=== PATIENT | female | born 1960 | race Caucasian/White ===

== ENCOUNTER 2024-09-20 17:59 | Emergency (ER) | payer OTHER, SELFPAY ==
[2024-09-20 18:46] VITALS: BP 177/93; PULSE 94; RESP 18; TEMP 36.9; O2SAT 99
[2024-09-20 18:47] VITALS: BMI 30.4
--- NOTE | 2024-09-20 19:14 | PD.EDADULT ---
ED General RME/HPI General Chief complaint: Skin/Abscess/Foreign Body Stated complaint: [place] RING STUCK BLISTERS ON FINGER Time Seen by Provider: 09/20/24 19:06 Arrival date/time: 09/20/24 17:59 RME / HPI RME / HPI narrative: This section includes all my notes and documentations, including HPI, PE, and ED course. Mal Ross MD HPI: 64-year-old female here with very tight wedding ring on her left fourth finger since yesterday. Distally, the finger is very swollen with blisters. No other complaints. ROS: Musculoskeletal: negative except as documented in HPI. Skin: negative except as documented in HPI. Neurological: negative except as documented in HPI. Physical Exam: General: Alert and oriented. No acute distress. Eyes: Conjunctivae and lids clear. Lungs: No respiratory distress. Skin: Warm and dry. Neuro: Alert and oriented X 3. Left 4th Finger: Remarkable for very tight ring with multiple blisters, varying in size and shape. Using a ring cutter, the ring was cut off successfully. Recommended supportive care. Based on my best medical judgment, made decision no further evaluation or treatment indicated at this time. Patient understands and agrees to the discharge instructions customized and printed, see below. Mal Ross MD Related Data Home Medications ?Medication ?Instructions ?Recorded ?Confirmed diazepam 10 mg tablet (Valium) 10 mg PO BID ##0 04/10/13 02/04/22 pantoprazole 40 mg tablet,delayed 40 mg PO QDAY ##0 11/21/14 02/04/22 release (Protonix) duloxetine 60 mg capsule,delayed 120 mg PO BID 08/19/18 02/04/22 release gabapentin 300 mg capsule 600 mg PO QDAY 08/19/18 02/04/22 pioglitazone 30 mg tablet 30 mg PO QDAY 08/19/18 02/04/22 pravastatin 40 mg tablet 40 mg PO QDAY 08/19/18 02/04/22 tizanidine 4 mg tablet 4 mg PO BID 08/19/18 02/04/22 insulin glargine 100 unit/mL (3 55 unit subcut QPM 09/20/21 02/04/22 mL) subcutaneous pen (Lantus Solostar U-100 Insulin) lisinopril 5 mg tablet 5 mg PO QDAY 09/20/21 02/04/22 metformin 1,000 mg tablet 1,000 mg PO BID 09/20/21 02/04/22 potassium chloride 8 mEq 8 meq PO QDAY 09/20/21 02/04/22 tablet,extended release trazodone 100 mg tablet 200 mg PO BID 09/20/21 02/04/22 zolpidem 10 mg tablet 10 mg PO QPM 09/20/21 02/04/22 dapagliflozin propanediol 5 mg 5 mg PO QAM 02/04/22 02/04/22 tablet (Farxiga) quetiapine 100 mg tablet (Seroquel) 100 mg PO QPM 02/04/22 02/04/22 Previous Rx's ?Medication ?Instructions ?Recorded tramadol 50 mg tablet 50 mg PO TID PRN pain #20 tabs 09/18/22 Allergies Allergy/AdvReac Type Severity Reaction Status Date / Time garlic Allergy Severe Difficulty Verified 09/20/24 18:04 Breathing onion Allergy Severe Difficulty Verified 09/20/24 18:04 Breathing oregano Allergy Severe Difficulty Verified 09/20/24 18:04 Breathing pepper (genus Capsicum) Allergy Severe Difficulty Verified 09/20/24 18:04 Breathing phenylephrine Allergy Severe SEVER Verified 09/20/24 18:04 ANXIETY, HALLUCINATION adhesive tape Allergy Mild Rash Verified 09/20/24 18:04 oxymetazoline Allergy Unknown Verified 09/20/24 18:04 xylometazoline Allergy Unknown Verified 09/20/24 18:04 ondansetron HCl AdvReac Mild Vomiting Verified 09/20/24 18:04 Course Quality Measures none Vital Signs Vital signs: Vital Signs Temperature 98.5 F 09/20/24 18:46 Pulse Rate 94 09/20/24 18:46 Respiratory Rate 18 09/20/24 18:46 Blood Pressure 177/93 H 09/20/24 18:46 Pulse Oximetry (%) 99 09/20/24 18:46 Oxygen Delivery Method Room Air 09/20/24 18:46 [facility] Patient data External records reviewed:: [facility] previous records Clinical information provided by:: patient and spouse Social determinants that could affect healthcare access:: none Patient has the following chronic illnesses:: See chart How is presenting disease/condition affected by chronic disease/condition?: uneffected by Evaluation data The following diagnostics were reviewed and interpreted by me:: other (specify) (None) Lab and/or radiology exams considered but not ordered:: None Interpretation Summary: Not applicable Medications Medications considered but not ordered:: None Medication administrations:: None Consultations Consultation(s) initiated? (list below): No Diagnosis Differential Diagnosis ED Complaint MDM: Tight ring Most likely diagnosis given after review of the tests above:: Not applicable Admission Indicated Admission indicated?: not indicated Explain why admission is indicated or not indicated:: No criteria for admission Admission Request Was there a request for admission?: No Disposition Plan Disposition Plan: Discharge Discharge Attestation Discharge Attestation: The patient and all family members were given an opportunity to ask questions and understood the discharge instructions. Discharge instructions specifically effects, indications for sooner follow up or return to the emergency department, and the expected course of current diagnosis. Patient condition: Stable Medical Decision Making Differential Diagnosis Differential Diagnosis: Tight ring Discharge Plan Plan Patient Disposition: HOME (Self Care) Prescriptions/Referrals Prescriptions/Med Rec: No Action diazepam [Valium] 10 MG tablet 10 mg PO BID Qty: 0 pantoprazole [Protonix] 40 MG tablet,delayed release (DR/EC) 40 mg PO QDAY Qty: 0 Patient Comments: TO SUPPRESS GASTRIC SECRETIONS pravastatin 40 mg Tablet 40 mg PO QDAY tizanidine 4 mg Tablet 4 mg PO BID gabapentin 300 mg Capsule 600 mg PO QDAY pioglitazone 30 mg Tablet 30 mg PO QDAY duloxetine 60 mg Capsule,Delayed Release(Dr/Ec) 120 mg PO BID potassium chloride 8 mEq tablet extended release 8 meq PO QDAY trazodone 100 mg Tablet 200 mg PO BID metformin 1,000 mg tablet 1,000 mg PO BID lisinopril 5 mg tablet 5 mg PO QDAY Rx Instructions: SBP>140/80 zolpidem 10 mg tablet 10 mg PO QPM Lantus Solostar U-100 Insulin 100 unit/mL (3 mL) insulin pen 55 unit SUBCUT QPM Farxiga 5 mg Tablet 5 mg PO QAM quetiapine [Seroquel] 100 mg Tablet 100 mg PO QPM tramadol 50 mg tablet 50 mg PO TID PRN (Reason: pain) Qty: 20 0RF Problem List Clinical Impression: Tight ring on finger Patient/Caregiver Discharge Instructions Discharge Activity: activity as tolerated Additional Instructions: Discharge instructions from Dr. Ross: 1. Unfortunately, we had to cut your ring off of your left 4th finger. 2. Elevate above the heart for 48 hours is much as possible. Best method is to place the hand on your head. 3. Try not to pop the blisters which can increase risk of infection. 4. See a private doctor on 09/22/2024 for recheck. Ask to help until you are completely better without any infection. 5. Seek immediate medical care with fever, spreading redness, or with any concerns. Print Language: Amharic Stand Alone Forms: Kadie Award Info., Patient Portal Info Letter
== END 2024-09-20 19:31 | disposition home or self-care (01) ==
LOC: SERX 19:19
PROVIDERS: Emergency Provider Emergency Medicine; PCP Family Medicine
DX: S60.444A External constriction of right ring finger, initial encounter (principal); W49.04XA Ring or other jewelry causing external constriction, initial encounter
CPT/HCPCS: 99281

== ENCOUNTER 2024-09-28 15:48 | Inpatient (IN) | payer OTHER, MEDICARE, SELFPAY ==
[2024-09-28] VITALS (27 sets, daily range): BP systolic 91–221; BP diastolic 57–118; PULSE 96–132; RESP 14–29; TEMP 36–36.7; O2SAT 88–100; BMI 30.4
--- NOTE | 2024-09-28 16:33 | XR_ITS ---
Examination: AP chest single view Technique: AP portable sitting chest single view Exam date and time: September 28, 2024 1648 hrs. Comparison September 20, 2021 Indications: Shortness of breath today. Findings: Soft bilateral lung opacities consistent with pneumonia Normal heart size Intact osseous structures Impression: Significant bilateral pneumonia
[2024-09-28] MEDS: SODIUM CHLORIDE RT SOL 0.9% 3 ML NEBU INH ×2 (16:40→19:14)
[2024-09-28] MEDS: ALBUTEROL RT 2.5 MG/0.5 ML NEBU 10 MG INH ×2 (16:41→19:10)
[2024-09-28 16:49] LABS: Collection Type, Urine Catheter
[2024-09-28 16:52] LABS: Basophils % (Auto) 0 % (0-2.5); Eosinophils # (Auto) 0.2 Thou/mm3 (0.0-0.5); Eosinophils % (Auto) 1 % (0-10); Hematocrit 43.8 % (36.0-46.0); Hemoglobin 14.4 g/dL (12.0-16.0); Immature Granulocytes % (Auto) 1 % (0-0); Immature Granulocytes Auto 0.16 Thou/mm3 (0.00-0.00); Lymphocytes # (Auto) 0.9 Thou/mm3 (1.0-4.8); Lymphocytes % (Auto) 5 % (10-50); Mean Corpuscular HGB Conc 32.9 g/dl (31.0-37.0); Mean Corpuscular Hemoglobin 27.7 pg (25.0-35.0); Mean Corpuscular Volume 84 fL (80-100); Monocytes # (Auto) 0.9 Thou/mm3 (0.0-0.8); Monocytes % (Auto) 6 % (0-12); Neutrophils # (Auto) 13.9 Thou/mm3 (1.8-7.7); Neutrophils % (Auto) 87 % (37-80); Nucleated Red Blood Cell % 0 /100 WBC (0); Platelet Count 293 Thou/mm3 (140-440)
[2024-09-28] MEDS: predniSONE 20 MG TABLET 60 MG PO (17:00)
[2024-09-28 17:01] LABS: Lactate (Lactic Acid) 6.8 mMol/L (0.4-2.0)
[2024-09-28] MEDS: SODIUM CHLORIDE 0.9% 1000 ML 1,000 ML 999 ML IV ×3 (17:03→18:14)
[2024-09-28] MEDS: cefTRIAXone/D5w 1gm IV premix 50 ML IV (17:04)
[2024-09-28 17:18] LABS: B-Type Natriuretic Peptide 63 pg/mL (0-100)
[2024-09-28 17:24] LABS: Amorphous Crystals,Urine Present (Absent); Bilirubin,Urine 1+ (Negative); Blood,Urine 1+ (Negative); Color,Urine Yellow (Lt Yel-Yel); Glucose, Urine 3+ (Negative); Granular Casts,Urine 1 /hpf (0-1); Ketones,Urine Trace (Negative); Leukocyte Esterase,Urine Negative (Negative); Nitrite,Urine Negative (Negative); PH,Urine 5.5 (5.0-7.0); Protein,Urine 1+ (Neg - Trace); RBC,Urine 1 /hpf (0-3); Specific Gravity,Urine 1.025 (1.001-1.035); Squamous Epithelial Cell,Urine 2 /hpf (0-5); Transitional Epi Cells,Urine < 1 /hpf (0-5); WBC,Urine 2 /hpf (0-5)
[2024-09-28 17:26] LABS: Clarity,Urine Hazy (Clear/Hazy)
[2024-09-28 17:27] LABS: Amphetamine/Methamp Scrn,U Negative (Negative); Barbiturate Screen,Urine Negative (Negative); Benzodiazepines Screen,Urine Positive (Negative); Benzoylecgonine Screen, Ur Negative (Negative); Fentanyl Screen,Urine Negative (Negative); Opiate Screen,Urine Negative (Negative); THC Screen,Urine Negative (Negative)
[2024-09-28 17:27] LABS: Alanine Aminotransferase 39 U/L (10-49); Albumin/Globulin Ratio 1.7 (1.2-2.2); Alcohol, Blood Medical < 3.0 mg/dL (0-10.0); Alkaline Phosphatase 243 U/L (46-116); Anion Gap 20 (7-16); Aspartate Amino Transferase 56 U/L (0-34); BUN/Creatinine Ratio 23 Ratio (12-20); Bilirubin,Total 2.3 mg/dL (0.3-1.2); Blood Urea Nitrogen 51 mg/dL (9-23); Calcium 7.8 mg/dL (8.3-10.6); Calcium (Corrected) 7.8 mg/dL (8.5-10.1); Carbon Dioxide 22.4 mMol/L (20.0-31.0); Chloride 91 mMol/L (98-107); Creatinine (Component) 2.2 mg/dL (0.6-1.3); Estimated Creatinine Clearance 26.2 mL/min (>60); Globulin 2.4 gm/dL (2.3-3.5); Glucose 347 mg/dL (74-106); Osmolality,Calculated 294 (275-295); Potassium 3.7 mMol/L (3.4-5.1); Procalcitonin 12.65 ng/ml (0.0-0.49); Sodium 133 mMol/L (136-145); Total Protein 6.4 gm/dL (5.7-8.2); Troponin I < 0.020 ng/mL (0.0-0.045); eGFR 25 See Note
--- NOTE | 2024-09-28 17:29 | XR_ITS ---
Examination: CT brain head without contrast. 2-D sagittal coronal reconstructions Date and time of exam:September 28, 20249 hrs. Indications: Altered mental status today Comparison: September 18, 2022 CTDI: vol (mGy):49.80 DLP: (mGycm):1033 Technique: Multiple CT axial sections of the brain have been obtained, 5 mm slice thickness. Contrast has not been administered. 2-D sagittal, coronal reconstructions have been obtained Low dose protocols were performed. One or more of the following dose reduction techniques were used; automated exposure control, adjustment of the mA and/or KV according to patient size, use of iterative reconstruction technique. Findings: No significant ventricular enlargement. Intra-axial or extra-axial hemorrhage density is not seen. No mass effect or midline shift Basal cisterns are not remarkable. Fourth ventricle is midline. Cranial vault intact. Impression: Negative for acute hemorrhage, mass effect or midline shift If symptoms persist, consider brain MRI follow-up
--- NOTE | 2024-09-28 17:30 | PD.EDADULT ---
ED General RME/HPI General Chief complaint: Flu Like Symptoms Stated complaint: COUGH X2WK, FEELS LIKE I CANT BREATHE Time Seen by Provider: 09/28/24 16:28 Arrival date/time: 09/28/24 15:48 RME / HPI RME / HPI narrative: 64-year-old female with a history of chronic pain, asthma, insulin-dependent diabetes, who presents to the emergency department with generalized fatigue, increasing shortness of breath that started off with a cough approximately 3 to 5 days ago. Patient is otherwise lethargic and cannot offer further history, history is primarily given by the . He does note sick contacts and grandchildren's during the holidays, however he feels that his symptoms started with her. She has a history of exercise-induced asthma and has a albuterol inhaler but has not administered dosages to her. She does take methadone nightly of which last night she was too tired to take . When she was last here in the emergency department for a trapped ring on her left finger she did follow-up with Dr Painter 2 days afterwards for the blisters on her finger. Her cough had started that day of which Dr Painter noted. They discussed the possibility of taking oral antibiotics, however she felt she did not need them at that time. Related Data Home Medications ?Medication ?Instructions ?Recorded ?Confirmed diazepam 10 mg tablet (Valium) 10 mg PO BID ##0 04/10/13 02/04/22 pantoprazole 40 mg tablet,delayed 40 mg PO QDAY ##0 11/21/14 02/04/22 release (Protonix) duloxetine 60 mg capsule,delayed 120 mg PO BID 08/19/18 02/04/22 release gabapentin 300 mg capsule 600 mg PO QDAY 08/19/18 02/04/22 pioglitazone 30 mg tablet 30 mg PO QDAY 08/19/18 02/04/22 pravastatin 40 mg tablet 40 mg PO QDAY 08/19/18 02/04/22 tizanidine 4 mg tablet 4 mg PO BID 08/19/18 02/04/22 insulin glargine 100 unit/mL (3 55 unit subcut QPM 09/20/21 02/04/22 mL) subcutaneous pen (Lantus Solostar U-100 Insulin) lisinopril 5 mg tablet 5 mg PO QDAY 09/20/21 02/04/22 metformin 1,000 mg tablet 1,000 mg PO BID 09/20/21 02/04/22 potassium chloride 8 mEq 8 meq PO QDAY 09/20/21 02/04/22 tablet,extended release trazodone 100 mg tablet 200 mg PO BID 09/20/21 02/04/22 zolpidem 10 mg tablet 10 mg PO QPM 09/20/21 02/04/22 dapagliflozin propanediol 5 mg 5 mg PO QAM 02/04/22 02/04/22 tablet (Farxiga) quetiapine 100 mg tablet (Seroquel) 100 mg PO QPM 02/04/22 02/04/22 Previous Rx's ?Medication ?Instructions ?Recorded tramadol 50 mg tablet 50 mg PO TID PRN pain #20 tabs 09/18/22 Allergies Allergy/AdvReac Type Severity Reaction Status Date / Time garlic Allergy Severe Difficulty Verified 09/28/24 15:51 Breathing onion Allergy Severe Difficulty Verified 09/28/24 15:51 Breathing oregano Allergy Severe Difficulty Verified 09/28/24 15:51 Breathing pepper (genus Capsicum) Allergy Severe Difficulty Verified 09/28/24 15:51 Breathing phenylephrine Allergy Severe SEVER Verified 09/28/24 15:51 ANXIETY, HALLUCINATION adhesive tape Allergy Mild Rash Verified 09/28/24 15:51 oxymetazoline Allergy Unknown Verified 09/28/24 15:51 xylometazoline Allergy Unknown Verified 09/28/24 15:51 ondansetron HCl AdvReac Mild Vomiting Verified 09/28/24 15:51 Review of Systems Review of Systems Systems Reviewed: All systems reviewed, normal except as documented ED Exam Narrative Physical exam: GENERAL APPEARANCE: Awake, oriented x 1, lethargic, slow to answer questions and fatigues with questions, mild increased work of breathing HEENT: NC, AT. MMM. EOMI, clear conjunctiva, oropharynx clear. NECK: Supple without lymphadenopathy. No stiffness or restricted ROM. HEART: Normal rate and regular rhythm, normal S1/S1, no m/r/g LUNGS: Diminished breath sounds in all lung lloyd, gill expiratory wheezes, coarse rhonchi, no crackles ABDOMEN: Soft, nontender, nondistended with good bowel sounds heard. BACK: No midline C/T/L spine pain or deformity, No CVAT, no obvious deformity. EXTREMITIES: Without cyanosis, clubbing or edema. MUSCULOSKELETAL: FROM of all major joints, no chest tenderness NEUROLOGICAL: Grossly nonfocal. Alert moving all 4 extremities. CN not formally tested but appear grossly intact. Observed to ambulate with normal gait. Skin: Warm and dry without any rash. Course Quality Measures Current suspected stage: septic shock (LA >4 and/or hypotension) Sepsis reassessment completed at (date): 09/28/24 Sepsis reassessment completed at (time): 17:20 Possible source: pulmonary Blood cultures ordered: yes Antibiotic ordered: Yes Pertinent labs: 09/28/24 16:15 Lactic Acid 6.8 H* mMol/L (0.4-2.0) Procalcitonin 12.65 H ng/ml (0.0-0.49) sepsis Orders Category Date Time Status Bedside COVID-19 Antigen Test NOW Care 09/28/24 16:18 Active Bedside Influenza A&B Antigen Test NOW Care 09/28/24 16:[address] Screening NOW Care 09/28/24 17:30 Active EKG (ED ONLY) *Do not use* NOW Care 09/28/24 16:[address] abd pel w con SEPSIS YOGESH Stat Exams 09/28/24 17:[address] chest w con SEPSIS PROTOCOL Stat Exams 09/28/24 17:[address] head/brain wo con Stat Exams 09/28/24 17:29 Ordered EKG (ED Only) Stat Exams 09/28/24 16:33 Ordered XR chest 1V Stat Exams 09/28/24 16:33 Taken Alcohol, Blood Medical Stat Lab 09/28/24 16:15 Completed BNP [B-Type Natriuretic Peptide] Stat Lab 09/28/24 16:15 Completed Blood Culture (Lab) Stat Lab 09/28/24 16:41 Received CBC Stat Lab 09/28/24 16:15 Completed CMP [Comprehensive Metabolic Panel] Stat Lab 09/28/24 16:15 Completed Drug Screen,Urine Stat Lab 09/28/24 16:39 Completed Lactate (Lactic Acid) Stat Lab 09/28/24 16:15 Results Procalcitonin Stat Lab 09/28/24 16:15 Completed Troponin I Stat Lab 09/28/24 16:15 Completed Urinalysis Stat Lab 09/28/24 16:39 Completed ALBUTEROL RT 0.5ml [Proventil Rt 0.5ml] Med 09/28/24 16:28 Discontinued 10 mg INH X1 ONE Sodium Chloride 0.9% 1000 ml [Ns] 1,000 ml Med 09/28/24 16:28 Discontinued IV 999 mls/hr Sodium Chloride 0.9% 1000 ml [Ns] 1,000 ml Med 09/28/24 17:16 Active IV 999 mls/hr Sodium Chloride Rt Kamille 0.9% [NS Rt Kamille 0.9%] Med 09/28/24 16:28 Active 3 ml INH PRN PRN cefTRIAXone/D5w 1gm IV premix [Rocephin/D5w 1gm IV Med 09/28/24 16:34 Discontinued premix] 50 ml IV X1 predniSONE Med 09/28/24 16:28 Discontinued 60 mg PO X1 ONE Vital Signs Vital signs: Vital Signs Temperature 97.7 F 09/28/24 15:59 Pulse Rate 123 H 09/28/24 15:59 Respiratory Rate 22 H 09/28/24 15:59 Blood Pressure 91/65 09/28/24 15:59 Pulse Oximetry (%) 88 L 09/28/24 15:59 Oxygen Delivery Method Room Air 09/28/24 15:59 SpO2 88% on room air, patient is hypoxic Procedures -ED EKG Interpretation #1: Date of EK09/28/24 Time of EK:21 Rate: 108 Interpretation: Interpreted by me EKG Impression: No acute ST-T changes, Sinus tachycardia, Normal intervals and Normal axis MDM Patient data External records reviewed:: [facility] previous records Clinical information provided by:: patient and spouse Social determinants that could affect healthcare access:: none Patient has the following chronic illnesses:: Chronic pain, asthma How is presenting disease/condition affected by chronic disease/condition?: exacerbated by Evaluation data The following diagnostics were reviewed and interpreted by me:: lab results, radiology exam(s) and EKG tracing(s) Lab and/or radiology exams considered but not ordered:: Workup pending Interpretation Summary: Workup pending Medications Medications considered but not ordered:: Workup pending Medication administrations:: Medication Administration History Sodium Chloride (Ns) 1,000 mls @ 999 mls/hr IV .Q1H1M ONE Stop: 09/28/24 18:16 Sodium Chloride (Sodium Chloride Rt Kamille 0.9% 3 Ml Nebu) 3 ml INH PRN PRN PRN Reason: SOLN Stop: 10/28/24 16:27 Last Admin: 09/28/24 16:40 Dose: 3 ml Documented By: MR Discontinued Medications Albuterol (Albuterol Rt 2.5 Mg/0.5 Ml Nebu) 10 mg INH X1 ONE Stop: 09/28/24 16:29 Last Admin: 09/28/24 16:41 Dose: 10 mg Documented By: Comments: talked with and she is not allergic to albuterol Sodium Chloride (Ns) 1,000 mls @ 999 mls/hr IV .Q1H1M ONE Stop: 09/28/24 17:28 Last Admin: 09/28/24 17:03 Dose: 999 mls/hr Documented By: GM Ceftriaxone Sodium/Dextrose (Rocephin/D5w 1gm Iv Premix) 50 mls @ 100 mls/hr IV X1 ONE Stop: 09/28/24 17:03 Last Admin: 09/28/24 17:04 Dose: 100 mls/hr Documented By: GM Prednisone (Prednisone 20 Mg Tablet) 60 mg PO X1 ONE Stop: 09/28/24 16:29 Last Admin: 09/28/24 17:00 Dose: 60 mg Documented By: J LUIS Above Consultations Consultation(s) initiated? (list below): No Diagnosis Differential Diagnosis ED Complaint MDM: Pneumonia, UTI, sepsis, severe sepsis Most likely diagnosis given after review of the tests above:: Workup pending Admission Indicated Admission indicated?: indicated Explain why admission is indicated or not indicated:: Workup pending Admission Request Was there a request for admission?: No Admission Attestation Admission request attestation: Workup pending Disposition Plan Disposition Plan: other (specify) (Workup pending) Medical Decision Making MDM Narrative MDM Narrative: Ms. Oviedo presents to the emergency department with cough, lethargy, altered mental status for the last week. It seems like symptoms have started off with a cough and has a chronic deterioration since. She had seen her primary care doctor at that time and through shared decision making sounds like they did not start antibiotics. Today she presents with hypotension, rectal temperature, hypoxia, and altered mental status is consistent with severe sepsis. As a result sepsis alert was initiated and aggressive treatment was started. She was aggressively treated with 2 L normal saline boluses with improvement and normalization of her blood pressure. Pulmonary exam shows gill expiratory wheezes and coarse crackles therefore she was aggressively treated with hour-long nebulized bronchodilators and oral steroids. Laboratory testing was significant for a elevated white blood cell count at 16,000, elevated lactic at 6.3, and a procalcitonin of 12. She also does exhibit acute on chronic kidney injury with a creatinine today of 2.2 up from a creatinine of 1.0 done on July 08, 2024. Chest x-ray is poor inspiratory effort, with some faint hazy interstitial markings, however there is not a definitive infiltrate. Blood cultures were sent and she was started on ceftriaxone for pneumonia coverage. Due to her lethargy and altered mental status, head CT will be required, and as a result I feel that she would benefit from CT of the chest abdomen pelvis for further confirm source of infection. Differential Diagnosis Differential Diagnosis: Pneumonia, UTI, sepsis, severe sepsis Lab Data 09/28/24 16:15 09/28/24 16:15 Labs: Lab Results 09/28/24 09/28/24 Range/Units 16:15 16:39 WBC 16.0 H (3.6-11.0) Thou/mm3 RBC 5.20 (4.00-5.20) Miln/mm3 Hgb 14.4 (12.0-16.0) g/dL Hct 43.8 (36.0-46.0) % MCV 84 (80-100) fL MCH 27.7 (25.0-35.0) pg MCHC 32.9 (31.0-37.0) g/dl RDW Std Deviation 43.0 (36.4-46.3) fL Plt Count 293 (140-440) Thou/mm3 Neut % (Auto) 87 H (37-80) % Lymph % (Auto) 5 L (10-50) % Burke % (Auto) 6 (0-12) % Eos % (Auto) 1 (0-10) % Baso % (Auto) 0 (0-2.5) % Neut # (Auto) 13.9 H (1.8-7.7) Thou/mm3 Lymph # (Auto) 0.9 L (1.0-4.8) Thou/mm3 Burke # (Auto) 0.9 H (0.0-0.8) Thou/mm3 Eos # (Auto) 0.2 (0.0-0.5) Thou/mm3 Baso # (Auto) 0.0 (0.0-0.2) Thou/mm3 Immature Gran # (Auto) 0.16 H (0.00-0.00) Thou/mm3 Absolute Nucleated RBC 0.00 (0.00-0.00) Thou/mm3 Immature Gran % 1 H (0-0) % Nucleated RBC % 0 (0) /100 WBC Sodium 133 L (136-145) mMol/L Potassium 3.7 (3.4-5.1) mMol/L Chloride 91 L (98-107) mMol/L Carbon Dioxide 22.4 (20.0-31.0) mMol/L Anion Gap 20 H (7-16) BUN 51 H (9-23) mg/dL Creatinine 2.2 H (0.6-1.3) mg/dL Estim Creat Clear Calc 26.2 L (>60) mL/min eGFR 25 L (60 - ) See Note BUN/Creatinine Ratio 23 H (12-20) Ratio Glucose 347 H (74-106) mg/dL Calculated Osmolality 294 (275-295) Lactic Acid 6.8 H* (0.4-2.0) mMol/L Calcium 7.8 L (8.3-10.6) mg/dL Corrected Calcium 7.8 L (8.5-10.1) mg/dL Total Bilirubin 2.3 H (0.3-1.2) mg/dL AST 56 H (0-34) U/L ALT 39 (10-49) U/L Alkaline Phosphatase 243 H (46-116) U/L Troponin I < 0.020 (0.0-0.045) ng/mL B-Natriuretic Peptide 63 (0-100) pg/mL Total Protein 6.4 (5.7-8.2) gm/dL Albumin 4.0 (3.4-4.8) gm/dL Globulin 2.4 (2.3-3.5) gm/dL Albumin/Globulin Ratio 1.7 (1.2-2.2) Procalcitonin 12.65 H (0.0-0.49) ng/ml Ur Collection Type Catheter Urine Color Yellow (Lt Yel-Yel) Urine Clarity Hazy (Clear/Hazy) Urine pH 5.5 (5.0-7.0) Ur Specific Preston 1.025 (1.001-1.035) Urine Protein 1+ A (Neg - Trace) Urine Glucose (UA) 3+ A (Negative) Urine Ketones Trace (Negative) Urine Blood 1+ A (Negative) Urine Nitrite Negative (Negative) Urine Bilirubin 1+ A (Negative) Urine Urobilinogen (Auto) 4.0 (0.0-1.0) mg/dL Ur Leukocyte Esterase Negative (Negative) Urine RBC 1 (0-3) /hpf Urine WBC 2 (0-5) /hpf Ur Squamous Epith Cells 2 (0-5) /hpf Ur Transition Epith Cell < 1 (0-5) /hpf Amorphous Crystals Present A (Absent) Urine Bacteria None (None) Granular Casts 1 (0-1) /hpf Urine Opiates Screen Negative (Negative) Urine Fentanyl Screen Negative (Negative) Ur Barbiturates Screen Negative (Negative) U Amphetamin/Meth Scrn Negative (Negative) U Benzodiazepines Scrn Positive A (Negative) U Cocaine Metab Screen Negative (Negative) U Marijuana (THC) Screen Negative (Negative) Ethyl Alcohol < 3.0 (0-10.0) mg/dL Critical Care Time Critical Care Time Critical Care Time: Yes Total Critical Care Time (min.): 45 Attestation: Excluding billable procedures for the rapid response, analysis, management, treatment, and documentation to vent the very possible risk of cardiovascular/pulmonary decompensation or . Discharge Plan Plan Patient Disposition: Admit Acute Care w/in Hospital Prescriptions/Referrals Prescriptions/Med Rec: No Action diazepam [Valium] 10 MG tablet 10 mg PO BID Qty: 0 pantoprazole [Protonix] 40 MG tablet,delayed release (DR/EC) 40 mg PO QDAY Qty: 0 Patient Comments: TO SUPPRESS GASTRIC SECRETIONS pravastatin 40 mg Tablet 40 mg PO QDAY tizanidine 4 mg Tablet 4 mg PO BID gabapentin 300 mg Capsule 600 mg PO QDAY pioglitazone 30 mg Tablet 30 mg PO QDAY duloxetine 60 mg Capsule,Delayed Release(Dr/Ec) 120 mg PO BID potassium chloride 8 mEq tablet extended release 8 meq PO QDAY trazodone 100 mg Tablet 200 mg PO BID metformin 1,000 mg tablet 1,000 mg PO BID lisinopril 5 mg tablet 5 mg PO QDAY Rx Instructions: SBP>140/80 zolpidem 10 mg tablet 10 mg PO QPM Lantus Solostar U-100 Insulin 100 unit/mL (3 mL) insulin pen 55 unit SUBCUT QPM Farxiga 5 mg Tablet 5 mg PO QAM quetiapine [Seroquel] 100 mg Tablet 100 mg PO QPM tramadol 50 mg tablet 50 mg PO TID PRN (Reason: pain) Qty: 20 0RF Referrals: Finn Painter MD [Primary Care Provider] - In 1 week Problem List Clinical Impression: Severe sepsis, Hypoxia, RAD (reactive airway disease) Patient/Caregiver Discharge Instructions Print Language: Mauritanian Stand Alone Forms: Kadie Award Info., Patient Portal Info Letter
--- NOTE | 2024-09-28 17:50 | XR_ITS ---
Examination: CT chest, without intravenous contrast. CT abdomen, without intravenous contrast. CT pelvis, without intravenous contrast. 2-D sagittal and coronal reconstructions. 3-D reconstructions. Date and time of exam:September 28, 2024 2049 hrs. Indications: Sepsis protocol today, fever unknown origin CTDI vol (mgy) 12.81 DLP (MGycm)943 Technique: Multiple CT images, 3.0 mm slice thickness, obtained chest, abdomen, pelvis, with the high-resolution 64 slice scanner.. Sagittal and coronal 2-D reconstructions are obtained. 3-D reconstructions Low dose protocols were performed. One or more of the following dose reduction techniques were used; automated exposure control, adjustment of the mA and/or KV according to patient size, use of iterative reconstruction technique. Findings: No thoracic aortic aneurysm dilatation Pulmonary artery segments are not enlarged Extensive soft parenchymal opacities throughout both lungs Fatty infiltration throughout the liver, no liver or splenic lesion Absent gallbladder Atrophic pancreas No renal or ureteral calculi, no hydronephrosis Aortic calcification Abundant stool throughout the colon no obstruction No pericecal inflammatory change Colonic diverticulosis, no diverticulitis Moderately fluid distended bladder Impression: Extensive bilateral pneumonia No renal or ureteral calculi, no hydronephrosis Moderate stool throughout the colon
[2024-09-28] MEDS: LORazepam 2 MG/ML VIAL IVP (18:42)
--- NOTE | 2024-09-28 18:46 | PD.EDADDENDU ---
Emergency Room Addendum <Morelia Wilkins - Last Filed: 09/28/24 22:04> Addendum Narrative: 1800: Care assumed from Dr. Hopson, the previous shift emergency physician. Past medical, surgical, social and family history reviewed. Vitals and home medications reviewed. I will assume the care of the patient at this time, pending diagnostic tests and final disposition. Please refer to the emergency department record for history and examination from initial visit.? Called to bedside patient agitated and hypoxic, hypertensive 200s/100s. Skin mottled. Breath sounds upper airway noise and coarse crackles throughout. O2 sat 80s on 5 L nasal cannula. Stat orders patient placed on nonrebreather at 15 L, Lasix 40 mg IV, Nitropaste 1 inch anterior chest, BiPAP. Patient reevaluated post interventions saturating 97% on BiPAP, skin no longer mottled, appears comfortable. Stable. CRITICAL CARE: TIME: 60 minutes. The high probability of sudden, clinically significant deterioration in the patient?s condition required the highest level of my preparedness to intervene urgently. The services I provided to this patient were to treat and/or prevent clinically significant deterioration. Services included the following: chart data review, reviewing nursing notes and/or old charts, documentation time, datapower consultant collaboration regarding findings and treatment options, medication orders and management, direct patient care, vital sign assessments and ordering, interpreting and reviewing diagnostic studies and lab tests. Aggregate critical care time includes only time during which I was engaged in work directly related to the patient?s care, as described above, whether at bedside or elsewhere in the Emergency Department. It did not include time spent performing other reported procedures or the services of residents, students, nurses or physician assistants. RADIOLOGY Procedure(s): XR chest 1V Accession Number(s): [id number] cc: Finn Painter MD; Adán Hopson MD; Choco Arteaga MD~ Examination: AP chest single view Technique: AP portable sitting chest single view Exam date and time: September 28, 2024 1648 hrs. Comparison September 20, 2021 Indications: Shortness of breath today. Findings: Soft bilateral lung opacities consistent with pneumonia Normal heart size Intact osseous structures Impression: Significant bilateral pneumonia Dictated By: Choco Arteaga MD Procedure(s): CT head/brain wo con Accession Number(s): [id number] cc: Finn Painter MD; Adán Hopson MD; Choco Arteaga MD~ Examination: CT brain head without contrast. 2-D sagittal coronal reconstructions Date and time of exam:September 28, 2024 2039 hrs. Indications: Altered mental status today Comparison: September 18, 2022 CTDI: vol (mGy):49.80 DLP: (mGycm):1033 Technique: Multiple CT axial sections of the brain have been obtained, 5 mm slice thickness. Contrast has not been administered. 2-D sagittal, coronal reconstructions have been obtained Low dose protocols were performed. One or more of the following dose reduction techniques were used; automated exposure control, adjustment of the mA and/or KV according to patient size, use of iterative reconstruction technique. Findings: No significant ventricular enlargement. Intra-axial or extra-axial hemorrhage density is not seen. No mass effect or midline shift Basal cisterns are not remarkable. Fourth ventricle is midline. Cranial vault intact. Impression: Negative for acute hemorrhage, mass effect or midline shift If symptoms persist, consider brain MRI follow-up Dictated By: Choco Arteaga MD Procedure(s): CT chest abdomen pelvis wo Accession Number(s): [id number] cc: Finn Painter MD; Adán Hopson MD; Choco Arteaga MD~ Examination: CT chest, without intravenous contrast. CT abdomen, without intravenous contrast. CT pelvis, without intravenous contrast. 2-D sagittal and coronal reconstructions. 3-D reconstructions. Date and time of exam:September 28, 2024 2049 hrs. Indications: Sepsis protocol today, fever unknown origin CTDI vol (mgy) 12.81 DLP (MGycm)943 Technique: Multiple CT images, 3.0 mm slice thickness, obtained chest, abdomen, pelvis, with the high-resolution 64 slice scanner.. Sagittal and coronal 2-D reconstructions are obtained. 3-D reconstructions Low dose protocols were performed. One or more of the following dose reduction techniques were used; automated exposure control, adjustment of the mA and/or KV according to patient size, use of iterative reconstruction technique. Findings: No thoracic aortic aneurysm dilatation Pulmonary artery segments are not enlarged Extensive soft parenchymal opacities throughout both lungs Fatty infiltration throughout the liver, no liver or splenic lesion Absent gallbladder Atrophic pancreas No renal or ureteral calculi, no hydronephrosis Aortic calcification Abundant stool throughout the colon no obstruction No pericecal inflammatory change Colonic diverticulosis, no diverticulitis Moderately fluid distended bladder Impression: Extensive bilateral pneumonia No renal or ureteral calculi, no hydronephrosis Moderate stool throughout the colon Dictated By: Choco Arteaga MD <Tessa Tejeda MD - Last Filed: 10/07/24 22:02> Addendum Narrative: 1800: Care assumed from Dr. Hopson, the previous shift emergency physician. Past medical, surgical, social and family history reviewed. Vitals and home medications reviewed. I will assume the care of the patient at this time, pending diagnostic tests and final disposition. Please refer to the emergency department record for history and examination from initial visit.? Called to bedside patient agitated and hypoxic, hypertensive 200s/100s. Skin mottled. Breath sounds upper airway noise and coarse crackles throughout. O2 sat 80s on 5 L nasal cannula. Stat orders patient placed on nonrebreather at 15 L, Lasix 40 mg IV, Nitropaste 1 inch anterior chest, BiPAP. Patient reevaluated post interventions saturating 97% on BiPAP, skin no longer mottled, appears comfortable. Stable. <Dat Márquez - Last Filed: 09/29/24 05:49> Addendum Narrative: 1800: Care assumed from Dr. Hopson, the previous shift emergency physician. Past medical, surgical, social and family history reviewed. Vitals and home medications reviewed. I will assume the care of the patient at this time, pending diagnostic tests and final disposition. Please refer to the emergency department record for history and examination from initial visit.? Called to bedside patient agitated and hypoxic, hypertensive 200s/100s. Skin mottled. Breath sounds upper airway noise and coarse crackles throughout. O2 sat 80s on 5 L nasal cannula. Stat orders patient placed on nonrebreather at 15 L, Lasix 40 mg IV, Nitropaste 1 inch anterior chest, BiPAP. Patient reevaluated post interventions saturating 97% on BiPAP, skin no longer mottled, appears comfortable. Stable. 2349 Hospitalist made aware of the patient?s HPI, PMHx, lab and/or radiology results. Treatment plan was discussed. Will admit for further evaluation and management. Accepts patient for admission. CRITICAL CARE: TIME: 60 minutes. The high probability of sudden, clinically significant deterioration in the patient?s condition required the highest level of my preparedness to intervene urgently. The services I provided to this patient were to treat and/or prevent clinically significant deterioration. Services included the following: chart data review, reviewing nursing notes and/or old charts, documentation time, datapower consultant collaboration regarding findings and treatment options, medication orders and management, direct patient care, vital sign assessments and ordering, interpreting and reviewing diagnostic studies and lab tests. Aggregate critical care time includes only time during which I was engaged in work directly related to the patient?s care, as described above, whether at bedside or elsewhere in the Emergency Department. It did not include time spent performing other reported procedures or the services of residents, students, nurses or physician assistants. RADIOLOGY Procedure(s): XR chest 1V Accession Number(s): [id number] cc: Finn Painter MD; Adán Hopson MD; Choco Arteaga MD~ Examination: AP chest single view Technique: AP portable sitting chest single view Exam date and time: September 28, 2024 1648 hrs. Comparison September 20, 2021 Indications: Shortness of breath today. Findings: Soft bilateral lung opacities consistent with pneumonia Normal heart size Intact osseous structures Impression: Significant bilateral pneumonia Dictated By: Choco Arteaga MD Procedure(s): CT head/brain wo con Accession Number(s): [id number] cc: Finn Painter MD; Adán Hopson MD; Choco Arteaga MD~ Examination: CT brain head without contrast. 2-D sagittal coronal reconstructions Date and time of exam:September 28, 2024 2039 hrs. Indications: Altered mental status today Comparison: September 18, 2022 CTDI: vol (mGy):49.80 DLP: (mGycm):1033 Technique: Multiple CT axial sections of the brain have been obtained, 5 mm slice thickness. Contrast has not been administered. 2-D sagittal, coronal reconstructions have been obtained Low dose protocols were performed. One or more of the following dose reduction techniques were used; automated exposure control, adjustment of the mA and/or KV according to patient size, use of iterative reconstruction technique. Findings: No significant ventricular enlargement. Intra-axial or extra-axial hemorrhage density is not seen. No mass effect or midline shift Basal cisterns are not remarkable. Fourth ventricle is midline. Cranial vault intact. Impression: Negative for acute hemorrhage, mass effect or midline shift If symptoms persist, consider brain MRI follow-up Dictated By: Choco Arteaga MD Procedure(s): CT chest abdomen pelvis wo Accession Number(s): [id number] cc: Finn Painter MD; Adán Hopson MD; Choco Arteaga MD~ Examination: CT chest, without intravenous contrast. CT abdomen, without intravenous contrast. CT pelvis, without intravenous contrast. 2-D sagittal and coronal reconstructions. 3-D reconstructions. Date and time of exam:September 28, 2024 2049 hrs. Indications: Sepsis protocol today, fever unknown origin CTDI vol (mgy) 12.81 DLP (MGycm)943 Technique: Multiple CT images, 3.0 mm slice thickness, obtained chest, abdomen, pelvis, with the high-resolution 64 slice scanner.. Sagittal and coronal 2-D reconstructions are obtained. 3-D reconstructions Low dose protocols were performed. One or more of the following dose reduction techniques were used; automated exposure control, adjustment of the mA and/or KV according to patient size, use of iterative reconstruction technique. Findings: No thoracic aortic aneurysm dilatation Pulmonary artery segments are not enlarged Extensive soft parenchymal opacities throughout both lungs Fatty infiltration throughout the liver, no liver or splenic lesion Absent gallbladder Atrophic pancreas No renal or ureteral calculi, no hydronephrosis Aortic calcification Abundant stool throughout the colon no obstruction No pericecal inflammatory change Colonic diverticulosis, no diverticulitis Moderately fluid distended bladder Impression: Extensive bilateral pneumonia No renal or ureteral calculi, no hydronephrosis Moderate stool throughout the colon Dictated By: Choco Arteaga MD
[2024-09-28] MEDS: FUROSEMIDE INJ 10 MG/ML 4ML VIAL 40 MG IVP (19:06)
[2024-09-28] MEDS: NITROGLYCERIN OINT 2% 1 INCH PACKET TOP (19:07)
[2024-09-28] MEDS: IPRATROPIUM RT 0.5 MG/ 2.5 ML NEBU INH (19:10)
[2024-09-28 19:47] LABS: Reflex Lactate? Y
[2024-09-28 20:16] LABS: Lactic Acid, 3 HR 8.1 mMol/L (0.4-2.0)
[2024-09-28] MEDS: AZITHROMYCIN INJ 500 MG in SODIUM CHLORIDE 0.9% 250 ML 250 ML 250 MG IV (22:52)
[2024-09-29] VITALS (55 sets, daily range): BP systolic 119–190; BP diastolic 66–137; PULSE 72–173; RESP 10–33; TEMP 36.2–37.1; O2SAT 87–100
[2024-09-29 00:09] LABS: Base Excess -7 (-3-3); HCO3 20 mEq/L (20-26); Inspired Oxygen, FIO2 70 %; O2 Saturation 92 % (91-98); PCO2 42 mmHg (32.0-48.0); PO2 72 mmHg (83-108); pH, Arterial 7.29 (7.35-7.45)
[2024-09-29 00:15] LABS: Allen Test Performed/OK; Puncture Site Left Radial
[2024-09-29 00:26] LABS: Lactate (Lactic Acid) 8.4 mMol/L (0.4-2.0)
[2024-09-29] MEDS: INSULIN HUM REGULAR 1 UNIT/0.01 ML (PER UNIT) 5 UNIT IV (00:34)
[2024-09-29] MEDS: SODIUM CHLORIDE 0.9% 1000 ML 1,000 ML 80 ML IV (00:35)
[2024-09-29] MEDS: SODIUM CHLORIDE RT 10% 15 ML NEBU 5 ML INH (00:39)
--- NOTE | 2024-09-29 00:39 | XR_ITS ---
Examination: Abdomen sonogram, Limited Date and time of exam: September 29, 2024 at 0117 hrs. Indications: Shortness of breath abdominal pain and tenderness in the right upper abdomen note is beginning one week ago Technique: Real-time brice scale transabdominal sonographic images of the upper abdomen obtained. Findings: Absent gallbladder Normal common bile duct 0.3 cm Pancreas obscured by bowel gas Liver 19.9 cm lobular contour no focal liver lesions Normal hepatopedal portal venous flow Patent IVC Impression: Absent gallbladder Normal common bile duct Hepatomegaly, primary hepatocellular disease versus cirrhosis no focal liver lesions
--- NOTE | 2024-09-29 00:42 | ESHP_ITS ---
Documentation for date of: 09/29/24 [facility] History of Present Illness History of present illness: The patient is a 65-year-old female with a past medical history of hypertension, hyperlipidemia, diabetes, chronic pain who presented to the ED for generalized weakness, cough that started about 4 days ago. Patient at time of interview is lethargic (possibly due to Ativan that was received for agitation) and is not at bedside and most of the history is gathered from chart review from the ED. Per the ED, the mentions that patient had some sick contacts during the holidays, however only she has had symptoms. There is no history of recent hospitalizations or illnesses apart from the ED visits about a week ago for tremoring to the left finger and blisters. The patient does report that her cough has been productive with whitish sputum with occasional shortness of breath but denied hemoptysis, chest pain, fevers or chills, abdominal pain, dysuria. ED course: In the ED, patient was noted to be hypoxic, saturating 88% on room air and so she was placed on BiPAP, she was also tachypneic but normotensive and afebrile. Labs showed WBC 16 Hgb 14.4 PLT 293 NA 130 3K3.7 CL 91 bicarb 22.4 anion gap 20 BUN 51 CR 2.2 glucose 347 lactic acid 6.8. Calcium 7.8 mag 1 T. bili 2.3 AST 56 ALP 243 Pro-Doyle 12.65. UA showed 1+ protein, 3+ glucose trace ketones 1+ bili, otherwise unremarkable. U tox is positive for benzos. In the ED, the patient had a COVID test done which was negative and received 2 L of NS as well as ceftriaxone and azithromycin, prednisone 60 mg and breathing treatments. Chest x-ray was done which showed significant bilateral pneumonia. The patient is being admitted for sepsis secondary to pneumonia. Review of Systems Review of Systems ROS Unobtainable: unobtainable due to medical condition Exam Vital Signs Temp Pulse Resp BP Pulse Ox O2 Del Method O2 Flow Rate 98.1 F 98 20 127/77 95 CPAP 8 09/28/24 22:49 09/28/24 22:49 09/28/24 22:49 09/28/24 22:49 09/28/24 23:53 09/28/24 22:49 09/28/24 23:53 FiO2 80 09/28/24 22:15 Narrative Exam GENERAL: AAOX3, lethargic, able to respond to questions and follow commands but slowly NEURO: RO[employer]ED [employer] grossly intact, moves extremities x4 HEENT: Dry mucosa. Eyes open, symmetrical, & clear CARDIO: No chest pain on palpation. Heart RRR, no obvious murmurs PULM: No noted coughing/dyspnea. Some diminishes lung souds in the right base, no wheezing GI: Abdomen soft, nondistended, no pain on palpation. 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 SKIN/MSK/EXT: No wounds/rashes/edema/amputations, no pain on palpation. Pedal pulses present B/L Results: Labs 09/28/24 16:15 09/28/24 16:15 Labs: Short CBC 09/28/24 Range/Units 16:15 WBC 16.0 H (3.6-11.0) Thou/mm3 Hgb 14.4 (12.0-16.0) g/dL Hct 43.8 (36.0-46.0) % Plt Count 293 (140-440) Thou/mm3 BMP 09/28/24 16:15 Sodium 133 L Potassium 3.7 Chloride 91 L Carbon Dioxide 22.4 BUN 51 H Creatinine 2.2 H Glucose 347 H Calcium 7.8 L Cardiac Enzymes 09/28/24 Range/Units 16:15 Troponin I < 0.020 (0.0-0.045) ng/mL Liver Function 09/28/24 Range/Units 16:15 Total Bilirubin 2.3 H (0.3-1.2) mg/dL AST 56 H (0-34) U/L ALT 39 (10-49) U/L Alkaline Phosphatase 243 H (46-116) U/L Albumin 4.0 (3.4-4.8) gm/dL Urine 09/28/24 Range/Units 16:39 Urine Color Yellow (Lt Yel-Yel) Urine Clarity Hazy (Clear/Hazy) Urine pH 5.5 (5.0-7.0) Ur Specific [place] 1.025 (1.001-1.035) Urine Protein 1+ A (Neg - Trace) Urine Glucose (UA) 3+ A (Negative) ABG Interpretation ABG results: 09/29/24 00:03 ABG pH 7.29 L ABG pCO2 42 ABG pO2 72 L ABG HCO3 20 ABG O2 Saturation 92 ABG Base Excess -7 L Quality Measures Quality Measures sepsis Current suspected stage: severe sepsis Possible source: pulmonary Blood cultures ordered: yes Antibiotic ordered: Yes Medications Home Medications and Allergies Home Medications ?Medication ?Instructions ?Recorded ?Confirmed ?Type diazepam 10 mg tablet (Valium) 10 mg PO BID ##0 04/10/13 09/29/24 History pantoprazole 40 mg tablet,delayed 40 mg PO QDAY ##0 11/21/14 09/29/24 History release (Protonix) duloxetine 60 mg capsule,delayed 120 mg PO BID 08/19/18 09/29/24 History release gabapentin 300 mg capsule 600 mg PO QDAY 08/19/18 09/29/24 History pioglitazone 30 mg tablet 30 mg PO QDAY 08/19/18 09/29/24 History pravastatin 40 mg tablet 40 mg PO QDAY 08/19/18 09/29/24 History tizanidine 4 mg tablet 4 mg PO BID 08/19/18 09/29/24 History insulin glargine 100 unit/mL (3 55 unit subcut QPM 09/20/21 09/29/24 History mL) subcutaneous pen (Lantus Solostar U-100 Insulin) lisinopril 5 mg tablet 5 mg PO QDAY 09/20/21 09/29/24 History metformin 1,000 mg tablet 1,000 mg PO BID 09/20/21 09/29/24 History potassium chloride 8 mEq 8 meq PO QDAY 09/20/21 09/29/24 History tablet,extended release trazodone 100 mg tablet 200 mg PO BID 09/20/21 09/29/24 History zolpidem 10 mg tablet 10 mg PO QPM 09/20/21 09/29/24 History dapagliflozin propanediol 5 mg 5 mg PO QAM 02/04/22 09/29/24 History tablet (Farxiga) quetiapine 100 mg tablet (Seroquel) 100 mg PO QPM 02/04/22 09/29/24 History donepezil 5 mg tablet mg 09/29/24 History methadone 10 mg tablet mg 09/29/24 History methadone 10 mg tablet mg 09/29/24 History rosuvastatin 5 mg tablet mg 09/29/24 History solifenacin 5 mg tablet mg PO 09/29/24 09/29/24 History Allergies Allergy/AdvReac Type Severity Reaction Status Date / Time garlic Allergy Severe Difficulty Verified 09/28/24 15:51 Breathing onion Allergy Severe Difficulty Verified 09/28/24 15:51 Breathing oregano Allergy Severe Difficulty Verified 09/28/24 15:51 Breathing pepper (genus Capsicum) Allergy Severe Difficulty Verified 09/28/24 15:51 Breathing phenylephrine Allergy Severe SEVER Verified 09/28/24 15:51 ANXIETY, HALLUCINATION adhesive tape Allergy Mild Rash Verified 09/28/24 15:51 oxymetazoline Allergy Unknown Verified 09/28/24 15:51 xylometazoline Allergy Unknown Verified 09/28/24 15:51 ondansetron HCl AdvReac Mild Vomiting Verified 09/28/24 15:51 Visit Medications Acetaminophen (Acetaminophen 325 Mg Tablet) 650 mg PO Q6H PRN PRN Reason: Pain (1-3) or Fever >100.3 Stop: 10/28/24 23:25 Azithromycin (Azithromycin 250 Mg Tablet) 250 mg PO DAILY@2100 [facility] Stop: 10/06/24 20:59 Dextrose (Dextrose 50%-Water Inj 50 Ml Syringe) 25 ml IV Q15MIN PRN PRN Reason: BG 50-70 responsive npo pt Stop: 10/28/24 23:33 Dextrose (Dextrose 50%-Water Inj 50 Ml Syringe) 50 ml IV Q15MIN PRN PRN Reason: BG <50 OR BG <70 & pt unresponsive Stop: 10/28/24 23:33 Glucagon (Glucagon Inj 1 Mg Vial) 1 mg IM Q15MIN PRN PRN Reason: BG <70, and no IV access Heparin Sodium (Porcine) (Heparin Sod Inj 5000 Unit/Ml Vial) 5,000 unit SC Q12HR [facility] Stop: 10/13/24 08:59 Ceftriaxone Sodium/Dextrose (Rocephin/D5w 1gm Iv Premix) 50 mls @ 100 mls/hr IV DAILY@2100 [facility] Stop: 10/06/24 20:59 Sodium Chloride (Ns) 1,000 mls @ 80 mls/hr IV .[id number] ONE Stop: 09/29/24 13:00 Last Admin: 09/29/24 00:35 Dose: 80 mls/hr Insulin Human Lispro (Insulin Lispro (Admelog) 1 Unit/0.01 Ml Unit) 0 unit SC [facility]; Protocol Stop: 10/29/24 07:29 Ondansetron HCl (Ondansetron Inj 2 Mg/Ml Inj 2 Ml) 4 mg IV Q6H PRN; Protocol PRN Reason: NAUSEA OR VOMITING Stop: 10/28/24 23:25 Sennosides (Senna Tablet) 1 tab PO QDAY [facility]; Protocol Stop: 10/29/24 08:59 Sodium Chloride (Sodium Chloride Rt [place] 0.9% 3 Ml Nebu) 3 ml INH PRN PRN PRN Reason: SOLN Stop: 10/28/24 16:27 Last Admin: 09/28/24 19:14 Dose: 3 ml Sodium Chloride (Sodium Chloride Rt [place] 0.9% 3 Ml Nebu) 3 ml INH PRN PRN PRN Reason: SOLN Stop: 10/28/24 18:36 Sodium Chloride (Sodium Chloride Rt [place] 0.9% 3 Ml Nebu) 3 ml INH PRN PRN PRN Reason: SOLN Stop: 10/28/24 18:36 Discontinued Medications Albuterol (Albuterol Rt 2.5 Mg/0.5 Ml Nebu) 10 mg INH X1 ONE Stop: 09/28/24 16:29 Last Admin: 09/28/24 16:41 Dose: 10 mg Albuterol (Albuterol Rt 2.5 Mg/0.5 Ml Nebu) 10 mg INH X1 ONE Stop: 09/28/24 18:38 Last Admin: 09/28/24 19:10 Dose: 10 mg Furosemide (Furosemide Inj 10 Mg/Ml 4ml Vial) 40 mg IVP X1 ONE Stop: 09/28/24 18:59 Last Admin: 09/28/24 19:06 Dose: 40 mg Sodium Chloride (Ns) 1,000 mls @ 999 mls/hr IV .Q1H1M ONE Stop: 09/28/24 17:28 Last Infusion: 09/28/24 18:05 Dose: Infused Ceftriaxone Sodium/Dextrose (Rocephin/D5w 1gm Iv Premix) 50 mls @ 100 mls/hr IV X1 ONE Stop: 09/28/24 17:03 Last Infusion: 09/28/24 17:38 Dose: Infused Sodium Chloride (Ns) 1,000 mls @ 999 mls/hr IV .Q1H1M ONE Stop: 09/28/24 18:16 Last Infusion: 09/28/24 18:40 Dose: Infused Sodium Chloride (Ns) 1,000 mls @ 999 mls/hr IV .Q1H1M ONE Stop: 09/28/24 18:51 Last Infusion: 09/28/24 19:20 Dose: Infused Azithromycin 500 mg/ Sodium (Chloride) 250 mls @ 250 mls/hr IV X1 ONE Stop: 09/28/24 23:40 Last Infusion: 09/28/24 23:54 Dose: Infused Sodium Chloride (Ns) 500 mls @ 125 mls/hr IV .Q4H [facility] Stop: 10/29/24 00:29 Insulin Human Lispro (Insulin Lispro (Admelog) 1 Unit/0.01 Ml Unit) 0 unit SC [facility]; Protocol Stop: 10/29/24 07:29 Insulin Human Regular (Insulin Hum Regular 1 Unit/0.01 Ml (Per Unit)) 5 unit IV X1 ONE Stop: 09/29/24 00:12 Last Admin: 09/29/24 00:34 Dose: 5 unit Ipratropium [place] (Ipratropium Rt 0.5 Mg/ 2.5 Ml Nebu) 0.5 mg INH X1 ONE Stop: 09/28/24 18:38 Last Admin: 09/28/24 19:10 Dose: 0.5 mg Lorazepam (Lorazepam 2 Mg/Ml Vial) 2 mg IVP X1 ONE Stop: 09/28/24 17:52 Last Admin: 09/28/24 18:42 Dose: 2 mg Nitroglycerin (Nitroglycerin Oint 2% 1 Inch Packet) 1 inch TOP X1 ONE Stop: 09/28/24 18:58 Last Admin: 09/28/24 19:07 Dose: 1 inch Prednisone (Prednisone 20 Mg Tablet) 60 mg PO X1 ONE Stop: 09/28/24 16:29 Last Admin: 09/28/24 17:00 Dose: 60 mg Sodium Chloride (Sodium Chloride Rt 10% 15 Ml Nebu) 5 ml INH X1 ONE Stop: 09/28/24 23:27 Last Admin: 09/29/24 00:39 Dose: 5 ml Assessment & Plan Plan Summary: Patient is a 65-year-old female with a past medical history of hypertension, hyperlipidemia, diabetes, chronic pain presents to the ED for generalized weakness and cough that started about 4 days ago. She has been admitted for sepsis secondary to pneumonia. #Severe sepsis, likely secondary to CAP #Community acquired pneumonia The patient presented with 4-day history of generalized weakness and cough which is described as productive with whitish sputum, no episodes of hemoptysis, occasionally associated with shortness of breath. On admission to the ED, the patient was noted to be hypoxic, saturating 80% on room air and was placed on BiPAP, she was also tachypneic but normotensive and afebrile. Labs are significant for leukocytosis of 16, bicarb of 22.4 with lactic acidosis of 6.8 initially which is up trended to 8.4 and procalcitonin of 12.65. UA was negative for UTI and chest x-ray showed significant bilateral pneumonia. COVID- 19 test was negative. Influenza A&B also negative. CMP showed an JOSY, possible endorgan damage from sepsis. The patient received 2 L of NS bolus in the ED, was started on IV ceftriaxone and azithromycin and weaned off BiPAP and placed on oxy mask. ABG was done which showed a pH of 7.29 with a pCO2 42. Plan: -Admit to med telemetry -Trend lactic acid -1 L NS bolus and then continue maintenance at 75 cc/h -IV ceftriaxone and azithromycin -Blood and sputum cultures -Monitor CBC #Anion gap metabolic acidosis #Lactic acidosis #Possible starvation ketosis Admitting labs showed bicarb of 23.4 with lactic acid of 6.8 up trended to 8.4. Glucose on admission was 347. UA showed 3+ glucose but only trace ketones. Plan: -Trend lactic acid -IV fluids -Beta hydroxybutyrate #Acute kidney injury #Mild hyponatremia #Hypomagnesemia Admitting labs showed BUN of 51 and creatinine of 2.2, baseline has been about 1.0. On examination, patient does look dehydrated. Admission sodium-133, Mag- 1.0 Plan: -Continue IV fluids -IV Mg 4gm -Avoid nephrotoxic medications -Renally dose all medications -Monitor CMP #Hyperbilirubinemia Bilirubin on admission was 2.3 with ALP of 243. CT abdomen and pelvis was done showed an absent gallbladder. Patient has abdominal pain or fever and is anicteric. Plan: -Ordered ultrasound gallbladder to rule out stone in the CBD #History of hypertension Patient at home takes lisinopril 5 mg daily. Blood pressure currently 166/80 -Will restart home meds #History of diabetes The patient takes Farxiga 5 mg, insulin Lantus 55 units, metformin 1 g. Glucose at the moment 409 A1c 10.6 Plan: -IV insulin 5 units x 1 -ISS -Blood glucose check AC -Hypoglycemia protocols in place #History of chronic pain Patient reports having a history of chronic pain and is on multiple medications: Duloxetine, gabapentin, tizanidine, tramadol, methadone She does not respon well to opioids Plan: -Restarted duloxetine and tramadol, methadone PRN -Consider restarting other medications or adjusting when patient is more awake. #History of major depressive disorder The patient is on quetiapine, trazodone. -Consider restarting home meds when more awake. Health maintenance: Dispo: Med[facility] Diet: Carb consistent low once swllow eval passed DVT: SC Heparin Med Rec: Completed PT: Not ordered Code: Full Case was discussed with attending physician, Dr Slime Fuller MD PGY-1 Attending Provider Attestation/Addendum 65-year-old female was admitted for shortness of breath tachypnea cough. Patient's chest x-ray showed bilater pneumonia. She has elevated BUN and creatinine. Her white count 16,000. She had high lactic acid. Patient will be admitted for severe sepsis secondary to bilateral community-acquired pneumonia probably bacterial. The patient was started on IV antibiotic including ceftriaxone and azithromycin. The patient is hypoxic currently requiring BiPAP. She will need close monitoring. Past medical history significant for diabetes, hypertension, hyperlipidemia and chronic pain syndrome.
[2024-09-29 00:46] LABS: Beta Hydroxybutyrate 0.2 mmol/L (<0.6)
[2024-09-29] MEDS: SODIUM CHLORIDE 0.9% 1000 ML 1,000 ML 75 ML IV (00:52)
[2024-09-29] MEDS: SODIUM CHLORIDE 0.9% 1000 ML 1,000 ML 999 ML IV (00:53)
[2024-09-29 00:54] LABS: Glucose Estimated Average 258 mg/dL (80-131); Hemoglobin A1C 10.6 % Hgb (4.8-6.0)
[2024-09-29] MEDS: traMADol HCL 50 MG TABLET PO (01:54)
--- NOTE | 2024-09-29 02:45 | PRELIM_ITS ---
Gallbladder ultrasound. September 29, 2024 at 0117 hours-Preliminary report Clinical history: Rule out stone in CBD. Shortness of breath, coughing x1 week. No prior study is available for comparison. Abhijeet hughes:The evaluation is limited due to overlying bowel gas and unable to take deep breath. The liver is enlarged, measuring 19.9 cm with lobular contour. No intrahepatic biliary ductal dilatation. The m ain portal vein is patent and demonstrates hepatopetal flow. The gallbladder is surgically absent. Th e common duct is normal in caliber at 3 mm. No free fluid is demonstrated on the submitted images. Th e pancreas is not visualized, due to obscured by bowel gas. The inferior vena cava is unremarkable to the extent visualized. Impression:Limited evaluation as described. Post cholecystectomy. No fluid co llection in the gallbladder fossa. No evidence of biliary dilatation.Hepatomegaly with lobular conto ur. Report Electronically Signed By: Lazaro Guerra 09/29/2024 2:58:43 AM [EST]
[2024-09-29] MEDS: DULoxetine HCL 30 MG CAPSULE 60 MG PO ×3 (02:53→21:15)
[2024-09-29 03:17] LABS: Reflex Lactate? Y
[2024-09-29 03:41] LABS: Lactic Acid, 3 HR 5.4 mMol/L (0.4-2.0)
[2024-09-29 04:39] LABS: Basophils % (Auto) 0 % (0-2.5); Eosinophils # (Auto) 0.1 Thou/mm3 (0.0-0.5); Eosinophils % (Auto) 1 % (0-10); Hematocrit 39.5 % (36.0-46.0); Hemoglobin 12.7 g/dL (12.0-16.0); Immature Granulocytes % (Auto) 3 % (0-0); Immature Granulocytes Auto 0.27 Thou/mm3 (0.00-0.00); Lymphocytes # (Auto) 0.6 Thou/mm3 (1.0-4.8); Lymphocytes % (Auto) 6 % (10-50); Mean Corpuscular HGB Conc 32.2 g/dl (31.0-37.0); Mean Corpuscular Hemoglobin 27.8 pg (25.0-35.0); Mean Corpuscular Volume 86 fL (80-100); Monocytes # (Auto) 0.5 Thou/mm3 (0.0-0.8); Monocytes % (Auto) 5 % (0-12); Neutrophils % (Auto) 86 % (37-80); Nucleated Red Blood Cell % 0 /100 WBC (0); Platelet Count 231 Thou/mm3 (140-440); RDW Standard Deviation 45.2 fL (36.4-46.3); Red Blood Count 4.57 Miln/mm3 (4.00-5.20); White Blood Count 10.4 Thou/mm3 (3.6-11.0)
[2024-09-29 05:09] LABS: Alanine Aminotransferase 31 U/L (10-49); Albumin, Serum 3.7 gm/dL (3.4-4.8); Albumin/Globulin Ratio 1.5 (1.2-2.2); Alkaline Phosphatase 176 U/L (46-116); Anion Gap 14 (7-16); Aspartate Amino Transferase 43 U/L (0-34); BUN/Creatinine Ratio 24 Ratio (12-20); Bilirubin,Total 1.2 mg/dL (0.3-1.2); Blood Urea Nitrogen 40 mg/dL (9-23); Calcium 7.1 mg/dL (8.3-10.6); Calcium (Corrected) 7.3 mg/dL (8.5-10.1); Carbon Dioxide 23.1 mMol/L (20.0-31.0); Chloride 99 mMol/L (98-107); Cholesterol < 50 mg/dL (132-200); Creatinine (Component) 1.7 mg/dL (0.6-1.3); Estimated Creatinine Clearance 33.9 mL/min (>60); Globulin 2.4 gm/dL (2.3-3.5); Glucose 360 mg/dL (74-106); HDL Cholesterol < 10 mg/dL (40-60); LDL Cholesterol,Calculated 13 mg/dL (0-130); Osmolality,Calculated 296 (275-295); Phosphorous 4.1 mg/dL (2.4-5.1); Potassium 3.1 mMol/L (3.4-5.1); Sodium 136 mMol/L (136-145); Thyroid Stimulating Hormone 0.42 uIU/mL (0.55-4.78); Total Protein 6.1 gm/dL (5.7-8.2); Triglycerides 134 mg/dL (30-150); eGFR 34 See Note
[2024-09-29] MEDS: Magnesium Sulfate 4 GM Ivpb 4 GM/50 ML BAG IV ×2 (06:05→11:57)
[2024-09-29] MEDS: POTASSIUM CHL 10 mEq IVPB 10 MEQ/100 ML BAG 100 MEQ IV (06:27)
[2024-09-29 06:41] LABS: Free T4 (Free Thyroxine) 1.05 ng/dL (0.89-1.76)
--- NOTE | 2024-09-29 07:32 | XR_ITS ---
Examination: Duplex scan of the upper extremity, unilateral left complete Date and time of exam: September 29, 2024 0801 hours INDICATIONS: Left arm swelling and pain today Technique: Duplex scan of the extremity veins using B-mode/grayscale imaging and Doppler spectral analysis and color flow Attention is directed to internal echogenicity, compression and augmentation involving these veins, color flow assessment, spectral analysis Findings: Major deep venous structures in the extremity demonstrate normal course and caliber. There is no evidence of deep vein thrombosis. Normal color flow and spectral analysis Impression: Negative for DVT..
--- NOTE | 2024-09-29 07:42 | EKG_ITS ---
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
[2024-09-29] MEDS: INSULIN LISPRO (AdmeLOG) 1 UNIT/0.01 ML UNIT SC ×2 (07:53→12:47)
--- NOTE | 2024-09-29 08:01 | PC.NURSE ---
Unable to start IV Potassium do to no IV pumps in the ER
[2024-09-29] MEDS: LEVALBUTEROL RT 0.63 MG/3 ML NEBU INH ×5 (08:03→22:45)
[2024-09-29] MEDS: IPRATROPIUM RT 0.5 MG/ 2.5 ML NEBU INH ×5 (08:03→22:45)
[2024-09-29 08:34] LABS: Lactate (Lactic Acid) 3.1 mMol/L (0.4-2.0)
[2024-09-29] MEDS: HEPARIN SOD INJ 5000 UNIT/ML VIAL SC (08:37)
[2024-09-29] MEDS: POTASSIUM CHLORIDE 10% 20 MEQ/15 ML UDC 40 MEQ PO ×2 (08:55→12:53)
[2024-09-29] MEDS: SENNA TABLET 1 TAB PO (08:57)
[2024-09-29 08:58] LABS: Vancomycin,Trough < 3.0 mcg/mL (5.0-10.0)
[2024-09-29] MEDS: FUROSEMIDE INJ 10 MG/ML 4ML VIAL 40 MG IVP (09:06)
[2024-09-29] MEDS: PIPER/TAZO INJ 3.375 GM in SODIUM CHLORIDE 0.9% (P) 100 ML IV ×2 (09:12→17:05)
[2024-09-29] MEDS: INSULIN GLARGINE (Lantus) 5 UNIT/0.05 ML (PER 5 UNITS) 15 UNIT SC (09:14)
[2024-09-29] MEDS: CALCIUM GLUCONATE 10% INJ 1 GM/10 ML VIAL IV (10:17)
[2024-09-29] MEDS: Vancomycin Inj 2,000 MG in SODIUM CHLORIDE 0.9% 500 ML 500 ML 200 MG IV (10:19)
[2024-09-29 11:29] LABS: Alanine Aminotransferase 32 U/L (10-49); Albumin, Serum 3.7 gm/dL (3.4-4.8); Albumin/Globulin Ratio 1.3 (1.2-2.2); Alkaline Phosphatase 181 U/L (46-116); Anion Gap 14 (7-16); Aspartate Amino Transferase 62 U/L (0-34); BUN/Creatinine Ratio 24 Ratio (12-20); Bilirubin,Total 1.1 mg/dL (0.3-1.2); Blood Urea Nitrogen 34 mg/dL (9-23); Calcium 8.3 mg/dL (8.3-10.6); Calcium (Corrected) 8.5 mg/dL (8.5-10.1); Chloride 102 mMol/L (98-107); Creatinine (Component) 1.4 mg/dL (0.6-1.3); Estimated Creatinine Clearance 41.2 mL/min (>60); Globulin 2.9 gm/dL (2.3-3.5); Glucose 250 mg/dL (74-106); Magnesium 1.9 mg/dL (1.6-2.6); Osmolality,Calculated 289 (275-295); Potassium 3.5 mMol/L (3.4-5.1); Sodium 137 mMol/L (136-145); Total Protein 6.6 gm/dL (5.7-8.2); eGFR 43 See Note
[2024-09-29 11:33] LABS: Reflex Lactate? Y
--- NOTE | 2024-09-29 11:37 | PC.CC ---
Pt Martine Oviedo, is a 64 yr old female, admitted to hospitalist services for Sepsis. TANIA CC met with pt and Jaya Oviedo [phone], at bedside to complete initial assessment. At time of encounter pt is on Bi-PAP. Pt is noted to be alert and oriented but is unable to provide hx. Pt agreed for Mr. Oviedo to provide hx. Mr. Oviedo able to confirm all of pts information and demographics. Mr. Oviedo expressed understanding admission orders and is in agreement with treatment plan. Pt is from home, [address] [place] [address]. Pt lives with her spouse. Pt identified Mr. Oviedo as her surrogate DM. Per Mr. Oviedo pt is independent with ambulation and with ADLs. Per Mr. Oviedo pt does a 4-wheel rollator, wheelchair and cane, and uses DEM as needed. While in ED pt is on Bi-PAP. Per Mr. Oviedo pt does not require supplemental O2 at home. Pt is diabetic and is on pill and insulin for management. Pt is followed by Dr. Painter for primary care. Pt has access to running water and all working utilities. Pt has access to food items in her home. At time of D/c pt will return home, with providing transport. Pt provided with copy of Advance Directive per Mr. Oviedo's request. DIRECTOR SEMICONDUCTOR CC provided education on how and who can sing Advance Directive.
[2024-09-29 11:57] LABS: Lactic Acid, 3 HR 3.2 mMol/L (0.4-2.0)
[2024-09-29] MEDS: DILTIAZEM INJ 5 MG/ML VIAL 5 ML 10 MG IV (12:00)
[2024-09-29] MEDS: DILTIAZEM INJ 125 MG in DEXTROSE 5%-WATER 100 ML IV (14:28)
[2024-09-29 14:52] LABS: Cocci Serology, IgM Negative (Negative)
[2024-09-29 15:19] LABS: Allen Test Performed/OK; Base Excess -3 (-3-3); HCO3 23 mEq/L (20-26); Inspired Oxygen, FIO2 70 %; O2 Saturation 100 % (91-98); PCO2 45 mmHg (32.0-48.0); PO2 216 mmHg (83-108); Puncture Site Right Radial; pH, Arterial 7.33 (7.35-7.45)
--- NOTE | 2024-09-29 15:20 | PD.IMCONS ---
HPI Data of Consult Requesting Physician: Keanu Palencia MD Primary Care Provider: Finn Painter MD Consult Narrative History of present illness: This is a 65-year-old female with a past medical history of hypertension, hyperlipidemia, diabetes, chronic pain pt seen in the ER with weakness and cough pt found to be in rapid afib cardiology consulted pt was started on diltiazem drip- HR improved to 110 troponin negative cc:: cc: Keanu Palencia MD Meds Home Medications and Allergies Home Medications ?Medication ?Instructions ?Recorded ?Confirmed ?Type diazepam 10 mg tablet (Valium) 10 mg PO BID ##0 04/10/13 09/29/24 History pantoprazole 40 mg tablet,delayed 40 mg PO QDAY ##0 11/21/14 09/29/24 History release (Protonix) duloxetine 60 mg capsule,delayed 120 mg PO BID 08/19/18 09/29/24 History release gabapentin 300 mg capsule 600 mg PO QDAY 08/19/18 09/29/24 History pioglitazone 30 mg tablet 30 mg PO QDAY 08/19/18 09/29/24 History pravastatin 40 mg tablet 40 mg PO QDAY 08/19/18 09/29/24 History tizanidine 4 mg tablet 4 mg PO BID 08/19/18 09/29/24 History insulin glargine 100 unit/mL (3 55 unit subcut QPM 09/20/21 09/29/24 History mL) subcutaneous pen (Lantus Solostar U-100 Insulin) lisinopril 5 mg tablet 5 mg PO QDAY 09/20/21 09/29/24 History metformin 1,000 mg tablet 1,000 mg PO BID 09/20/21 09/29/24 History potassium chloride 8 mEq 8 meq PO QDAY 09/20/21 09/29/24 History tablet,extended release trazodone 100 mg tablet 200 mg PO BID 09/20/21 09/29/24 History zolpidem 10 mg tablet 10 mg PO QPM 09/20/21 09/29/24 History dapagliflozin propanediol 5 mg 5 mg PO QAM 02/04/22 09/29/24 History tablet (Farxiga) quetiapine 100 mg tablet (Seroquel) 100 mg PO QPM 02/04/22 09/29/24 History donepezil 5 mg tablet mg 09/29/24 History methadone 10 mg tablet mg 09/29/24 History methadone 10 mg tablet mg 09/29/24 History rosuvastatin 5 mg tablet mg 09/29/24 History solifenacin 5 mg tablet mg PO 09/29/24 09/29/24 History Allergies Allergy/AdvReac Type Severity Reaction Status Date / Time garlic Allergy Severe Difficulty Verified 09/28/24 15:51 Breathing onion Allergy Severe Difficulty Verified 09/28/24 15:51 Breathing oregano Allergy Severe Difficulty Verified 09/28/24 15:51 Breathing pepper (genus Capsicum) Allergy Severe Difficulty Verified 09/28/24 15:51 Breathing phenylephrine Allergy Severe SEVER Verified 09/28/24 15:51 ANXIETY, HALLUCINATION adhesive tape Allergy Mild Rash Verified 09/28/24 15:51 oxymetazoline Allergy Unknown Verified 09/28/24 15:51 xylometazoline Allergy Unknown Verified 09/28/24 15:51 ondansetron HCl AdvReac Mild Vomiting Verified 09/28/24 15:51 Exam Vital Signs Temp Pulse Resp BP Pulse Ox O2 Del Method O2 Flow Rate 97.5 F 112 H 26 H 130/88 H 96 BiPAP 15 09/29/24 14:11 09/29/24 15:03 09/29/24 15:03 09/29/24 14:28 09/29/24 15:03 09/29/24 14:11 09/29/24 13:17 FiO2 70 09/29/24 15:03 Routine HEENT Exam Head: Present normocephalic and atraumatic Eye: Present EOMI and PERRL ENT: Present mucous membranes moist Routine Neck Exam Neck: Present supple and trachea midline Routine Respiratory Exam Respiratory: Present chest non-tender, lungs clear, normal breath sounds and no resp distress Routine Cardiovascular Exam Cardiovascular: Present RRR Routine Abdominal Exam Abdominal: Present soft and normoactive bowel sounds Routine Extremities Exam Extremities: Present full ROM Routine Skin Exam Skin: Present intact, dry and warm Routine Neurological Exam Neurological: Present alert, oriented X3 and CN II-XII intact Routine Psychiatric Exam Psychiatric: Present normal affect and normal thought process Results Labs 09/29/24 04:22 09/29/24 10:55 Labs: Short CBC 09/28/24 09/29/24 Range/Units 16:15 04:22 WBC 16.0 H 10.4 D (3.6-11.0) Thou/mm3 Hgb 14.4 12.7 (12.0-16.0) g/dL Hct 43.8 39.5 (36.0-46.0) % Plt Count 293 231 D (140-440) Thou/mm3 BMP 09/28/24 09/29/24 09/29/24 16:15 04:22 10:55 Sodium 133 L 136 137 Potassium 3.7 3.1 L D 3.5 Chloride 91 L 99 102 Carbon Dioxide 22.4 23.1 21.0 BUN 51 H 40 H 34 H Creatinine 2.2 H 1.7 H D 1.4 H Glucose 347 H 360 H 250 H D Calcium 7.8 L 7.1 L 8.3 Cardiac Enzymes 09/28/24 Range/Units 16:15 Troponin I < 0.020 (0.0-0.045) ng/mL Liver Function 09/28/24 09/29/24 09/29/24 Range/Units 16:15 04:22 10:55 Total Bilirubin 2.3 H 1.2 D 1.1 (0.3-1.2) mg/dL AST 56 H 43 H 62 H (0-34) U/L ALT 39 31 32 (10-49) U/L Alkaline Phosphatase 243 H 176 H D 181 H (46-116) U/L Albumin 4.0 3.7 3.7 (3.4-4.8) gm/dL Urine 09/28/24 Range/Units 16:39 Urine Color Yellow (Lt Yel-Yel) Urine Clarity Hazy (Clear/Hazy) Urine pH 5.5 (5.0-7.0) Ur Specific [place] 1.025 (1.001-1.035) Urine Protein 1+ A (Neg - Trace) Urine Glucose (UA) 3+ A (Negative) ABG Interpretation ABG results: 09/29/24 09/29/24 00:03 15:16 ABG pH 7.29 L 7.33 L ABG pCO2 42 45 ABG pO2 72 L 216 H D ABG HCO3 20 23 ABG O2 Saturation 92 100 H ABG Base Excess -7 L -3 Assessment and Plan Assessment and plan (1) Altered mental status: Status: Acute (2) Atrial fibrillation: Status: Acute Additional Assessment & Plan Additional Plan: contiue diltiazem echo to be obtained troponin negative consider anticoagulation
--- NOTE | 2024-09-29 15:35 | ESPR_ITS ---
<Statement entered by Chaparro Velez MD - 09/29/24 18:02> Patient was seen and examined at the bedside in the ED. Patient was short of breath and was present at bedside. He reported that patient has been feeling short of breath and few days back she had a blister formation on her left hand ring finger and some blisters were also seen on the forearm. Blister is in healing phase now. This patient is admitted for sepsis and acute hypoxic respiratory failure due to community-acquired pneumonia. Patient also developed atrial flutter with RVR during hospital course. She is requiring BiPAP due to hypoxia and RT has been following the case. We escalated antibiotics based on blood cultures preliminary growing GPC to vancomycin and Zosyn. Electrolytes 80 mEq potassium and 8 g magnesium and calcium gluconate was given. Patient received Lasix 40 mg IV x 1 in the ED and additional 40 mg Lasix was given. Patient's A1c 10.6. Due to elevated blood sugars we started Lantus 15 units for now. For atrial flutter, patient was given Cardizem 10 mg IV push x 1 and was started on Cardizem drip 5 mg/h and cardiology was consulted. Given [id number]- VASc score of 3 we started heparin drip for now. Cardiology, Dr. Romo agreeable to the plan. Will likely follow-up on patient's labs closely and keep monitoring vitals. Likely follow-up on cocci results. Renally dosing medications given JOSY. Patient's home medication only methadone and diazepam was resumed due to agitation. Additional 40 mEq KCl given x 1 later in the evening. All labs and orders were reviewed. I saw and examined the patient, and I agree with current management stated by Dr Jamee MD,PGY1. Plan of care was discussed with the attending physician and resident physician. Disclaimer: Despite multiple revisions, due to the dictation software being used, the document bellow may not be free of grammatical errors including phonetic/typographic errors. However, this does not deter from our commitment to providing health care in the patient's best interest in mind. Dr. Ivory MD, PGY 2 Documentation for date of: 09/29/24 Subjective Subjective Interval history: Patient is a 67-year-old female with a past medical history of diabetes mellitus type 2 insulin-dependent nonadherent, hyperlipidemia, and hypertension. Patient was admitted overnight for sepsis secondary to pneumonia complicated by metabolic acidosis anion gap and JOSY. Patient examined at bedside. Increased work of breathing and wheezing appreciated. Patient stated she has had a dry cough for the past 4 days. Stated grandson recently had a cold. Denied any chills or pyrexia at home. Denied any past medical history of pulmonary disease. Exam Vital Signs Temp Pulse Resp BP Pulse Ox O2 Del Method O2 Flow Rate 97.5 F 112 H 26 H 130/88 H 96 BiPAP 15 09/29/24 14:11 09/29/24 15:03 09/29/24 15:03 09/29/24 14:28 09/29/24 15:03 09/29/24 14:11 09/29/24 13:17 FiO2 70 09/29/24 15:03 Narrative Exam General Appearance: Alert & Oriented X3, well-nourished female who is lying in bed in mild distress secondary to work of breathing. Skin, lesions noted on 3rd and 4th digit secondary, erythematous-no discharge. HEENT: Skull symmetrical and atraumatic. Conjunctivae pin and moist. Pupils equal, round, reactive to light and accommodation (PERRL). External ear without lesion or discharge. Straight, nares patient, mucosa pink, no discharge. No thyroid nodule appreciated. No cervical lymphadenopathy. Cardio: Normal Rate and Rhythm with S1 and S2 heart sounds. No murmurs or extra heart sounds auscultated. No bruits on carotid auscultation. No peripheral edema or cyanosis. Lungs: Symmetric with poor expansion. Chest and back non-tender. Breath sounds vesicular with wheezing noted and rhonchi. Abdomen: Non-tender, Non-distended, Normal Reactive Bowel Sounds Neuro: Alert, cooperative, oriented to person, place, and time. Speech clear. CN grossly intact. Upper motor strength 5/5 and Lower motor strength 5/5. Sensation intact. Objective Labs 09/29/24 16:16 09/29/24 16:16 Labs: Laboratory Results - last 24 hr 09/28/24 09/28/24 09/28/24 16:15 16:39 19:57 WBC 16.0 H RBC 5.20 Hgb 14.4 Hct 43.8 MCV 84 MCH 27.7 MCHC 32.9 RDW Std Deviation 43.0 Plt Count 293 Neut % (Auto) 87 H Lymph % (Auto) 5 L Elliott % (Auto) 6 Eos % (Auto) 1 Baso % (Auto) 0 Neut # (Auto) 13.9 H Lymph # (Auto) 0.9 L Elliott # (Auto) 0.9 H Eos # (Auto) 0.2 Baso # (Auto) 0.0 Immature Gran # (Auto) 0.16 H Absolute Nucleated RBC 0.00 Immature Gran % 1 H Nucleated RBC % 0 Puncture Site ABG pH ABG pCO2 ABG pO2 ABG HCO3 ABG O2 Saturation ABG Base Excess FiO2 Sodium 133 L Potassium 3.7 Chloride 91 L Carbon Dioxide 22.4 Anion Gap 20 H BUN 51 H Creatinine 2.2 H Estim Creat Clear Calc 26.2 L eGFR 25 L BUN/Creatinine Ratio 23 H Glucose [address] Glu mg/dL Hemoglobin A1c Calculated Osmolality 294 Lactic Acid 6.8 H* 8.1 H* Calcium 7.8 L Corrected Calcium 7.8 L Phosphorus Magnesium Total Bilirubin 2.3 H AST 56 H ALT 39 Alkaline Phosphatase 243 H Troponin I < 0.020 B-Natriuretic Peptide 63 Total Protein 6.4 Albumin 4.0 Globulin 2.4 Albumin/Globulin Ratio 1.7 Triglycerides Cholesterol LDL Cholesterol, Calc HDL Cholesterol Cholesterol/HDL Ratio Beta-Hydroxybutyrate/Acetoacetate Procalcitonin 12.65 H TSH Free T4 Ur Collection Type Catheter Urine Color Yellow Urine Clarity Hazy Urine pH 5.5 Ur Specific [place] 1.025 Urine Protein 1+ A Urine Glucose (UA) 3+ A Urine Ketones Trace Urine Blood 1+ A Urine Nitrite Negative Urine Bilirubin 1+ A Urine Urobilinogen (Auto) 4.0 Ur Leukocyte Esterase Negative Urine RBC 1 Urine WBC 2 Ur Squamous Epith Cells 2 Ur Transition Epith Cell < 1 Amorphous Crystals Present A Urine Bacteria None Granular Casts 1 Vancomycin Trough Urine Opiates Screen Negative Urine Fentanyl Screen Negative Ur Barbiturates Screen Negative U Amphetamin/Meth Scrn Negative U Benzodiazepines Scrn Positive A U Cocaine Metab Screen Negative U Marijuana (THC) Screen Negative Ethyl Alcohol < 3.0 Coccidioides IgM Ab 09/28/24 09/29/24 09/29/24 22:51 00:03 00:14 WBC RBC Hgb Hct MCV MCH MCHC RDW Std Deviation Plt Count Neut % (Auto) Lymph % (Auto) Elliott % (Auto) Eos % (Auto) Baso % (Auto) Neut # (Auto) Lymph # (Auto) Elliott # (Auto) Eos # (Auto) Baso # (Auto) Immature Gran # (Auto) Absolute Nucleated RBC Immature Gran % Nucleated RBC % Puncture Site Left Radial ABG pH 7.29 L ABG pCO2 42 ABG pO2 72 L ABG HCO3 20 ABG O2 Saturation 92 ABG Base Excess -7 L FiO2 70 Sodium Potassium Chloride Carbon Dioxide Anion Gap BUN Creatinine Estim Creat Clear Calc eGFR BUN/Creatinine Ratio Glucose Estimated Ave Glu mg/dL 258 H Hemoglobin A1c 10.6 H Calculated Osmolality Lactic Acid 8.4 H* Calcium Corrected Calcium Phosphorus Magnesium 1.0 L 1.0 L Total Bilirubin AST ALT Alkaline Phosphatase Troponin I B-Natriuretic Peptide Total Protein Albumin Globulin Albumin/Globulin Ratio Triglycerides Cholesterol LDL Cholesterol, Calc HDL Cholesterol Cholesterol/HDL Ratio Beta-Hydroxybutyrate/Acetoacetate 0.2 Procalcitonin TSH Free T4 Ur Collection Type Urine Color Urine Clarity Urine pH Ur Specific [place] Urine Protein Urine Glucose (UA) Urine Ketones Urine Blood Urine Nitrite Urine Bilirubin Urine Urobilinogen (Auto) Ur Leukocyte Esterase Urine RBC Urine WBC Ur Squamous Epith Cells Ur Transition Epith Cell Amorphous Crystals Urine Bacteria Granular Casts Vancomycin Trough Urine Opiates Screen Urine Fentanyl Screen Ur Barbiturates Screen U Amphetamin/Meth Scrn U Benzodiazepines Scrn U Cocaine Metab Screen U Marijuana (THC) Screen Ethyl Alcohol Coccidioides IgM Ab 09/29/24 09/29/24 09/29/24 03:34 04:22 04:22 WBC 10.4 D RBC 4.57 Hgb 12.7 Hct 39.5 MCV 86 MCH 27.8 MCHC 32.2 RDW Std Deviation 45.2 Plt Count 231 D Neut % (Auto) 86 H Lymph % (Auto) 6 L Elliott % (Auto) 5 Eos % (Auto) 1 Baso % (Auto) 0 Neut # (Auto) 9.0 H Lymph # (Auto) 0.6 L Elliott # (Auto) 0.5 Eos # (Auto) 0.1 Baso # (Auto) 0.0 Immature Gran # (Auto) 0.27 H Absolute Nucleated RBC 0.00 Immature Gran % 3 H Nucleated RBC % 0 Puncture Site ABG pH ABG pCO2 ABG pO2 ABG HCO3 ABG O2 Saturation ABG Base Excess FiO2 Sodium 136 Potassium 3.1 L D Chloride 99 Carbon Dioxide 23.1 Anion Gap 14 BUN 40 H Creatinine 1.7 H D Estim Creat Clear Calc 33.9 L eGFR 34 L BUN/Creatinine Ratio 24 H Glucose [address] Glu mg/dL Hemoglobin A1c Calculated Osmolality 296 H Lactic Acid 5.4 H* Calcium 7.1 L Corrected Calcium 7.3 L Phosphorus 4.1 Magnesium 1.0 L 1.0 L Total Bilirubin 1.2 D AST 43 H ALT 31 Alkaline Phosphatase 176 H D Troponin I B-Natriuretic Peptide Total Protein 6.1 Albumin 3.7 Globulin 2.4 Albumin/Globulin Ratio 1.5 Triglycerides 134 Cholesterol < 50 L LDL Cholesterol, Calc 13 HDL Cholesterol < 10 L Cholesterol/HDL Ratio 5.0 Beta-Hydroxybutyrate/Acetoacetate Procalcitonin TSH 0.42 L Free T4 1.05 Ur Collection Type Urine Color Urine Clarity Urine pH Ur Specific [place] Urine Protein Urine Glucose (UA) Urine Ketones Urine Blood Urine Nitrite Urine Bilirubin Urine Urobilinogen (Auto) Ur Leukocyte Esterase Urine RBC Urine WBC Ur Squamous Epith Cells Ur Transition Epith Cell Amorphous Crystals Urine Bacteria Granular Casts Vancomycin Trough Urine Opiates Screen Urine Fentanyl Screen Ur Barbiturates Screen U Amphetamin/Meth Scrn U Benzodiazepines Scrn U Cocaine Metab Screen U Marijuana (THC) Screen Ethyl Alcohol Coccidioides IgM Ab 09/29/24 09/29/24 09/29/24 08:31 10:55 11:51 WBC RBC Hgb Hct MCV MCH MCHC RDW Std Deviation Plt Count Neut % (Auto) Lymph % (Auto) Elliott % (Auto) Eos % (Auto) Baso % (Auto) Neut # (Auto) Lymph # (Auto) Elliott # (Auto) Eos # (Auto) Baso # (Auto) Immature Gran # (Auto) Absolute Nucleated RBC Immature Gran % Nucleated RBC % Puncture Site ABG pH ABG pCO2 ABG pO2 ABG HCO3 ABG O2 Saturation ABG Base Excess FiO2 Sodium 137 Potassium 3.5 Chloride 102 Carbon Dioxide 21.0 Anion Gap 14 BUN 34 H Creatinine 1.4 H Estim Creat Clear Calc 41.2 L eGFR 43 L BUN/Creatinine Ratio 24 H Glucose [address] Glu mg/dL Hemoglobin A1c Calculated Osmolality 289 Lactic Acid 3.1 H 3.2 H Calcium 8.3 Corrected Calcium 8.5 Phosphorus Magnesium 1.9 Total Bilirubin 1.1 AST 62 H ALT 32 Alkaline Phosphatase 181 H Troponin I B-Natriuretic Peptide Total Protein 6.6 Albumin 3.7 Globulin 2.9 Albumin/Globulin Ratio 1.3 Triglycerides Cholesterol LDL Cholesterol, Calc HDL Cholesterol Cholesterol/HDL Ratio Beta-Hydroxybutyrate/Acetoacetate Procalcitonin TSH Free T4 Ur Collection Type Urine Color Urine Clarity Urine pH Ur Specific [place] Urine Protein Urine Glucose (UA) Urine Ketones Urine Blood Urine Nitrite Urine Bilirubin Urine Urobilinogen (Auto) Ur Leukocyte Esterase Urine RBC Urine WBC Ur Squamous Epith Cells Ur Transition Epith Cell Amorphous Crystals Urine Bacteria Granular Casts Vancomycin Trough < 3.0 L Urine Opiates Screen Urine Fentanyl Screen Ur Barbiturates Screen U Amphetamin/Meth Scrn U Benzodiazepines Scrn U Cocaine Metab Screen U Marijuana (THC) Screen Ethyl Alcohol Coccidioides IgM Ab Negative 09/29/24 15:16 WBC RBC Hgb Hct MCV MCH MCHC RDW Std Deviation Plt Count Neut % (Auto) Lymph % (Auto) Elliott % (Auto) Eos % (Auto) Baso % (Auto) Neut # (Auto) Lymph # (Auto) Elliott # (Auto) Eos # (Auto) Baso # (Auto) Immature Gran # (Auto) Absolute Nucleated RBC Immature Gran % Nucleated RBC % Puncture Site Right Radial ABG pH 7.33 L ABG pCO2 45 ABG pO2 216 H D ABG HCO3 23 ABG O2 Saturation 100 H ABG Base Excess -3 FiO2 70 Sodium Potassium Chloride Carbon Dioxide Anion Gap BUN Creatinine Estim Creat Clear Calc eGFR BUN/Creatinine Ratio Glucose Estimated Ave Glu mg/dL Hemoglobin A1c Calculated Osmolality Lactic Acid Calcium Corrected Calcium Phosphorus Magnesium Total Bilirubin AST ALT Alkaline Phosphatase Troponin I B-Natriuretic Peptide Total Protein Albumin Globulin Albumin/Globulin Ratio Triglycerides Cholesterol LDL Cholesterol, Calc HDL Cholesterol Cholesterol/HDL Ratio Beta-Hydroxybutyrate/Acetoacetate Procalcitonin TSH Free T4 Ur Collection Type Urine Color Urine Clarity Urine pH Ur Specific [place] Urine Protein Urine Glucose (UA) Urine Ketones Urine Blood Urine Nitrite Urine Bilirubin Urine Urobilinogen (Auto) Ur Leukocyte Esterase Urine RBC Urine WBC Ur Squamous Epith Cells Ur Transition Epith Cell Amorphous Crystals Urine Bacteria Granular Casts Vancomycin Trough Urine Opiates Screen Urine Fentanyl Screen Ur Barbiturates Screen U Amphetamin/Meth Scrn U Benzodiazepines Scrn U Cocaine Metab Screen U Marijuana (THC) Screen Ethyl Alcohol Coccidioides IgM Ab ABG Interpretation ABG results: 09/29/24 09/29/24 00:03 15:16 ABG pH 7.29 L 7.33 L ABG pCO2 42 45 ABG pO2 72 L 216 H D ABG HCO3 20 23 ABG O2 Saturation 92 100 H ABG Base Excess -7 L -3 Quality Measures Quality Measures sepsis Current suspected stage: sepsis Possible source: pulmonary Blood cultures ordered: yes Antibiotic ordered: Yes Assessment & Plan Assessment Current Active Medications: Generic Name Dose Route Start Last Admin Trade Name Freq PRN Reason Stop Dose Admin Acetaminophen 650 mg 09/28/24 23:26 Acetaminophen 325 Mg Tablet PO 10/28/24 23:25 Q6H PRN Pain (1-3) or Fever >100.3 Dextrose 25 ml 09/28/24 23:34 Dextrose 50%-Water Inj 50 Ml Syringe IV 10/28/24 23:33 Q15MIN PRN BG 50-70 responsive npo pt Dextrose 50 ml 09/28/24 23:34 Dextrose 50%-Water Inj 50 Ml Syringe IV 10/28/24 23:33 Q15MIN PRN BG <50 OR BG <70 & pt unresponsive Duloxetine HCl 60 mg 09/29/24 01:45 09/29/24 11:38 Duloxetine Hcl 30 Mg Capsule PO 10/29/24 01:44 60 mg BID LUKE Administration Glucagon 1 mg 09/28/24 23:34 Glucagon Inj 1 Mg Vial IM Q15MIN PRN BG <70, and no IV access Vancomycin HCl 750 mg/ Sodium 250 mls @ 250 mls/hr 09/30/24 09:00 Chloride IV 10/07/24 08:59 DAILY [facility] Piperacillin Sod/Tazobactam 100 mls @ 25 mls/hr 09/29/24 14:00 Sod 3.375 gm/ Sodium Chloride IV 10/06/24 13:59 Q8HR [facility] Protocol Diltiazem HCl 125 mg/ Dextrose 125 mls @ 5 mls/hr 09/29/24 14:15 09/29/24 14:28 IV 10/29/24 14:14 5 mg/hr .Q24H LUKE 5 mls/hr Administration 5 MG/HR Heparin Sodium/Dextrose 25,000 unit in 250 mls @ 9.362 mls/hr 09/29/24 15:00 Heparin In D5w Ivpb IV 10/13/24 14:59 .Q24H [facility] Protocol 12 UNITS/KG/HR Insulin Glargine 15 unit 09/29/24 21:00 Insulin Glargine (Lantus) 5 Unit/0.05 Ml (Per 5 Units) SC 10/29/24 20:59 HS LUKE Insulin Human Lispro 0 unit 09/29/24 07:30 09/29/24 12:47 Insulin Lispro (Admelog) 1 Unit/0.01 Ml Unit SC 10/29/24 07:29 4 unit AC LUKE Administration Protocol Ipratropium Pepin 0.5 mg 09/29/24 07:35 09/29/24 15:03 Ipratropium Rt 0.5 Mg/ 2.5 Ml Nebu INH 10/29/24 07:34 0.5 mg Q4HRRT LUKE Administration Levalbuterol HCl 0.63 mg 09/29/24 07:30 09/29/24 15:03 Levalbuterol Rt 0.63 Mg/3 Ml Nebu INH 10/29/24 07:29 0.63 mg Q4HR LUKE Administration Methadone HCl 10 mg 09/29/24 01:31 Methadone Hcl 10 Mg Tablet PO 10/04/24 01:44 TID PRN Moderate-Severe Ondansetron HCl 4 mg 09/28/24 23:26 Ondansetron Inj 2 Mg/Ml Inj 2 Ml IV 10/28/24 23:25 Q6H PRN NAUSEA OR VOMITING Protocol Pharmacy Consult 1 each 09/29/24 09:00 Vancomycin Pharmacy To Dose 1 Each Each IV 10/29/24 08:59 QDAY [facility] Sennosides 1 tab 09/29/24 09:00 09/29/24 08:57 Senna Tablet PO 10/29/24 08:59 1 tab QDAY [facility] Administration Protocol Sodium Chloride 3 ml 09/28/24 18:37 Sodium Chloride Rt Kamille 0.9% 3 Ml Nebu INH 10/28/24 18:36 PRN PRN SOLN Tramadol HCl 50 mg 09/29/24 01:05 09/29/24 01:54 Tramadol Hcl 50 Mg Tablet PO 10/04/24 01:04 50 mg TID PRN Administration pain Plan Patient is a 67-year-old female with a past medical history of diabetes mellitus type 2 insulin-dependent nonadherent, hyperlipidemia, and hypertension who was admitted on 09/29/2024 for Sepsis secondary to CAP, complicated by JOSY and Lactic Acidosis. #Severe sepsis, likely secondary to CAP #CAP #Community acquired pneumonia Etiolgoy: Bacterial community-acquired pneumonia cannot be ruled out given past medical history of comorbidities and age, likely Streptococcus pneumoniae vs staph aures. Patient currently on bipap given increased work of breathing and agitation. DDx: Viral infection less likely as patient tested negative for Influenza and COVID vs Cocci Diagnostic Test: -Blood Culture (09/28/2024)X2: Gram Positive Cocci -Sputum Culture (09/28/2024) Pending -Cxr (09/28/2024): Significant bilateral pneumonia -Head CT (09/28/2024): Negative for acute hemorrhage, mass effect or midline shift. If symptoms persist, consider brain MRI follow-up -CT Abdomen/Pelvis (09/28/2024): Extensive bilateral pneumonia. No renal or ureteral calculi, no hydronephrosis. Moderate stool throughout the colon -ABG was done which showed a pH of 7.29 with a pCO2 42. -Second ABG: pH 7.33, pCO2 45, pO2 216 -WBC 16-->(09/29/2024) 10.4 -Procalcitonin 12.65 -Lactic Acid 6.8, 8.8, 8.4, 5.4, 3.1 Plan: -tele admit -1 L NS bolus and then continue maintenance at 75 cc/h dc given increased work of breathing an net positive volume status. -on Bipap, trying to wean off Bipap -IV ceftriaxone and azithromycin (09/28/2024-09/29/2024) DC -Vancomycin & Zosyn (09/29/2024--) -Blood Culture Pending #Acute Atrial Flutter w/ RVR Etiology: Acute atrial flutter likely secondary to sepsis. DDx: Electrolyte imbalance versus cardiac etiology such as ectopic foci. Diagnostic: EKG:Atrial Flutter Cxr (09/29/2024): Significant bilateral pneumonia Plan: -Echo -Heparin Drip -PT and PTT -Diltiazem 125 mg IV 5 mg/hr -Cardio consult, Dr. Romo, appreciate recommendation #Acute kidney injury #Mild hyponatremia #Hypomagnesemia #Hypokalemia Admitting labs showed BUN of 51 and creatinine of 2.2, baseline has been about 1.0. On examination, patient does look dehydrated. Admission sodium-133, Mag- 1.0 Plan: -Continue IV fluids, DC given patient fluid status -IV Mg 4gm -40 meq of K X2 -Avoid nephrotoxic medications -Renally dose all medications -Monitor CMP #Metabolic Acidosis, Anion Gap #Lactic acidosis Metabolic acidosis likely secondary to lactic acid in the setting of sepsis. Treat underlying cause. DDx: Less likely DKA given negative beta hydroxy versus uremia given JOSY but less likely. CMP (09/28/2024): 23.4 with lactic acid of 6.8 up trended to 8.4. Glucose on admission was 347. UA showed 3+ glucose but only trace ketones. CMP (09/29/2024): Na 136, K 3.1, Bicarb 23, BUN 40, Cr 1.7 Lactic Acid: 6.8, 8.8, 8.4, 5.4, 3.1 Plan: -No acute intervention treat underlying cause, sepsis. #History of hypertension Patient at home takes lisinopril 5 mg daily. Blood pressure currently 166/80 Plan -Given JOSY hold home medication lisinopril -consider starting Amlodipine #History of diabetes The patient takes Farxiga 5 mg, insulin Lantus 55 units, metformin 1 g. Diagnostics: Glucose (09/28/2024) 409--->09/29/2024 115 A1c 10.6 Plan: -IV insulin 5 units x 1 -Lantus 15 HS -ISS -Blood glucose check AC -Hypoglycemia protocols in place #History of chronic pain Patient reports having a history of chronic pain and is on multiple medications: Duloxetine, gabapentin, tizanidine, tramadol, methadone She does not respon well to opioids Plan: -Restarted duloxetine and tramadol, methadone 10 mg TID -Consider restarting other medications or adjusting when patient is more awake. #History of major depressive disorder History of mental health disorders. Plan -Quetiapine Fumarate 100 mg PO HS -Diazepam 10 mg PO BID -Duloxetine 60 mg PO BID #Hyperbilirubinemia Bilirubin on admission was 2.3 with ALP of 243. CT abdomen and pelvis was done showed an absent gallbladder. Patient has abdominal pain or fever and is anicteric. Diagnostics: US Gallbladder (09/29/2024): Absent gallbladder. Normal common bile duct. Hepatomegaly, primary hepatocellular disease versus cirrhosis no focal liver lesions Plan: -No acute intervention Health Maintenance: Disp: Pt is currently admitted to floors for further management of Sepsis, awaiting blood culture. FEN: Carbohydrate Consistent Low DVT: Heparin Drip Code: Full Code - The patient's plan was discussed with attending Dr. March and senior residents Ivory Mancuso MD PGY1 Internal Medicine Attending Provider Attestation/Addendum I have examined the patient, reviewed labs and imaging findings, discussed the case with the resident(s), and reviewed entered orders. I agree with the plan of care as outlined in this note, with these additional summaries/recommendations: Patient seen at bedside. Acute hypoxic respiratory failure, severe sepsis secondary to significant bilateral pneumonia. Patient received fluid resuscitation in the ED. Started on IV Rocephin and azithromycin. Blood cultures preliminarily showing GPC's in both bottles. Sputum Gram stain shows rare WBCs and 1+ GPC. Continue BiPAP as needed and wean to OxyMask/nasal cannula. Xopenex and ipratropium for bilateral wheezing. Patient developed new onset atrial fibrillation with rapid ventricular response in the ED. Given IV diltiazem 10 mg x 1 and started on diltiazem gtt. Started on heparin gtt. Target APTT of 60 to 80 seconds (pharmacy to follow-up). Cardiology consulted, recommendations appreciated. Echocardiogram ordered. Mild lactic acidosis present at 3.0 currently and likely type A from severe sepsis. Severe electrolyte abnormalities present and replacement given. Follow-up repeat labs. Kidney injury most likely secondary to prerenal azotemia in the setting of severe sepsis although urinary output currently minimal and postrenal cause cannot be excluded at this time. Order Miller catheter and monitor urinary output closely. Renally dose medications and avoid nephrotoxic agents. Start basal and bolus insulin for uncontrolled diabetes mellitus type 2. Most recent A1c 10.6%. Diabetic education once more improved. Patient takes impressive home regimen of duloxetine, gabapentin, tenacity in, tramadol, methadone, Seroquel, and Valium and we are very concerned about patient's medication cocktail that she is currently on. Patient will need close outpatient follow-up and tapering of some of these medications as likely contributing to alterations in mentation at times. Repeat hematology and chemistry panel in AM. Patient and updated at bedside and in agreement. Dr. March
--- NOTE | 2024-09-29 16:12 | ECHO_ITS ---
Transthoracic Echo Report Ht (in): 63 Wt (lb): 172 Exam Location: Portable Status: Inpatient Crop Nutrition Scientist: Zenaida Flowers Indications: Procedure Performed: BP: 158 / 98 HR: 75 Rhythm: Sinus Technical Quality: Technically difficult study MEASUREMENTS (Male / Female) Normal Values 2D ECHO LV Diastolic Diameter PLAX 4.2 cm 4.2 - 5.9 / 3.9 - 5.3 cm LV Systolic Diameter PLAX 2.6 cm IVS Diastolic Thickness 0.9 cm 0.6 - 1.0 / 0.6 - 0.9 cm LVPW Diastolic Thickness 0.8 cm 0.6 - 1.0 / 0.6 - 0.9 cm LV Relative Wall Thickness 0.4 LVOT Diameter 1.8 cm LA Volume Index 27.7 cm?/m? 16 - 28 cm?/m? Ascending Aorta Diameter 2.7 cm M-MODE Aortic Root Diameter MM 2.2 cm LA Systolic Diameter MM 4.2 cm LA Ao Ratio MM 1.9 AV Cusp Separation MM 1.9 cm DOPPLER AV Peak Velocity 155.0 cm/s AV Peak Gradient 9.6 mmHg AV Mean Gradient 5.0 mmHg AV Velocity Time Integral 30.0 cm LVOT Peak Velocity 150.0 cm/s LVOT Peak Gradient 9.0 mmHg LVOT Velocity Time Integral 28.7 cm LVOT Cardiac Index 2740.2 cm?/min?m? AV Area Cont Eq vti 2.3 cm? AV Area Cont Eq pk 2.3 cm? MV Peak Velocity 138.0 cm/s MV Peak Gradient 7.6 mmHg MV Mean Velocity 79.4 cm/s MV Mean Gradient 3.0 mmHg MV Area PHT 3.8 cm? MR Peak Velocity 469.0 cm/s MR Peak Gradient 88.0 mmHg Mitral E Point Velocity 129.0 cm/s Mitral A Point Velocity 102.0 cm/s Mitral E to A Ratio 1.3 LV E' Lateral Velocity 10.6 cm/s Mitral E to LV E' Lateral Ratio 12.2 LV E' Septal Velocity 8.1 cm/s Mitral E to LV E' Septal Ratio 16.0 TR Peak Velocity 285.0 cm/s TR Peak Gradient 32.5 mmHg FINDINGS Left Ventricle Normal left ventricular size, wall thickness, systolic function with no obvious regional wall motion abnormalities. The ejection fraction is visually estimated at 65-70%. Right Ventricle The right ventricle is normal in size and systolic function. The estimated right ventricular systoli c pressure, 37mmHg. RAP 5. Left Atrium The left atrium is normal by two-dimensional, color flow and Doppler imaging with no structural abnormalities, no thrombus formation present. Right Atrium The right atrium is normal by two-dimensional imaging, color flow and Doppler imaging with no struct ural abnormalities, no thrombus formation present. Atrial Septum The interatrial septum appears normal with no evidence of a shunt. Aorta The aorta is normal by two-dimensional, color flow and Doppler interrogation. Mitral Valve The anterior mitral valve leaflet is mildly calcified. There is mild mitral valve regurgitation. Aortic Valve The aortic valve is trileaflet and normal by two-dimensional, color flow and Doppler interrogation. There is no significant aortic valve regurgitation. Tricuspid Valve The tricuspid valve is normal by two-dimensional, color flow and Doppler interrogation. There is mil d tricuspid valve regurgitation. Pulmonic Valve The pulmonic valve is not well visualized. There is no significant pulmonic valve regurgitation. Vessels The pulmonary artery appears normal. The inferior vena cava pulmonary and hepatic veins appear criss l. Pericardium The pericardium is normal by two-dimensional imaging. There is no significant pericardial effusion. CONCLUSIONS Normal LV size and function. Sigmoid septum. Estimated EF 65-70% Normal RV size and function. Estimated RVSP 37mmHg The anterior mitral valve leaflet is mildly calcified. Mild MR, TR. Sendy Romo (Electronically Signed) Final Date: 30 September 2024 14:09
[2024-09-29 16:30] LABS: Basophils % (Auto) 0 % (0-2.5); Eosinophils # (Auto) 0.1 Thou/mm3 (0.0-0.5); Eosinophils % (Auto) 1 % (0-10); Hematocrit 40.9 % (36.0-46.0); Hemoglobin 13.6 g/dL (12.0-16.0); Immature Granulocytes % (Auto) 5 % (0-0); Immature Granulocytes Auto 0.52 Thou/mm3 (0.00-0.00); Lymphocytes # (Auto) 0.6 Thou/mm3 (1.0-4.8); Lymphocytes % (Auto) 6 % (10-50); Mean Corpuscular HGB Conc 33.3 g/dl (31.0-37.0); Mean Corpuscular Hemoglobin 28.1 pg (25.0-35.0); Mean Corpuscular Volume 85 fL (80-100); Monocytes # (Auto) 0.4 Thou/mm3 (0.0-0.8); Monocytes % (Auto) 3 % (0-12); Neutrophils # (Auto) 8.9 Thou/mm3 (1.8-7.7); Neutrophils % (Auto) 85 % (37-80); Nucleated Red Blood Cell % 0 /100 WBC (0); Platelet Count 268 Thou/mm3 (140-440); RDW Standard Deviation 43.8 fL (36.4-46.3); Red Blood Count 4.84 Miln/mm3 (4.00-5.20); White Blood Count 10.4 Thou/mm3 (3.6-11.0)
[2024-09-29 16:46] LABS: INR 1.2 (0.9-1.3); Partial Thromboplastin Time 35.9 Seconds (22.0-36.0)
[2024-09-29 16:49] LABS: Anion Gap 15 (7-16); BUN/Creatinine Ratio 27 Ratio (12-20); Blood Urea Nitrogen 35 mg/dL (9-23); Carbon Dioxide 21.9 mMol/L (20.0-31.0); Chloride 101 mMol/L (98-107); Creatinine (Component) 1.3 mg/dL (0.6-1.3); Estimated Creatinine Clearance 44.4 mL/min (>60); Glucose 115 mg/dL (74-106); Magnesium 2.8 mg/dL (1.6-2.6); Osmolality,Calculated 284 (275-295); Phosphorous 3.8 mg/dL (2.4-5.1); Potassium 3.4 mMol/L (3.4-5.1); Sodium 138 mMol/L (136-145); eGFR 46 See Note
[2024-09-29] MEDS: METHADONE HCL 10 MG TABLET PO (17:51)
[2024-09-29] MEDS: HEPARIN SOD INJ 5000 UNIT/ML VIAL 4700 UNIT IV (18:38)
[2024-09-29] MEDS: Heparin/D5w 25K 250 ML Ivpb 25,000 UNIT/250 ML BAG 9.362 UNIT IV (18:41)
[2024-09-29 19:20] LABS: Reflex Lactate? Y
--- NOTE | 2024-09-29 19:27 | PC.NURSE ---
Assumed care of pt. Pt on bipap and is currently tolerating well. Pt has sanderson in place and is on children's librarian. Pt displays no signs of distress at this time. Bed locked in lowest position, call light within reach.
[2024-09-29] MEDS: QUEtiapine FUMARATE 100 MG TABLET PO (20:54)
[2024-09-29] MEDS: DIAZEPAM 5 MG TABLET 10 MG PO (20:54)
[2024-09-29 21:29] LABS: Lactic Acid, 3 HR 2.5 mMol/L (0.4-2.0)
--- NOTE | 2024-09-29 23:59 | PC.NURSE ---
ELECTRIC METER REPAIRER APPRENTICE called to pt's room. BP 190/105, 190/142, HR 95, O2 98%. New orders for pt, see MAR.
[2024-09-30] VITALS (44 sets, daily range): BP systolic 99–186; BP diastolic 66–112; PULSE 54–186; RESP 0–37; TEMP 35.9–36.6; O2SAT 93–100; BMI 30.4
--- NOTE | 2024-09-30 00:02 | XR_ITS ---
Examination: AP chest single view Technique one AP portable upright chest single view Exam date and time: September 30, 2024 0012 hrs. Comparison September 28, 2024 1648 hrs. Indications: Shortness of breath today. Findings: Worsening significant bilateral lung opacity consistent with pneumonia Normal heart size Moderate osteopenia Impression: Worsening severe bilateral pneumonia
[2024-09-30] MEDS: KETOROLAC INJ 30 MG/ML VIAL IVP (00:21)
[2024-09-30] MEDS: DILTIAZEM INJ 5 MG/ML VIAL 5 ML 20 MG IV ×2 (00:50→03:08)
[2024-09-30 01:03] LABS: Anion Gap 15 (7-16); BUN/Creatinine Ratio 27 Ratio (12-20); Blood Urea Nitrogen 32 mg/dL (9-23); Calcium 7.7 mg/dL (8.3-10.6); Carbon Dioxide 20.9 mMol/L (20.0-31.0); Chloride 103 mMol/L (98-107); Creatinine (Component) 1.2 mg/dL (0.6-1.3); Estimated Creatinine Clearance 48.1 mL/min (>60); Glucose 129 mg/dL (74-106); Osmolality,Calculated 286 (275-295); Phosphorous 3.8 mg/dL (2.4-5.1); Potassium 3.4 mMol/L (3.4-5.1); Sodium 139 mMol/L (136-145); Troponin I 0.023 ng/mL (0.0-0.045); eGFR 51 See Note
--- NOTE | 2024-09-30 01:08 | EVENTNT_ITS ---
Documentation for date of: 09/30/24 Event Note Event Note: 09/30/2024: Rapid response called around 11:30 PM on 09/29 for patient with heart rate fluctuating between 160-180s. On initial assessment, the patient was on oxy mask 7 L satting 94%; however, HR was elevated at around 170. Patient was sitting up but muttering words, but denied having any acute chest pain - noted to have back pain (between shoulders). Blood pressure was checked on both arms and fluctuated. Left arm was intially MAP of 128 and Right arm was initally MAP of 150; both were rechecked throughout the RR and BP eventually stabilized to MAP of 90s on both arms. Elevated blood pressure was believed to be secondary to pain, as such 30mg IV Toradol was given. When patient's blood pressure and HR did not improve; patient was given a push of diltiazem 20mg IV while being on diltiazem gtt which dropped HR to around 100 and NSR. 09/30/2024: Second rapid response called around 3:00 AM on 09/30 for the patient having increased work of breathing, red rash eruptions on face, arms and chest along with persistently elevated heart rate (up to 190s). Patient airway, breathing and circulation were assessed - patient's BP with MAP of 90s, HR 160- 190s, afebrile, satting 94 on 7-8L of Oxymask. Patient was noted to have agonal breathing at this time but was responsive by opening eyes and muttering answers upon strenal rub and redirection. Patient was also diaphoretic and lower extremities were cool to palpation. There was a suspicion of acute allergic reaction secondary to the Toradol that the patient was given, potassium infusion vs. Zosyn earlier on 09/29. Patient was given x1 IV famotidine 40, 125 methylpredinsolone and 50 of benadryl. Patient was also given an additional 20mg of IV diltiazem and switched over from diltiazem gtt to amiodarone gtt for persistant afib with RVR. ED physician, Dr. Tejeda, was contacted for possible need for intubation; however, upon reassessment and ABG (which was unremarkable) decision was to observe the patient. Chad Cotter, PGY-1 Attending physician note: Recommended ABG, patient was given Benadryl probably inducing tachycardia r/o SVT. Cannot give adenosine due to sob/bronchospastic disease, DC Benadryl.
[2024-09-30] MEDS: POTASSIUM CHL 10 mEq IVPB 10 MEQ/100 ML BAG 100 MEQ IV ×4 (02:28→10:40)
[2024-09-30 02:31] LABS: Partial Thromboplastin Time 91.7 Seconds (22.0-36.0)
[2024-09-30] MEDS: FAMOTIDINE INJ 10 MG/ML VIAL 2 ML 40 MG IVP (03:01)
[2024-09-30] MEDS: DiphenhydrAMINE INJ 50 MG/ML VIAL IVP (03:03)
[2024-09-30] MEDS: AMIODARONE 150 MG IVPB 150 MG/100 ML BAG 600 MG IV (03:15)
[2024-09-30] MEDS: AMIODARONE 360 MG IVPB 360 MG/200 ML BAG 33.333 MG IV (03:36)
[2024-09-30 03:42] LABS: Base Excess 0 (-3-3); HCO3 25 mEq/L (20-26); Inspired Oxygen, FIO2 21 %; O2 Saturation 97 % (91-98); PCO2 41 mmHg (32.0-48.0); PO2 91 mmHg (83-108); pH, Arterial 7.39 (7.35-7.45)
[2024-09-30 03:43] LABS: Allen Test Performed/OK; Puncture Site Right Radial
[2024-09-30] MEDS: PIPER/TAZO INJ 3.375 GM in SODIUM CHLORIDE 0.9% (P) 100 ML IV ×3 (05:47→22:19)
[2024-09-30 05:54] LABS: Lactate (Lactic Acid) 1.8 mMol/L (0.4-2.0)
[2024-09-30 06:06] LABS: Basophils % (Auto) 0 % (0-2.5); Eosinophils % (Auto) 0 % (0-10); Hematocrit 39.8 % (36.0-46.0); Hemoglobin 13.2 g/dL (12.0-16.0); Immature Granulocytes % (Auto) 7 % (0-0); Immature Granulocytes Auto 0.64 Thou/mm3 (0.00-0.00); Lymphocytes # (Auto) 0.7 Thou/mm3 (1.0-4.8); Lymphocytes % (Auto) 8 % (10-50); Mean Corpuscular HGB Conc 33.2 g/dl (31.0-37.0); Mean Corpuscular Volume 85 fL (80-100); Monocytes # (Auto) 0.3 Thou/mm3 (0.0-0.8); Monocytes % (Auto) 4 % (0-12); Neutrophils % (Auto) 81 % (37-80); Nucleated Red Blood Cell % 0 /100 WBC (0); Platelet Count 235 Thou/mm3 (140-440); RDW Standard Deviation 43.7 fL (36.4-46.3); Red Blood Count 4.71 Miln/mm3 (4.00-5.20); White Blood Count 8.6 Thou/mm3 (3.6-11.0)
--- NOTE | 2024-09-30 06:11 | PC.NURSE ---
SPOKE WITH DR. MCKEON REGARDING K CHLORIDE INFUSIONS BEING PAUSED FOR POSSIBLE ALLERGIC REACTION. PER MD, CAN CONTINUE K CHLORIDE INFUSIONS
[2024-09-30] MEDS: LEVALBUTEROL RT 0.63 MG/3 ML NEBU INH ×5 (06:44→22:27)
[2024-09-30] MEDS: IPRATROPIUM RT 0.5 MG/ 2.5 ML NEBU INH ×5 (06:44→22:27)
[2024-09-30 06:51] LABS: Alanine Aminotransferase 34 U/L (10-49); Albumin, Serum 3.8 gm/dL (3.4-4.8); Albumin/Globulin Ratio 1.5 (1.2-2.2); Alkaline Phosphatase 201 U/L (46-116); Anion Gap 14 (7-16); Aspartate Amino Transferase 92 U/L (0-34); BUN/Creatinine Ratio 28 Ratio (12-20); Bilirubin,Total 1.8 mg/dL (0.3-1.2); Blood Urea Nitrogen 31 mg/dL (9-23); Calcium 7.9 mg/dL (8.3-10.6); Calcium (Corrected) 8.1 mg/dL (8.5-10.1); Chloride 100 mMol/L (98-107); Creatinine (Component) 1.1 mg/dL (0.6-1.3); Estimated Creatinine Clearance 52.4 mL/min (>60); Globulin 2.5 gm/dL (2.3-3.5); Glucose 167 mg/dL (74-106); Magnesium 1.9 mg/dL (1.6-2.6); Osmolality,Calculated 284 (275-295); Phosphorous 4.2 mg/dL (2.4-5.1); Potassium 3.3 mMol/L (3.4-5.1); Sodium 137 mMol/L (136-145); Total Protein 6.3 gm/dL (5.7-8.2); eGFR 57 See Note
[2024-09-30] MEDS: SENNA TABLET 1 TAB PO (09:14)
[2024-09-30] MEDS: DIAZEPAM 5 MG TABLET 10 MG PO (09:14)
[2024-09-30] MEDS: DULoxetine HCL 30 MG CAPSULE 60 MG PO ×2 (09:14→21:57)
[2024-09-30] MEDS: Magnesium Sulfate 4 GM Ivpb 4 GM/50 ML BAG IV (09:15)
[2024-09-30] MEDS: POTASSIUM CHLORIDE 20 mEq TABCR 40 MEQ PO (09:16)
[2024-09-30] MEDS: CALCIUM CARBONATE 600 MG TABLET PO (09:16)
[2024-09-30] MEDS: AMIODARONE 360 MG IVPB 360 MG/200 ML BAG 16.667 MG IV (09:37)
[2024-09-30 10:40] LABS: Partial Thromboplastin Time 71.7 Seconds (22.0-36.0)
[2024-09-30] MEDS: VANCOMYCIN/NS 1 GM IVPB 200 ML IV (11:21)
--- NOTE | 2024-09-30 11:35 | PC.NURSE ---
made aware of b/p 186/112
[2024-09-30] MEDS: LABETALOL INJ 5 MG/ML VIAL 20 ML IVP (12:08)
--- NOTE | 2024-09-30 13:13 | PCS.ST ---
Swallow Evaluation completed. No dysphagia. Aspiration risk d/t O2 needs. Continue current diet.
--- NOTE | 2024-09-30 13:35 | PD.RESEVENT ---
Documentation for date of: 09/30/24 Event Note Event Note: Rapid response event note Rapid response called at approximately 1335 for episode of bradycardia (HR 30). Patient appeared increased altered mental status. Increased work of breathing. Pedal pulses decreased 1+. Vitals during rapid: T 95.2, BP 123/67, P 66, and RR 34, spO2 80% on oxymask. MAP 86. Intervention: Amio drip d/c, ABG, EKG, and Chest X-ray, CMP, CBC, and Lactic acidosis. Bipap added. - The patient's plan was discussed with attending Dr. March and senior residents Agustin Mancuso MD PGY1 Internal Medicine
--- NOTE | 2024-09-30 13:37 | EKG_ITS ---
[facility] Test Date: 2024-09-30 Pat Name: SD ARAIZA [facility] Gender: Female Grill Cook: PAVEL : 1960 Requested By: Maynor June Order Number: [id number] Reading MD: Maynor June Measurements Intervals Spicer Rate: 84 P: 46 HI: 140 QRS: 21 QRSD: 87 T: 45 QT: 416 QTc: 493 Interpretive Statements SINUS RHYTHM LOW QRS VOLTAGE IN PRECORDIAL LEADS Compared to ECG 09/29/2024 23:52:05 Atrial fibrillation no longer present T-wave abnormality no longer present /store/S0/[id number].pdf
--- NOTE | 2024-09-30 13:38 | XR_ITS ---
Examination: AP chest single view TECHNIQUE: AP portable sitting chest single view Exam date and time: September 30, 2024 1346 hours INDICATIONS: Hypoxia today COMPARISON: September 30, 2024 1212 hours FINDINGS: Severe bilateral pneumonia again noted Normal heart size No pneumothorax IMPRESSION: Severe bilateral pneumonia
--- NOTE | 2024-09-30 13:50 | PC.SS ---
Rapid response initiated on behalf of the patient due to bradycardia. Patient's family present at bedside.
[2024-09-30 13:59] LABS: Base Excess -5 (-3-3); HCO3 23 mEq/L (20-26); Inspired Oxygen, FIO2 65 %; O2 Saturation 99 % (91-98); PCO2 53 mmHg (32.0-48.0); PO2 161 mmHg (83-108); pH, Arterial 7.25 (7.35-7.45)
[2024-09-30 14:03] LABS: Puncture Site Right Radial
[2024-09-30 14:04] LABS: Allen Test Not Performed
[2024-09-30] MEDS: MethylPREDNISolone SOD SUCC 62.5 MG/ML 2ML VIAL 125 MG IVP (14:11)
[2024-09-30 14:20] LABS: Basophils % (Auto) 0 % (0-2.5); Eosinophils # (Auto) 0.1 Thou/mm3 (0.0-0.5); Eosinophils % (Auto) 1 % (0-10); Hematocrit 39.2 % (36.0-46.0); Immature Granulocytes % (Auto) 3 % (0-0); Immature Granulocytes Auto 0.35 Thou/mm3 (0.00-0.00); Lymphocytes # (Auto) 0.6 Thou/mm3 (1.0-4.8); Lymphocytes % (Auto) 5 % (10-50); Mean Corpuscular HGB Conc 33.2 g/dl (31.0-37.0); Mean Corpuscular Hemoglobin 27.8 pg (25.0-35.0); Mean Corpuscular Volume 84 fL (80-100); Monocytes # (Auto) 0.3 Thou/mm3 (0.0-0.8); Monocytes % (Auto) 3 % (0-12); Neutrophils # (Auto) 10.9 Thou/mm3 (1.8-7.7); Neutrophils % (Auto) 89 % (37-80); Nucleated Red Blood Cell # 0.02 Thou/mm3 (0.00-0.00); Nucleated Red Blood Cell % 0 /100 WBC (0); Platelet Count 299 Thou/mm3 (140-440); RDW Standard Deviation 44.6 fL (36.4-46.3); Red Blood Count 4.67 Miln/mm3 (4.00-5.20); White Blood Count 12.2 Thou/mm3 (3.6-11.0)
[2024-09-30 14:29] LABS: Cocci Serology, IgG Negative (Negative)
--- NOTE | 2024-09-30 14:54 | PC.SS ---
Rounding note; Rapid called, Blood cultures pending, patient is on a drip.
[2024-09-30 14:59] LABS: Band Neutrophils (Manual) 3 % (0-6); Eosinophils (Manual) 1 % (0-4); Lymphocytes (Manual) 10 % (20-44); Monocytes (Manual) 6 % (2-9); Neutrophils (Manual) 80 % (50-70)
[2024-09-30 15:10] LABS: Alanine Aminotransferase 36 U/L (10-49); Albumin, Serum 3.9 gm/dL (3.4-4.8); Albumin/Globulin Ratio 1.4 (1.2-2.2); Alkaline Phosphatase 222 U/L (46-116); Anion Gap 16 (7-16); Aspartate Amino Transferase 123 U/L (0-34); BUN/Creatinine Ratio 29 Ratio (12-20); Bilirubin,Total 1.9 mg/dL (0.3-1.2); Blood Urea Nitrogen 32 mg/dL (9-23); Calcium 7.9 mg/dL (8.3-10.6); Carbon Dioxide 21.2 mMol/L (20.0-31.0); Chloride 99 mMol/L (98-107); Creatinine (Component) 1.1 mg/dL (0.6-1.3); Estimated Creatinine Clearance 52.4 mL/min (>60); Globulin 2.7 gm/dL (2.3-3.5); Glucose 251 mg/dL (74-106); Osmolality,Calculated 286 (275-295); Potassium 3.4 mMol/L (3.4-5.1); Sodium 136 mMol/L (136-145); Total Protein 6.6 gm/dL (5.7-8.2); Troponin I 0.026 ng/mL (0.0-0.045); eGFR 57 See Note
--- NOTE | 2024-09-30 15:45 | PC.RT ---
[employer] system was buffering would not let me open pt chart at the time RN sterling was in the room and RT Helga.
--- NOTE | 2024-09-30 15:49 | ESPR_ITS ---
<Statement entered by Chaparro Velez MD - 09/30/24 17:20> Overnight, patient had 2 rapid responses due to A-fib with RVR and shortness of breath. Patient was started on amiodarone drip however 2 boluses of diltiazem was given. Patient was also given Toradol however due to suspected hypersensitivity reaction she was managed with antihistamines, steroids and PPI. Today in the morning patient was feeling short of breath and fatigued. She was off BiPAP and was seen on oxy mask. Will continue with amiodarone drip and heparin drip. Lantus was adjusted to 21 units. Repeating the blood cultures as blood cultures are growing GPC. Mucinex DM was added for cough. Cocci IgM came negative. Will likely continue with current antibiotic therapy and follow-up on new blood cultures. Bowel regime was given due to constipation. Patient had another rapid response today later in the afternoon for bradycardia and altered mental status. Patient had a sinus pause momentarily. Repeat labs, EKG, ABGs were ordered. Patient was placed on BiPAP again. Amiodarone was discontinued. ICU team is aware about the patient. All labs and orders were reviewed. I saw and examined the patient, and I agree with current management stated by Dr Jamee MD,PGY1. Plan of care was discussed with the attending physician and resident physician. Disclaimer: Despite multiple revisions, due to the dictation software being used, the document bellow may not be free of grammatical errors including phonetic/typographic errors. However, this does not deter from our commitment to providing health care in the patient's best interest in mind. Dr. Ivory MD, PGY 2 Documentation for date of: 09/30/24 Subjective Subjective Interval history: Patient is a 67-year-old female with a past medical history of diabetes mellitus type 2 insulin-dependent nonadherent, hyperlipidemia, and hypertension. Patient experienced terrible overnight rapid events. Patient had increased work of breathing and tachypneic with a heart rate of 1 60-1 90. Saturating on the OxyMask at 94% on 7 to 8 L of oxygen. Patient was put back on the BiPAP. Second rapid response called for atrial fibrillation and patient was switched from diltiazem to amiodarone. Patient examined at bedside with patient's at bedside. Patient continues to have altered mentation but denied chest pain. Exam Vital Signs Temp Pulse Resp BP Pulse Ox O2 Del Method O2 Flow Rate 96.6 F L 54 L 18 182/112 H 100 BiPAP 4 09/30/24 12:00 09/30/24 14:16 09/30/24 14:16 09/30/24 12:08 09/30/24 14:16 09/30/24 12:00 09/30/24 12:00 FiO2 60 09/30/24 14:16 Narrative Exam General Appearance: Alert & Oriented X1, well-nourished female who is lying in bed in mild discomfort with increased work of breathing. HEENT: Skull symmetrical and atraumatic. Conjunctivae pin and moist. Pupils equal, round, reactive to light and accommodation (PERRL). External ear without lesion or discharge. Straight, nares patient, mucosa appears dry, no discharge. Cardio: Normal Rate and Rhythm with S1 and S2 heart sounds. No murmurs or extra heart sounds auscultated. No bruits on carotid auscultation. No peripheral edema or cyanosis. Lungs: Symmetric expansion. Chest and back non-tender. Breath sounds vesicular with crackles. Abdomen: Non-tender, Non-distended, Normal Reactive Bowel Sounds Neuro: Yes Alert, Yes cooperative, Yes oriented to person, NO place, and NO time. Speech clear. CN grossly intact. Upper motor strength 5/5 and Lower motor strength 5/5. Sensation intact. Objective Labs 09/30/24 14:01 09/30/24 14:01 Labs: Laboratory Results - last 24 hr 09/29/24 09/29/24 09/29/24 08:31 16:16 21:08 WBC 10.4 RBC 4.84 Hgb 13.6 Hct 40.9 MCV 85 MCH 28.1 MCHC 33.3 RDW Std Deviation 43.8 Plt Count 268 D Neut % (Auto) 85 H Lymph % (Auto) 6 L [place] % (Auto) 3 Eos % (Auto) 1 Baso % (Auto) 0 Neut # (Auto) 8.9 H Lymph # (Auto) 0.6 L [place] # (Auto) 0.4 Eos # (Auto) 0.1 Baso # (Auto) 0.0 Immature Gran # (Auto) 0.52 H Absolute Nucleated RBC 0.00 Immature Gran % 5 H Neutrophils % (Manual) Monocytes % (Manual) Eosinophils % (Manual) Nucleated RBC % 0 Band Neutrophils Lymphocytes (Manual) PT 13.0 H INR 1.2 APTT 35.9 Puncture Site ABG pH ABG pCO2 ABG pO2 ABG HCO3 ABG O2 Saturation ABG Base Excess FiO2 Sodium 138 Potassium 3.4 Chloride 101 Carbon Dioxide 21.9 Anion Gap 15 BUN 35 H Creatinine 1.3 Estim Creat Clear Calc 44.4 L eGFR 46 L BUN/Creatinine Ratio 27 H Glucose 115 H D Calculated Osmolality 284 Lactic Acid 3.0 H 2.5 H Calcium 8.0 L Corrected Calcium Phosphorus 3.8 Magnesium 2.8 H Total Bilirubin AST ALT Alkaline Phosphatase Troponin I Total Protein Albumin Globulin Albumin/Globulin Ratio Coccidioides IgG Ab Negative 09/30/24 09/30/24 09/30/24 00:20 03:36 05:46 WBC 8.6 RBC 4.71 Hgb 13.2 Hct 39.8 MCV 85 MCH 28.0 MCHC 33.2 RDW Std Deviation 43.7 Plt Count 235 D Neut % (Auto) 81 H Lymph % (Auto) 8 L [place] % (Auto) 4 Eos % (Auto) 0 Baso % (Auto) 0 Neut # (Auto) 7.0 Lymph # (Auto) 0.7 L [place] # (Auto) 0.3 Eos # (Auto) 0.0 Baso # (Auto) 0.0 Immature Gran # (Auto) 0.64 H Absolute Nucleated RBC 0.00 Immature Gran % 7 H Neutrophils % (Manual) Monocytes % (Manual) Eosinophils % (Manual) Nucleated RBC % 0 Band Neutrophils Lymphocytes (Manual) PT INR APTT 91.7 H D Puncture Site Right Radial ABG pH 7.39 ABG pCO2 41 ABG pO2 91 D ABG HCO3 25 ABG O2 Saturation 97 ABG Base Excess 0 FiO2 21 Sodium 139 137 Potassium 3.4 3.3 L Chloride 103 100 Carbon Dioxide 20.9 23.0 Anion Gap 15 14 BUN 32 H 31 H Creatinine 1.2 1.1 Estim Creat Clear Calc 48.1 L 52.4 L eGFR 51 L 57 L BUN/Creatinine Ratio 27 H 28 H Glucose 129 H 167 H Calculated Osmolality 286 284 Lactic Acid 2.0 1.8 Calcium 7.7 L 7.9 L Corrected Calcium 8.1 L Phosphorus 3.8 4.2 Magnesium 2.0 1.9 Total Bilirubin 1.8 H D AST 92 H ALT 34 Alkaline Phosphatase 201 H D Troponin I 0.023 Total Protein 6.3 Albumin 3.8 Globulin 2.5 Albumin/Globulin Ratio 1.5 Coccidioides IgG Ab 09/30/24 09/30/24 09/30/24 09:22 13:49 14:01 WBC 12.2 H D RBC 4.67 Hgb 13.0 Hct 39.2 MCV 84 MCH 27.8 MCHC 33.2 RDW Std Deviation 44.6 Plt Count 299 D Neut % (Auto) 89 H Lymph % (Auto) 5 L [place] % (Auto) 3 Eos % (Auto) 1 Baso % (Auto) 0 Neut # (Auto) 10.9 H Lymph # (Auto) 0.6 L [place] # (Auto) 0.3 Eos # (Auto) 0.1 Baso # (Auto) 0.0 Immature Gran # (Auto) 0.35 H Absolute Nucleated RBC 0.02 H Immature Gran % 3 H Neutrophils % (Manual) 80 H Monocytes % (Manual) 6 Eosinophils % (Manual) 1 Nucleated RBC % 0 Band Neutrophils 3 Lymphocytes (Manual) 10 L PT INR APTT 71.7 H D Puncture Site Right Radial ABG pH 7.25 L D ABG pCO2 53 H D ABG pO2 161 H D ABG HCO3 23 ABG O2 Saturation 99 H ABG Base Excess -5 L FiO2 65 Sodium 136 Potassium 3.4 Chloride 99 Carbon Dioxide 21.2 Anion Gap 16 BUN 32 H Creatinine 1.1 Estim Creat Clear Calc 52.4 L eGFR 57 L BUN/Creatinine Ratio 29 H Glucose 251 H D Calculated Osmolality 286 Lactic Acid 2.0 Calcium 7.9 L Corrected Calcium 8.0 L Phosphorus Magnesium Total Bilirubin 1.9 H AST 123 H ALT 36 Alkaline Phosphatase 222 H D Troponin I 0.026 Total Protein 6.6 Albumin 3.9 Globulin 2.7 Albumin/Globulin Ratio 1.4 Coccidioides IgG Ab ABG Interpretation ABG results: 09/29/24 09/29/24 09/30/24 00:03 15:16 03:36 ABG pH 7.29 L 7.33 L 7.39 ABG pCO2 42 45 41 ABG pO2 72 L 216 H D 91 D ABG HCO3 20 23 25 ABG O2 Saturation 92 100 H 97 ABG Base Excess -7 L -3 0 09/30/24 13:49 ABG pH 7.25 L D ABG pCO2 53 H D ABG pO2 161 H D ABG HCO3 23 ABG O2 Saturation 99 H ABG Base Excess -5 L Quality Measures Quality Measures sepsis Current suspected stage: sepsis Possible source: pulmonary Blood cultures ordered: yes Antibiotic ordered: Yes Assessment & Plan Assessment Current Active Medications: Generic Name Dose Route Start Last Admin Trade Name Freq PRN Reason Stop Dose Admin Acetaminophen 650 mg 09/28/24 23:26 Acetaminophen 325 Mg Tablet PO 10/28/24 23:25 Q6H PRN Pain (1-3) or Fever >100.3 Dextrose 25 ml 09/28/24 23:34 Dextrose 50%-Water Inj 50 Ml Syringe IV 10/28/24 23:33 Q15MIN PRN BG 50-70 responsive npo pt Dextrose 50 ml 09/28/24 23:34 Dextrose 50%-Water Inj 50 Ml Syringe IV 10/28/24 23:33 Q15MIN PRN BG <50 OR BG <70 & pt unresponsive Diazepam 10 mg 09/29/24 15:55 09/30/24 09:14 Diazepam 5 Mg Tablet PO 10/04/24 15:54 10 mg BID LUKE Administration Duloxetine HCl 60 mg 09/29/24 01:45 09/30/24 09:14 Duloxetine Hcl 30 Mg Capsule PO 10/29/24 01:44 60 mg BID LUKE Administration Glucagon 1 mg 09/28/24 23:34 Glucagon Inj 1 Mg Vial IM Q15MIN PRN BG <70, and no IV access Guaifenesin/Dextromethorphan 2 each 09/30/24 10:00 09/30/24 10:42 Guaifenesin/Dm Tablet PO 10/30/24 09:59 Not Given BID LUKE Piperacillin Sod/Tazobactam 100 mls @ 25 mls/hr 09/29/24 14:00 09/30/24 14:11 Sod 3.375 gm/ Sodium Chloride IV 10/06/24 13:59 25 mls/hr Q8HR LUKE Administration Protocol Heparin Sodium/Dextrose 25,000 unit in 250 mls @ 9.362 mls/hr 09/29/24 15:00 09/30/24 11:29 Heparin In D5w Ivpb IV 10/13/24 14:59 10 units/kg/hr .Q24H LUKE 7.802 mls/hr Titration Protocol 12 UNITS/KG/HR Vancomycin/Sodium Chloride 200 mls @ 120 mls/hr 09/30/24 10:00 09/30/24 14:24 Vancomycin/Ns 1 Gm Ivpb IV 10/07/24 09:59 Infused QDAY@1000 LUKE Infusion Protocol Insulin Glargine 21 unit 09/30/24 21:00 Insulin Glargine (Lantus) 5 Unit/0.05 Ml (Per 5 Units) SC 10/30/24 20:59 HS LUKE Insulin Human Lispro 0 unit 09/29/24 07:30 09/30/24 12:06 Insulin Lispro (Admelog) 1 Unit/0.01 Ml Unit SC 10/29/24 07:29 Not Given [facility] Protocol Ipratropium [place] 0.5 mg 09/29/24 07:35 09/30/24 14:16 Ipratropium Rt 0.5 Mg/ 2.5 Ml Nebu INH 10/29/24 07:34 0.5 mg Q4HRRT LUKE Administration Levalbuterol HCl 0.63 mg 09/29/24 07:30 09/30/24 14:16 Levalbuterol Rt 0.63 Mg/3 Ml Nebu INH 10/29/24 07:29 0.63 mg Q4HR LUKE Administration Methadone HCl 10 mg 09/30/24 14:00 09/30/24 14:25 Methadone Hcl 10 Mg Tablet PO 10/05/24 13:59 Not Given TID LUKE Ondansetron HCl 4 mg 09/28/24 23:26 Ondansetron Inj 2 Mg/Ml Inj 2 Ml IV 10/28/24 23:25 Q6H PRN NAUSEA OR VOMITING Protocol Pharmacy Consult 1 each 09/30/24 06:36 Vancomycin Pharmacy To Dose 1 Each Each IV 10/29/24 08:59 QDAY PRN PROTOCOL Polyethylene Glycol 17 gm 09/30/24 10:00 09/30/24 10:42 Polyethylene Glycol 17 Gm Packet PO 10/30/24 09:59 Not Given QDAY LUKE Quetiapine Fumarate 100 mg 09/29/24 21:00 09/29/24 20:54 Quetiapine Fumarate 100 Mg Tablet PO 10/29/24 20:59 100 mg HS LUKE Administration Sennosides 1 tab 09/29/24 09:00 09/30/24 09:14 Senna Tablet PO 10/29/24 08:59 1 tab QDAY LUKE Administration Protocol Sodium Chloride 3 ml 09/28/24 18:37 Sodium Chloride Rt [place] 0.9% 3 Ml Nebu INH 10/28/24 18:36 PRN PRN SOLN Tramadol HCl 50 mg 09/29/24 01:05 09/29/24 01:54 Tramadol Hcl 50 Mg Tablet PO 10/04/24 01:04 50 mg TID PRN Administration pain Protocol Plan Patient is a 67-year-old female with a past medical history of diabetes mellitus type 2 insulin-dependent nonadherent, hyperlipidemia, and hypertension who was admitted on 09/29/2024 for Sepsis secondary to CAP, complicated by JOSY and Lactic Acidosis. #Bacteremia #Severe sepsis, likely secondary to CAP #Community acquired pneumonia Etiolgoy: Bacterial community-acquired pneumonia cannot be ruled out given past medical history of comorbidities and age, likely Streptococcus pneumoniae vs staph aures. Patient overnight experienced to rapid for increased work of breathing and had a temp he was started on the BiPAP after being on the OxiMax and development of atrial fibrillation change from diltiazem drip to amiodarone drip. Positive preliminary blood culture, positive for GPC. DDx: Viral infection less likely as patient tested negative for Influenza and COVID vs less likely cocci as results were negative for serology. Diagnostic Test: -Blood Culture (09/28/2024)X2: Gram Positive Cocci -Blood Cultures-second set ordered (09/30/2024) -Sputum Culture (09/28/2024) Pending final report -Cxr (09/28/2024): Significant bilateral pneumonia -Head CT (09/28/2024): Negative for acute hemorrhage, mass effect or midline shift. If symptoms persist, consider brain MRI follow-up -CT Abdomen/Pelvis (09/28/2024): Extensive bilateral pneumonia. No renal or ureteral calculi, no hydronephrosis. Moderate stool throughout the colon -ABG was done which showed a pH of 7.29 with a pCO2 42. -ABG (09/29/2024): pH 7.33, pCO2 45, pO2 216 -ABG (09/30/2024): pH 7.25, pCO2 53, pO2 161 -Respiratory Acidosis -WBC 16-->(09/30/2024) 8.6, second WBC 12.2 -Procalcitonin 12.65 -Lactic Acid (09/29/2024) 6.8, 8.8, 8.4, 5.4, 3.1-->09/30/2024 2.0 (during rapid) Plan: -tele admit -1 L NS bolus and then continue maintenance at 75 cc/h dc given increased work of breathing an net positive volume status. -on Bipap, trying to wean off Bipap -IV ceftriaxone and azithromycin (09/28/2024-09/29/2024) DC -Vancomycin & Zosyn (09/29/2024--) -Blood Culture (09/28/2024) Pending, Blood Cultures (09/30/2024) second set #Bradycardia #Acute Atrial Fibrilation w/ RVR #Acute Atrial Flutter w/ RVR, Resolved. Etiology: Acute atrial flutter likely secondary to sepsis.Overnight patient converted from atrial flutter to A-fib and diltiazem was switched to amnio. Rapid reports during day team at approximately 1335 for episode of bradycardia lasting about 1 second with possible AV block. Amio DC'd. If patient develops atrial flutter or atrial fibrillation may restart diltiazem at a slower rate. DDx: Electrolyte imbalance versus cardiac etiology such as ectopic foci. Diagnostic: CHADVASC 3 EKG:Atrial Flutter EKG (09/30/2024) Atrial Fibrillation Cxr (09/29/2024): Significant bilateral pneumonia Plan: -Echo -Heparin Drip -PT and PTT -Diltiazem 125 mg IV 5 mg/hr-D/c & D/C Amio drip -If patient requires diltiazem, please start drip rate at a lower rate. -Cardio consult, Dr. Romo, appreciate recommendation #Acute kidney injury #Mild hyponatremia #Hypomagnesemia #Hypokalemia Etiology: Admitting labs showed BUN of 51 and creatinine of 2.2, baseline has been about 1.0. Patient continues to appear dehydrated and oral intake in encouraged. Likely secondary to pre-renal in the setting of sepsis as BUN/Cr level is 27. DDx: Pre-renal cardio-renal can not be rule out vs intrinsic JOSY but less likely as BUN/Cr is greater than 20. Diagnostic: (09/28/2024) sodium-133, Mag- 1.0-->(09/30/2024) Na 137, K 3.3, BUN 31, Cr 1.1, GFR 57, Glucose 167, Mg 1.9 Plan: -Continue IV fluids, DC given patient fluid status -(09/29/2024) IV Mg 4gm -(09/29/2024) 40 meq of K X2 -(09/30/2024) 40 meq of K -Avoid nephrotoxic medications -Renally dose all medications -Monitor CMP #Metabolic Acidosis, Anion Gap, improving #Lactic acidosis, improving Metabolic acidosis likely secondary to lactic acid in the setting of sepsis. Treat underlying cause. DDx: Less likely DKA given negative beta hydroxy versus uremia given JOSY but less likely. CMP (09/28/2024): 23.4 with lactic acid of 6.8 up trended to 8.4. Glucose on admission was 347. UA showed 3+ glucose but only trace ketones. CMP (09/29/2024): Na 136, K 3.1, Bicarb 23, BUN 40, Cr 1.7 Lactic Acid: 6.8, 8.8, 8.4, 5.4, 3.1 Plan: -No acute intervention treat underlying cause, sepsis. #History of hypertension Patient at home takes lisinopril 5 mg daily. Blood pressure currently 166/80 Plan -Given JOSY hold home medication lisinopril -consider starting Amlodipine #History of diabetes The patient takes Farxiga 5 mg, insulin Lantus 55 units, metformin 1 g. Today, patient's glucose 167 (H) and a total of 12 units of lispro given thus Lantus increased to 21. Diagnostics: Glucose (09/28/2024) 409--->09/29/2024 115 A1c 10.6 Plan: -IV insulin 5 units x 1 -Lantus 15 HS-->21 units. -ISS -Blood glucose check AC -Hypoglycemia protocols in place #History of chronic pain Patient reports having a history of chronic pain and is on multiple medications: Duloxetine, gabapentin, tizanidine, tramadol, methadone She does not respon well to opioids Plan: -Restarted duloxetine and tramadol, methadone 10 mg TID -Consider restarting other medications or adjusting when patient is more awake. #History of major depressive disorder History of mental health disorders. HOld Diazepam and methadone in the setting of multiple rapid response and bradycardia with possible av block of about 1 second. Plan -Quetiapine Fumarate 100 mg PO HS -Diazepam 10 mg PO BID -HOLD -Duloxetine 60 mg PO BID #Hyperbilirubinemia #Hyperalkaline phosphatase Bilirubin on admission was 2.3 with ALP of 243. CT abdomen and pelvis was done showed an absent gallbladder. Hyperbilirubinemia and elevated alkaline phosphatase in the setting of dehydration and poor oral intake. Patient has abdominal pain or fever and is anicteric. Diagnostics: US Gallbladder (09/29/2024): Absent gallbladder. Normal common bile duct. Hepatomegaly, primary hepatocellular disease versus cirrhosis no focal liver lesions 10/01/2024: Total Bili 1.8 Alkaline Phosphatase 201 AST 92 ALT 34 Plan: -No acute intervention Health Maintenance: Disp: Pt is currently admitted to floors for further management of Sepsis, awaiting blood culture-second set. FEN: Carbohydrate Consistent Low DVT: Heparin Drip Code: Full Code - The patient's plan was discussed with attending Dr. March and senior residents Ivory Mancuso MD PGY1 Internal Medicine Attending Provider Attestation/Addendum I have examined the patient, reviewed labs and imaging findings, discussed the case with the resident(s), and reviewed entered orders. I agree with the plan of care as outlined in this note, with these additional summaries/recommendations: Patient seen at bedside. Patient had 2 rapid responses overnight for atrial fibrillation with rapid ventricular response with heart rate into the 190s. Patient received additional push of IV diltiazem and was continued on diltiazem gtt. Heart rate did not improve and diltiazem was discontinued and started on amiodarone drip. Patient had rapid response again today for sinus pause with 2- 1 AV block. Amiodarone discontinued for now. Will continue heparin gtt. for elevated [id number] score. Patient was also found to have sepsis on admission with endorgan damage of acute kidney injury and AMS. Bilateral pneumonia on chest x-ray likely secondary to gram-negative rods versus MRSA pneumonia. Sputum culture preliminarily showing gram-positive cocci as well as both blood cultures. We will continue IV Zosyn and IV vancomycin. Follow-up cultures when available. Patient also has acute hypoxic respiratory failure secondary to bilateral pneumonia. ABG today shows pH 7.25 and pCO2 of 53. We will continue BiPAP for now and repeat ABG this afternoon. Can wean back to nasal cannula ABG improved. Patient continues to be encephalopathic with waxing and waning mentation which is more chronic in nature given patient's impressive home medication list. We will place home narcotics and benzodiazepines on hold given change in mental status during rapid response today. If necessary we will slowly reinstitute these medications at low-dose. Patient's updated at bedside. All questions answered to satisfaction. Dr. March
[2024-09-30 19:03] LABS: Allen Test Performed/OK; Base Excess -2 (-3-3); HCO3 24 mEq/L (20-26); Inspired Oxygen, FIO2 65 %; O2 Saturation 100 % (91-98); PCO2 43 mmHg (32.0-48.0); PO2 213 mmHg (83-108); Puncture Site Left Radial; pH, Arterial 7.35 (7.35-7.45)
[2024-09-30 19:31] LABS: Partial Thromboplastin Time > 139.0 Seconds (22.0-36.0)
[2024-09-30] MEDS: INSULIN GLARGINE (Lantus) 5 UNIT/0.05 ML (PER 5 UNITS) 21 UNIT SC (20:57)
[2024-09-30] MEDS: QUEtiapine FUMARATE 100 MG TABLET PO (21:57)
[2024-10-01] VITALS (37 sets, daily range): BP systolic 143–192; BP diastolic 85–126; PULSE 58–154; RESP 0–95; TEMP 36.1–36.8; O2SAT 93–100; BMI 30.4
--- NOTE | 2024-10-01 00:12 | PC.NURSE ---
PT CALM, SLEEPING. NO ACUTE DISTRESS. ON BIPAP, SATS 98%, RR 17, HR 70, BP 145/67. 1:1 SITTER AT BEDSIDE.
[2024-10-01] MEDS: Heparin/D5w 25K 250 ML Ivpb 25,000 UNIT/250 ML BAG 5.461 UNIT IV (00:21)
[2024-10-01] MEDS: LEVALBUTEROL RT 0.63 MG/3 ML NEBU INH ×6 (02:27→22:35)
[2024-10-01] MEDS: IPRATROPIUM RT 0.5 MG/ 2.5 ML NEBU INH ×6 (02:28→22:35)
[2024-10-01 03:07] LABS: Basophils % (Auto) 0 % (0-2.5); Eosinophils % (Auto) 0 % (0-10); Hematocrit 35.8 % (36.0-46.0); Immature Granulocytes % (Auto) 1 % (0-0); Immature Granulocytes Auto 0.11 Thou/mm3 (0.00-0.00); Lymphocytes # (Auto) 0.8 Thou/mm3 (1.0-4.8); Lymphocytes % (Auto) 9 % (10-50); Mean Corpuscular HGB Conc 33.5 g/dl (31.0-37.0); Mean Corpuscular Volume 83 fL (80-100); Monocytes # (Auto) 0.3 Thou/mm3 (0.0-0.8); Monocytes % (Auto) 4 % (0-12); Neutrophils # (Auto) 7.6 Thou/mm3 (1.8-7.7); Neutrophils % (Auto) 87 % (37-80); Nucleated Red Blood Cell % 0 /100 WBC (0); Platelet Count 255 Thou/mm3 (140-440); RDW Standard Deviation 44.2 fL (36.4-46.3); Red Blood Count 4.29 Miln/mm3 (4.00-5.20); White Blood Count 8.8 Thou/mm3 (3.6-11.0)
[2024-10-01 03:27] LABS: Alanine Aminotransferase 40 U/L (10-49); Albumin, Serum 3.5 gm/dL (3.4-4.8); Albumin/Globulin Ratio 1.4 (1.2-2.2); Anion Gap 13 (7-16); Aspartate Amino Transferase 84 U/L (0-34); BUN/Creatinine Ratio 27 Ratio (12-20); Bilirubin,Total 1.5 mg/dL (0.3-1.2); Blood Urea Nitrogen 32 mg/dL (9-23); Calcium 7.6 mg/dL (8.3-10.6); Carbon Dioxide 25.5 mMol/L (20.0-31.0); Chloride 102 mMol/L (98-107); Creatinine (Component) 1.2 mg/dL (0.6-1.3); Estimated Creatinine Clearance 48.1 mL/min (>60); Globulin 2.5 gm/dL (2.3-3.5); Glucose 264 mg/dL (74-106); Magnesium 2.5 mg/dL (1.6-2.6); Osmolality,Calculated 295 (275-295); Phosphorous 3.6 mg/dL (2.4-5.1); Potassium 3.4 mMol/L (3.4-5.1); Sodium 140 mMol/L (136-145); eGFR 51 See Note
[2024-10-01 03:29] LABS: Alkaline Phosphatase 197 U/L (46-116)
[2024-10-01 03:32] LABS: INR 1.1 (0.9-1.3)
[2024-10-01] MEDS: HEPARIN SOD INJ 5000 UNIT/ML VIAL 4000 UNIT IV (03:47)
[2024-10-01] MEDS: PIPER/TAZO INJ 3.375 GM in SODIUM CHLORIDE 0.9% (P) 100 ML IV (05:26)
[2024-10-01] MEDS: INSULIN LISPRO (AdmeLOG) 1 UNIT/0.01 ML UNIT SC ×2 (07:50→16:59)
[2024-10-01] MEDS: hydrALAZINE INJ 20 MG/ML VIAL 10 MG IV (07:52)
[2024-10-01] MEDS: CALCIUM CARBONATE 600 MG TABLET PO (08:59)
[2024-10-01 09:26] LABS: Lactate (Lactic Acid) 2.5 mMol/L (0.4-2.0)
[2024-10-01] MEDS: CALCIUM GLUCONATE 10% INJ 1 GM/10 ML VIAL IV (09:52)
[2024-10-01] MEDS: KETOROLAC INJ 30 MG/ML VIAL 15 MG IVP (10:15)
[2024-10-01] MEDS: VANCOMYCIN/NS 1 GM IVPB 200 ML IV (10:16)
[2024-10-01 10:21] LABS: Partial Thromboplastin Time 71.3 Seconds (22.0-36.0)
--- NOTE | 2024-10-01 10:42 | PC.SS ---
Rounding: Repeat blood cultures, on IV Vanco
[2024-10-01 11:44] LABS: Basophils % (Auto) 0 % (0-2.5); Eosinophils % (Auto) 0 % (0-10); Hematocrit 36.4 % (36.0-46.0); Hemoglobin 12.3 g/dL (12.0-16.0); Immature Granulocytes % (Auto) 2 % (0-0); Immature Granulocytes Auto 0.21 Thou/mm3 (0.00-0.00); Lymphocytes # (Auto) 0.6 Thou/mm3 (1.0-4.8); Lymphocytes % (Auto) 4 % (10-50); Mean Corpuscular HGB Conc 33.8 g/dl (31.0-37.0); Mean Corpuscular Hemoglobin 28.1 pg (25.0-35.0); Mean Corpuscular Volume 83 fL (80-100); Monocytes # (Auto) 0.4 Thou/mm3 (0.0-0.8); Monocytes % (Auto) 3 % (0-12); Neutrophils # (Auto) 12.4 Thou/mm3 (1.8-7.7); Neutrophils % (Auto) 91 % (37-80); Nucleated Red Blood Cell % 0 /100 WBC (0); Platelet Count 304 Thou/mm3 (140-440); RDW Standard Deviation 43.5 fL (36.4-46.3); Red Blood Count 4.38 Miln/mm3 (4.00-5.20); White Blood Count 13.6 Thou/mm3 (3.6-11.0)
[2024-10-01] MEDS: RINGERS LACTATED 500 ML 250 ML 999 ML IV (11:55)
[2024-10-01 11:58] LABS: Base Excess 3 (-3-3); HCO3 26 mEq/L (20-26); Inspired Oxygen, FIO2 30 %; O2 Saturation 99 % (91-98); PCO2 35 mmHg (32.0-48.0); PO2 114 mmHg (83-108); pH, Arterial 7.49 (7.35-7.45)
[2024-10-01 12:01] LABS: Ammonia 22 uMol/L (11-32)
[2024-10-01 12:08] LABS: Allen Test Performed/OK; Puncture Site Left Radial
[2024-10-01 12:24] LABS: Reflex Lactate? Y
[2024-10-01] MEDS: MORPHINE SULF INJ 10 MG/ML VIAL IVP ×3 (12:27→23:27)
[2024-10-01 12:59] LABS: Alanine Aminotransferase 45 U/L (10-49); Albumin, Serum 3.2 gm/dL (3.4-4.8); Albumin/Globulin Ratio 1.4 (1.2-2.2); Alkaline Phosphatase 243 U/L (46-116); Anion Gap 13 (7-16); Aspartate Amino Transferase 124 U/L (0-34); BUN/Creatinine Ratio 31 Ratio (12-20); Bilirubin,Total 1.5 mg/dL (0.3-1.2); Blood Urea Nitrogen 34 mg/dL (9-23); Calcium 8.3 mg/dL (8.3-10.6); Calcium (Corrected) 8.9 mg/dL (8.5-10.1); Carbon Dioxide 24.7 mMol/L (20.0-31.0); Chloride 108 mMol/L (98-107); Creatinine (Component) 1.1 mg/dL (0.6-1.3); Estimated Creatinine Clearance 52.4 mL/min (>60); Free T4 (Free Thyroxine) 0.72 ng/dL (0.89-1.76); Globulin 2.3 gm/dL (2.3-3.5); Glucose 157 mg/dL (74-106); Magnesium 2.2 mg/dL (1.6-2.6); Osmolality,Calculated 301 (275-295); Potassium 3.2 mMol/L (3.4-5.1); Sodium 146 mMol/L (136-145); Thyroid Stimulating Hormone 0.31 uIU/mL (0.55-4.78); Total Protein 5.5 gm/dL (5.7-8.2); eGFR 57 See Note
[2024-10-01 14:17] LABS: Lactate (Lactic Acid) 4.3 mMol/L (0.4-2.0)
[2024-10-01 14:23] LABS: Amphetamine/Methamp Scrn,U Negative (Negative); Barbiturate Screen,Urine Negative (Negative); Benzodiazepines Screen,Urine Positive (Negative); Benzoylecgonine Screen, Ur Negative (Negative); Fentanyl Screen,Urine Negative (Negative); Opiate Screen,Urine Negative (Negative); THC Screen,Urine Negative (Negative)
[2024-10-01] MEDS: POTASSIUM CHL 10 mEq IVPB 10 MEQ/100 ML BAG 60 MEQ IV ×3 (14:36→18:03)
[2024-10-01] MEDS: SODIUM CHLORIDE 0.9% 1000 ML 1,000 ML 70 ML IV (14:39)
--- NOTE | 2024-10-01 15:23 | ESPR_ITS ---
<Statement entered by Chaparro Velez MD - 10/01/24 17:22> Patient was seen and examined at the bedside. Patient was agitated in the morning and afternoon therefore she was given morphine 0.5 mg and 1 mg x 1 respectively. Patient's was present at bedside and was explained the patient tachypnea may cause her to have respiratory fatigue and could have a possibility to be upgraded to ICU for intubation if she remains like that on BiPAP. However, RT took her off today later in the evening and she has been saturating well. ABGs revealed normal pO2 slightly alkalotic on pH, pCO2 normal. Will likely keep her on morphine 1 mg Q4 hourly as needed for agitation. New blood cultures are negative for first 24 hours. We are still covering for MRSA bacteremia with vancomycin. Continuing heparin drip for now. Harmonic Analyst was updated regarding patient's current condition and he was agreeable to continue for VALERIE on Sunday morning. Will wait on final blood culture results. Lactic acidosis, lactic acid up trended therefore 250 cc bolus of LR was given and started on NS 75 cc/h for now as patient is not eating or drinking. Will continue with current management and keep BiPAP as needed. Hydralazine was given 10 mg x 1 for elevated blood pressure. Patient is off amiodarone drip. All labs and orders were reviewed. I saw and examined the patient, and I agree with current management stated by Dr Jamee MD,PGY1. Plan of care was discussed with the attending physician and resident physician. Disclaimer: Despite multiple revisions, due to the dictation software being used, the document bellow may not be free of grammatical errors including phonetic/typographic errors. However, this does not deter from our commitment to providing health care in the patient's best interest in mind. Dr. Ivory MD, PGY 2 Documentation for date of: 10/01/24 Subjective Subjective Interval history: Patient is a 67-year-old female with a past medical history of diabetes mellitus type 2 insulin-dependent nonadherent, hyperlipidemia, and hypertension. No overnight events reported. Patient examined at bedside. Patient has been having increased work of breathing and currently on the BiPAP. Patient appeared altered at bedside and has been agitated. Morphine 0.5 IV X1 and Morphine 1 gm X1 given on 10/01/2024. Exam Vital Signs Temp Pulse Resp BP Pulse Ox O2 Del Method O2 Flow Rate 98.3 F 130 H 30 H 174/105 H 100 BiPAP 4 10/01/24 12:00 10/01/24 14:52 10/01/24 14:52 10/01/24 12:00 10/01/24 14:52 10/01/24 12:00 10/01/24 12:00 FiO2 30 10/01/24 14:52 Narrative Exam General Appearance: Alert & Oriented X1, well-nourished female who is lying in bed in mild distress with increased work of breading. HEENT: Skull symmetrical and atraumatic. Conjunctivae pin and moist. Pupils equal, round, reactive to light and accommodation (PERRL). External ear without lesion or discharge. Straight, nares patient, dry mucosa, no discharge. No thyroid nodule appreciated. Cardio: Normal Rate and Rhythm with S1 and S2 heart sounds. No murmurs or extra heart sounds auscultated. No bruits on carotid auscultation. No peripheral edema or cyanosis. Lungs: Symmetric with good expansion. Chest and back non-tender. Breath sounds vesicular without crackles, wheezing or rhonchi Abdomen: Non-tender, Non-distended, Normal Reactive Bowel Sounds Neuro: YES Alert, No cooperative, No oriented to person, No place, and No time. CN grossly intact. Upper motor strength 5/5 and Lower motor strength 5/5. Sensation intact. Objective Labs 10/01/24 11:33 10/01/24 11:33 Labs: Laboratory Results - last 24 hr 09/30/24 09/30/24 10/01/24 18:30 18:56 02:45 WBC 8.8 RBC 4.29 Hgb 12.0 Hct 35.8 L MCV 83 MCH 28.0 MCHC 33.5 RDW Std Deviation 44.2 Plt Count 255 D Neut % (Auto) 87 H Lymph % (Auto) 9 L [place] % (Auto) 4 Eos % (Auto) 0 Baso % (Auto) 0 Neut # (Auto) 7.6 Lymph # (Auto) 0.8 L [place] # (Auto) 0.3 Eos # (Auto) 0.0 Baso # (Auto) 0.0 Immature Gran # (Auto) 0.11 H Absolute Nucleated RBC 0.00 Immature Gran % 1 H Nucleated RBC % 0 PT 12.0 INR 1.1 APTT > 139.0 H* D 31.0 D Puncture Site Left Radial ABG pH 7.35 D ABG pCO2 43 D ABG pO2 213 H D ABG HCO3 24 ABG O2 Saturation 100 H ABG Base Excess -2 FiO2 65 Sodium 140 Potassium 3.4 Chloride 102 Carbon Dioxide 25.5 Anion Gap 13 BUN 32 H Creatinine 1.2 Estim Creat Clear Calc 48.1 L eGFR 51 L BUN/Creatinine Ratio 27 H Glucose 264 H Calculated Osmolality 295 Lactic Acid Calcium 7.6 L Corrected Calcium 8.0 L Phosphorus 3.6 Magnesium 2.5 Total Bilirubin 1.5 H AST 84 H ALT 40 Alkaline Phosphatase 197 H D Ammonia Total Protein 6.0 Albumin 3.5 Globulin 2.5 Albumin/Globulin Ratio 1.4 TSH Free T4 Urine Opiates Screen Urine Fentanyl Screen Ur Barbiturates Screen U Amphetamin/Meth Scrn U Benzodiazepines Scrn U Cocaine Metab Screen U Marijuana (THC) Screen 10/01/24 10/01/24 10/01/24 08:55 11:33 11:49 WBC 13.6 H D RBC 4.38 Hgb 12.3 Hct 36.4 MCV 83 MCH 28.1 MCHC 33.8 RDW Std Deviation 43.5 Plt Count 304 D Neut % (Auto) 91 H Lymph % (Auto) 4 L [place] % (Auto) 3 Eos % (Auto) 0 Baso % (Auto) 0 Neut # (Auto) 12.4 H Lymph # (Auto) 0.6 L [place] # (Auto) 0.4 Eos # (Auto) 0.0 Baso # (Auto) 0.0 Immature Gran # (Auto) 0.21 H Absolute Nucleated RBC 0.00 Immature Gran % 2 H Nucleated RBC % 0 PT INR APTT 71.3 H D Puncture Site Left Radial ABG pH 7.49 H D ABG pCO2 35 ABG pO2 114 H D ABG HCO3 26 ABG O2 Saturation 99 H ABG Base Excess 3 FiO2 30 Sodium 146 H Potassium 3.2 L Chloride 108 H Carbon Dioxide 24.7 Anion Gap 13 BUN 34 H Creatinine 1.1 Estim Creat Clear Calc 52.4 L eGFR 57 L BUN/Creatinine Ratio 31 H Glucose 157 H D Calculated Osmolality 301 H Lactic Acid 2.5 H Calcium 8.3 Corrected Calcium 8.9 Phosphorus 3.0 Magnesium 2.2 Total Bilirubin 1.5 H AST 124 H ALT 45 Alkaline Phosphatase 243 H D Ammonia 22 Total Protein 5.5 L Albumin 3.2 L Globulin 2.3 Albumin/Globulin Ratio 1.4 TSH 0.31 L Free T4 0.72 L Urine Opiates Screen Urine Fentanyl Screen Ur Barbiturates Screen U Amphetamin/Meth Scrn U Benzodiazepines Scrn U Cocaine Metab Screen U Marijuana (THC) Screen 10/01/24 10/01/24 11:50 13:49 WBC RBC Hgb Hct MCV MCH MCHC RDW Std Deviation Plt Count Neut % (Auto) Lymph % (Auto) [place] % (Auto) Eos % (Auto) Baso % (Auto) Neut # (Auto) Lymph # (Auto) [place] # (Auto) Eos # (Auto) Baso # (Auto) Immature Gran # (Auto) Absolute Nucleated RBC Immature Gran % Nucleated RBC % PT INR APTT Puncture Site ABG pH ABG pCO2 ABG pO2 ABG HCO3 ABG O2 Saturation ABG Base Excess FiO2 Sodium Potassium Chloride Carbon Dioxide Anion Gap BUN Creatinine Estim Creat Clear Calc eGFR BUN/Creatinine Ratio Glucose Calculated Osmolality Lactic Acid 4.3 H* Calcium Corrected Calcium Phosphorus Magnesium Total Bilirubin AST ALT Alkaline Phosphatase Ammonia Total Protein Albumin Globulin Albumin/Globulin Ratio TSH Free T4 Urine Opiates Screen Negative Urine Fentanyl Screen Negative Ur Barbiturates Screen Negative U Amphetamin/Meth Scrn Negative U Benzodiazepines Scrn Positive A U Cocaine Metab Screen Negative U Marijuana (THC) Screen Negative ABG Interpretation ABG results: 09/29/24 09/29/24 09/30/24 00:03 15:16 03:36 ABG pH 7.29 L 7.33 L 7.39 ABG pCO2 42 45 41 ABG pO2 72 L 216 H D 91 D ABG HCO3 20 23 25 ABG O2 Saturation 92 100 H 97 ABG Base Excess -7 L -3 0 09/30/24 09/30/24 10/01/24 13:49 18:56 11:49 ABG pH 7.25 L D 7.35 D 7.49 H D ABG pCO2 53 H D 43 D 35 ABG pO2 161 H D 213 H D 114 H D ABG HCO3 23 24 26 ABG O2 Saturation 99 H 100 H 99 H ABG Base Excess -5 L -2 3 Quality Measures Quality Measures sepsis Current suspected stage: sepsis Possible source: pulmonary Blood cultures ordered: yes Antibiotic ordered: Yes Assessment & Plan Assessment Current Active Medications: Generic Name Dose Route Start Last Admin Trade Name Freq PRN Reason Stop Dose Admin Acetaminophen 650 mg 09/28/24 23:26 Acetaminophen 325 Mg Tablet PO 10/28/24 23:25 Q6H PRN Pain (1-3) or Fever >100.3 Dextrose 25 ml 09/28/24 23:34 Dextrose 50%-Water Inj 50 Ml Syringe IV 10/28/24 23:33 Q15MIN PRN BG 50-70 responsive npo pt Dextrose 50 ml 09/28/24 23:34 Dextrose 50%-Water Inj 50 Ml Syringe IV 10/28/24 23:33 Q15MIN PRN BG <50 OR BG <70 & pt unresponsive Diazepam 10 mg 09/29/24 15:55 09/30/24 09:14 Diazepam 5 Mg Tablet PO 10/04/24 15:54 10 mg BID LUKE Administration Duloxetine HCl 60 mg 09/29/24 01:45 10/01/24 09:00 Duloxetine Hcl 30 Mg Capsule PO 10/29/24 01:44 Not Given BID LUKE Glucagon 1 mg 09/28/24 23:34 Glucagon Inj 1 Mg Vial IM Q15MIN PRN BG <70, and no IV access Guaifenesin/Dextromethorphan 2 each 09/30/24 10:00 10/01/24 09:48 Guaifenesin/Dm Tablet PO 10/30/24 09:59 Not Given BID LUKE Heparin Sodium/Dextrose 25,000 unit in 250 mls @ 9.362 mls/hr 09/29/24 15:00 10/01/24 10:52 Heparin In D5w Ivpb IV 10/13/24 14:59 11 units/kg/hr .Q24H LUKE 8.582 mls/hr Titration Protocol 12 UNITS/KG/HR Vancomycin/Sodium Chloride 200 mls @ 120 mls/hr 09/30/24 10:00 10/01/24 10:16 Vancomycin/Ns 1 Gm Ivpb IV 10/07/24 09:59 120 mls/hr QDAY@1000 LUKE Administration Protocol Potassium Chloride 10 meq in 100 mls @ 100 mls/hr 10/01/24 13:49 10/01/24 14:36 Kcl Ivpb IV 10/01/24 16:48 60 mls/hr Q1H LUKE Administration Sodium Chloride 1,000 mls @ 70 mls/hr 10/01/24 14:26 10/01/24 14:39 Ns IV 10/02/24 04:33 70 mls/hr .[id number] ONE Administration Insulin Glargine 25 unit 10/01/24 21:00 Insulin Glargine (Lantus) 5 Unit/0.05 Ml (Per 5 Units) SC 10/31/24 20:59 HS LUKE Insulin Human Lispro 0 unit 09/29/24 07:30 10/01/24 12:02 Insulin Lispro (Admelog) 1 Unit/0.01 Ml Unit SC 10/29/24 07:29 Not Given AC LUKE Protocol Ipratropium [place] 0.5 mg 09/29/24 07:35 10/01/24 14:52 Ipratropium Rt 0.5 Mg/ 2.5 Ml Nebu INH 10/29/24 07:34 0.5 mg Q4HRRT LUKE Administration Levalbuterol HCl 0.63 mg 09/29/24 07:30 10/01/24 14:52 Levalbuterol Rt 0.63 Mg/3 Ml Nebu INH 10/29/24 07:29 0.63 mg Q4HR LUKE Administration Methadone HCl 10 mg 10/01/24 09:00 10/01/24 09:00 Methadone Hcl 10 Mg Tablet PO 10/06/24 08:59 Not Given TID LUKE Ondansetron HCl 4 mg 09/28/24 23:26 Ondansetron Inj 2 Mg/Ml Inj 2 Ml IV 10/28/24 23:25 Q6H PRN NAUSEA OR VOMITING Protocol Pharmacy Consult 1 each 09/30/24 06:36 Vancomycin Pharmacy To Dose 1 Each Each IV 10/29/24 08:59 QDAY PRN PROTOCOL Polyethylene Glycol 17 gm 09/30/24 10:00 10/01/24 09:00 Polyethylene Glycol 17 Gm Packet PO 10/30/24 09:59 Not Given QDAY LUKE Quetiapine Fumarate 100 mg 09/29/24 21:00 09/30/24 21:57 Quetiapine Fumarate 100 Mg Tablet PO 10/29/24 20:59 100 mg HS LUKE Administration Sennosides 1 tab 09/29/24 09:00 10/01/24 09:00 Senna Tablet PO 10/29/24 08:59 Not Given QDAY LUKE Protocol Sodium Chloride 3 ml 09/28/24 18:37 Sodium Chloride Rt [place] 0.9% 3 Ml Nebu INH 10/28/24 18:36 PRN PRN SOLN Tramadol HCl 50 mg 09/29/24 01:05 09/29/24 01:54 Tramadol Hcl 50 Mg Tablet PO 10/04/24 01:04 50 mg TID PRN Administration pain Protocol Plan Patient is a 67-year-old female with a past medical history of diabetes mellitus type 2 insulin-dependent nonadherent, hyperlipidemia, and hypertension who was admitted on 09/29/2024 for Sepsis secondary to CAP, complicated by JOSY and Lactic Acidosis. #Bacteremia #Severe sepsis, likely secondary to CAP #Community acquired pneumonia #Acute Hypoxic Respiratory Failure Etiolgoy: Bacterial community-acquired pneumonia cannot be ruled out given past medical history of comorbidities and age, likely Streptococcus pneumoniae vs staph aures. Patient overnight experienced to rapid for increased work of breathing and had a temp he was started on the BiPAP after being on the OxiMax and development of atrial fibrillation change from diltiazem drip to amiodarone drip. Positive preliminary blood culture, positive for GPC. DDx: Viral infection less likely as patient tested negative for Influenza and COVID vs less likely cocci as results were negative for serology. Diagnostic Test: -Blood Culture (09/28/2024)X2: MRSA, sensitive to vancoymcin -Blood Cultures (09/30/2024): No Growth after 24 hours -Sputum Culture (09/28/2024) MRSA -Cxr (09/28/2024): Significant bilateral pneumonia -Cxr (09/30/2024): Severe bilateral pneumonia -Head CT (09/28/2024): Negative for acute hemorrhage, mass effect or midline shift. If symptoms persist, consider brain MRI follow-up -CT Abdomen/Pelvis (09/28/2024): Extensive bilateral pneumonia. No renal or ureteral calculi, no hydronephrosis. Moderate stool throughout the colon -ABG was done which showed a pH of 7.29 with a pCO2 42. -ABG (09/29/2024): pH 7.33, pCO2 45, pO2 216 -ABG (09/30/2024): pH 7.25, pCO2 53, pO2 161 -Respiratory Acidosis -WBC 16-->(09/30/2024) 8.6, second WBC 12.2 -Procalcitonin 12.65 -Lactic Acid (09/29/2024) 6.8, 8.8, 8.4, 5.4, 3.1-->09/30/2024 2.0 (during rapid) Plan: -tele admit -(10/01/2024) NS 1 L @ 70 cc X1 -on Bipap, trying to wean off Bipap -IV ceftriaxone and azithromycin (09/28/2024-09/29/2024) DC - Zosyn (09/29/2024-10/01/2024) D/C -Vancomycin (09/29/2024--) Continue given positive MRSA -Blood Culture (09/28/2024) Pending, Blood Cultures (09/30/2024) second set #Acute Atrial Fibrilation #Acute Atrial Flutter w/ RVR, Resolved. #Bradycardia, Resolved Etiology: Acute atrial flutter likely secondary to sepsis.Overnight patient converted from atrial flutter to A-fib and diltiazem was switched to amnio. Rapid reports during day team at approximately 1335 for episode of bradycardia lasting about 1 second with possible AV block. Amio DC'd. If patient develops atrial flutter or atrial fibrillation may restart diltiazem at a slower rate. (10/01/2024) Patient experience episode of atrial fibrillation for 1 second. Given Positive MRSA blood culture, tentative VALERIE planned for Sunday-Dr. Romo DDx: Electrolyte imbalance versus cardiac etiology such as ectopic foci. Diagnostic: CHADVASC 3 EKG:Atrial Flutter EKG (09/30/2024) Atrial Fibrillation Cxr (09/29/2024): Significant bilateral pneumonia Plan: -Echo -Heparin Drip -PT and PTT -Diltiazem 125 mg IV 5 mg/hr-D/c & D/C Amio drip -If patient goes into A fib or A flutter Diltiazem push -If A fib or A flutter is sustained may start Diltiazem drip with a MAP >65 or Amio if MAP is below -Cardio consult, Dr. Romo, appreciate recommendation #Metabolic Acidosis, Anion Gap, improving #Lactic acidosis, increased Metabolic acidosis likely secondary to lactic acid in the setting of sepsis. (10/01/2024): 10/01/2024 patient's lactic acid ptosis increased to 4.3 likely type a lactic acidosis in the setting of hypoperfusion likely from sepsis and given patient's cool and clammy extremities may be worsening. Patient is still producing urine no reduction in blood pressure. Hypovolemia likely in the setting of poor oral intake and increased BUN. DDx: Less likely DKA given negative beta hydroxy versus uremia given JOSY but less likely. CMP (09/28/2024): 23.4 with lactic acid of 6.8 up trended to 8.4. Glucose on admission was 347. UA showed 3+ glucose but only trace ketones. CMP (09/29/2024): Na 136, K 3.1, Bicarb 23, BUN 40, Cr 1.7--->(10/01/2024): NA 140, potassium 3.4, BUN 32, CR 1.2, GFR 51, corrected calcium 8 (10/01/2024): Repeat CMP (10/01/2024): Sodium 146, K3.2 BUN 34, creatinine 1.1 Lactic Acid: 6.8, 8.8, 8.4, 5.4, 3.1 10/01/2024-lactic acid increased 4.3, 2.6 Plan: -NS 1000 @ 70 cc X 1 (10/01/2024) -No acute intervention treat underlying cause, sepsis. #Hypokalemia #Hypocalcemia #Acute kidney injury, Improved #Mild hyponatremia, Resolved #Hypomagnesemia, Resolved Etiology: Admitting labs showed BUN of 51 and creatinine of 2.2, baseline has been about 1.0. Patient continues to appear dehydrated and oral intake in encouraged. Likely secondary to pre-renal in the setting of sepsis as BUN/Cr level is 27. DDx: Pre-renal cardio-renal can not be rule out vs intrinsic JOSY but less likely as BUN/Cr is greater than 20. Diagnostic: (09/28/2024) sodium-133, Mag- 1.0-->(09/30/2024) Na 137, K 3.3, BUN 31, Cr 1.1, GFR 57, Glucose 167, Mg 1.9 Plan: -(09/29/2024) IV Mg 4gm -(09/29/2024) 40 meq of K X2 -(09/30/2024) 40 meq of K -(10/01/2024) 40 meq of K and Calcium Carbonate 600 mg X 1 -Avoid nephrotoxic medications -Renally dose all medications -Monitor CMP #History of Hypertension Patient at home takes lisinopril 5 mg daily. (10/01/2024): Patient's blood pressure has fluctuated during hospital stay likely secondary to agitation. Plan -Given JOSY hold home medication lisinopril -consider starting Amlodipine #History of diabetes mellitus type 2 insulin dependent The patient takes Farxiga 5 mg, insulin Lantus 55 units, metformin 1 g. Today, patient's glucose 167 (H) and a total of 12 units of lispro given thus Lantus increased to 21. (10/01/2024): Sliding scale has not been given, will not make adjustments to Lantus. Diagnostics: Glucose (09/28/2024) 409--->09/30/2024 264 A1c 10.6 Plan: -IV insulin 5 units x 1 -Lantus 15 HS-->21 units (10/01/2024) -ISS -Blood glucose check AC -Hypoglycemia protocols in place #History of chronic pain Patient reports having a history of chronic pain and is on multiple medications: Duloxetine, gabapentin, tizanidine, tramadol, methadone She does not respon well to opioids Plan: -Restarted duloxetine and tramadol -Holding Methadone 10 mg TID -Morphine 1 mg IVP Q4HR for pain and agitation Euthyroid Sick Syndrome In the setting of bacteremia and increasing inflammatory response, reduction in TSH and coversion of T4 and T3. Unlikely this is a lab error as T4/T3 are both low and TSH levels are Diagnostic: -(10/01/2024): TSH 0.31, Free T4 0.72, Free T3 1.1 Plan -No intervention for euthyroid sick syndrome #History of major depressive disorder History of mental health disorders. HOld Diazepam and methadone in the setting of multiple rapid response and bradycardia with possible av block of about 1 second. Plan -Quetiapine Fumarate 100 mg PO HS -Diazepam 10 mg PO BID -HOLD -Duloxetine 60 mg PO BID #Hyperbilirubinemia #Hyperalkaline phosphatase Bilirubin on admission was 2.3 with ALP of 243. CT abdomen and pelvis was done showed an absent gallbladder. Hyperbilirubinemia and elevated alkaline phosphatase in the setting of dehydration and poor oral intake. Patient has abdominal pain or fever and is anicteric. Diagnostics: US Gallbladder (09/29/2024): Absent gallbladder. Normal common bile duct. Hepatomegaly, primary hepatocellular disease versus cirrhosis no focal liver lesions 10/01/2024: Total Bili 1.8 Alkaline Phosphatase 201 AST 92 ALT 34 Plan: -No acute intervention Health Maintenance: Disp: Pt is currently admitted to floors for further management of Sepsis, awaiting confirmed second set of confirmed blood cultures. FEN: Carbohydrate Consistent Low DVT: Heparin Drip Code: Full Code Attending Provider Attestation/Addendum I have examined the patient, reviewed labs and imaging findings, discussed the case with the resident(s), and reviewed entered orders. I agree with the plan of care as outlined in this note, with these additional summaries/recommendations: Patient seen at bedside. Patient remained stable on BiPAP overnight. Patient continues to be encephalopathic at bedside although much improved compared to yesterday. Encephalopathy likely secondary to polypharmacy given patient's extensive home medication list including Valium 10 mg twice daily, duloxetine 120 mg p.o. twice daily, gabapentin 600 mg p.o. daily, methadone 10 mg p.o. 3 times daily, Seroquel 100mg at bedtime, tizanidine 4 mg p.o. twice daily, tramadol 50 mg p.o. 3 times daily, trazodone 200 mg p.o. twice daily and Ambien 10 mg p.o. at bedtime. Also likely infectious component secondary to severe sepsis. Patient does not follow outpatient psychiatrist or pain specialist. We will continue to hold these medications for now given patient's altered mental status. Discussed with at bedside that patient is at risk of seizures while holding benzodiazepines although we feel the benefits outweigh the risk in the setting of severe encephalopathy. Discussed with that we will give as needed morphine as patient appears in pain at times and moving around in bed. Patient also continues to require minimal BiPAP and develops severe dyspnea when taken off. ABG relatively within normal limits. We will continue to try to wean BiPAP as tolerated. Hospital course was complicated by atrial fibrillation with rapid ventricular response that did not respond to diltiazem drip. Patient was transitioned to amiodarone drip although developed episode of bradycardia and amiodarone was discontinued. We will continue heparin gtt. for elevated [id number] score and transition to oral anticoagulation when appropriate. Cardiology following. Echocardiogram showed EF 65-70%. Patient diagnosed with sepsis on admission with endorgan damage of acute kidney injury and AMS. Bilateral pneumonia on chest x-ray likely secondary to gram-negative rods versus MRSA pneumonia. Sputum culture preliminarily showing gram-positive cocci as well as both blood cultures. We will continue IV Zosyn and IV vancomycin for now. Follow-up cultures when available. If necessary we will slowly reinstitute home medications at low-dose. Ultimately patient should be slowly weaned from these medicines with outpatient PCP secondary to polypharmacy. Continue basal and bolus insulin for uncontrolled diabetes mellitus type 2. A1c 10.5%. Repeat hematology and chemistry panel in AM. Dr. March
--- NOTE | 2024-10-01 16:00 | ESPR_ITS ---
Subjective Subjective Interval history: mrsa bacteremia. other problems. full code. but some limitations noted in discussion with spouse. Exam Vital Signs Temp Pulse Resp BP Pulse Ox O2 Del Method O2 Flow Rate 98.3 F 130 H 30 H 174/105 H 100 BiPAP 4 10/01/24 12:00 10/01/24 14:52 10/01/24 14:52 10/01/24 12:00 10/01/24 14:52 10/01/24 12:00 10/01/24 12:00 FiO2 30 10/01/24 14:52 Narrative Exam distressed but only on 30% on bipap. did poorly on nc apparently, but hope to go back to that soon. 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 Objective - Internal Medicine Labs 10/01/24 11:33 10/01/24 11:33 Labs: Laboratory Results - last 24 hr 09/30/24 09/30/24 10/01/24 18:30 18:56 02:45 WBC 8.8 RBC 4.29 Hgb 12.0 Hct 35.8 L MCV 83 MCH 28.0 MCHC 33.5 RDW Std Deviation 44.2 Plt Count 255 D Neut % (Auto) 87 H Lymph % (Auto) 9 L [place] % (Auto) 4 Eos % (Auto) 0 Baso % (Auto) 0 Neut # (Auto) 7.6 Lymph # (Auto) 0.8 L [place] # (Auto) 0.3 Eos # (Auto) 0.0 Baso # (Auto) 0.0 Immature Gran # (Auto) 0.11 H Absolute Nucleated RBC 0.00 Immature Gran % 1 H Nucleated RBC % 0 PT 12.0 INR 1.1 APTT > 139.0 H* D 31.0 D Puncture Site Left Radial ABG pH 7.35 D ABG pCO2 43 D ABG pO2 213 H D ABG HCO3 24 ABG O2 Saturation 100 H ABG Base Excess -2 FiO2 65 Sodium 140 Potassium 3.4 Chloride 102 Carbon Dioxide 25.5 Anion Gap 13 BUN 32 H Creatinine 1.2 Estim Creat Clear Calc 48.1 L eGFR 51 L BUN/Creatinine Ratio 27 H Glucose 264 H Calculated Osmolality 295 Lactic Acid Calcium 7.6 L Corrected Calcium 8.0 L Phosphorus 3.6 Magnesium 2.5 Total Bilirubin 1.5 H AST 84 H ALT 40 Alkaline Phosphatase 197 H D Ammonia Total Protein 6.0 Albumin 3.5 Globulin 2.5 Albumin/Globulin Ratio 1.4 TSH Free T4 Urine Opiates Screen Urine Fentanyl Screen Ur Barbiturates Screen U Amphetamin/Meth Scrn U Benzodiazepines Scrn U Cocaine Metab Screen U Marijuana (THC) Screen 10/01/24 10/01/24 10/01/24 08:55 11:33 11:49 WBC 13.6 H D RBC 4.38 Hgb 12.3 Hct 36.4 MCV 83 MCH 28.1 MCHC 33.8 RDW Std Deviation 43.5 Plt Count 304 D Neut % (Auto) 91 H Lymph % (Auto) 4 L [place] % (Auto) 3 Eos % (Auto) 0 Baso % (Auto) 0 Neut # (Auto) 12.4 H Lymph # (Auto) 0.6 L [place] # (Auto) 0.4 Eos # (Auto) 0.0 Baso # (Auto) 0.0 Immature Gran # (Auto) 0.21 H Absolute Nucleated RBC 0.00 Immature Gran % 2 H Nucleated RBC % 0 PT INR APTT 71.3 H D Puncture Site Left Radial ABG pH 7.49 H D ABG pCO2 35 ABG pO2 114 H D ABG HCO3 26 ABG O2 Saturation 99 H ABG Base Excess 3 FiO2 30 Sodium 146 H Potassium 3.2 L Chloride 108 H Carbon Dioxide 24.7 Anion Gap 13 BUN 34 H Creatinine 1.1 Estim Creat Clear Calc 52.4 L eGFR 57 L BUN/Creatinine Ratio 31 H Glucose 157 H D Calculated Osmolality 301 H Lactic Acid 2.5 H Calcium 8.3 Corrected Calcium 8.9 Phosphorus 3.0 Magnesium 2.2 Total Bilirubin 1.5 H AST 124 H ALT 45 Alkaline Phosphatase 243 H D Ammonia 22 Total Protein 5.5 L Albumin 3.2 L Globulin 2.3 Albumin/Globulin Ratio 1.4 TSH 0.31 L Free T4 0.72 L Urine Opiates Screen Urine Fentanyl Screen Ur Barbiturates Screen U Amphetamin/Meth Scrn U Benzodiazepines Scrn U Cocaine Metab Screen U Marijuana (THC) Screen 10/01/24 10/01/24 11:50 13:49 WBC RBC Hgb Hct MCV MCH MCHC RDW Std Deviation Plt Count Neut % (Auto) Lymph % (Auto) [place] % (Auto) Eos % (Auto) Baso % (Auto) Neut # (Auto) Lymph # (Auto) [place] # (Auto) Eos # (Auto) Baso # (Auto) Immature Gran # (Auto) Absolute Nucleated RBC Immature Gran % Nucleated RBC % PT INR APTT Puncture Site ABG pH ABG pCO2 ABG pO2 ABG HCO3 ABG O2 Saturation ABG Base Excess FiO2 Sodium Potassium Chloride Carbon Dioxide Anion Gap BUN Creatinine Estim Creat Clear Calc eGFR BUN/Creatinine Ratio Glucose Calculated Osmolality Lactic Acid 4.3 H* Calcium Corrected Calcium Phosphorus Magnesium Total Bilirubin AST ALT Alkaline Phosphatase Ammonia Total Protein Albumin Globulin Albumin/Globulin Ratio TSH Free T4 Urine Opiates Screen Negative Urine Fentanyl Screen Negative Ur Barbiturates Screen Negative U Amphetamin/Meth Scrn Negative U Benzodiazepines Scrn Positive A U Cocaine Metab Screen Negative U Marijuana (THC) Screen Negative ABG Interpretation ABG results: 09/29/24 09/29/24 09/30/24 00:03 15:16 03:36 ABG pH 7.29 L 7.33 L 7.39 ABG pCO2 42 45 41 ABG pO2 72 L 216 H D 91 D ABG HCO3 20 23 25 ABG O2 Saturation 92 100 H 97 ABG Base Excess -7 L -3 0 09/30/24 09/30/24 10/01/24 13:49 18:56 11:49 ABG pH 7.25 L D 7.35 D 7.49 H D ABG pCO2 53 H D 43 D 35 ABG pO2 161 H D 213 H D 114 H D ABG HCO3 23 24 26 ABG O2 Saturation 99 H 100 H 99 H ABG Base Excess -5 L -2 3 Assessment & Plan A&P Narrative mrsa bacteremia, likely from lungs. neg tte noted. if more bc neg, no overt need for namoy. if more bc pos, then proceed with naomy other problems as noted. repeat bc neg at 24h tte neg. wean vent as able. vanco alone ok. will see again next time I am here but I will not be here sunday and only possibly on sunday. text if problems. if bc neg from09/30 by tomorrow, then plan on rx thru 10/23 with vanco iv and weekly cbc, renal panel, esr and line removal at end. I can not see in clinic. wait times too long. ok to make plans if bc neg by tomorrow. wean vent as tolerated. Time Spent With Patient Time: Total time spent is greater than 50% in coordination of care (as documented) at patient's floor/unit and/or counseling patient:
--- NOTE | 2024-10-01 16:13 | PD.IMPROG ---
Documentation for date of: 10/01/24 Subjective Subjective Interval history: Blood cultures positive will plan for VALERIE Exam Vital Signs Temp Pulse Resp BP Pulse Ox O2 Del Method O2 Flow Rate 98.3 F 130 H 30 H 174/105 H 100 BiPAP 4 10/01/24 12:00 10/01/24 14:52 10/01/24 14:52 10/01/24 12:00 10/01/24 14:52 10/01/24 12:00 10/01/24 12:00 FiO2 30 10/01/24 14:52 Objective Labs 10/01/24 11:33 10/01/24 11:33 Labs: Laboratory Results - last 24 hr 09/30/24 09/30/24 10/01/24 18:30 18:56 02:45 WBC 8.8 RBC 4.29 Hgb 12.0 Hct 35.8 L MCV 83 MCH 28.0 MCHC 33.5 RDW Std Deviation 44.2 Plt Count 255 D Neut % (Auto) 87 H Lymph % (Auto) 9 L [place] % (Auto) 4 Eos % (Auto) 0 Baso % (Auto) 0 Neut # (Auto) 7.6 Lymph # (Auto) 0.8 L [place] # (Auto) 0.3 Eos # (Auto) 0.0 Baso # (Auto) 0.0 Immature Gran # (Auto) 0.11 H Absolute Nucleated RBC 0.00 Immature Gran % 1 H Nucleated RBC % 0 PT 12.0 INR 1.1 APTT > 139.0 H* D 31.0 D Puncture Site Left Radial ABG pH 7.35 D ABG pCO2 43 D ABG pO2 213 H D ABG HCO3 24 ABG O2 Saturation 100 H ABG Base Excess -2 FiO2 65 Sodium 140 Potassium 3.4 Chloride 102 Carbon Dioxide 25.5 Anion Gap 13 BUN 32 H Creatinine 1.2 Estim Creat Clear Calc 48.1 L eGFR 51 L BUN/Creatinine Ratio 27 H Glucose 264 H Calculated Osmolality 295 Lactic Acid Calcium 7.6 L Corrected Calcium 8.0 L Phosphorus 3.6 Magnesium 2.5 Total Bilirubin 1.5 H AST 84 H ALT 40 Alkaline Phosphatase 197 H D Ammonia Total Protein 6.0 Albumin 3.5 Globulin 2.5 Albumin/Globulin Ratio 1.4 TSH Free T4 Urine Opiates Screen Urine Fentanyl Screen Ur Barbiturates Screen U Amphetamin/Meth Scrn U Benzodiazepines Scrn U Cocaine Metab Screen U Marijuana (THC) Screen 10/01/24 10/01/24 10/01/24 08:55 11:33 11:49 WBC 13.6 H D RBC 4.38 Hgb 12.3 Hct 36.4 MCV 83 MCH 28.1 MCHC 33.8 RDW Std Deviation 43.5 Plt Count 304 D Neut % (Auto) 91 H Lymph % (Auto) 4 L [place] % (Auto) 3 Eos % (Auto) 0 Baso % (Auto) 0 Neut # (Auto) 12.4 H Lymph # (Auto) 0.6 L [place] # (Auto) 0.4 Eos # (Auto) 0.0 Baso # (Auto) 0.0 Immature Gran # (Auto) 0.21 H Absolute Nucleated RBC 0.00 Immature Gran % 2 H Nucleated RBC % 0 PT INR APTT 71.3 H D Puncture Site Left Radial ABG pH 7.49 H D ABG pCO2 35 ABG pO2 114 H D ABG HCO3 26 ABG O2 Saturation 99 H ABG Base Excess 3 FiO2 30 Sodium 146 H Potassium 3.2 L Chloride 108 H Carbon Dioxide 24.7 Anion Gap 13 BUN 34 H Creatinine 1.1 Estim Creat Clear Calc 52.4 L eGFR 57 L BUN/Creatinine Ratio 31 H Glucose 157 H D Calculated Osmolality 301 H Lactic Acid 2.5 H Calcium 8.3 Corrected Calcium 8.9 Phosphorus 3.0 Magnesium 2.2 Total Bilirubin 1.5 H AST 124 H ALT 45 Alkaline Phosphatase 243 H D Ammonia 22 Total Protein 5.5 L Albumin 3.2 L Globulin 2.3 Albumin/Globulin Ratio 1.4 TSH 0.31 L Free T4 0.72 L Urine Opiates Screen Urine Fentanyl Screen Ur Barbiturates Screen U Amphetamin/Meth Scrn U Benzodiazepines Scrn U Cocaine Metab Screen U Marijuana (THC) Screen 10/01/24 10/01/24 11:50 13:49 WBC RBC Hgb Hct MCV MCH MCHC RDW Std Deviation Plt Count Neut % (Auto) Lymph % (Auto) [place] % (Auto) Eos % (Auto) Baso % (Auto) Neut # (Auto) Lymph # (Auto) [place] # (Auto) Eos # (Auto) Baso # (Auto) Immature Gran # (Auto) Absolute Nucleated RBC Immature Gran % Nucleated RBC % PT INR APTT Puncture Site ABG pH ABG pCO2 ABG pO2 ABG HCO3 ABG O2 Saturation ABG Base Excess FiO2 Sodium Potassium Chloride Carbon Dioxide Anion Gap BUN Creatinine Estim Creat Clear Calc eGFR BUN/Creatinine Ratio Glucose Calculated Osmolality Lactic Acid 4.3 H* Calcium Corrected Calcium Phosphorus Magnesium Total Bilirubin AST ALT Alkaline Phosphatase Ammonia Total Protein Albumin Globulin Albumin/Globulin Ratio TSH Free T4 Urine Opiates Screen Negative Urine Fentanyl Screen Negative Ur Barbiturates Screen Negative U Amphetamin/Meth Scrn Negative U Benzodiazepines Scrn Positive A U Cocaine Metab Screen Negative U Marijuana (THC) Screen Negative ABG Interpretation ABG results: 09/29/24 09/29/24 09/30/24 00:03 15:16 03:36 ABG pH 7.29 L 7.33 L 7.39 ABG pCO2 42 45 41 ABG pO2 72 L 216 H D 91 D ABG HCO3 20 23 25 ABG O2 Saturation 92 100 H 97 ABG Base Excess -7 L -3 0 09/30/24 09/30/24 10/01/24 13:49 18:56 11:49 ABG pH 7.25 L D 7.35 D 7.49 H D ABG pCO2 53 H D 43 D 35 ABG pO2 161 H D 213 H D 114 H D ABG HCO3 23 24 26 ABG O2 Saturation 99 H 100 H 99 H ABG Base Excess -5 L -2 3 Assessment & Plan A&P Narrative VALERIE tomorrow Time Spent With Patient Time: Total time spent is greater than 50% in coordination of care (as documented) at patient's floor/unit and/or counseling patient:
[2024-10-01 16:58] LABS: Reflex Lactate? Y
[2024-10-01 17:04] LABS: Lactic Acid, 3 HR 2.6 mMol/L (0.4-2.0)
--- NOTE | 2024-10-01 17:37 | PD.RESCONSUL ---
HPI Data of Consult Requesting Physician: Db March MD Admitting Provider: Keanu Palencia MD Attending Provider: Db March MD Primary Care Provider: Finn Painter MD Consult Narrative Reason for consult: GPC MRSA Bacteremia History of present illness: Patient is a 64 year old female with history hypertension, hyperlipidemia, Type 2 diabetes, and chronic pain who presented to the ED with concerns of generalized weakness and cough, was admitted for sepsis secondary to community-acquired pneumonia. While undergoing medical treatment, blood cultures from 09/28 revealed GPC bacteremia on two sets, MRSA on one set, cultures from 09/30 pending. Infectious disease was consulted given MRSA bacteremia results, patient on IV zosyn and vancomycin at time of examination. At bedside, patient is noted to be on BiPAP and not answering questions, history obtained by sitting bedside. Shares that patient has a history of methadone use and is currently not able to have her PO meds. Vaccination history: COVID vaccine x2, last tetanus unclear, no pneumococcal vaccine, no recent flu vaccine. cc:: cc: Db March MD Exam Vital Signs Temp Pulse Resp BP Pulse Ox O2 Del Method O2 Flow Rate 97.3 F 97 22 H 186/113 H 98 BiPAP 4 10/01/24 16:00 10/01/24 16:00 10/01/24 16:00 10/01/24 16:00 10/01/24 16:00 10/01/24 16:00 10/01/24 16:00 FiO2 30 10/01/24 16:00 Narrative Exam General: Not answering AO questions, on BiPAP, opening eyes spontaneously and moving extremities HEENT: Atraumatic/normocephalic, DIANELYS Heart: RRR, S1 and S2 without clicks or murmurs Lungs: On BiPAP, no wheezes or crackles bilaterally Abdomen: Soft, nontender. Bowel sounds present on all quadrants Skin: Intact, no cyanosis or edema noted Neuro: No focal neurological deficits noted on appearance however cranial nerves not individually tested Results Labs 10/04/24 05:18 10/04/24 05:18 Labs: Short CBC 10/01/24 10/01/24 Range/Units 02:45 11:33 WBC 8.8 13.6 H D (3.6-11.0) Thou/mm3 Hgb 12.0 12.3 (12.0-16.0) g/dL Hct 35.8 L 36.4 (36.0-46.0) % Plt Count 255 D 304 D (140-440) Thou/mm3 BMP 10/01/24 10/01/24 02:45 11:33 Sodium 140 146 H Potassium 3.4 3.2 L Chloride 102 108 H Carbon Dioxide 25.5 24.7 BUN 32 H 34 H Creatinine 1.2 1.1 Glucose 264 H 157 H D Calcium 7.6 L 8.3 Liver Function 10/01/24 10/01/24 Range/Units 02:45 11:33 Total Bilirubin 1.5 H 1.5 H (0.3-1.2) mg/dL AST 84 H 124 H (0-34) U/L ALT 40 45 (10-49) U/L Alkaline Phosphatase 197 H D 243 H D (46-116) U/L Albumin 3.5 3.2 L (3.4-4.8) gm/dL ABG Interpretation ABG results: 09/29/24 09/29/24 09/30/24 00:03 15:16 03:36 ABG pH 7.29 L 7.33 L 7.39 ABG pCO2 42 45 41 ABG pO2 72 L 216 H D 91 D ABG HCO3 20 23 25 ABG O2 Saturation 92 100 H 97 ABG Base Excess -7 L -3 0 09/30/24 09/30/24 10/01/24 13:49 18:56 11:49 ABG pH 7.25 L D 7.35 D 7.49 H D ABG pCO2 53 H D 43 D 35 ABG pO2 161 H D 213 H D 114 H D ABG HCO3 23 24 26 ABG O2 Saturation 99 H 100 H 99 H ABG Base Excess -5 L -2 3 Quality Measures Quality Measures VTE prophylaxis (Heparin) Medications Home Medications and Allergies Home Medications ?Medication ?Instructions ?Recorded ?Confirmed ?Type diazepam 10 mg tablet (Valium) 10 mg PO BID ##0 04/10/13 09/29/24 History pantoprazole 40 mg tablet,delayed 40 mg PO QDAY ##0 11/21/14 09/29/24 History release (Protonix) duloxetine 60 mg capsule,delayed 120 mg PO BID 08/19/18 09/29/24 History release gabapentin 300 mg capsule 600 mg PO QDAY 08/19/18 09/29/24 History pioglitazone 30 mg tablet 30 mg PO QDAY 08/19/18 09/29/24 History pravastatin 40 mg tablet 40 mg PO QDAY 08/19/18 09/29/24 History tizanidine 4 mg tablet 4 mg PO BID 08/19/18 09/29/24 History insulin glargine 100 unit/mL (3 55 unit subcut QPM 09/20/21 09/29/24 History mL) subcutaneous pen (Lantus Solostar U-100 Insulin) lisinopril 5 mg tablet 5 mg PO QDAY 09/20/21 09/29/24 History metformin 1,000 mg tablet 1,000 mg PO BID 09/20/21 09/29/24 History potassium chloride 8 mEq 8 meq PO QDAY 09/20/21 09/29/24 History tablet,extended release trazodone 100 mg tablet 200 mg PO BID 09/20/21 09/29/24 History zolpidem 10 mg tablet 10 mg PO QPM 09/20/21 09/29/24 History dapagliflozin propanediol 5 mg 5 mg PO QAM 02/04/22 09/29/24 History tablet (Farxiga) quetiapine 100 mg tablet (Seroquel) 100 mg PO QPM 02/04/22 09/29/24 History donepezil 5 mg tablet 5 mg PO DAILY 09/29/24 10/01/24 History methadone 10 mg tablet 10 mg PO TID 09/29/24 10/01/24 History rosuvastatin 5 mg tablet 5 mg PO HS 09/29/24 10/01/24 History solifenacin 5 mg tablet 5 mg PO DAILY 09/29/24 10/01/24 History Allergies Allergy/AdvReac Type Severity Reaction Status Date / Time garlic Allergy Severe Difficulty Verified 09/28/24 15:51 Breathing onion Allergy Severe Difficulty Verified 09/28/24 15:51 Breathing oregano Allergy Severe Difficulty Verified 09/28/24 15:51 Breathing pepper (genus Capsicum) Allergy Severe Difficulty Verified 09/28/24 15:51 Breathing phenylephrine Allergy Severe SEVER Verified 09/28/24 15:51 ANXIETY, HALLUCINATION adhesive tape Allergy Mild Rash Verified 09/28/24 15:51 oxymetazoline Allergy Unknown Verified 09/28/24 15:51 xylometazoline Allergy Unknown Verified 09/28/24 15:51 ondansetron HCl AdvReac Mild Vomiting Verified 09/28/24 15:51 Visit Medications Acetaminophen (Acetaminophen 325 Mg Tablet) 650 mg PO Q6H PRN PRN Reason: Pain (1-3) or Fever >100.3 Stop: 10/28/24 23:25 Dextrose (Dextrose 50%-Water Inj 50 Ml Syringe) 25 ml IV Q15MIN PRN PRN Reason: BG 50-70 responsive npo pt Stop: 10/28/24 23:33 Dextrose (Dextrose 50%-Water Inj 50 Ml Syringe) 50 ml IV Q15MIN PRN PRN Reason: BG <50 OR BG <70 & pt unresponsive Stop: 10/28/24 23:33 Diazepam (Diazepam 5 Mg Tablet) 10 mg PO BID [facility] Stop: 10/04/24 15:54 Last Admin: 09/30/24 09:14 Dose: 10 mg Duloxetine HCl (Duloxetine Hcl 30 Mg Capsule) 60 mg PO BID [facility] Stop: 10/29/24 01:44 Last Admin: 10/01/24 09:00 Dose: Not Given Glucagon (Glucagon Inj 1 Mg Vial) 1 mg IM Q15MIN PRN PRN Reason: BG <70, and no IV access Guaifenesin/Dextromethorphan (Guaifenesin/Dm Tablet) 2 each PO BID [facility] Stop: 10/30/24 09:59 Last Admin: 10/01/24 09:48 Dose: Not Given Heparin Sodium/Dextrose (Heparin In D5w Ivpb) 25,000 unit in 250 mls @ 9.362 mls/hr IV .Q24H [facility]; Protocol Stop: 10/13/24 14:59 Last Titration: 10/01/24 10:52 Dose: 11 units/kg/hr, 8.582 mls/hr Vancomycin/Sodium Chloride (Vancomycin/Ns 1 Gm Ivpb) 200 mls @ 120 mls/hr IV QDAY@1000 [facility]; Protocol Stop: 10/07/24 09:59 Last Admin: 10/01/24 10:16 Dose: 120 mls/hr Sodium Chloride (Ns) 1,000 mls @ 70 mls/hr IV .[id number] ONE Stop: 10/02/24 04:33 Last Infusion: 10/01/24 15:31 Dose: 70 mls/hr Insulin Glargine (Insulin Glargine (Lantus) 5 Unit/0.05 Ml (Per 5 Units)) 25 unit SC [facility] Stop: 10/31/24 20:59 Insulin Human Lispro (Insulin Lispro (Admelog) 1 Unit/0.01 Ml Unit) 0 unit SC AC [facility]; Protocol Stop: 10/29/24 07:29 Last Admin: 10/01/24 16:59 Dose: 4 unit Ipratropium [place] (Ipratropium Rt 0.5 Mg/ 2.5 Ml Nebu) 0.5 mg INH Q4HRRT [facility] Stop: 10/29/24 07:34 Last Admin: 10/01/24 14:52 Dose: 0.5 mg Levalbuterol HCl (Levalbuterol Rt 0.63 Mg/3 Ml Nebu) 0.63 mg INH Q4HR [facility] Stop: 10/29/24 07:29 Last Admin: 10/01/24 14:52 Dose: 0.63 mg Methadone HCl (Methadone Hcl 10 Mg Tablet) 10 mg PO TID [facility] Stop: 10/06/24 08:59 Last Admin: 10/01/24 14:00 Dose: Not Given Morphine Sulfate (Morphine Sulf Inj 10 Mg/Ml Vial) 1 mg IVP Q4HR PRN PRN Reason: AGITATION Stop: 10/06/24 16:16 Ondansetron HCl (Ondansetron Inj 2 Mg/Ml Inj 2 Ml) 4 mg IV Q6H PRN; Protocol PRN Reason: NAUSEA OR VOMITING Stop: 10/28/24 23:25 Pharmacy Consult (Vancomycin Pharmacy To Dose 1 Each Each) 1 each IV QDAY PRN PRN Reason: PROTOCOL Stop: 10/29/24 08:59 Polyethylene Glycol (Polyethylene Glycol 17 Gm Packet) 17 gm PO QDAY [facility] Stop: 10/30/24 09:59 Last Admin: 10/01/24 09:00 Dose: Not Given Quetiapine Fumarate (Quetiapine Fumarate 100 Mg Tablet) 100 mg PO [facility] Stop: 10/29/24 20:59 Last Admin: 09/30/24 21:57 Dose: 100 mg Sennosides (Senna Tablet) 1 tab PO QDAY [facility]; Protocol Stop: 10/29/24 08:59 Last Admin: 10/01/24 09:00 Dose: Not Given Sodium Chloride (Sodium Chloride Rt Kamille 0.9% 3 Ml Nebu) 3 ml INH PRN PRN PRN Reason: SOLN Stop: 10/28/24 18:36 Tramadol HCl (Tramadol Hcl 50 Mg Tablet) 50 mg PO TID PRN; Protocol PRN Reason: pain Stop: 10/04/24 01:04 Last Admin: 09/29/24 01:54 Dose: 50 mg Discontinued Medications Albuterol (Albuterol Rt 2.5 Mg/0.5 Ml Nebu) 10 mg INH X1 ONE Stop: 09/28/24 16:29 Last Admin: 09/28/24 16:41 Dose: 10 mg Albuterol (Albuterol Rt 2.5 Mg/0.5 Ml Nebu) 10 mg INH X1 ONE Stop: 09/28/24 18:38 Last Admin: 09/28/24 19:10 Dose: 10 mg Azithromycin (Azithromycin 250 Mg Tablet) 250 mg PO DAILY@2100 [facility] Stop: 10/06/24 20:59 Calcium Carbonate (Calcium Carbonate 600 Mg Tablet) 600 mg PO X1 ONE Stop: 09/30/24 07:46 Last Admin: 09/30/24 09:16 Dose: 600 mg Calcium Carbonate (Calcium Carbonate 600 Mg Tablet) 600 mg PO X1 ONE Stop: 10/01/24 06:30 Last Admin: 10/01/24 08:59 Dose: 600 mg Calcium Gluconate (Calcium Gluconate 10% Inj 1 Gm/10 Ml Vial) 1 gm IV X1 ONE Stop: 09/29/24 07:41 Last Admin: 09/29/24 10:17 Dose: 1 gm Calcium Gluconate (Calcium Gluconate 10% Inj 1 Gm/10 Ml Vial) 1 gm IV X1 ONE Stop: 10/01/24 09:46 Last Admin: 10/01/24 09:52 Dose: 1 gm Diltiazem HCl (Diltiazem Inj 5 Mg/Ml Vial 5 Ml) 10 mg IV X1 ONE Stop: 09/29/24 11:55 Last Admin: 09/29/24 12:00 Dose: 10 mg Diltiazem HCl (Diltiazem Inj 5 Mg/Ml Vial 5 Ml) 15 mg IV X1 ONE Stop: 09/30/24 00:29 Diltiazem HCl (Diltiazem Inj 5 Mg/Ml Vial 5 Ml) 20 mg IV X1 ONE Stop: 09/30/24 00:45 Last Admin: 09/30/24 00:50 Dose: 20 mg Diltiazem HCl (Diltiazem Inj 5 Mg/Ml Vial 5 Ml) 20 mg IV X1 ONE Stop: 09/30/24 02:51 Last Admin: 09/30/24 03:08 Dose: 20 mg Diphenhydramine HCl (Diphenhydramine Inj 50 Mg/Ml Vial) 25 mg IVP X1 ONE Stop: 09/30/24 02:44 Diphenhydramine HCl (Diphenhydramine Inj 50 Mg/Ml Vial) 50 mg IVP X1 ONE Stop: 09/30/24 02:46 Last Admin: 09/30/24 03:03 Dose: 50 mg Duloxetine HCl (Duloxetine Hcl 30 Mg Capsule) 120 mg PO BID [facility] Stop: 10/29/24 01:14 Last Admin: 09/29/24 02:45 Dose: Not Given Famotidine (Famotidine Inj 10 Mg/Ml Vial 2 Ml) 40 mg IVP X1 ONE Stop: 09/30/24 02:49 Last Admin: 09/30/24 03:01 Dose: 40 mg Furosemide (Furosemide Inj 10 Mg/Ml 4ml Vial) 40 mg IVP X1 ONE Stop: 09/28/24 18:59 Last Admin: 09/28/24 19:06 Dose: 40 mg Furosemide (Furosemide Inj 10 Mg/Ml 4ml Vial) 40 mg IVP X1 ONE Stop: 09/29/24 07:39 Last Admin: 09/29/24 09:06 Dose: 40 mg Guaifenesin (Guaifenesin Syrup 200 Mg/10 Ml Udc) 100 mg PO X1 ONE; Protocol Stop: 09/29/24 14:05 Last Admin: 09/29/24 16:18 Dose: Not Given Heparin Sodium (Porcine) (Heparin Sod Inj 5000 Unit/Ml Vial) 5,000 unit SC Q12HR [facility] Stop: 10/13/24 08:59 Last Admin: 09/29/24 08:37 Dose: 5,000 unit Heparin Sodium (Porcine) (Heparin Sod Inj 5000 Unit/Ml Vial) 4,700 unit 60 unit/kg (4700 unit) IV X1 ONE; Protocol Stop: 09/29/24 15:00 Last Admin: 09/29/24 18:38 Dose: 4,700 unit Heparin Sodium (Porcine) (Heparin Sod Inj 5000 Unit/Ml Vial) 4,000 unit IV X1 ONE Stop: 10/01/24 03:37 Last Admin: 10/01/24 03:47 Dose: 4,000 unit Hydralazine HCl (Hydralazine Inj 20 Mg/Ml Vial) 10 mg IV X1 ONE Stop: 10/01/24 07:30 Last Admin: 10/01/24 07:52 Dose: 10 mg Sodium Chloride (Ns) 1,000 mls @ 999 mls/hr IV .Q1H1M ONE Stop: 09/28/24 17:28 Last Infusion: 09/28/24 18:05 Dose: Infused Ceftriaxone Sodium/Dextrose (Rocephin/D5w 1gm Iv Premix) 50 mls @ 100 mls/hr IV X1 ONE Stop: 09/28/24 17:03 Last Infusion: 09/28/24 17:38 Dose: Infused Sodium Chloride (Ns) 1,000 mls @ 999 mls/hr IV .Q1H1M ONE Stop: 09/28/24 18:16 Last Infusion: 09/28/24 18:40 Dose: Infused Sodium Chloride (Ns) 1,000 mls @ 999 mls/hr IV .Q1H1M ONE Stop: 09/28/24 18:51 Last Infusion: 09/28/24 19:20 Dose: Infused Azithromycin 500 mg/ Sodium (Chloride) 250 mls @ 250 mls/hr IV X1 ONE Stop: 09/28/24 23:40 Last Infusion: 09/28/24 23:54 Dose: Infused Ceftriaxone Sodium/Dextrose (Rocephin/D5w 1gm Iv Premix) 50 mls @ 100 mls/hr IV DAILY@2100 [facility] Stop: 10/06/24 20:59 Sodium Chloride (Ns) 500 mls @ 125 mls/hr IV .Q4H [facility] Stop: 10/29/24 00:29 Sodium Chloride (Ns) 1,000 mls @ 80 mls/hr IV .[id number] ONE Stop: 09/29/24 13:00 Last Infusion: 09/29/24 00:45 Dose: Infused Sodium Chloride (Ns) 1,000 mls @ 75 mls/hr IV .[id number] ONE Stop: 09/29/24 14:04 Last Infusion: 09/29/24 22:52 Dose: Infused Sodium Chloride (Ns) 1,000 mls @ 999 mls/hr IV .Q1H1M ONE Stop: 09/29/24 01:51 Last Infusion: 09/29/24 02:45 Dose: Infused Magnesium Sulfate (Magnesium Sulfate Ivpb) 4 gm in 50 mls @ 12.5 mls/hr IV X1 ONE Stop: 09/29/24 09:40 Last Infusion: 09/29/24 10:07 Dose: Infused Magnesium Sulfate (Magnesium Sulfate Ivpb) 4 gm in 50 mls @ 12.5 mls/hr IV X1 ONE Stop: 09/29/24 13:39 Last Infusion: 09/29/24 16:40 Dose: Infused Potassium Chloride (Kcl Ivpb) 10 meq in 100 mls @ 100 mls/hr IV Q1H [facility] Stop: 09/29/24 09:57 Last Admin: 09/29/24 10:05 Dose: Not Given Piperacillin/Tazobactam/Dextrose (Zosyn) 3.375 gm in 50 mls @ 100 mls/hr IV Q8HR [facility] Stop: 10/06/24 07:42 Last Admin: 09/29/24 08:48 Dose: Not Given Piperacillin Sod/Tazobactam (Sod 3.375 gm/ Sodium Chloride) 100 mls @ 200 mls/hr IV X1 ONE Stop: 09/29/24 08:29 Last Admin: 09/29/24 10:05 Dose: Not Given Piperacillin Sod/Tazobactam (Sod 3.375 gm/ Sodium Chloride) 100 mls @ 25 mls/hr IV Q8H [facility] Stop: 10/06/24 11:59 Vancomycin HCl 2,000 mg/ (Sodium Chloride) 500 mls @ 200 mls/hr IV X1 ONE Stop: 09/29/24 11:29 Last Infusion: 09/29/24 16:39 Dose: Infused Vancomycin HCl 750 mg/ Sodium (Chloride) 250 mls @ 250 mls/hr IV DAILY [facility] Stop: 10/07/24 08:59 Piperacillin Sod/Tazobactam (Sod 3.375 gm/ Sodium Chloride) 100 mls @ 200 mls/hr IV X1 ONE Stop: 09/29/24 08:59 Piperacillin Sod/Tazobactam (Sod 3.375 gm/ Sodium Chloride) 100 mls @ 200 mls/hr IV X1 ONE Stop: 09/29/24 08:59 Last Infusion: 09/29/24 10:06 Dose: Infused Piperacillin Sod/Tazobactam (Sod 3.375 gm/ Sodium Chloride) 100 mls @ 25 mls/hr IV Q8HR [facility]; Protocol Stop: 10/06/24 13:59 Last Admin: 10/01/24 05:26 Dose: 25 mls/hr Diltiazem HCl 125 mg/ Dextrose 125 mls @ 5 mls/hr IV .Q24H [facility] Stop: 10/29/24 14:14 Last Infusion: 09/30/24 03:15 Dose: 0 mg/hr, 0 mls/hr Potassium Chloride (Kcl Ivpb) 10 meq in 100 mls @ 100 mls/hr IV Q1H [facility] Stop: 09/30/24 05:45 Last Admin: 09/30/24 10:40 Dose: 100 mls/hr Amiodarone HCl/Dextrose (Nexterone Ivpb) 150 mg in 100 mls @ 600 mls/hr IV .Q10M ONE Stop: 09/30/24 03:17 Last Admin: 09/30/24 03:15 Dose: 600 mls/hr Amiodarone HCl/Dextrose (Nexterone Ivpb) 360 mg in 200 mls @ 33.333 mls/hr IV .Q6H ONE Stop: 09/30/24 09:07 Last Admin: 09/30/24 03:36 Dose: 33.333 mls/hr Amiodarone HCl/Dextrose (Nexterone Ivpb) 360 mg in 200 mls @ 16.667 mls/hr IV .Q12H [facility] Stop: 10/01/24 08:59 Last Infusion: 09/30/24 22:53 Dose: Infused Magnesium Sulfate (Magnesium Sulfate Ivpb) 4 gm in 50 mls @ 12.5 mls/hr IV X1 ONE Stop: 09/30/24 11:45 Last Admin: 09/30/24 09:15 Dose: 12.5 mls/hr Lactated Ringer's (Lactated Ringers) 250 mls @ 999 mls/hr IV .Q16M ONE Stop: 10/01/24 11:27 Last Admin: 10/01/24 11:55 Dose: 999 mls/hr Potassium Chloride (Kcl Ivpb) 10 meq in 100 mls @ 100 mls/hr IV Q1H [facility] Stop: 10/01/24 16:48 Last Admin: 10/01/24 16:15 Dose: 60 mls/hr Sodium Chloride (Ns) 1,000 mls @ 40 mls/hr IV .Q24H ONE Stop: 10/02/24 14:15 Insulin Glargine (Insulin Glargine (Lantus) 5 Unit/0.05 Ml (Per 5 Units)) 10 unit SC QDAY [facility] Stop: 10/29/24 08:59 Insulin Glargine (Insulin Glargine (Lantus) 5 Unit/0.05 Ml (Per 5 Units)) 15 unit SC [facility] Stop: 10/29/24 20:59 Last Admin: 09/29/24 20:48 Dose: Not Given Insulin Glargine (Insulin Glargine (Lantus) 5 Unit/0.05 Ml (Per 5 Units)) 15 unit SC X1 ONE Stop: 09/29/24 08:23 Last Admin: 09/29/24 09:14 Dose: 15 unit Insulin Glargine (Insulin Glargine (Lantus) 5 Unit/0.05 Ml (Per 5 Units)) 21 unit SC [facility] Stop: 10/30/24 20:59 Last Admin: 09/30/24 20:57 Dose: 21 unit Insulin Human Lispro (Insulin Lispro (Admelog) 1 Unit/0.01 Ml Unit) 0 unit SC [facility]; Protocol Stop: 10/29/24 07:29 Insulin Human Regular (Insulin Hum Regular 1 Unit/0.01 Ml (Per Unit)) 5 unit IV X1 ONE Stop: 09/29/24 00:12 Last Admin: 09/29/24 00:34 Dose: 5 unit Ipratropium [place] (Ipratropium Rt 0.5 Mg/ 2.5 Ml Nebu) 0.5 mg INH X1 ONE Stop: 09/28/24 18:38 Last Admin: 09/28/24 19:10 Dose: 0.5 mg Ketorolac Tromethamine (Ketorolac Inj 30 Mg/Ml Vial) 30 mg IVP X1 ONE Stop: 09/30/24 00:16 Last Admin: 09/30/24 00:21 Dose: 30 mg Ketorolac Tromethamine (Ketorolac Inj 30 Mg/Ml Vial) 15 mg IVP X1 ONE Stop: 10/01/24 09:51 Last Admin: 10/01/24 10:15 Dose: 15 mg Labetalol HCl (Labetalol Inj 5 Mg/Ml Vial 20 Ml) 5 mg IVP X1 ONE Stop: 09/30/24 11:43 Last Admin: 09/30/24 12:08 Dose: 5 mg Lorazepam (Lorazepam 2 Mg/Ml Vial) 2 mg IVP X1 ONE Stop: 09/28/24 17:52 Last Admin: 09/28/24 18:42 Dose: 2 mg Methadone HCl (Methadone Hcl 10 Mg Tablet) 10 mg PO TID PRN PRN Reason: Moderate-Severe Stop: 10/04/24 01:44 Last Admin: 09/29/24 17:51 Dose: 10 mg Methadone HCl (Methadone Hcl 10 Mg Tablet) 10 mg PO TID [facility] Stop: 10/05/24 13:59 Last Admin: 09/30/24 14:25 Dose: Not Given Methylprednisolone Sodium Succinate (Methylprednisolone Sod Succ 40 Mg Vial) 125 mg IVP X1 ONE Stop: 09/30/24 02:49 Last Admin: 09/30/24 03:01 Dose: 125 mg Methylprednisolone Sodium Succinate (Methylprednisolone Sod Succ 62.5 Mg/Ml 2ml Vial) 125 mg IVP X1 ONE Stop: 09/30/24 13:56 Last Admin: 09/30/24 14:11 Dose: 125 mg Morphine Sulfate (Morphine Sulf Inj 10 Mg/Ml Vial) 0.5 mg IVP X1 ONE Stop: 10/01/24 12:22 Last Admin: 10/01/24 12:27 Dose: 0.5 mg Morphine Sulfate (Morphine Sulf Inj 10 Mg/Ml Vial) 1 mg IVP X1 ONE Stop: 10/01/24 15:34 Last Admin: 10/01/24 15:47 Dose: 1 mg Nitroglycerin (Nitroglycerin Oint 2% 1 Inch Packet) 1 inch TOP X1 ONE Stop: 09/28/24 18:58 Last Admin: 09/28/24 19:07 Dose: 1 inch Pharmacy Consult (Vancomycin Pharmacy To Dose 1 Each Each) 1 each IV QDAY [facility] Stop: 10/29/24 08:59 Potassium Chloride (Potassium Chloride 20 Meq Tabcr) 20 meq PO X1 ONE Stop: 09/29/24 05:43 Last Admin: 09/29/24 06:01 Dose: Not Given Potassium Chloride (Potassium Chloride 20 Meq Tabcr) 40 meq PO X1 ONE Stop: 09/29/24 05:43 Last Admin: 09/29/24 06:01 Dose: Not Given Potassium Chloride (Potassium Chloride 10% 20 Meq/15 Ml Udc) 40 meq GT X1 ONE Stop: 09/29/24 08:19 Last Admin: 09/29/24 10:05 Dose: Not Given Potassium Chloride (Potassium Chloride 10% 20 Meq/15 Ml Udc) 40 meq PO X1 ONE Stop: 09/29/24 12:01 Last Admin: 09/29/24 12:53 Dose: 40 meq Potassium Chloride (Potassium Chloride 10% 20 Meq/15 Ml Udc) 40 meq PO X1 ONE Stop: 09/29/24 08:46 Last Admin: 09/29/24 08:55 Dose: 40 meq Potassium Chloride (Potassium Chloride 20 Meq Tabcr) 40 meq PO X1 ONE Stop: 09/29/24 18:01 Last Admin: 09/29/24 19:21 Dose: Not Given Potassium Chloride (Potassium Chloride 20 Meq Tabcr) 40 meq PO X1 ONE Stop: 09/30/24 07:46 Last Admin: 09/30/24 09:16 Dose: 40 meq Prednisone (Prednisone 20 Mg Tablet) 60 mg PO X1 ONE Stop: 09/28/24 16:29 Last Admin: 09/28/24 17:00 Dose: 60 mg Sodium Chloride (Sodium Chloride Rt [place] 0.9% 3 Ml Nebu) 3 ml INH PRN PRN PRN Reason: SOLN Stop: 10/28/24 16:27 Last Admin: 09/28/24 19:14 Dose: 3 ml Sodium Chloride (Sodium Chloride Rt Kam[place] 0.9% 3 Ml Nebu) 3 ml INH PRN PRN PRN Reason: SOLN Stop: 10/28/24 18:36 Sodium Chloride (Sodium Chloride Rt 10% 15 Ml Nebu) 5 ml INH X1 ONE Stop: 09/28/24 23:27 Last Admin: 09/29/24 00:39 Dose: 5 ml Assessment & Plan Plan Patient is a 64 year old female with history hypertension, hyperlipidemia,Type 2 diabetes, and chronic pain who presented to the ED with concerns of generalized weakness and cough, was admitted for sepsis secondary to community-acquired pneumonia. While undergoing medical treatment, blood cultures from 09/28 revealed GPC bacteremia on two sets, MRSA on one set, cultures from 09/30 pending. Infectious disease was consulted given MRSA bacteremia results. #MRSA Bacteremia - Blood cultures (09/28): GPC on 2 sets, one set revealing MRSA - Blood cultures (09/30): Pending - IV rocephin and Azithromycin stopped on 09/29 - IV Zosyn (09/29 - 10/01) - IV vancomycin (09/29 - present) - TTE (09/29): No vegetations noted on echo, EF 65-70% Plan: - IV zosyn to be stopped today (10/01) - Continue with IV Vancomycin - If blood cultures from 09/30 remain negative, plan to continue IV Vancomycin through 10/23 with weekly CBC, renal panel, ESR and line removal at end of course - If blood cultures from 09/30 result positive for GPC, VALERIE advised #Severe sepsis 11/30 CAP #CAP #Bradycardia #Acute atrial fibrillation with RVR #JOSY #Electrolyte abnormalities #Metabolic acidosis #Hyperbilirubinemia #Hx of Hypertension #Hx of T2DM #Hx of Chronic pain #Hx of MDD - Management per primary team Patient case discussed with attending physician Dr. Humera Ram, DO PGY-3
[2024-10-01 17:41] LABS: Free T3 1.1 pg/mL (2.3-4.2)
[2024-10-01 18:04] LABS: Partial Thromboplastin Time 57.5 Seconds (22.0-36.0)
[2024-10-01] MEDS: DILTIAZEM INJ 5 MG/ML VIAL 5 ML 10 MG IV (18:39)
[2024-10-01] MEDS: DILTIAZEM INJ 125 MG in DEXTROSE 5%-WATER 100 ML IV (19:35)
--- NOTE | 2024-10-01 20:50 | ESCONSULT_ITS ---
RE: SD ARAIZA : 1960 DATE OF CONSULTATION: 10/01/2024 REFERRING PHYSICIAN: Dr. March, and Dr. Finn Painter. REASON FOR CONSULTATION: MRSA bacteremia and presumably pneumonia. HISTORY OF PRESENT ILLNESS: The patient is a 64-year-old with a number of health problems as noted. Her offers much of the history. The patient is too sick to interact. She suffers from diabetes, fibromyalgia, chronic pain syndrome, depression as well as early dementia as noted. PAST SURGICAL HISTORY: Includes prior spinal fusion in the neck and middle back, which never drained and there are no signs of infection. She has prior cholecystectomy and tonsillectomy as well. ALLERGIES: LONG. PLEASE SEE THE LIST. THERE ARE NO ANTIBIOTIC ALLERGIES. IMMUNIZATIONS: Last tetanus is not known. The patient does take a flu shot every year. She has had two COVID vaccines and has not had pneumococcal vaccine. FAMILY HISTORY: Positive for coronary artery disease in her father. SOCIAL HISTORY: She lives with her , is a nonsmoker. Her father did smoke, so she had a certain amount of secondhand smoke exposure. PHYSICAL EXAMINATION: GENERAL: On exam, the patient is dyspneic, is anxious for her on the BiPAP, but settings are modest. She is only about 30%. HEENT: Grossly benign. HEART: Grossly benign. LUNGS: Grossly benign. ABDOMEN: Grossly benign. She is not in distress and so should be able to hopefully come off the BiPAP at your discretion . Apparently, she did poorly on nasal cannula and so they put her on BiPAP. ASSESSMENT: Probable MRSA pneumonia. The patient's reports that she tested for flu and was negative, but I cannot find that test. If it was done, please verify its presence and if it was not done, please get one. Staph aureus bacteremia and pneumonia after influenza occurs frequently. and her staph is MRSA. She does have other health problems including diabetes, fibromyalgia and chronic pain syndrome, so those will need to be addressed. She may be having some withdrawal, but the staff is very worried about withdrawal. I will defer to your management in that regard. 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 I will check on her superficially on Sunday, but I will not be there for a couple of days. If blood cultures are negative on followup, then usual treatment would be 14 days from first negative blood culture and that would be longer than most standard treatment for pneumonia. I will check on her superficially again Sunday or Sunday. DT: 18:58:58 TT: 20:40:00 Ref: [id number] - TID: [id number] MTDD
[2024-10-02] VITALS (25 sets, daily range): BP systolic 144–212; BP diastolic 81–117; PULSE 78–110; RESP 15–38; TEMP 35.9–39.1; O2SAT 94–100
[2024-10-02] MEDS: Heparin/D5w 25K 250 ML Ivpb 25,000 UNIT/250 ML BAG 8.582 UNIT IV (01:01)
[2024-10-02 02:05] LABS: Partial Thromboplastin Time 63.7 Seconds (22.0-36.0)
[2024-10-02] MEDS: LEVALBUTEROL RT 0.63 MG/3 ML NEBU INH ×6 (02:39→22:56)
[2024-10-02] MEDS: IPRATROPIUM RT 0.5 MG/ 2.5 ML NEBU INH ×6 (02:39→22:56)
[2024-10-02] MEDS: INSULIN LISPRO (AdmeLOG) 1 UNIT/0.01 ML UNIT SC ×2 (05:27→17:52)
[2024-10-02 05:55] LABS: Lactate (Lactic Acid) 2.4 mMol/L (0.4-2.0)
[2024-10-02 05:59] LABS: Basophils # (Auto) 0.1 Thou/mm3 (0.0-0.2); Basophils % (Auto) 1 % (0-2.5); Eosinophils % (Auto) 0 % (0-10); Hematocrit 34.9 % (36.0-46.0); Hemoglobin 11.7 g/dL (12.0-16.0); Immature Granulocytes % (Auto) 2 % (0-0); Immature Granulocytes Auto 0.22 Thou/mm3 (0.00-0.00); Lymphocytes # (Auto) 0.9 Thou/mm3 (1.0-4.8); Lymphocytes % (Auto) 6 % (10-50); Mean Corpuscular HGB Conc 33.5 g/dl (31.0-37.0); Mean Corpuscular Hemoglobin 27.7 pg (25.0-35.0); Mean Corpuscular Volume 83 fL (80-100); Monocytes # (Auto) 0.6 Thou/mm3 (0.0-0.8); Monocytes % (Auto) 4 % (0-12); Neutrophils # (Auto) 12.8 Thou/mm3 (1.8-7.7); Neutrophils % (Auto) 88 % (37-80); Nucleated Red Blood Cell # 0.02 Thou/mm3 (0.00-0.00); Nucleated Red Blood Cell % 0 /100 WBC (0); Platelet Count 351 Thou/mm3 (140-440); RDW Standard Deviation 43.4 fL (36.4-46.3); Red Blood Count 4.22 Miln/mm3 (4.00-5.20); White Blood Count 14.6 Thou/mm3 (3.6-11.0)
[2024-10-02 06:31] LABS: INR 1.1 (0.9-1.3); Partial Thromboplastin Time 55.5 Seconds (22.0-36.0); Prothrombin Time 12.4 Seconds (9.0-12.2)
[2024-10-02 06:38] LABS: Alanine Aminotransferase 43 U/L (10-49); Albumin, Serum 3.8 gm/dL (3.4-4.8); Albumin/Globulin Ratio 1.5 (1.2-2.2); Alkaline Phosphatase 217 U/L (46-116); Anion Gap 18 (7-16); Aspartate Amino Transferase 104 U/L (0-34); BUN/Creatinine Ratio 30 Ratio (12-20); Bilirubin,Total 1.7 mg/dL (0.3-1.2); Blood Urea Nitrogen 30 mg/dL (9-23); Calcium 8.5 mg/dL (8.3-10.6); Calcium (Corrected) 8.7 mg/dL (8.5-10.1); Carbon Dioxide 22.5 mMol/L (20.0-31.0); Chloride 106 mMol/L (98-107); Estimated Creatinine Clearance 54.6 mL/min (>60); Globulin 2.5 gm/dL (2.3-3.5); Glucose 206 mg/dL (74-106); Magnesium 1.8 mg/dL (1.6-2.6); Osmolality,Calculated 302 (275-295); Phosphorous 2.1 mg/dL (2.4-5.1); Sodium 146 mMol/L (136-145); Total Protein 6.3 gm/dL (5.7-8.2); eGFR > 60 See Note
[2024-10-02] MEDS: POTASSIUM CHL 10 mEq IVPB 10 MEQ/100 ML BAG 100 MEQ IV ×4 (08:26→12:42)
[2024-10-02] MEDS: Magnesium Sulfate 2 GM Ivpb 2 GM/50 ML BAG IV (08:26)
[2024-10-02 08:53] LABS: Reflex Lactate? Y
[2024-10-02 09:25] LABS: Vancomycin,Trough 12.8 mcg/mL (5.0-10.0)
[2024-10-02 09:33] LABS: Lactic Acid, 3 HR 2.8 mMol/L (0.4-2.0)
[2024-10-02] MEDS: VANCOMYCIN/NS 750 MG IVPB 750 MG/150 ML BAG 120 MG IV ×2 (10:16→21:20)
--- NOTE | 2024-10-02 10:21 | XR_ITS ---
Examination: AP chest single view Technique one AP portable semiupright chest single view Exam date 9: October 02, 2024 10:43 AM Comparison September 30, 2024 INDICATIONS: Inpatient with hypoxia FINDINGS: Worsening bilateral pneumonia Normal heart size No pneumothorax Moderate osteopenia IMPRESSION: Worsening severe bilateral pneumonia
[2024-10-02 11:02] LABS: Base Excess 4 (-3-3); HCO3 27 mEq/L (20-26); Inspired Oxygen, FIO2 30 %; O2 Saturation 95 % (91-98); PCO2 35 mmHg (32.0-48.0); PO2 71 mmHg (83-108)
[2024-10-02 11:06] LABS: Allen Test Performed/OK; Puncture Site Left Radial
[2024-10-02 11:32] LABS: B-Type Natriuretic Peptide 976 pg/mL (0-100)
--- NOTE | 2024-10-02 11:49 | XR_ITS ---
Examination: AP chest single view Technique one AP portable upright chest single view Exam date and time: October 02, 2024 1158 hours Comparison October 02, 2024 1043 hours INDICATIONS: Post procedure orogastric tube placement FINDINGS: Orogastric tube in the stomach the tip is below the level film Normal heart size Severe bilateral lung opacity remains IMPRESSION: Orogastric tube in the stomach the tip is below the level of the film
--- NOTE | 2024-10-02 12:02 | ESPR_ITS ---
<Statement entered by Yaakov Sequeira MD - 10/03/24 12:27> I have discussed and was present for the essential components of the history, physical examination, diagnosis, and treatment plan with the resident. I agree with the patient's care as documented by the resident and amended herein by me. Yaakov Sequeira MD. Documentation for date of: 10/02/24 Subjective Subjective Interval history: Patient was seen and examined at the bedside. Overnight, patient remained controlled in terms of A-fib on diltiazem drip and blood pressure stable as well. Patient is requiring BiPAP only due to tachypnea. She has been persistently elevated in the blood pressure due to her agitation/anxiety and altered mental status. Patient is still not following commands and responding to her name. Vitals showed blood pressure 178/100, heart rate 98 reverted to sinus rhythm, tachypneic respiratory rate 28 and saturating 90% on BiPAP with FiO2 30%. Labs revealed leukocytosis with WBC 14.6, hemoglobin stable 11.7. aPTT 55.5. ABGs revealed pH 7.50 with pCO2 35 and pO2 71 on FiO2 30%. Chemistry panel showed mild hyponatremia and hypokalemia. Anion gap of 18. Kidney functions showing BUN 30 and creatinine 1.0. Blood glucose 206. Lactic acid 2.8. Hypophosphatemia 2.1. Mag 1.8. T. bili 1.7. BNP 976. FT3 1.1. Blood sugars 205. Repeat chest x-ray showed vascular congestion and extensive pneumonia. Plan is to currently place an NG tube and start her home medication methadone and oral medications to reduce agitation and anxiety. NGT was successfully placed. Cardizem drip was discontinued and patient was started on Cardizem 60 every 6 hourly. Will likely give methadone and Cardizem 60 4 times daily from G-tube. Holding tramadol and diazepam for now due to altered mentation. Will likely evaluate with MRI brain or LP neurological mentation if she does not improve tomorrow. Will continue with IV vancomycin and breathing treatments. Tube feeds started as per recommendations by dietitian with water flushes due to hypernatremia. Patient was doing well on OxyMask 3 L NC seen in afternoon. Will continue with current therapy. All labs and orders were reviewed. Exam Vital Signs Temp Pulse Resp BP Pulse Ox O2 Del Method O2 Flow Rate 97.9 F 98 28 H 178/100 H 98 BiPAP 5 10/02/24 08:00 10/02/24 11:12 10/02/24 11:12 10/02/24 08:00 10/02/24 11:12 10/02/24 04:00 10/01/24 20:01 FiO2 30 10/02/24 11:12 Narrative Exam GENERAL APPEARANCE: Patient is not answering elevated orientation questions and seen on oxy mask saturating well on 3 L NC. Opening eyes spontaneously moving extremities. HEENT: NC, AT. MMM. EOMI, clear conjunctiva, oropharynx clear. NECK: Supple without lymphadenopathy. No stiffness or restricted ROM. HEART: Converted to sinus rhythm normal S1/S2, no m/r/g LUNGS: Bilateral crackles and wheezing heard throughout lungs field ABDOMEN: Soft, nontender, nondistended with good bowel sounds heard. BACK: No CVAT, no obvious deformity. EXTREMITIES: Skin mottling seen on upper and lower extremities including abdomen. NEUROLOGICAL: Grossly nonfocal. Alert and oriented, moving all 4 extremities. CN not formally tested but appear grossly intact. Skin: Increased skin mottling seen on both upper and lower extremities including abdomen Psych: Could not be assessed due to altered mentation Objective Labs 10/02/24 05:44 10/02/24 05:44 Labs: Laboratory Results - last 24 hr 10/01/24 10/01/24 10/01/24 11:33 11:49 11:50 WBC 13.6 H D RBC 4.38 Hgb 12.3 Hct 36.4 MCV 83 MCH 28.1 MCHC 33.8 RDW Std Deviation 43.5 Plt Count 304 D Neut % (Auto) 91 H Lymph % (Auto) 4 L Robertson % (Auto) 3 Eos % (Auto) 0 Baso % (Auto) 0 Neut # (Auto) 12.4 H Lymph # (Auto) 0.6 L Robertson # (Auto) 0.4 Eos # (Auto) 0.0 Baso # (Auto) 0.0 Immature Gran # (Auto) 0.21 H Absolute Nucleated RBC 0.00 Immature Gran % 2 H Nucleated RBC % 0 PT INR APTT Puncture Site Left Radial ABG pH 7.49 H D ABG pCO2 35 ABG pO2 114 H D ABG HCO3 26 ABG O2 Saturation 99 H ABG Base Excess 3 FiO2 30 Sodium 146 H Potassium 3.2 L Chloride 108 H Carbon Dioxide 24.7 Anion Gap 13 BUN 34 H Creatinine 1.1 Estim Creat Clear Calc 52.4 L eGFR 57 L BUN/Creatinine Ratio 31 H Glucose 157 H D Calculated Osmolality 301 H Lactic Acid Calcium 8.3 Corrected Calcium 8.9 Phosphorus 3.0 Magnesium 2.2 Total Bilirubin 1.5 H AST 124 H ALT 45 Alkaline Phosphatase 243 H D Total Protein 5.5 L Albumin 3.2 L Globulin 2.3 Albumin/Globulin Ratio 1.4 TSH 0.31 L Free T4 0.72 L Free T3 pg/dL Vancomycin Trough Urine Opiates Screen Negative Urine Fentanyl Screen Negative Ur Barbiturates Screen Negative U Amphetamin/Meth Scrn Negative U Benzodiazepines Scrn Positive A U Cocaine Metab Screen Negative U Marijuana (THC) Screen Negative 10/01/24 10/01/24 10/01/24 13:49 16:51 16:51 WBC RBC Hgb Hct MCV MCH MCHC RDW Std Deviation Plt Count Neut % (Auto) Lymph % (Auto) Robertson % (Auto) Eos % (Auto) Baso % (Auto) Neut # (Auto) Lymph # (Auto) Robertson # (Auto) Eos # (Auto) Baso # (Auto) Immature Gran # (Auto) Absolute Nucleated RBC Immature Gran % Nucleated RBC % PT INR APTT 57.5 H D Puncture Site ABG pH ABG pCO2 ABG pO2 ABG HCO3 ABG O2 Saturation ABG Base Excess FiO2 Sodium Potassium Chloride Carbon Dioxide Anion Gap BUN Creatinine Estim Creat Clear Calc eGFR BUN/Creatinine Ratio Glucose Calculated Osmolality Lactic Acid 4.3 H* Cancelled 2.6 H Calcium Corrected Calcium Phosphorus Magnesium Total Bilirubin AST ALT Alkaline Phosphatase Total Protein Albumin Globulin Albumin/Globulin Ratio TSH Free T4 Free T3 pg/dL 1.1 L Vancomycin Trough Urine Opiates Screen Urine Fentanyl Screen Ur Barbiturates Screen U Amphetamin/Meth Scrn U Benzodiazepines Scrn U Cocaine Metab Screen U Marijuana (THC) Screen 10/02/24 10/02/24 10/02/24 00:53 05:44 08:20 WBC 14.6 H RBC 4.22 Hgb 11.7 L Hct 34.9 L MCV 83 MCH 27.7 MCHC 33.5 RDW Std Deviation 43.4 Plt Count 351 D Neut % (Auto) 88 H Lymph % (Auto) 6 L Robertson % (Auto) 4 Eos % (Auto) 0 Baso % (Auto) 1 Neut # (Auto) 12.8 H Lymph # (Auto) 0.9 L Robertson # (Auto) 0.6 Eos # (Auto) 0.0 Baso # (Auto) 0.1 Immature Gran # (Auto) 0.22 H Absolute Nucleated RBC 0.02 H Immature Gran % 2 H Nucleated RBC % 0 PT 12.4 H INR 1.1 APTT 63.7 H 55.5 H Puncture Site ABG pH ABG pCO2 ABG pO2 ABG HCO3 ABG O2 Saturation ABG Base Excess FiO2 Sodium 146 H Potassium 3.0 L Chloride 106 Carbon Dioxide 22.5 Anion Gap 18 H BUN 30 H Creatinine 1.0 Estim Creat Clear Calc 54.6 L eGFR > 60 BUN/Creatinine Ratio 30 H Glucose 206 H Calculated Osmolality 302 H Lactic Acid 2.4 H Calcium 8.5 Corrected Calcium 8.7 Phosphorus 2.1 L Magnesium 1.8 Total Bilirubin 1.7 H AST 104 H ALT 43 Alkaline Phosphatase 217 H D Total Protein 6.3 Albumin 3.8 D Globulin 2.5 Albumin/Globulin Ratio 1.5 TSH Free T4 Free T3 pg/dL Vancomycin Trough 12.8 H Urine Opiates Screen Urine Fentanyl Screen Ur Barbiturates Screen U Amphetamin/Meth Scrn U Benzodiazepines Scrn U Cocaine Metab Screen U Marijuana (THC) Screen 10/02/24 10/02/24 09:10 10:53 WBC RBC Hgb Hct MCV MCH MCHC RDW Std Deviation Plt Count Neut % (Auto) Lymph % (Auto) Robertson % (Auto) Eos % (Auto) Baso % (Auto) Neut # (Auto) Lymph # (Auto) Robertson # (Auto) Eos # (Auto) Baso # (Auto) Immature Gran # (Auto) Absolute Nucleated RBC Immature Gran % Nucleated RBC % PT INR APTT Puncture Site Left Radial ABG pH 7.50 H ABG pCO2 35 ABG pO2 71 L D ABG HCO3 27 H ABG O2 Saturation 95 ABG Base Excess 4 H FiO2 30 Sodium Potassium Chloride Carbon Dioxide Anion Gap BUN Creatinine Estim Creat Clear Calc eGFR BUN/Creatinine Ratio Glucose Calculated Osmolality Lactic Acid 2.8 H Calcium Corrected Calcium Phosphorus Magnesium Total Bilirubin AST ALT Alkaline Phosphatase Total Protein Albumin Globulin Albumin/Globulin Ratio TSH Free T4 Free T3 pg/dL Vancomycin Trough Urine Opiates Screen Urine Fentanyl Screen Ur Barbiturates Screen U Amphetamin/Meth Scrn U Benzodiazepines Scrn U Cocaine Metab Screen U Marijuana (THC) Screen ABG Interpretation ABG results: 09/29/24 09/29/24 09/30/24 00:03 15:16 03:36 ABG pH 7.29 L 7.33 L 7.39 ABG pCO2 42 45 41 ABG pO2 72 L 216 H D 91 D ABG HCO3 20 23 25 ABG O2 Saturation 92 100 H 97 ABG Base Excess -7 L -3 0 09/30/24 09/30/24 10/01/24 13:49 18:56 11:49 ABG pH 7.25 L D 7.35 D 7.49 H D ABG pCO2 53 H D 43 D 35 ABG pO2 161 H D 213 H D 114 H D ABG HCO3 23 24 26 ABG O2 Saturation 99 H 100 H 99 H ABG Base Excess -5 L -2 3 10/02/24 10:53 ABG pH 7.50 H ABG pCO2 35 ABG pO2 71 L D ABG HCO3 27 H ABG O2 Saturation 95 ABG Base Excess 4 H Quality Measures Quality Measures VTE prophylaxis (Heparin) Assessment & Plan Assessment Current Active Medications: Generic Name Dose Route Start Last Admin Trade Name Freq PRN Reason Stop Dose Admin Acetaminophen 650 mg 09/28/24 23:26 Acetaminophen 325 Mg Tablet PO 10/28/24 23:25 Q6H PRN Pain (1-3) or Fever >100.3 Dextrose 25 ml 09/28/24 23:34 Dextrose 50%-Water Inj 50 Ml Syringe IV 10/28/24 23:33 Q15MIN PRN BG 50-70 responsive npo pt Dextrose 50 ml 09/28/24 23:34 Dextrose 50%-Water Inj 50 Ml Syringe IV 10/28/24 23:33 Q15MIN PRN BG <50 OR BG <70 & pt unresponsive Diazepam 10 mg 09/29/24 15:55 09/30/24 09:14 Diazepam 5 Mg Tablet PO 10/04/24 15:54 10 mg BID LUKE Administration Diltiazem HCl 60 mg 10/02/24 12:00 Diltiazem 30 Mg Tablet PO 11/01/24 11:59 Q6HR LUKE Duloxetine HCl 60 mg 09/29/24 01:45 10/02/24 08:05 Duloxetine Hcl 30 Mg Capsule PO 10/29/24 01:44 Not Given BID LUKE Glucagon 1 mg 09/28/24 23:34 Glucagon Inj 1 Mg Vial IM Q15MIN PRN BG <70, and no IV access Guaifenesin/Dextromethorphan 2 each 09/30/24 10:00 10/02/24 08:05 Guaifenesin/Dm Tablet PO 10/30/24 09:59 Not Given BID LUKE Heparin Sodium/Dextrose 25,000 unit in 250 mls @ 9.362 mls/hr 09/29/24 15:00 10/02/24 02:24 Heparin In D5w Ivpb IV 10/13/24 14:59 11 units/kg/hr .Q24H LUKE 8.582 mls/hr Titration Protocol 12 UNITS/KG/HR Potassium Chloride 10 meq in 100 mls @ 100 mls/hr 10/02/24 07:55 10/02/24 11:14 Kcl Ivpb IV 10/02/24 11:54 100 mls/hr Q1H LUKE Administration Potassium Phosphate 15 mmol in 250 mls @ 62.5 mls/hr 10/02/24 13:00 Pot Phos 15 Mmol In Ns 250 Ml IV 10/02/24 16:59 X1 ONE Vancomycin/Sodium Chloride 750 mg in 150 mls @ 120 mls/hr 10/02/24 10:00 10/02/24 11:31 Vancomycin/Ns 750 Mg Ivpb IV 10/09/24 09:59 Infused BID@1000,2200 LUKE Infusion Insulin Glargine 28 unit 10/02/24 21:00 Insulin Glargine (Lantus) 5 Unit/0.05 Ml (Per 5 Units) SC 11/01/24 20:59 HS LUKE Insulin Human Lispro 0 unit 10/01/24 18:30 10/02/24 05:27 Insulin Lispro (Admelog) 1 Unit/0.01 Ml Unit SC 10/31/24 18:29 4 unit Q6HR LUKE Administration Protocol Ipratropium [place] 0.5 mg 09/29/24 07:35 10/02/24 11:11 Ipratropium Rt 0.5 Mg/ 2.5 Ml Nebu INH 10/29/24 07:34 0.5 mg Q4HRRT LUKE Administration Levalbuterol HCl 0.63 mg 09/29/24 07:30 10/02/24 11:11 Levalbuterol Rt 0.63 Mg/3 Ml Nebu INH 10/29/24 07:29 0.63 mg Q4HR LUKE Administration Methadone HCl 10 mg 10/01/24 09:00 10/02/24 05:12 Methadone Hcl 10 Mg Tablet PO 10/06/24 08:59 Not Given TID LUKE Morphine Sulfate 1 mg 10/01/24 16:17 10/01/24 23:27 Morphine Sulf Inj 10 Mg/Ml Vial IVP 10/06/24 16:16 1 mg Q4HR PRN Administration AGITATION Ondansetron HCl 4 mg 09/28/24 23:26 Ondansetron Inj 2 Mg/Ml Inj 2 Ml IV 10/28/24 23:25 Q6H PRN NAUSEA OR VOMITING Protocol Pharmacy Consult 1 each 09/30/24 06:36 Vancomycin Pharmacy To Dose 1 Each Each IV 10/29/24 08:59 QDAY PRN PROTOCOL Polyethylene Glycol 17 gm 09/30/24 10:00 10/02/24 08:05 Polyethylene Glycol 17 Gm Packet PO 10/30/24 09:59 Not Given QDAY LUKE Quetiapine Fumarate 100 mg 09/29/24 21:00 10/01/24 20:51 Quetiapine Fumarate 100 Mg Tablet PO 10/29/24 20:59 Not Given HS LUKE Sennosides 1 tab 09/29/24 09:00 10/02/24 08:05 Senna Tablet PO 10/29/24 08:59 Not Given QDAY LUKE Protocol Sodium Chloride 3 ml 10/01/24 18:17 Sodium Chloride Rt [place] 0.9% 3 Ml Nebu INH 10/31/24 18:16 PRN PRN SOLN Tramadol HCl 50 mg 09/29/24 01:05 09/29/24 01:54 Tramadol Hcl 50 Mg Tablet PO 10/04/24 01:04 50 mg TID PRN Administration pain Protocol Plan Patient is a 67-year-old female with a past medical history of diabetes mellitus type 2 insulin-dependent nonadherent, hyperlipidemia, and hypertension who was admitted on 09/29/2024 for severe sepsis and acute hypoxic respiratory failure likely secondary to extensive bilateral pneumonia, GPC bacteremia and not well be acute encephalopathy likely multifactorial involving underlying sepsis and polypharmacy. # Acute encephalopathy # Likely multifactorial # Likely related to withdrawal from antipsychotic and pain medications: Polypharmacy versus underlying sepsis/infection Etiology: Multifactorial: Benzodiazepine withdrawal versus pain medication withdrawal versus underlying infection Patient is currently not following commands and only opening eyes spontaneously. Eye examination showed both pupils equal in size and reactive to light. Patient responds to painful stimuli. -Serum ammonia within normal limits -Patient is able to protect her airways and only showing signs and symptoms of agitation -ABGs showed pCO2 normal slightly alkalotic with mild hypoxia Plan: -NG tube placed to start patient's methadone due to concern for withdrawal -Holding antipsychotic medications, diazepam and tramadol -Continuing IV morphine 1 mg Q4 hourly -Dietitian consulted for starting tube feeds and water flushes -Will likely obtain EEG/LP and or MRI brain without contrast if neurological function does not improves -Treating underlying infection #MRSA bacteremia #Severe sepsis, likely secondary to CAP #Community acquired pneumonia #Acute Hypoxic Respiratory Failure # Leukocytosis Etiolgoy: Bacterial community-acquired pneumonia cannot be ruled out given past medical history of comorbidities and age, likely Streptococcus pneumoniae vs staph aures. Patient overnight experienced to rapid for increased work of breathing and had a temp he was started on the BiPAP after being on the OxiMax and development of atrial fibrillation change from diltiazem drip to amiodarone drip. Positive preliminary blood culture, positive for GPC. DDx: Viral infection less likely as patient tested negative for Influenza and COVID vs less likely cocci as results were negative for serology. Diagnostic Test: -Blood Culture (09/28/2024)X2: MRSA, sensitive to vancoymcin -Blood Cultures (09/30/2024): No Growth after 24 hours -Sputum Culture (09/28/2024) MRSA -Cxr (09/28/2024): Significant bilateral pneumonia -Head CT (09/28/2024): Negative for acute hemorrhage, mass effect or midline shift. If symptoms persist, consider brain MRI follow-up -CT Abdomen/Pelvis (09/28/2024): Extensive bilateral pneumonia. No renal or ureteral calculi, no hydronephrosis. Moderate stool throughout the colon -ABGs showed pH 7.50, pCO2 35, pO2 71 and bicarb 27 with FiO2 30%, 10/02 -WBC 16--> 14.6, 10/02 -Procalcitonin 12.65 -10/02: Lactic acid 2.8 and repeat chest x-ray showed congestion and extensive pneumonia -BNP elevated related to fluid overload state due to fluids Plan: -Wean off BiPAP as tolerated -Continuing IV vancomycin [09/29/2024?to present] -Continue breathing treatments and guaifenesin as necessary -Adding topical mupirocin for positive MRSA Nares -Repeat second set blood cultures negative -Monitor for fever spike, white count elevation and signs of infection -Daily labs -Follow-up on influenza and rapid strep antigen #New onset atrial Fibrilation with RVR, improved #Bradycardia, Resolved Etiology: Acute atrial flutter likely secondary to sepsis.Overnight patient converted from atrial flutter to A-fib and diltiazem was switched to amnio. Rapid reports during day team at approximately 1335 for episode of bradycardia lasting about 1 second with possible AV block. Amio DC'd. If patient develops atrial flutter or atrial fibrillation may restart diltiazem at a slower rate. (10/01/2024) Patient experience episode of atrial fibrillation for 1 second. Given Positive MRSA blood culture, tentative VALERIE planned for Sunday-Dr. Romo DDx: Electrolyte imbalance versus cardiac etiology such as ectopic foci. Diagnostic: CHADVASC 3 EKG:Atrial Flutter EKG (09/30/2024) Atrial Fibrillation Cxr (09/29/2024): Significant bilateral pneumonia Plan: -Switch from Cardizem drip to p.o. Cardizem 60 mg 4 times daily via NG tube -Cardiology recommended VALERIE -Heparin Drip -Keep mag above 2 and potassium above 4 -PT and PTT -Diltiazem 125 mg IV 5 mg/hr-D/c & D/C Amio drip -Cardio consult, Dr. Romo, appreciate recommendation #Elevated anion Gap #Lactic acidosis likely type B Metabolic acidosis likely secondary to lactic acid in the setting of sepsis. (10/01/2024): 10/01/2024 patient's lactic acid ptosis increased to 4.3 likely type a lactic acidosis in the setting of hypoperfusion likely from sepsis and given patient's cool and clammy extremities may be worsening. Patient is still producing urine no reduction in blood pressure. Hypovolemia likely in the setting of poor oral intake and increased BUN. DDx: Less likely DKA given negative beta hydroxy versus uremia given JOSY but less likely. Plan: -Given tube feeds with water flushes -No acute intervention treat underlying cause, sepsis. #Acute kidney injury, Improved -BUN 30, serum creatinine 1.0 Plan: -Given water flushes with tube feeds -Monitoring renal panel -Avoiding nephrotoxic agents and renally dosing medications -Patient still making good urine output # Electrolyte disturbance # Hyponatremia # Hypokalemia # Hypophosphatemia # Hypomagnesemia, Resolved Etiology: Admitting labs showed BUN of 51 and creatinine of 2.2, baseline has been about 1.0. Patient continues to appear dehydrated and oral intake in encouraged. Likely secondary to pre-renal in the setting of sepsis as BUN/Cr level is 27. DDx: Pre-renal cardio-renal can not be rule out vs intrinsic JOSY but less likely as BUN/Cr is greater than 20. Plan: -Repleted 15 mmol K-Phos and 40 mEq KCl and 2 g mag x 10/02 -Monitor CMP # Tube feedings -Due to acute encephalopathy -NG tube was placed today without complication Plan: -Refer to registered dietitian -Continue tube feeds and water flushes per nutritional recommendations by dietitian #History of Hypertension Patient at home takes lisinopril 5 mg daily. (10/01/2024): Patient's blood pressure has fluctuated during hospital stay likely secondary to agitation. Plan -Given JOSY hold home medication lisinopril -Labetalol 10 mg was given x 10/02 #History of diabetes mellitus type 2 insulin dependent The patient takes Farxiga 5 mg, insulin Lantus 55 units, metformin 1 g. Today, patient's glucose 167 (H) and a total of 12 units of lispro given thus Lantus increased to 21. (10/01/2024): Sliding scale has not been given, will not make adjustments to Lantus. Diagnostics: A1c 10.6 Plan: -Lantus 28 units at bedtime -ISS -Blood glucose check AC -Hypoglycemia protocols in place #History of chronic pain Patient reports having a history of chronic pain and is on multiple medications: Duloxetine, gabapentin, tizanidine, tramadol, methadone She does not respon well to opioids Plan: -Holding Valium and tramadol -Restarted methadone 10 mg TID via G-tube -Morphine 1 mg IVP Q4HR for pain and agitation Euthyroid Sick Syndrome In the setting of bacteremia and increasing inflammatory response, reduction in TSH and coversion of T4 and T3. Unlikely this is a lab error as T4/T3 are both low and TSH levels are Diagnostic: -(10/01/2024): TSH 0.31, Free T4 0.72, Free T3 1.1 Plan -No intervention for euthyroid sick syndrome #History of major depressive disorder History of mental health disorders. HOld Diazepam and methadone in the setting of multiple rapid response and bradycardia with possible av block of about 1 second. Plan -Quetiapine Fumarate 100 mg PO HS -Holding diazepam 10 mg PO BID due to altered mentation -Holding duloxetine 60 mg PO BID #Hyperbilirubinemia #Hyperalkaline phosphatase Bilirubin on admission was 2.3 with ALP of 243. CT abdomen and pelvis was done showed an absent gallbladder. Hyperbilirubinemia and elevated alkaline phosphatase in the setting of dehydration and poor oral intake. Patient has abdominal pain or fever and is anicteric. Diagnostics: US Gallbladder (09/29/2024): Absent gallbladder. Normal common bile duct. Hepatomegaly, primary hepatocellular disease versus cirrhosis no focal liver lesions 10/01/2024: Total Bili 1.8 Alkaline Phosphatase 201 AST 92 ALT 34 Plan: -No acute intervention Health Maintenance: FEN: Tube feeds with water flushes GI prophylaxis: Pantoprazole 40 mg IV daily DVT: Heparin Drip Code: Full Code Disposition: Patient is admitted for severe sepsis and acute hypoxic respiratory failure due to bilateral extensive pneumonia, GPC bacteremia on IV antibiotic therapy. Currently receiving tube feedings with water flushes due to acute encephalopathy. Patient was seen and discussed with attending physician, Dr. Hua Velez MD, PGY 2 Attending Provider Attestation/Addendum I have examined the patient, reviewed labs and imaging findings, discussed the case with the resident(s), and reviewed entered orders. I agree with the plan of care as outlined in this note, with these additional summaries/recommendations: Patient seen at bedside. Patient remained stable on BiPAP overnight. Patient continues to be encephalopathic at bedside although much improved compared to yesterday. Encephalopathy likely secondary to polypharmacy given patient's extensive home medication list including Valium 10 mg twice daily, duloxetine 120 mg p.o. twice daily, gabapentin 600 mg p.o. daily, methadone 10 mg p.o. 3 times daily, Seroquel 100mg at bedtime, tizanidine 4 mg p.o. twice daily, tramadol 50 mg p.o. 3 times daily, trazodone 200 mg p.o. twice daily and Ambien 10 mg p.o. at bedtime. Also likely infectious component secondary to severe sepsis. Patient does not follow outpatient psychiatrist or pain specialist. We will continue to hold these medications for now given patient's altered mental status. Discussed with at bedside that patient is at risk of seizures while holding benzodiazepines although we feel the benefits outweigh the risk in the setting of severe encephalopathy. Discussed with that we will give as needed morphine as patient appears in pain at times and moving around in bed. Patient also continues to require minimal BiPAP and develops severe dyspnea when taken off. ABG relatively within normal limits. We will continue to try to wean BiPAP as tolerated. Hospital course was complicated by atrial fibrillation with rapid ventricular response that did not respond to diltiazem drip. Patient was transitioned to amiodarone drip although developed episode of bradycardia and amiodarone was discontinued. We will continue heparin gtt. for elevated [id number] score and transition to oral anticoagulation when appropriate. Cardiology following. Echocardiogram showed EF 65-70%. Patient diagnosed with sepsis on admission with endorgan damage of acute kidney injury and AMS. Bilateral pneumonia on chest x-ray likely secondary to gram-negative rods versus MRSA pneumonia. Sputum culture preliminarily showing gram-positive cocci as well as both blood cultures. We will continue IV Zosyn and IV vancomycin for now. Follow-up cultures when available. If necessary we will slowly reinstitute home medications at low-dose. Ultimately patient should be slowly weaned from these medicines with outpatient PCP secondary to polypharmacy. Continue basal and bolus insulin for uncontrolled diabetes mellitus type 2. A1c 10.5%. Repeat hematology and chemistry panel in AM. Dr. March
[2024-10-02] MEDS: LABETALOL INJ 5 MG/ML VIAL 20 ML 10 MG IVP (12:44)
--- NOTE | 2024-10-02 13:21 | PC.DIETICIAN ---
Nutrition prescription When indicated: Glucerna 1.2 at 20 ml/hr via NG tube by pump. Advance 10 ml every 8 hrs to goal rate of 55 ml/hr x 24 hrs. If no IV fluids, water flushes of 25 ml/hr (or per MD).
--- NOTE | 2024-10-02 14:21 | PC.NURSE ---
dr. boyd okayed use of ng tube.
[2024-10-02] MEDS: METHADONE HCL 10 MG TABLET PO ×2 (14:24→21:22)
[2024-10-02] MEDS: POT PHOS 15 mMol in NS 250 ML 15 MMOL/250 ML BAG 62.5 MMOL IV (14:24)
[2024-10-02] MEDS: DILTIAZEM 30 MG TABLET 60 MG PO ×2 (14:24→17:50)
--- NOTE | 2024-10-02 16:22 | PC.NURSE ---
notified of pt having a fever of 102.2 with elevated bp of 170/81. also ntoified of pt having swelling to sclera. sclera yellow in color. acknowledged. orders received. cooling measures initiated. ice pack placed to groin and armpits
[2024-10-02] MEDS: ACETAMINOPHEN 500 MG TABLET PO (16:26)
[2024-10-02] MEDS: guaiFENesin/DM TABLET 2 EACH PO (21:20)
[2024-10-02] MEDS: INSULIN GLARGINE (Lantus) 5 UNIT/0.05 ML (PER 5 UNITS) 28 UNIT SC (21:23)
--- NOTE | 2024-10-02 23:20 | PC.NURSE ---
notified Dr. hooker of [facility] having a gastric occult postitive test. Her gastric residual was dark in color and tested postitive. No order to stop heparin at this time, will check h and h.
[2024-10-03] VITALS (20 sets, daily range): BP systolic 168–188; BP diastolic 86–106; PULSE 78–98; RESP 10–30; TEMP 35.8–36.6; O2SAT 94–100; BMI 29.4
[2024-10-03 00:03] LABS: Hematocrit 37.3 % (36.0-46.0); Hemoglobin 12.4 g/dL (12.0-16.0)
[2024-10-03] MEDS: INSULIN LISPRO (AdmeLOG) 1 UNIT/0.01 ML UNIT SC ×2 (00:20→12:35)
[2024-10-03] MEDS: DILTIAZEM 30 MG TABLET 60 MG PO ×3 (00:20→12:09)
[2024-10-03 00:29] LABS: OBG Card Lot # 20432; OBG Performed By adamk; OBG QC OK? Yes
[2024-10-03 00:30] LABS: Occult Blood, Gastric Positive (Negative)
[2024-10-03] MEDS: METHADONE HCL 10 MG TABLET PO ×3 (05:31→21:53)
[2024-10-03 05:49] LABS: Basophils # (Auto) 0.1 Thou/mm3 (0.0-0.2); Basophils % (Auto) 0 % (0-2.5); Eosinophils % (Auto) 0 % (0-10); Hematocrit 37.8 % (36.0-46.0); Hemoglobin 12.6 g/dL (12.0-16.0); Immature Granulocytes % (Auto) 2 % (0-0); Immature Granulocytes Auto 0.23 Thou/mm3 (0.00-0.00); Lymphocytes # (Auto) 1.5 Thou/mm3 (1.0-4.8); Lymphocytes % (Auto) 11 % (10-50); Mean Corpuscular HGB Conc 33.3 g/dl (31.0-37.0); Mean Corpuscular Hemoglobin 27.8 pg (25.0-35.0); Mean Corpuscular Volume 83 fL (80-100); Monocytes # (Auto) 0.7 Thou/mm3 (0.0-0.8); Monocytes % (Auto) 6 % (0-12); Neutrophils # (Auto) 10.8 Thou/mm3 (1.8-7.7); Neutrophils % (Auto) 81 % (37-80); Nucleated Red Blood Cell % 0 /100 WBC (0); Platelet Count 275 Thou/mm3 (140-440); RDW Standard Deviation 44.6 fL (36.4-46.3); Red Blood Count 4.53 Miln/mm3 (4.00-5.20); White Blood Count 13.3 Thou/mm3 (3.6-11.0)
[2024-10-03] MEDS: Heparin/D5w 25K 250 ML Ivpb 25,000 UNIT/250 ML BAG 8.582 UNIT IV (06:09)
[2024-10-03 06:12] LABS: INR 1.1 (0.9-1.3); Partial Thromboplastin Time 50.1 Seconds (22.0-36.0); Prothrombin Time 12.4 Seconds (9.0-12.2)
[2024-10-03 06:37] LABS: Alanine Aminotransferase 55 U/L (10-49); Albumin, Serum 3.6 gm/dL (3.4-4.8); Albumin/Globulin Ratio 1.4 (1.2-2.2); Alkaline Phosphatase 252 U/L (46-116); Anion Gap 11 (7-16); Aspartate Amino Transferase 149 U/L (0-34); BUN/Creatinine Ratio 37 Ratio (12-20); Blood Urea Nitrogen 26 mg/dL (9-23); Calcium 7.9 mg/dL (8.3-10.6); Calcium (Corrected) 8.2 mg/dL (8.5-10.1); Carbon Dioxide 32.1 mMol/L (20.0-31.0); Chloride 108 mMol/L (98-107); Creatinine (Component) 0.7 mg/dL (0.6-1.3); Estimated Creatinine Clearance 79.1 mL/min (>60); Globulin 2.5 gm/dL (2.3-3.5); Glucose 161 mg/dL (74-106); Magnesium 1.6 mg/dL (1.6-2.6); Osmolality,Calculated 307 (275-295); Phosphorous 2.2 mg/dL (2.4-5.1); Potassium 3.3 mMol/L (3.4-5.1); Sodium 151 mMol/L (136-145); Total Protein 6.1 gm/dL (5.7-8.2); eGFR > 60 See Note
[2024-10-03] MEDS: IPRATROPIUM RT 0.5 MG/ 2.5 ML NEBU INH ×4 (06:42→22:10)
[2024-10-03] MEDS: LEVALBUTEROL RT 0.63 MG/3 ML NEBU INH ×4 (06:42→22:10)
--- NOTE | 2024-10-03 08:38 | PC.NURSE ---
BP 170/70, per Dr. Velez, blood pressure medications will be resumed after procedure.
[2024-10-03] MEDS: VANCOMYCIN/NS 750 MG IVPB 750 MG/150 ML BAG 120 MG IV ×2 (09:25→23:06)
--- NOTE | 2024-10-03 10:27 | XR_ITS ---
Examination: MRI of brain without intravenous contrast. Date and time of exam:October 03, 2024 1403 hours Comparison September 21, 2021 INDICATIONS: Altered mental status presenting to the emergency room September 28, 2024 with generalized weakness Technique: Multiple axial and sagittal images of the brain to been obtained. Siemens high-resolution 1.52 Rosina short bore scanner utilized. Sagittal sections, T1 weighted images, TR 500, TE 14, are performed. Axial sections proton-density and T2-weighted images have been obtained. Inversion recovery axial images, TR 9260, TE 111, TR 2500. Diffusion weighted images, axial sections, TR 4800, TE 128, B value 1000. Axial sections, ADC map, TR 4800, TE 128. Findings:: Enlargement of the sella turcica is not present. The optic chiasm and infundibular stalk are not remarkable. There is no localized enlargement of the medulla or becky. Fourth ventricle and cerebellar tonsils appear normal in position. No subacute area of hemorrhage density is seen. Fourth ventricle is midline. Mass in the cerebellopontine angle region is not evident. 7th and 8th nerve complexes exhibit symmetry Globes are symmetrical Orbital musculature including medial lateral rectus muscles do not exhibit abnormality Increased white matter signal is mild Effacement of the cortical sulcal markings is not identified. Mass effect upon the ventricular system is not identified. Diffusion-weighted images demonstrate no focus of restricted diffusion Impression: Negative for acute hemorrhage mass effect or midline shift No acute infarct
--- NOTE | 2024-10-03 10:45 | PC.NURSE ---
Unable to reach POC to complete MRI screening.
[2024-10-03 11:03] LABS: Base Excess 10 (-3-3); HCO3 34 mEq/L (20-26); Inspired O2, VO2 Liters 7 L/min; O2 Saturation 98 % (91-98); PCO2 41 mmHg (32.0-48.0); PO2 101 mmHg (83-108); pH, Arterial 7.53 (7.35-7.45)
[2024-10-03 11:04] LABS: Allen Test Not Performed; Puncture Site Right Brachial
--- NOTE | 2024-10-03 11:29 | PC.NURSE ---
Heparin on hold, see MAR.
[2024-10-03] MEDS: POTASSIUM CHLORIDE 20 mEq TABCR 40 MEQ PO (12:09)
[2024-10-03] MEDS: Magnesium Sulfate 2 GM Ivpb 2 GM/50 ML BAG IV (12:10)
[2024-10-03] MEDS: NAPH,KPH MBDB 1 PACKET (1.5 GM) 2 PACKET NG (12:14)
[2024-10-03] MEDS: CALCIUM CARBONATE 600 MG TABLET NG (12:14)
[2024-10-03 12:18] LABS: INR 1.2 (0.9-1.3); Partial Thromboplastin Time 39.2 Seconds (22.0-36.0); Prothrombin Time 12.5 Seconds (9.0-12.2)
[2024-10-03] MEDS: amLODIPine BESYLATE 5 MG TABLET PO (12:20)
[2024-10-03 12:22] LABS: Ammonia 34 uMol/L (11-32)
--- NOTE | 2024-10-03 14:13 | PC.SS ---
Rounding note; MRI and EEG results pending.
--- NOTE | 2024-10-03 14:24 | XR_ITS ---
Examination: IR fluoroscopically guided diagnostic lumbar puncture AP lumbar spine single view Fluoroscopy Exam date and time: October 03, 2024 1458 hours INDICATIONS: Altered mental status, beginning 2 days ago Technique and findings: Informed consent provided. Timeout performed. Skin prepped over the lower back and sterile drape applied hand hygiene 1% lidocaine administered for local anesthesia Utilizing fluoroscopic guidance successful lumbar puncture L5-S1 level Opening pressure approximately 6 10 cc clear fluid withdrawn Estimated blood loss 0 cc Patient instable condition at completion procedure IMPRESSION: Successful fluoroscopically guided diagnostic lumbar puncture Fluoroscopy 0.2 minute radiation dose 15.91 milligray 1 spot fluoroscopic AP lumbar spine
--- NOTE | 2024-10-03 14:30 | ESPR_ITS ---
<Statement entered by Yaakov Sequeira MD - 10/05/24 12:16> I have discussed and was present for the essential components of the history, physical examination, diagnosis, and treatment plan with the resident. I agree with the patient's care as documented by the resident and amended herein by me. Yaakov Sequeira MD. <Statement entered by Chaparro Velez MD - 10/03/24 14:35> Patient was seen and examined at the bedside. Patient appeared better than yesterday however in mentation she is still not following commands and only opening eyes spontaneously. She is currently off BiPAP and only requiring oxygen at 3 L NC. Yesterday patient had a fever spike of 1-2 therefore we ordered repeat blood cultures. Labs showed hypernatremia and hypokalemia therefore we increased water flushes 60 mL every hour and potassium was repleted. Other electrolytes are also repleted including magnesium, calcium and phosphorus. We ordered ABGs, pending EEG report, MRI brain with and without contrast, serum ammonia levels. We are performing an LP with CSF analysis to rule out any infectious process due to current neurological condition. Will evaluate and work for acute encephalopathy but appears to be multifactorial at this point. Holding off heparin drip and VALERIE was postponed after discussing with drying tunnel operator due to less likely suspicion for vegetations. We are currently giving medications through NG tube and amlodipine was initiated for blood pressure. Currently holding off diazepam and duloxetine. Methadone continued through NG tube. Continuing tube feedings and water flushes. All labs and orders were reviewed. I saw and examined the patient, and I agree with current management stated by Dr Jamee MD,PGY1. Plan of care was discussed with the attending physician and resident physician. Disclaimer: Despite multiple revisions, due to the dictation software being used, the document bellow may not be free of grammatical errors including phonetic/typographic errors. However, this does not deter from our commitment to providing health care in the patient's best interest in mind. Dr. Agustin MD, PGY 2 Documentation for date of: 10/03/24 Subjective Subjective Interval history: Patient is a 67-year-old female with a past medical history of diabetes mellitus type 2 insulin-dependent nonadherent, hyperlipidemia, and hypertension. No overnight events reported. Patient continues to be alert and responds to name but not responsive to self, place, or time. Not following commands. Patient was scheduled for VALERIE but given her continued altered state?Dr. Romo at this time recommending outpatient follow-up. Patient is currently saturating well on nasal cannula 2 L off BiPAP. Patient is scheduled for MRI brain and LP. CMP pending at 8 PM. Exam Vital Signs Temp Pulse Resp BP Pulse Ox O2 Del Method O2 Flow Rate 97.6 F 80 20 171/86 H 96 Nasal Cannula 2 10/03/24 12:00 10/03/24 12:20 10/03/24 12:00 10/03/24 12:20 10/03/24 12:00 10/03/24 12:00 10/03/24 12:00 FiO2 30 10/03/24 12:00 Narrative Exam General Appearance: Alert & Oriented X0, well-nourished female who is lying in bed in no acute distress. HEENT: Skull symmetrical and atraumatic. Conjunctivae pin and moist. Pupils equal, round, reactive to light and accommodation (PERRL). External ear without lesion or discharge. Straight, nares patient, mucosa pink, no discharge. No thyroid nodule appreciated. Cardio: Normal Rate and Rhythm with S1 and S2 heart sounds. No murmurs or extra heart sounds auscultated. No bruits on carotid auscultation. No peripheral edema or cyanosis. Lungs: Symmetric with good expansion. Chest and back non-tender. Breath sounds vesicular without crackles, wheezing or rhonchi Abdomen: Non-tender, Non-distended, Normal Reactive Bowel Sounds Neuro: YES Alert, NO cooperative, NO oriented to person, No place, and NO time. CN grossly intact. Motor strength unable to access as patient is currently not following commands. Objective Labs 10/03/24 05:16 10/03/24 05:16 Labs: Laboratory Results - last 24 hr 10/02/24 10/02/24 10/03/24 20:30 23:50 05:16 WBC 13.3 H RBC 4.53 Hgb 12.4 12.6 Hct 37.3 37.8 MCV 83 MCH 27.8 MCHC 33.3 RDW Std Deviation 44.6 Plt Count 275 D Neut % (Auto) 81 H Lymph % (Auto) 11 Charles % (Auto) 6 Eos % (Auto) 0 Baso % (Auto) 0 Neut # (Auto) 10.8 H Lymph # (Auto) 1.5 Charles # (Auto) 0.7 Eos # (Auto) 0.0 Baso # (Auto) 0.1 Immature Gran # (Auto) 0.23 H Absolute Nucleated RBC 0.00 Immature Gran % 2 H Nucleated RBC % 0 PT 12.4 H INR 1.1 APTT 50.1 H Puncture Site ABG pH ABG pCO2 ABG pO2 ABG HCO3 ABG O2 Saturation ABG Base Excess Oxygen Liter Flow Sodium 151 H Potassium 3.3 L Chloride 108 H Carbon Dioxide 32.1 H Anion Gap 11 BUN 26 H Creatinine 0.7 Estim Creat Clear Calc 79.1 eGFR > 60 BUN/Creatinine Ratio 37 H Glucose 161 H Calculated Osmolality 307 H Calcium 7.9 L Corrected Calcium 8.2 L Phosphorus 2.2 L Magnesium 1.6 Total Bilirubin 2.0 H AST 149 H ALT 55 H Alkaline Phosphatase 252 H D Ammonia Total Protein 6.1 Albumin 3.6 Globulin 2.5 Albumin/Globulin Ratio 1.4 Gastric Occult Blood Positive A 10/03/24 10/03/24 10/03/24 10:54 11:50 11:53 WBC RBC Hgb Hct MCV MCH MCHC RDW Std Deviation Plt Count Neut % (Auto) Lymph % (Auto) Charles % (Auto) Eos % (Auto) Baso % (Auto) Neut # (Auto) Lymph # (Auto) Charles # (Auto) Eos # (Auto) Baso # (Auto) Immature Gran # (Auto) Absolute Nucleated RBC Immature Gran % Nucleated RBC % PT 12.5 H INR 1.2 APTT 39.2 H D Puncture Site Right Brachial ABG pH 7.53 H ABG pCO2 41 ABG pO2 101 D ABG HCO3 34 H ABG O2 Saturation 98 ABG Base Excess 10 H Oxygen Liter Flow 7 Sodium Potassium Chloride Carbon Dioxide Anion Gap BUN Creatinine Estim Creat Clear Calc eGFR BUN/Creatinine Ratio Glucose Calculated Osmolality Calcium Corrected Calcium Phosphorus Magnesium Total Bilirubin AST ALT Alkaline Phosphatase Ammonia 34 H Total Protein Albumin Globulin Albumin/Globulin Ratio Gastric Occult Blood ABG Interpretation ABG results: 09/29/24 09/29/24 09/30/24 00:03 15:16 03:36 ABG pH 7.29 L 7.33 L 7.39 ABG pCO2 42 45 41 ABG pO2 72 L 216 H D 91 D ABG HCO3 20 23 25 ABG O2 Saturation 92 100 H 97 ABG Base Excess -7 L -3 0 09/30/24 09/30/24 10/01/24 13:49 18:56 11:49 ABG pH 7.25 L D 7.35 D 7.49 H D ABG pCO2 53 H D 43 D 35 ABG pO2 161 H D 213 H D 114 H D ABG HCO3 23 24 26 ABG O2 Saturation 99 H 100 H 99 H ABG Base Excess -5 L -2 3 10/02/24 10/03/24 10:53 10:54 ABG pH 7.50 H 7.53 H ABG pCO2 35 41 ABG pO2 71 L D 101 D ABG HCO3 27 H 34 H ABG O2 Saturation 95 98 ABG Base Excess 4 H 10 H Quality Measures Quality Measures VTE prophylaxis (Heparin) Assessment & Plan Assessment Current Active Medications: Generic Name Dose Route Start Last Admin Trade Name Freq PRN Reason Stop Dose Admin Acetaminophen 500 mg 10/02/24 16:03 10/02/24 16:26 Acetaminophen 500 Mg Tablet PO 11/01/24 16:02 500 mg Q6HR PRN Administration Fever > 100.4 or Pain 1-3 Amlodipine Besylate 5 mg 10/03/24 10:45 10/03/24 12:20 Amlodipine Besylate 5 Mg Tablet PO 11/02/24 10:44 5 mg QDAY LUKE Administration Dextrose 25 ml 09/28/24 23:34 Dextrose 50%-Water Inj 50 Ml Syringe IV 10/28/24 23:33 Q15MIN PRN BG 50-70 responsive npo pt Dextrose 50 ml 09/28/24 23:34 Dextrose 50%-Water Inj 50 Ml Syringe IV 10/28/24 23:33 Q15MIN PRN BG <50 OR BG <70 & pt unresponsive Diazepam 10 mg 09/29/24 15:55 09/30/24 09:14 Diazepam 5 Mg Tablet PO 10/04/24 15:54 10 mg BID LUKE Administration Diltiazem HCl 60 mg 10/02/24 12:00 10/03/24 12:09 Diltiazem 30 Mg Tablet PO 11/01/24 11:59 60 mg Q6HR LUKE Administration Duloxetine HCl 60 mg 09/29/24 01:45 10/02/24 08:05 Duloxetine Hcl 30 Mg Capsule PO 10/29/24 01:44 Not Given BID LUKE Glucagon 1 mg 09/28/24 23:34 Glucagon Inj 1 Mg Vial IM Q15MIN PRN BG <70, and no IV access Guaifenesin/Dextromethorphan 2 each 09/30/24 10:00 10/03/24 08:35 Guaifenesin/Dm Tablet PO 10/30/24 09:59 Not Given BID LUKE Heparin Sodium/Dextrose 25,000 unit in 250 mls @ 9.362 mls/hr 09/29/24 15:00 10/03/24 07:08 Heparin In D5w Ivpb IV 10/13/24 14:59 11 units/kg/hr .Q24H LUKE 8.582 mls/hr Titration Protocol 12 UNITS/KG/HR Vancomycin/Sodium Chloride 750 mg in 150 mls @ 120 mls/hr 10/02/24 10:00 10/03/24 09:25 Vancomycin/Ns 750 Mg Ivpb IV 10/09/24 09:59 120 mls/hr BID@1000,2200 LUKE Administration Protocol Insulin Glargine 28 unit 10/02/24 21:00 10/02/24 21:23 Insulin Glargine (Lantus) 5 Unit/0.05 Ml (Per 5 Units) SC 11/01/24 20:59 28 unit HS LUKE Administration Insulin Human Lispro 0 unit 10/01/24 18:30 10/03/24 12:35 Insulin Lispro (Admelog) 1 Unit/0.01 Ml Unit SC 10/31/24 18:29 2 unit Q6HR LUKE Administration Protocol Ipratropium [place] 0.5 mg 09/29/24 07:35 10/03/24 14:15 Ipratropium Rt 0.5 Mg/ 2.5 Ml Nebu INH 10/29/24 07:34 Not Given Q4HRRT LUKE Levalbuterol HCl 0.63 mg 10/03/24 07:00 10/03/24 10:47 Levalbuterol Rt 0.63 Mg/3 Ml Nebu INH 11/02/24 06:59 0.63 mg Q4HRRT LUKE Administration Methadone HCl 10 mg 10/01/24 09:00 10/03/24 13:42 Methadone Hcl 10 Mg Tablet PO 10/06/24 08:59 10 mg TID LUKE Administration Morphine Sulfate 1 mg 10/01/24 16:17 10/01/24 23:27 Morphine Sulf Inj 10 Mg/Ml Vial IVP 10/06/24 16:16 1 mg Q4HR PRN Administration AGITATION Ondansetron HCl 4 mg 09/28/24 23:26 Ondansetron Inj 2 Mg/Ml Inj 2 Ml IV 10/28/24 23:25 Q6H PRN NAUSEA OR VOMITING Protocol Pharmacy Consult 1 each 09/30/24 06:36 Vancomycin Pharmacy To Dose 1 Each Each IV 10/29/24 08:59 QDAY PRN PROTOCOL Polyethylene Glycol 17 gm 09/30/24 10:00 10/03/24 08:35 Polyethylene Glycol 17 Gm Packet PO 10/30/24 09:59 Not Given QDAY LUKE Quetiapine Fumarate 100 mg 09/29/24 21:00 10/02/24 21:21 Quetiapine Fumarate 100 Mg Tablet PO 10/29/24 20:59 Not Given HS LUKE Sennosides 1 tab 09/29/24 09:00 10/03/24 08:35 Senna Tablet PO 10/29/24 08:59 Not Given QDAY LUKE Protocol Sodium Chloride 3 ml 10/01/24 18:17 Sodium Chloride Rt Kamille 0.9% 3 Ml Nebu INH 10/31/24 18:16 PRN PRN SOLN Tramadol HCl 50 mg 09/29/24 01:05 09/29/24 01:54 Tramadol Hcl 50 Mg Tablet PO 10/04/24 01:04 50 mg TID PRN Administration pain Protocol Plan Patient is a 67-year-old female with a past medical history of diabetes mellitus type 2 insulin-dependent nonadherent, hyperlipidemia, and hypertension who was admitted on 09/29/2024 for severe sepsis and acute hypoxic respiratory failure likely secondary to extensive bilateral pneumonia, GPC bacteremia and not well be acute encephalopathy likely multifactorial involving underlying sepsis and polypharmacy. # Acute encephalopathy # Likely multifactorial Etiology: Multifactorial: Benzodiazepine withdrawal versus pain medication withdrawal versus underlying infection vs Stroke Vs infectious cause Patient is currently not following commands and only opening eyes spontaneously. Eye examination showed both pupils equal in size and reactive to light. Patient responds to painful stimuli. -Serum ammonia within normal limits -Patient is able to protect her airways and only showing signs and symptoms of agitation -ABGs showed pCO2 normal slightly alkalotic with mild hypoxia Diagnostic: -MRI Brain (10/03/2024): Negative for acute hemorrhage mass effect or midline shift No acute infarct -Lumbar x-ray (10/03/2024): Successful fluoroscopically guided diagnostic lumbar puncture -Pending CSF Plan: -CMP 8:00 PM (10/03/2024) CSF: Angiotensin Convert, Bacterial Ag-Ltx, cell count w/ diff, gram stain, enterovirus RNA PCR, glucose CSF, Ig G Synthesis, Myelin CSF, Protien A, West Nile Virus -Strep A Rapid -(10/03/2024) Blood Culture (3rd set) -NG tube placed to start patient's methadone due to concern for withdrawal -Holding antipsychotic medications, diazepam and tramadol -Continuing IV morphine 1 mg Q4 hourly -Dietitian consulted for starting tube feeds and water flushes -Treating underlying infection #MRSA bacteremia #Community acquired pneumonia #Acute Hypoxic Respiratory Failure # Leukocytosis #Severe sepsis, likely secondary to CAP, Resolved Etiolgoy: Bacterial community-acquired pneumonia cannot be ruled out given past medical history of comorbidities and age, likely Streptococcus pneumoniae vs staph aures-->MRSA positive given first set of blood cultures and sputum cultures. (10/03/2024:) Improved respiratory function, patient is currently on N.C 2 Liters saturating well. 3rd set of blood cultures obtain for 10/03/2024 given pyrexia last night. DDx: Viral infection less likely as patient tested negative for Influenza and COVID vs less likely cocci as results were negative for serology. Diagnostic Test: -Blood Culture (09/28/2024)X2: MRSA, sensitive to vancoymcin -Blood Cultures (09/30/2024): No Growth after 48 hours -Blood Cutlrues (10/03/2024): Pending -Sputum Culture (09/28/2024) MRSA -Cxr (09/28/2024): Significant bilateral pneumonia -Head CT (09/28/2024): Negative for acute hemorrhage, mass effect or midline shift. If symptoms persist, consider brain MRI follow-up -CT Abdomen/Pelvis (09/28/2024): Extensive bilateral pneumonia. No renal or ureteral calculi, no hydronephrosis. Moderate stool throughout the colon -ABGs showed pH 7.50, pCO2 35, pO2 71 and bicarb 27 with FiO2 30%, -ABC (10/03/2024): pH 7.53, pCO 41, pO2 101, HCO3 34, -WBC 16--> 14.6, 12/6--->13.3 -Procalcitonin 12.65 -10/02: Lactic acid 2.8 and repeat chest x-ray showed congestion and extensive pneumonia -BNP elevated related to fluid overload state due to fluids Plan: -Wean off BiPAP as tolerated-->N.C on 2 Liters oxygen -Continuing IV vancomycin [09/29/2024?to present] -Continue breathing treatments and guaifenesin as necessary -Adding topical mupirocin for positive MRSA Nares -Repeat second set blood cultures negative -Monitor for fever spike, white count elevation and signs of infection -Daily labs -Follow-up on influenza and rapid strep antigen #New onset atrial Fibrilation with RVR, rate controlled #Bradycardia, Resolved Etiology: Acute atrial flutter likely secondary to sepsis.Overnight patient converted from atrial flutter to A-fib and diltiazem was switched to amnio. Rapid reports during day team at approximately 1335 for episode of bradycardia lasting about 1 second with possible AV block. Amio DC'd. If patient develops atrial flutter or atrial fibrillation may restart diltiazem at a slower rate. (10/01/2024) Patient experience episode of atrial fibrillation for 1 second. Given Positive MRSA blood culture, tentative VALERIE planned for Sunday-Dr. Romo DDx: Electrolyte imbalance versus cardiac etiology such as ectopic foci. Diagnostic: CHADVASC 3 EKG:Atrial Flutter EKG (09/30/2024) Atrial Fibrillation Cxr (09/29/2024): Significant bilateral pneumonia Plan: -Switch from Cardizem drip to p.o. Cardizem 60 mg 4 times daily via NG tube -Cardiology recommended VALERIE-currently holding given altered mental status -Heparin Drip -Keep mag above 2 and potassium above 4 -PT and PTT -Diltiazem 125 mg IV 5 mg/hr-D/c & D/C Amio drip -Cardio consult, Dr. Romo, appreciate recommendation #Elevated anion Gap, improved #Lactic acidosis likely type B Metabolic acidosis likely secondary to lactic acid in the setting of sepsis. (10/01/2024): 10/01/2024 patient's lactic acid ptosis increased to 4.3 likely type a lactic acidosis in the setting of hypoperfusion likely from sepsis and given patient's cool and clammy extremities may be worsening. Patient is still producing urine no reduction in blood pressure. Hypovolemia likely in the setting of poor oral intake and increased BUN. DDx: Less likely DKA given negative beta hydroxy versus uremia given JOSY but less likely. Plan: -Given tube feeds with water flushes -No acute intervention treat underlying cause, sepsis. # Electrolyte disturbance # Hypokalemia #Mild Hypernatremia # Hyponatremia, Resolved # Hypophosphatemia, Resolved # Hypomagnesemia, Resolved Etiology: Admitting labs showed BUN of 51 and creatinine of 2.2, baseline has been about 1.0. Patient continues to appear dehydrated and oral intake in encouraged. Likely secondary to pre-renal in the setting of sepsis as BUN/Cr level is 27. DDx: Pre-renal cardio-renal can not be rule out vs intrinsic JOSY but less likely as BUN/Cr is greater than 20. Diagnostics: 10/03/2024 Na 151 and K 3.3 Plan: -Free Water flushes 60 ml/hr -Repleted 15 mmol K-Phos and 40 mEq KCl and 2 g mag x 10/02 -Repleted 40 mEq X 1 10/03/2024 -Monitor CMP # Tube feedings -Due to acute encephalopathy -NG tube was placed today without complication Plan: -Refer to registered dietitian -Continue tube feeds and water flushes per nutritional recommendations by dietitian #History of Hypertension Patient at home takes lisinopril 5 mg daily. (10/01/2024): Patient's blood pressure has fluctuated during hospital stay likely secondary to agitation. Plan -Given JOSY hold home medication lisinopril -Amlodipine add 5 mg QDay-currently holding after LP -Labetalol 10 mg was given x 10/02 #History of diabetes mellitus type 2 insulin dependent The patient takes Farxiga 5 mg, insulin Lantus 55 units, metformin 1 g. Today, patient's glucose 167 (H) and a total of 12 units of lispro given thus Lantus increased to 21. (10/01/2024): Sliding scale has not been given, will not make adjustments to Lantus. Diagnostics: -A1c 10.6 -Fasting Glucose (10/03/2024): 161 Plan: -Lantus 28 units at bedtime -ISS -Blood glucose check AC -Hypoglycemia protocols in place #History of chronic pain Patient reports having a history of chronic pain and is on multiple medications: Duloxetine, gabapentin, tizanidine, tramadol, methadone She does not respon well to opioids Plan: -Holding Valium and tramadol -Restarted methadone 10 mg TID via G-tube -Morphine 1 mg IVP Q4HR for pain and agitation #Euthyroid Sick Syndrome In the setting of bacteremia and increasing inflammatory response, reduction in TSH and coversion of T4 and T3. Unlikely this is a lab error as T4/T3 are both low and TSH levels are Diagnostic: -(10/01/2024): TSH 0.31, Free T4 0.72, Free T3 1.1 Plan -No intervention for euthyroid sick syndrome #History of major depressive disorder History of mental health disorders. HOld Diazepam and methadone in the setting of multiple rapid response and bradycardia with possible av block of about 1 second. Plan -Quetiapine Fumarate 100 mg PO HS -Holding diazepam 10 mg PO BID due to altered mentation -Holding duloxetine 60 mg PO BID #Hyperbilirubinemia #Hyperalkaline phosphatase Bilirubin on admission was 2.3 with ALP of 243. CT abdomen and pelvis was done showed an absent gallbladder. Hyperbilirubinemia and elevated alkaline phosphatase in the setting of dehydration and poor oral intake. Patient has abdominal pain or fever and is anicteric. Diagnostics: US Gallbladder (09/29/2024): Absent gallbladder. Normal common bile duct. Hepatomegaly, primary hepatocellular disease versus cirrhosis no focal liver lesions 10/01/2024: Total Bili 1.8 Alkaline Phosphatase 201 AST 92 ALT 34 Plan: -No acute intervention #Acute kidney injury, Resolved Health Maintenance: Disp: Pt is currently admitted to floors for further management of acute encephalopathy and awaiting LP. FEN: low carb consistent DVT: Hold Heparin due to recent LP Code: Full code - The patient's plan was discussed with attending Dr. Sequeira and senior residents Dr. Agustin Mancuso MD PGY1 Internal Medicine
--- NOTE | 2024-10-03 16:52 | PC.NURSE ---
Patient returned from LP at this time. Per x-ray, pt needs to be laying flat for 4 hours. Tube feeding is on hold until 8pm to prevent aspiration. BP 172/88, Dr. Lastiq aware.
[2024-10-03 17:13] LABS: CSF White Blood Cell 3 /cmm
[2024-10-03 17:35] LABS: Glucose,CSF 119 mg/dL (40-70); Protein Total,CSF 46 mg/dL (8-32)
[2024-10-03 17:36] LABS: CSF Cell Count Tube # Tube # 4; CSF Color Colorless (Colorless); CSF Red Blood Cell 2 /cmm
[2024-10-03 17:38] LABS: Ag, Group B Strep Negative (Negative); Ag, H Influenza B Negative (Negative); Ag, N Mening B/Ecoli K1 Negative (Negative); Ag, N Meningitidis ACY W135 Negative (Negative); Ag, Strep Pneumonia Negative (Negative)
[2024-10-03 18:28] LABS: CSF, Appearance Clear (Clear)
[2024-10-03 18:29] LABS: CSF Polynuclear WBC 0 %
[2024-10-03 18:33] LABS: CSF Gram Stain Alert Gram Stain Completed
[2024-10-03] MEDS: guaiFENesin/DM TABLET 2 EACH PO (21:53)
[2024-10-03] MEDS: QUEtiapine FUMARATE 100 MG TABLET PO (21:53)
[2024-10-03 22:16] LABS: Anion Gap 10 (7-16); BUN/Creatinine Ratio 28 Ratio (12-20); Blood Urea Nitrogen 22 mg/dL (9-23); Carbon Dioxide 35.7 mMol/L (20.0-31.0); Chloride 107 mMol/L (98-107); Creatinine (Component) 0.8 mg/dL (0.6-1.3); Estimated Creatinine Clearance 69.2 mL/min (>60); Glucose 142 mg/dL (74-106); Potassium 2.8 mMol/L (3.4-5.1); Sodium 153 mMol/L (136-145); eGFR > 60 See Note
[2024-10-03 22:17] LABS: Alanine Aminotransferase 74 U/L (10-49); Albumin, Serum 3.6 gm/dL (3.4-4.8); Albumin/Globulin Ratio 1.2 (1.2-2.2); Alkaline Phosphatase 316 U/L (46-116); Aspartate Amino Transferase 203 U/L (0-34); Bilirubin,Total 2.6 mg/dL (0.3-1.2); Calcium 8.6 mg/dL (8.3-10.6); Calcium (Corrected) 8.9 mg/dL (8.5-10.1); Osmolality,Calculated 308 (275-295); Total Protein 6.6 gm/dL (5.7-8.2)
[2024-10-03 22:28] LABS: Vancomycin,Trough 13.9 mcg/mL (5.0-10.0)
[2024-10-04] VITALS (32 sets, daily range): BP systolic 100–189; BP diastolic 49–101; PULSE 63–111; RESP 15–33; TEMP 36.2–37.7; O2SAT 90–100; BMI 27.9
[2024-10-04] MEDS: DILTIAZEM 30 MG TABLET 60 MG PO ×5 (00:09→23:48)
[2024-10-04] MEDS: INSULIN LISPRO (AdmeLOG) 1 UNIT/0.01 ML UNIT SC ×4 (00:25→23:54)
[2024-10-04] MEDS: IPRATROPIUM RT 0.5 MG/ 2.5 ML NEBU INH ×6 (02:26→22:30)
[2024-10-04] MEDS: LEVALBUTEROL RT 0.63 MG/3 ML NEBU INH ×6 (02:26→22:30)
[2024-10-04] MEDS: METHADONE HCL 10 MG TABLET PO (05:09)
[2024-10-04 05:40] LABS: Basophils % (Auto) 0 % (0-2.5); Eosinophils % (Auto) 0 % (0-10); Hematocrit 37.3 % (36.0-46.0); Immature Granulocytes % (Auto) 1 % (0-0); Immature Granulocytes Auto 0.12 Thou/mm3 (0.00-0.00); Lymphocytes # (Auto) 1.2 Thou/mm3 (1.0-4.8); Lymphocytes % (Auto) 12 % (10-50); Mean Corpuscular HGB Conc 32.2 g/dl (31.0-37.0); Mean Corpuscular Hemoglobin 27.5 pg (25.0-35.0); Mean Corpuscular Volume 86 fL (80-100); Monocytes # (Auto) 0.6 Thou/mm3 (0.0-0.8); Monocytes % (Auto) 6 % (0-12); Neutrophils % (Auto) 81 % (37-80); Nucleated Red Blood Cell # 0.03 Thou/mm3 (0.00-0.00); Nucleated Red Blood Cell % 0 /100 WBC (0); Platelet Count 219 Thou/mm3 (140-440); Red Blood Count 4.36 Miln/mm3 (4.00-5.20); White Blood Count 9.8 Thou/mm3 (3.6-11.0)
[2024-10-04 06:15] LABS: Alanine Aminotransferase 57 U/L (10-49); Albumin, Serum 3.2 gm/dL (3.4-4.8); Albumin/Globulin Ratio 1.3 (1.2-2.2); Alkaline Phosphatase 262 U/L (46-116); Anion Gap 11 (7-16); Aspartate Amino Transferase 117 U/L (0-34); BUN/Creatinine Ratio 33 Ratio (12-20); Bilirubin,Total 1.7 mg/dL (0.3-1.2); Blood Urea Nitrogen 26 mg/dL (9-23); Calcium 7.4 mg/dL (8.3-10.6); Carbon Dioxide 35.5 mMol/L (20.0-31.0); Chloride 106 mMol/L (98-107); Creatinine (Component) 0.8 mg/dL (0.6-1.3); Estimated Creatinine Clearance 68.5 mL/min (>60); Globulin 2.4 gm/dL (2.3-3.5); Glucose 200 mg/dL (74-106); Magnesium 1.3 mg/dL (1.6-2.6); Osmolality,Calculated 312 (275-295); Phosphorous 2.4 mg/dL (2.4-5.1); Potassium 2.9 mMol/L (3.4-5.1); Sodium 152 mMol/L (136-145); Total Protein 5.6 gm/dL (5.7-8.2); eGFR > 60 See Note
[2024-10-04] MEDS: Magnesium Sulfate 2 GM Ivpb 2 GM/50 ML BAG IV (08:22)
[2024-10-04] MEDS: POTASSIUM CHLORIDE 10% 20 MEQ/15 ML UDC 40 MEQ PO ×2 (08:22→12:50)
[2024-10-04] MEDS: CALCIUM CARBONATE 600 MG TABLET PO (08:23)
[2024-10-04] MEDS: SENNA TABLET 1 TAB PO (08:23)
[2024-10-04] MEDS: amLODIPine BESYLATE 5 MG TABLET PO (08:23)
[2024-10-04] MEDS: guaiFENesin/DM TABLET 2 EACH PO (08:23)
[2024-10-04] MEDS: POLYETHYLENE GLYCOL 17 GM PACKET PO (08:24)
[2024-10-04] MEDS: INSULIN GLARGINE (Lantus) 5 UNIT/0.05 ML (PER 5 UNITS) 10 UNIT SC (08:44)
--- NOTE | 2024-10-04 09:48 | XR_ITS ---
Examination: AP chest single view Technique: AP portable upright chest single view Exam date and time: October 04, 2024 1002 hrs. Comparison October 02, 2024 Indications: Hypoxia low O2 saturation rapid response today Findings: Improvement in bilateral lung opacity Normal heart size No pulmonary edema Orogastric tube is in the stomach the tip is below the level film Impression: Significant improvement in bilateral pneumonia
--- NOTE | 2024-10-04 09:52 | EVENTNT_ITS ---
<Statement entered by Yaakov Sequeira MD - 10/05/24 12:17> I have discussed and was present for the essential components of the history, physical examination, diagnosis, and treatment plan with the resident. I agree with the patient's care as documented by the resident and amended herein by me. Yaakov Sequeira MD. <Statement entered by Chaparro Velez MD - 10/04/24 20:49> I saw and examined the patient, and I agree with current management stated by Dr Jamee MD,PGY1. Plan of care was discussed with the attending physician and resident physician. Disclaimer: Despite multiple revisions, due to the dictation software being used, the document bellow may not be free of grammatical errors including phonetic/typographic errors. However, this does not deter from our commitment to providing health care in the patient's best interest in mind. Dr. Ivory MD, PGY 2 Documentation for date of: 10/04/24 Event Note Event Note: Rapid Response Event Rapid Response called at approximately 9:35 AM for hypoxia. Patient was desaturating to low spO2 64% on N.C. 2 Liters. Patient has been increasing altered likely secondary to poly-pharmacy given extensive psychiatric medication and history of methadone use. Brain MRI and LP obtain on 10/03/2024. Pending EEG. Patient was restarted on methadone as this is her home medication for chronic back pain. Patient was unable to protect airway. Increasing livedo reticularis on lower extremity as compared. Pulses intact but diminished. No crackles appreciated during exam. Vitals: BP 119/83, HR 104, SpO2 64 Patient was switched back to Bipap with Fio2 at 100%. -->Switched back to Oxymask Intervention: ABG, CBC, CMP, Lactic Acid, Ammonia level, Chest X-ray and Narcan 0.4 X 2, EKG Patiently will likely be upgraded to ICU. - The patient's plan was discussed with attending Dr. Sequeira and senior residents Alyssia Mancuso MD PGY1 Internal Medicine
[2024-10-04] MEDS: NALOXONE INJ 1 MG/ML SYRINGE 2 ML 0.4 MG IV ×2 (10:10→10:15)
[2024-10-04 10:16] LABS: Base Excess 15 (-3-3); HCO3 39 mEq/L (20-26); Inspired Oxygen, FIO2 21 %; O2 Saturation 85 % (91-98); PCO2 46 mmHg (32.0-48.0); pH, Arterial 7.54 (7.35-7.45)
[2024-10-04 10:18] LABS: Allen Test Not Performed; Puncture Site Left Radial
[2024-10-04 10:22] LABS: PO2 46 mmHg (83-108)
[2024-10-04 10:22] LABS: Lactate (Lactic Acid) 3.1 mMol/L (0.4-2.0)
[2024-10-04] MEDS: RINGERS LACTATED 1000 ML 1,000 ML 999 ML IV ×3 (10:23→13:13)
[2024-10-04 10:43] LABS: Ammonia 25 uMol/L (11-32)
--- NOTE | 2024-10-04 10:49 | ESPR_ITS ---
<Statement entered by Yaakov Sequeira MD - 10/05/24 12:17> I have discussed and was present for the essential components of the history, physical examination, diagnosis, and treatment plan with the resident. I agree with the patient's care as documented by the resident and amended herein by me. Yaakov Sequeira MD. <Statement entered by Chaparro Velez MD - 10/04/24 20:48> Patient was seen and examined at the bedside. Patient was hypoxic and desaturating at 77% on 15 L OxyMask was transition to BiPAP continued to desat. No fever spikes were reported overnight. Rapid response was called for hypoxia. ABGs revealed pO2 46, pH showing alkalosis and pCO2 was normal. Bicarb on CHEM panel was elevated. Most likely patient was developing respiratory acidosis compensatory due to underlying metabolic alkalosis. Therefore, ICU boy's adviser recommended to not use BiPAP as it is worsening her condition and only use OxyMask or high flow if needed. Narcan was given for possible methadone toxicity. Given patient's altered mental status and ABGs showing hypoxia patient was upgraded to ICU and was intubated. Electrolytes were repleted on floors in the morning. Urine output was more than 1 L. JOSY resolved. New blood cultures are pending. Lumbar puncture analysis did show elevation in blood glucose and proteins. Water flushes were increased for hyponatremia. Patient has been on IV vancomycin therapy. Patient will be managed in ICU. All labs and orders were reviewed. I saw and examined the patient, and I agree with current management stated by Dr Jamee MD,PGY1. Plan of care was discussed with the attending physician and resident physician. Disclaimer: Despite multiple revisions, due to the dictation software being used, the document bellow may not be free of grammatical errors including phonetic/typographic errors. However, this does not deter from our commitment to providing health care in the patient's best interest in mind. Dr. Ivory MD, PGY 2 Documentation for date of: 10/04/24 Subjective Subjective Interval history: Patient is a 67-year-old female with a past medical history of diabetes mellitus type 2 insulin-dependent nonadherent, hyperlipidemia, Hypertension, and history of chronic back pack. Rapid Response was called during morning rounds at 9:35 AM for patient. Patient was found hypoxic with a spO2 of 64% on N.C and continued altered mental status. Patinet unable to protect airway and pedal pulses 1+. Orders placed for Cxr, ABG, EKG, CMP, CBC, lactic acid, ammonia, and Narcan. Patient upgraded to ICU. Exam Vital Signs Temp Pulse Resp BP Pulse Ox O2 Del Method O2 Flow Rate 97.5 F 90 20 108/67 98 Nasal Cannula 10 10/04/24 08:00 10/04/24 10:35 10/04/24 10:35 10/04/24 08:23 10/04/24 10:35 10/04/24 08:00 10/04/24 10:35 FiO2 30 10/04/24 08:00 Narrative Exam General Appearance: Alert & Oriented X0, well-nourished male who is lying in bed in no acute distress HEENT: Skull symmetrical and atraumatic. Conjunctivae pin and moist. Pupils equal, round, reactive to light and accommodation (PERRL). External ear without lesion or discharge. Straight, nares patient, mucosa pink, no discharge. No thyroid nodule appreciated. No cervical lymphadenopathy. Cardio: Normal Rate and Rhythm with S1 and S2 heart sounds. No murmurs or extra heart sounds auscultated. No bruits on carotid auscultation. No peripheral edema. Increased Mottled. Lungs: Symmetric with expansion. Chest and back non-tender. Breath sounds vesicular without crackles. Abdomen: Non-tender, Non-distended, Hypoactive Reactive Bowel Sounds Neuro: NO Alert, NO cooperative, NO oriented to person, NO place, and NO time. Patient unable to follow commands to access motor function. Objective Labs 10/04/24 10:50 10/04/24 10:50 Labs: Laboratory Results - last 24 hr 10/03/24 10/03/24 10/03/24 10:54 11:50 11:53 WBC RBC Hgb Hct MCV MCH MCHC RDW Std Deviation Plt Count Neut % (Auto) Lymph % (Auto) [place] % (Auto) Eos % (Auto) Baso % (Auto) Neut # (Auto) Lymph # (Auto) [place] # (Auto) Eos # (Auto) Baso # (Auto) Immature Gran # (Auto) Absolute Nucleated RBC Immature Gran % Nucleated RBC % PT 12.5 H INR 1.2 APTT 39.2 H D Puncture Site Right Brachial ABG pH 7.53 H ABG pCO2 41 ABG pO2 101 D ABG HCO3 34 H ABG O2 Saturation 98 ABG Base Excess 10 H Oxygen Liter Flow 7 FiO2 Sodium Potassium Chloride Carbon Dioxide Anion Gap BUN Creatinine Estim Creat Clear Calc eGFR BUN/Creatinine Ratio Glucose Calculated Osmolality Lactic Acid Calcium Corrected Calcium Phosphorus Magnesium Total Bilirubin AST ALT Alkaline Phosphatase Ammonia 34 H Total Protein Albumin Globulin Albumin/Globulin Ratio CSF Appearance CSF Color CSF WBC CSF RBC CSF Cell Count Tube # CSF Mononuclear WBCs CSF Polynuclear WBCs CSF Glucose CSF Total Protein CSF H.influenzae B Ag CSF N.meningit ACY/W135 CSF N.mening B/E.coli K1 CSF Strep B Antigen CSF Strep pneumoniae Ag Vancomycin Trough 10/03/24 10/03/24 10/04/24 15:46 21:09 05:18 WBC 9.8 RBC 4.36 Hgb 12.0 Hct 37.3 MCV 86 MCH 27.5 MCHC 32.2 RDW Std Deviation 46.0 Plt Count 219 D Neut % (Auto) 81 H Lymph % (Auto) 12 [place] % (Auto) 6 Eos % (Auto) 0 Baso % (Auto) 0 Neut # (Auto) 8.0 H Lymph # (Auto) 1.2 [place] # (Auto) 0.6 Eos # (Auto) 0.0 Baso # (Auto) 0.0 Immature Gran # (Auto) 0.12 H Absolute Nucleated RBC 0.03 H Immature Gran % 1 H Nucleated RBC % 0 PT INR APTT Puncture Site ABG pH ABG pCO2 ABG pO2 ABG HCO3 ABG O2 Saturation ABG Base Excess Oxygen Liter Flow FiO2 Sodium 153 H 152 H Potassium 2.8 L D 2.9 L Chloride 107 106 Carbon Dioxide 35.7 H 35.5 H Anion Gap 10 11 BUN 22 26 H Creatinine 0.8 0.8 Estim Creat Clear Calc 69.2 68.5 eGFR > 60 > 60 BUN/Creatinine Ratio 28 H 33 H Glucose 142 H 200 H D Calculated Osmolality 308 H 312 H Lactic Acid Calcium 8.6 7.4 L Corrected Calcium 8.9 8.0 L Phosphorus 2.4 Magnesium 1.3 L Total Bilirubin 2.6 H D 1.7 H D AST 203 H 117 H ALT 74 H 57 H Alkaline Phosphatase 316 H D 262 H D Ammonia Total Protein 6.6 5.6 L Albumin 3.6 3.2 L Globulin 3.0 2.4 Albumin/Globulin Ratio 1.2 1.3 CSF Appearance Clear CSF Color Colorless CSF WBC 3 CSF RBC 2 CSF Cell Count Tube # Tube # 4 CSF Mononuclear WBCs 100.0 CSF Polynuclear WBCs 0 CSF Glucose 119 H CSF Total Protein 46 H CSF H.influenzae B Ag Negative CSF N.meningit ACY/W135 Negative CSF N.mening B/E.coli K1 Negative CSF Strep B Antigen Negative CSF Strep pneumoniae Ag Negative Vancomycin Trough 13.9 H 10/04/24 10/04/24 09:57 10:15 WBC RBC Hgb Hct MCV MCH MCHC RDW Std Deviation Plt Count Neut % (Auto) Lymph % (Auto) [place] % (Auto) Eos % (Auto) Baso % (Auto) Neut # (Auto) Lymph # (Auto) [place] # (Auto) Eos # (Auto) Baso # (Auto) Immature Gran # (Auto) Absolute Nucleated RBC Immature Gran % Nucleated RBC % PT INR APTT Puncture Site Left Radial ABG pH 7.54 H ABG pCO2 46 ABG pO2 46 L* D ABG HCO3 39 H ABG O2 Saturation 85 L ABG Base Excess 15 H Oxygen Liter Flow FiO2 21 Sodium Potassium Chloride Carbon Dioxide Anion Gap BUN Creatinine Estim Creat Clear Calc eGFR BUN/Creatinine Ratio Glucose Calculated Osmolality Lactic Acid 3.1 H Calcium Corrected Calcium Phosphorus Magnesium Total Bilirubin AST ALT Alkaline Phosphatase Ammonia 25 Total Protein Albumin Globulin Albumin/Globulin Ratio CSF Appearance CSF Color CSF WBC CSF RBC CSF Cell Count Tube # CSF Mononuclear WBCs CSF Polynuclear WBCs CSF Glucose CSF Total Protein CSF H.influenzae B Ag CSF N.meningit ACY/W135 CSF N.mening B/E.coli K1 CSF Strep B Antigen CSF Strep pneumoniae Ag Vancomycin Trough ABG Interpretation ABG results: 09/29/24 09/29/24 09/30/24 00:03 15:16 03:36 ABG pH 7.29 L 7.33 L 7.39 ABG pCO2 42 45 41 ABG pO2 72 L 216 H D 91 D ABG HCO3 20 23 25 ABG O2 Saturation 92 100 H 97 ABG Base Excess -7 L -3 0 09/30/24 09/30/24 10/01/24 13:49 18:56 11:49 ABG pH 7.25 L D 7.35 D 7.49 H D ABG pCO2 53 H D 43 D 35 ABG pO2 161 H D 213 H D 114 H D ABG HCO3 23 24 26 ABG O2 Saturation 99 H 100 H 99 H ABG Base Excess -5 L -2 3 10/02/24 10/03/24 10/04/24 10:53 10:54 09:57 ABG pH 7.50 H 7.53 H 7.54 H ABG pCO2 35 41 46 ABG pO2 71 L D 101 D 46 L* D ABG HCO3 27 H 34 H 39 H ABG O2 Saturation 95 98 85 L ABG Base Excess 4 H 10 H 15 H Quality Measures Quality Measures VTE prophylaxis (Heparin) Assessment & Plan Assessment Current Active Medications: Generic Name Dose Route Start Last Admin Trade Name Freq PRN Reason Stop Dose Admin Acetaminophen 500 mg 10/02/24 16:03 10/02/24 16:26 Acetaminophen 500 Mg Tablet PO 11/01/24 16:02 500 mg Q6HR PRN Administration Fever > 100.4 or Pain 1-3 Amlodipine Besylate 5 mg 10/05/24 09:00 Amlodipine Besylate 5 Mg Tablet PO 11/04/24 08:59 QDAY LUKE Dextrose 25 ml 09/28/24 23:34 Dextrose 50%-Water Inj 50 Ml Syringe IV 10/28/24 23:33 Q15MIN PRN BG 50-70 responsive npo pt Dextrose 50 ml 09/28/24 23:34 Dextrose 50%-Water Inj 50 Ml Syringe IV 10/28/24 23:33 Q15MIN PRN BG <50 OR BG <70 & pt unresponsive Diazepam 10 mg 09/29/24 15:55 09/30/24 09:14 Diazepam 5 Mg Tablet PO 10/04/24 15:54 10 mg BID LUKE Administration Diltiazem HCl 60 mg 10/02/24 12:00 10/04/24 05:08 Diltiazem 30 Mg Tablet PO 11/01/24 11:59 60 mg Q6HR LUKE Administration Duloxetine HCl 60 mg 09/29/24 01:45 10/02/24 08:05 Duloxetine Hcl 30 Mg Capsule PO 10/29/24 01:44 Not Given BID LUKE Glucagon 1 mg 09/28/24 23:34 Glucagon Inj 1 Mg Vial IM Q15MIN PRN BG <70, and no IV access Guaifenesin/Dextromethorphan 2 each 09/30/24 10:00 10/04/24 08:23 Guaifenesin/Dm Tablet PO 10/30/24 09:59 2 each BID LUKE Administration Heparin Sodium/Dextrose 25,000 unit in 250 mls @ 9.362 mls/hr 09/29/24 15:00 10/03/24 07:08 Heparin In D5w Ivpb IV 10/13/24 14:59 11 units/kg/hr .Q24H LUKE 8.582 mls/hr Titration Protocol 12 UNITS/KG/HR Vancomycin/Sodium Chloride 200 mls @ 120 mls/hr 10/04/24 10:00 Vancomycin/Ns 1 Gm Ivpb IV 10/11/24 09:59 BID@1000,2200 LUKE Protocol Magnesium Sulfate 4 gm in 50 mls @ 12.5 mls/hr 10/04/24 09:41 Magnesium Sulfate Ivpb IV 10/04/24 13:40 X1 ONE Lactated Ringer's 1,000 mls @ 999 mls/hr 10/04/24 10:12 10/04/24 10:23 Lactated Ringers IV 10/04/24 11:12 999 mls/hr .Q1H1M ONE Administration Insulin Glargine 18 unit 10/04/24 21:00 Insulin Glargine (Lantus) 5 Unit/0.05 Ml (Per 5 Units) SC 11/03/24 20:59 HS LUKE Insulin Human Lispro 0 unit 10/01/24 18:30 10/04/24 05:47 Insulin Lispro (Admelog) 1 Unit/0.01 Ml Unit SC 10/31/24 18:29 2 unit Q6HR LUKE Administration Protocol Ipratropium [place] 0.5 mg 09/29/24 07:35 10/04/24 10:33 Ipratropium Rt 0.5 Mg/ 2.5 Ml Nebu INH 10/29/24 07:34 0.5 mg Q4HRRT LUKE Administration Labetalol HCl 10 mg 10/03/24 21:00 Labetalol Inj 5 Mg/Ml Vial 20 Ml IVP 11/02/24 20:59 Q6HR PRN Systolic >180 and HR >80 Levalbuterol HCl 0.63 mg 10/03/24 07:00 10/04/24 10:34 Levalbuterol Rt 0.63 Mg/3 Ml Nebu INH 11/02/24 06:59 0.63 mg Q4HRRT LUKE Administration Methadone HCl 10 mg 10/01/24 09:00 10/04/24 05:09 Methadone Hcl 10 Mg Tablet PO 10/06/24 08:59 10 mg TID LUKE Administration Morphine Sulfate 1 mg 10/01/24 16:17 10/01/24 23:27 Morphine Sulf Inj 10 Mg/Ml Vial IVP 10/06/24 16:16 1 mg Q4HR PRN Administration AGITATION Ondansetron HCl 4 mg 09/28/24 23:26 Ondansetron Inj 2 Mg/Ml Inj 2 Ml IV 10/28/24 23:25 Q6H PRN NAUSEA OR VOMITING Protocol Pharmacy Consult 1 each 09/30/24 06:36 Vancomycin Pharmacy To Dose 1 Each Each IV 10/29/24 08:59 QDAY PRN PROTOCOL Polyethylene Glycol 17 gm 09/30/24 10:00 10/04/24 08:24 Polyethylene Glycol 17 Gm Packet PO 10/30/24 09:59 17 gm QDAY LUKE Administration Potassium Chloride 40 meq 10/04/24 12:00 Potassium Chloride 10% 20 Meq/15 Ml Udc PO 10/04/24 12:01 X1 ONE Quetiapine Fumarate 100 mg 09/29/24 21:00 10/03/24 21:53 Quetiapine Fumarate 100 Mg Tablet PO 10/29/24 20:59 100 mg HS LUKE Administration Sennosides 1 tab 09/29/24 09:00 10/04/24 08:23 Senna Tablet PO 10/29/24 08:59 1 tab QDAY LUKE Administration Protocol Sodium Chloride 3 ml 10/01/24 18:17 Sodium Chloride Rt [place] 0.9% 3 Ml Nebu INH 10/31/24 18:16 PRN PRN SOLN Plan Patient is a 67-year-old female with a past medical history of diabetes mellitus type 2 insulin-dependent nonadherent, hyperlipidemia, and hypertension who was admitted on 09/29/2024 for severe sepsis and acute hypoxic respiratory failure likely secondary to extensive bilateral pneumonia, MRSA + bacteremia and not well be acute encephalopathy likely multifactorial involving underlying sepsis and polypharmacy. # Acute encephalopathy # Likely multifactorial Etiology: Multifactorial: Benzodiazepine withdrawal versus pain medication withdrawal vs less likely stroke as patient MRI was unremarkable vs less likely CSF infection as LP was unremarkable-with negative results for Neisseria negative, influenza, Strep B, and negative [place]. CSF ratio within normal limits. CSF WBC 3 and RBC 2-making HSV less likely . Patient is currently not following commands and only opening eyes spontaneously. Eye examination showed both pupils equal in size and reactive to light. Patient responds to painful stimuli. -Serum ammonia within normal limits -Patient is able to protect her airways and only showing signs and symptoms of agitation Diagnostic: -MRI Brain (10/03/2024): Negative for acute hemorrhage mass effect or midline shift No acute infarct -Lumbar x-ray (10/03/2024): Successful fluoroscopically guided diagnostic lumbar puncture -CSF: WBC 3, RBC 2 Glucose 119, CSF Protein 46, Influenza neg, Neisseria negative, Strep B, [place] Negative -CSF Pending Myelin and Angiotensin Plan: -Patient upgrade to ICU -(10/03/2024) Blood Culture (3rd set) : Negative after 24 Hours. -NG tube placed to start patient's methadone due to concern for withdrawal -Holding antipsychotic medications, diazepam and tramadol -Dietitian consulted for starting tube feeds and water flushes -Treating underlying infection #MRSA bacteremia #Community acquired pneumonia #Acute Hypoxic Respiratory Failure # Leukocytosis #Severe sepsis, likely secondary to CAP, Resolved Etiolgoy: Bacterial community-acquired pneumonia cannot be ruled out given past medical history of comorbidities and age, likely Streptococcus pneumoniae vs staph aures-->MRSA positive given first set of blood cultures and sputum cultures. DDx: Viral infection less likely as patient tested negative for Influenza and COVID vs less likely cocci as results were negative for serology. (10/03/2024:) Improved respiratory function, patient is currently on N.C 2 Liters saturating well. 3rd set of blood cultures obtain for 10/03/2024 given pyrexia last night. (10/04/2024) Negative blood culture after 24 hours. Diagnostic Test: -Blood Culture (09/28/2024)X2: MRSA, sensitive to vancoymcin -Blood Cultures (09/30/2024): No Growth after 48 hours -Blood Cutlrues (10/03/2024): Negative After 24 hours -Sputum Culture (09/28/2024) MRSA -Cxr (09/28/2024): Significant bilateral pneumonia -Head CT (09/28/2024): Negative for acute hemorrhage, mass effect or midline shift. If symptoms persist, consider brain MRI follow-up -CT Abdomen/Pelvis (09/28/2024): Extensive bilateral pneumonia. No renal or ureteral calculi, no hydronephrosis. Moderate stool throughout the colon -ABGs showed pH 7.50, pCO2 35, pO2 71 and bicarb 27 with FiO2 30%, -ABG (10/03/2024): pH 7.53, pCO 41, pO2 101, HCO3 34, -ABG during rapid (10/04/2024): pH 7.48 H, pCO2 53, pO2 301, HCO3 39 -WBC 16--> 14.6, 10/04--->9.8, improving -Procalcitonin 12.65 -10/02: Lactic acid 2.8 and repeat chest x-ray showed congestion and extensive pneumonia -BNP elevated related to fluid overload state due to fluids Plan: -Wean off BiPAP as tolerated-->N.C on 2 Liters oxygen -->during rapid on 10/04/2024 patient restarted on bipap -Continuing IV vancomycin [09/29/2024?to present] -Continue breathing treatments and guaifenesin as necessary -Adding topical mupirocin for positive MRSA Nares -Repeat second set blood cultures negative -Monitor for fever spike, white count elevation and signs of infection -Daily labs -Follow-up on influenza and rapid strep antigen # Electrolyte disturbance # Hypokalemia #Mild Hypernatremia # Hyponatremia, Resolved # Hypophosphatemia, Resolved # Hypomagnesemia, Resolved Etiology: Admitting labs showed BUN of 51 and creatinine of 2.2, baseline has been about 1.0. Patient continues to appear dehydrated and oral intake in encouraged. Likely secondary to pre-renal in the setting of sepsis as BUN/Cr level is 27. DDx: Pre-renal cardio-renal can not be rule out vs intrinsic JOSY but less likely as BUN/Cr is greater than 20. (10/04/2024): Possible metabolic alkalosis given elevated HCO3 with morning labs, 35.5. Metabolic Alkalosis unlikely as patient is not on diuretics or vomiting, unlike hyperaldoterism despite high Na and low K, more likely poor oral intake. Worsening K 2.9, and worsening Na. Diagnostics: 10/03/2024 Na 151 and K 3.3-->: Na 152, K 2.9 Plan: -Free Water flushes 60 ml/hr -->increased free washer flushes to 75 -Repleated K 40 meq AM and 40 meq at 12 PM, repleated Calcium and magnesium. -Repleted 40 mEq X 1 10/03/2024 -Repleted 15 mmol K-Phos and 40 mEq KCl and 2 g mag x 1, 10/02 -Monitor CMP #New onset atrial Fibrilation with RVR, rate controlled #Bradycardia, Resolved Etiology: Acute atrial flutter likely secondary to sepsis.Overnight patient converted from atrial flutter to A-fib and diltiazem was switched to amnio. Rapid reports during day team at approximately 1335 for episode of bradycardia lasting about 1 second with possible AV block. Amio DC'd. If patient develops atrial flutter or atrial fibrillation may restart diltiazem at a slower rate. (10/01/2024) Patient experience episode of atrial fibrillation for 1 second. Given Positive MRSA blood culture, tentative VALERIE planned for Sunday-Dr. Romo DDx: Electrolyte imbalance versus cardiac etiology such as ectopic foci. Diagnostic: CHADVASC 3 EKG:Atrial Flutter EKG (09/30/2024) Atrial Fibrillation Cxr (09/29/2024): Significant bilateral pneumonia Plan: -Switch from Cardizem drip to p.o. Cardizem 60 mg 4 times daily via NG tube -Cardiology recommended VALERIE-currently holding given altered mental status -Heparin Drip, on hold -Keep mag above 2 and potassium above 4 -PT and PTT -Diltiazem 125 mg IV 5 mg/hr-D/c & D/C Amio drip -Cardio consult, Dr. Romo, appreciate recommendation #Elevated anion Gap, improved #Lactic acidosis likely type B Metabolic acidosis likely secondary to lactic acid in the setting of sepsis. (10/01/2024): 10/01/2024 patient's lactic acid ptosis increased to 4.3 likely type a lactic acidosis in the setting of hypoperfusion likely from sepsis and given patient's cool and clammy extremities may be worsening. Patient is still producing urine no reduction in blood pressure. Hypovolemia likely in the setting of poor oral intake and increased BUN. DDx: Less likely DKA given negative beta hydroxy versus uremia given JOSY but less likely. Plan: -Given tube feeds with water flushes -No acute intervention treat underlying cause, sepsis. # Tube feedings -Due to acute encephalopathy -NG tube was placed today without complication Plan: -Refer to registered dietitian -Continue tube feeds and water flushes per nutritional recommendations by dietitian #History of Hypertension Patient at home takes lisinopril 5 mg daily. (10/01/2024): Patient's blood pressure has fluctuated during hospital stay likely secondary to agitation. Plan -Given JOSY hold home medication lisinopril -Amlodipine add 5 mg QDay-currently holding after LP -Labetalol 10 mg was given x 1, 10/02 #History of diabetes mellitus type 2 insulin dependent The patient takes Farxiga 5 mg, insulin Lantus 55 units, metformin 1 g. Today, patient's glucose 167 (H) and a total of 12 units of lispro given thus Lantus increased to 21. (10/01/2024): Sliding scale has not been given, will not make adjustments to Lantus. Diagnostics: -A1c 10.6 -Fasting Glucose (10/03/2024): 161 Plan: -Lantus 28 units at bedtime -ISS -Blood glucose check AC -Hypoglycemia protocols in place #History of chronic pain Patient reports having a history of chronic pain and is on multiple medications: Duloxetine, gabapentin, tizanidine, tramadol, methadone She does not respon well to opioids Plan: -Holding Valium and tramadol -Restarted methadone 10 mg TID via G-tube -Morphine 1 mg IVP Q4HR for pain and agitation #Euthyroid Sick Syndrome In the setting of bacteremia and increasing inflammatory response, reduction in TSH and coversion of T4 and T3. Unlikely this is a lab error as T4/T3 are both low and TSH levels are Diagnostic: -(10/01/2024): TSH 0.31, Free T4 0.72, Free T3 1.1 Plan -No intervention for euthyroid sick syndrome #History of major depressive disorder #History of mental health disorders. HOld Diazepam and methadone in the setting of multiple rapid response and bradycardia with possible av block of about 1 second. Plan -Quetiapine Fumarate 100 mg PO HS -Holding diazepam 10 mg PO BID due to altered mentation -Holding duloxetine 60 mg PO BID #Hyperbilirubinemia #Hyperalkaline phosphatase Bilirubin on admission was 2.3 with ALP of 243. CT abdomen and pelvis was done showed an absent gallbladder. Hyperbilirubinemia and elevated alkaline phosphatase in the setting of dehydration and poor oral intake. Patient has abdominal pain or fever and is anicteric. Diagnostics: US Gallbladder (09/29/2024): Absent gallbladder. Normal common bile duct. Hepatomegaly, primary hepatocellular disease versus cirrhosis no focal liver lesions 10/01/2024: Total Bili 1.8 Alkaline Phosphatase 201 AST 92 ALT 34-->10/04/2024 Total bili 1.7, AST 117, ALT 57 Plan: -No acute intervention Health Maintenance: Disp: Pt is currently admitted to floors for further management patient c urrently upgraded to ICU. FEN: tube feedings with water flushes DVT: on subQ heparin Code: Full Code - The patient's plan was discussed with attending Dr. Sequeira and senior residents Dr. Ivory Mancuso MD PGY1 Internal Medicine
[2024-10-04 11:26] LABS: Basophils % (Auto) 0 % (0-2.5); Eosinophils % (Auto) 0 % (0-10); Hematocrit 34.7 % (36.0-46.0); Hemoglobin 11.2 g/dL (12.0-16.0); Immature Granulocytes % (Auto) 1 % (0-0); Immature Granulocytes Auto 0.12 Thou/mm3 (0.00-0.00); Lymphocytes # (Auto) 1.4 Thou/mm3 (1.0-4.8); Lymphocytes % (Auto) 11 % (10-50); Mean Corpuscular HGB Conc 32.3 g/dl (31.0-37.0); Mean Corpuscular Hemoglobin 28.1 pg (25.0-35.0); Mean Corpuscular Volume 87 fL (80-100); Monocytes # (Auto) 0.7 Thou/mm3 (0.0-0.8); Monocytes % (Auto) 6 % (0-12); Neutrophils # (Auto) 10.6 Thou/mm3 (1.8-7.7); Neutrophils % (Auto) 83 % (37-80); Nucleated Red Blood Cell # 0.05 Thou/mm3 (0.00-0.00); Nucleated Red Blood Cell % 0 /100 WBC (0); Platelet Count 231 Thou/mm3 (140-440); RDW Standard Deviation 47.6 fL (36.4-46.3); Red Blood Count 3.99 Miln/mm3 (4.00-5.20); White Blood Count 12.8 Thou/mm3 (3.6-11.0)
[2024-10-04] MEDS: MIDAZOLAM INJ 1 MG/ML VIAL 2 ML 4 MG IV (11:33)
[2024-10-04] MEDS: ROCURONIUM INJ 10 MG/ML VIAL 10 ML 70 MG IVP (11:33)
[2024-10-04] MEDS: fentaNYL CIT INJ 50 mCg/ML AMP 2ML 100 MCG IVP (11:33)
--- NOTE | 2024-10-04 11:40 | XR_ITS ---
Examination: AP chest single view Technique one AP portable semiupright chest single view Exam date and time: October 04, 2024 11:49 AM Comparison October 02, 2024 Indications: Hypoxic respiratory failure postintubation Findings: Pneumonia diffusely in the right lung pneumonia has improved compared with the October 02, 2024 exam Endotracheal tube tip 22 mm above mason The orogastric tube is in the stomach Impression: Significant bilateral pneumonia Endotracheal tube tip 22 mm above mason
--- NOTE | 2024-10-04 11:43 | PD.INTPROC ---
Procedures Procedure Date / Time 10/04/24 1143 Intubation Indication(s): acute Resp Failure Informed consent obtained: obtained from surrogate decision maker, implied and procedure done urgently Time out done, and the following verified: correct patient, side and site, procedure and patient position Sedative: fentanyl Mg given: 100 Sedative #2: versed Mg Given (sedative #2): 2 Paralytic: rocuronium Mg given: 70 Laryngoscope: fiber optic video scope ET tube size: 7.5 ET tube uncuffed: No Tube secured depth (cm): 23 Tube secured location: lips Tube placement confirmation: visualized tube passing through cords, equal breath sounds bilaterally, no breath sounds over epigastrium and confirmation by capnometry Patient tolerated procedure: well and no complications Intubation complications: none
[2024-10-04] MEDS: DEXMEDETOMIDINE 400 MCG IVPB 400 MCG/100 ML BAG IV (11:45)
[2024-10-04 11:47] LABS: B-Type Natriuretic Peptide 707 pg/mL (0-100)
[2024-10-04] MEDS: fentaNYL 2,500 MCG/250 ML BAG 2,500 MCG/250 ML BAG IV (11:47)
--- NOTE | 2024-10-04 11:49 | ESPR_ITS ---
Documentation for date of: 10/04/24 Subjective Subjective Interval history: This is a 64-year-old female who was admitted to the hospital on 29 September for shortness of breath and hypoxia. She was found to have an MRSA pneumonia. Initially she required a BiPAP however then was placed on a facemask. Per the floor team she has been mottled since arrival. Today a rapid response was called for hypoxia desatting down into the 80s. A BiPAP was placed 18/8 at 100% FiO2. Her sats rapidly improved to 100% and we were able to titrate down the FiO2. Her mentation has been altered and she has been encephalopathic since arrival. Given that at 1 point she had a fever the floor team was concerned for meningitis and therefore an LP was performed with no WBCs noted. She does have a history of polypharmacy. She has been on methadone 10 mg p.o. 3 times daily during her hospital stay. During the rapid Narcan was given with slight improvement in mentation however not sufficient. An ABG and a stat chest x-ray were obtained. The chest x-ray showed improvement in her lung lloyd compared paired to prior. The ABG showed a metabolic alkalosis. The BiPAP was providing her with a minute ventilation of 18-20 therefore at that point in time the BiPAP was stopped and she was continued with a facemask. Given her altered mentation her desats and mottling decision was made to bring patient to the ICU. She continued to have intermittent episodes of desat as low as 70%. The decision was made to intubate her. During intubation she was noted to have very thick viscous dark secretions covering her airway which were suctioned with difficulty. Critical Care Note Critical care time (min.): 70 Exam Vital Signs Temp Pulse Resp BP Pulse Ox O2 Del Method O2 Flow Rate 97.5 F 90 20 108/67 98 Nasal Cannula 10 10/04/24 08:00 10/04/24 10:35 10/04/24 10:35 10/04/24 08:23 10/04/24 10:35 10/04/24 08:00 10/04/24 10:35 FiO2 30 10/04/24 08:00 Narrative Exam General-altered mental status, thin, ill-appearing, mottled from feet to chest HEENT-normocephalic, atraumatic, sclera icteric, mucosa is very dry, adequate dentition, pupils are dilated but reactive Chest-diminished, few crackles at bases, heart regular rhythmic, tachycardic, no increased work of breathing, no use of accessory muscles Abdomen-soft, nontender, bowel sounds present, no rebound or guarding Extremities-no edema, pulses palpable, no clubbing, extensive mottling throughout Physical Exam Completion Physical Exam Complete?: Yes 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 10/05/24 04:50 10/05/24 04:50 Labs: Laboratory Results - last 24 hr 10/03/24 10/03/24 10/03/24 11:50 11:53 15:46 WBC RBC Hgb Hct MCV MCH MCHC RDW Std Deviation Plt Count Neut % (Auto) Lymph % (Auto) [place] % (Auto) Eos % (Auto) Baso % (Auto) Neut # (Auto) Lymph # (Auto) [place] # (Auto) Eos # (Auto) Baso # (Auto) Immature Gran # (Auto) Absolute Nucleated RBC Immature Gran % Nucleated RBC % PT 12.5 H INR 1.2 APTT 39.2 H D Puncture Site ABG pH ABG pCO2 ABG pO2 ABG HCO3 ABG O2 Saturation ABG Base Excess FiO2 Sodium Potassium Chloride Carbon Dioxide Anion Gap BUN Creatinine Estim Creat Clear Calc eGFR BUN/Creatinine Ratio Glucose Calculated Osmolality Lactic Acid Calcium Corrected Calcium Phosphorus Magnesium Total Bilirubin AST ALT Alkaline Phosphatase Ammonia 34 H Total Protein Albumin Globulin Albumin/Globulin Ratio CSF Appearance Clear CSF Color Colorless CSF WBC 3 CSF RBC 2 CSF Cell Count Tube # Tube # 4 CSF Mononuclear WBCs 100.0 CSF Polynuclear WBCs 0 CSF Glucose 119 H CSF Total Protein 46 H CSF H.influenzae B Ag Negative CSF N.meningit ACY/W135 Negative CSF N.mening B/E.coli K1 Negative CSF Strep B Antigen Negative CSF Strep pneumoniae Ag Negative Vancomycin Trough 10/03/24 10/04/24 10/04/24 21:09 05:18 09:57 WBC 9.8 RBC 4.36 Hgb 12.0 Hct 37.3 MCV 86 MCH 27.5 MCHC 32.2 RDW Std Deviation 46.0 Plt Count 219 D Neut % (Auto) 81 H Lymph % (Auto) 12 [place] % (Auto) 6 Eos % (Auto) 0 Baso % (Auto) 0 Neut # (Auto) 8.0 H Lymph # (Auto) 1.2 [place] # (Auto) 0.6 Eos # (Auto) 0.0 Baso # (Auto) 0.0 Immature Gran # (Auto) 0.12 H Absolute Nucleated RBC 0.03 H Immature Gran % 1 H Nucleated RBC % 0 PT INR APTT Puncture Site Left Radial ABG pH 7.54 H ABG pCO2 46 ABG pO2 46 L* D ABG HCO3 39 H ABG O2 Saturation 85 L ABG Base Excess 15 H FiO2 21 Sodium 153 H 152 H Potassium 2.8 L D 2.9 L Chloride 107 106 Carbon Dioxide 35.7 H 35.5 H Anion Gap 10 11 BUN 22 26 H Creatinine 0.8 0.8 Estim Creat Clear Calc 69.2 68.5 eGFR > 60 > 60 BUN/Creatinine Ratio 28 H 33 H Glucose 142 H 200 H D Calculated Osmolality 308 H 312 H Lactic Acid Calcium 8.6 7.4 L Corrected Calcium 8.9 8.0 L Phosphorus 2.4 Magnesium 1.3 L Total Bilirubin 2.6 H D 1.7 H D AST 203 H 117 H ALT 74 H 57 H Alkaline Phosphatase 316 H D 262 H D Ammonia Total Protein 6.6 5.6 L Albumin 3.6 3.2 L Globulin 3.0 2.4 Albumin/Globulin Ratio 1.2 1.3 CSF Appearance CSF Color CSF WBC CSF RBC CSF Cell Count Tube # CSF Mononuclear WBCs CSF Polynuclear WBCs CSF Glucose CSF Total Protein CSF H.influenzae B Ag CSF N.meningit ACY/W135 CSF N.mening B/E.coli K1 CSF Strep B Antigen CSF Strep pneumoniae Ag Vancomycin Trough 13.9 H 10/04/24 10/04/24 10:15 10:50 WBC 12.8 H RBC 3.99 L Hgb 11.2 L Hct 34.7 L MCV 87 MCH 28.1 MCHC 32.3 RDW Std Deviation 47.6 H Plt Count 231 Neut % (Auto) 83 H Lymph % (Auto) 11 [place] % (Auto) 6 Eos % (Auto) 0 Baso % (Auto) 0 Neut # (Auto) 10.6 H Lymph # (Auto) 1.4 [place] # (Auto) 0.7 Eos # (Auto) 0.0 Baso # (Auto) 0.0 Immature Gran # (Auto) 0.12 H Absolute Nucleated RBC 0.05 H Immature Gran % 1 H Nucleated RBC % 0 PT INR APTT Puncture Site ABG pH ABG pCO2 ABG pO2 ABG HCO3 ABG O2 Saturation ABG Base Excess FiO2 Sodium Potassium Chloride Carbon Dioxide Anion Gap BUN Creatinine Estim Creat Clear Calc eGFR BUN/Creatinine Ratio Glucose Calculated Osmolality Lactic Acid 3.1 H Calcium Corrected Calcium Phosphorus Magnesium Total Bilirubin AST ALT Alkaline Phosphatase Ammonia 25 Total Protein Albumin Globulin Albumin/Globulin Ratio CSF Appearance CSF Color CSF WBC CSF RBC CSF Cell Count Tube # CSF Mononuclear WBCs CSF Polynuclear WBCs CSF Glucose CSF Total Protein CSF H.influenzae B Ag CSF N.meningit ACY/W135 CSF N.mening B/E.coli K1 CSF Strep B Antigen CSF Strep pneumoniae Ag Vancomycin Trough Assessment & Plan Problem List (1) Altered mental status: Status: Acute (2) Atrial fibrillation: Status: Acute Additional Assessment Additional Assessment: In summary this 64-year-old female admitted to the ICU for acute hypoxic respiratory failure secondary to MRSA pneumonia and altered mental status a/p [employer]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 She has also been continued on her methadone and Seroquel while in-house. She is hypoxic and hyponatremic. All of these can contribute to her altered mentation. She did undergo a LP for concern of possible meningitis this was negative for WBCs. Neurology is following. An MRI of the brain was performed and found to be within normal limits. Chronic pain - pt on methadone as outpt CV Stable Resp Acute Hypoxic Resp failure-patient has been on facemask on the floor and has been requiring 15 L for the last several days. Today she began to desat this together with altered mentation caused a rapid response. The decision was made to upgrade the patient to the ICU. The patient continued to have episodes of desat despite high flow nasal cannula and 100% FiO2 the decision was made to intubate her. She was also noted to be mottled throughout. She was intubated in the ICU and placed on mechanical ventilation. During intubation it was noted that she had very thick viscous desiccated secretions in her posterior oropharynx some of which were covering her vocal cords causing some degree of obstruction. MRSA [id number] chest x-ray looks improved from arrival. Continue her medications. Renal HyperNa-she will be started on free water via her OG tube Lactic Acidosis-patient is mottled throughout and apparently has been so for the last several days. Will give several liters of IV fluids for resuscitation purposes. HypoCa-replete IV GI Transaminitis-mild monitor, I think creased tomorrow consider ultrasound GI proph- PPI Endo DM- PO meds on hold, cover with SSI Heme Leukocytosis-likely related to MRSA infection Anemia-mild monitor DVT proph-Lovenox ID MRSA bacteremia-patient has been seen by ID and recommendations are appreciated Case discussed with ICU team and floor team Labs, imaging and records reviewed Approximately 70 cc minutes required for evaluation, exam, review, intervention, discussion of formulation of plan of care for this critically ill female with acute hypoxic respiratory failure at high risk for further and ongoing decompensation Provider Notation Provider Notation: Although this document has been carefully reviewed, there may still be some phonetic and other typographical errors. These errors are purely grammatical due to imperfections in the software program and should not be construed in any way to compromise the substance of the patient's medical care during this visit. Thank you for the opportunity and privilege in assisting you with this patient's care and management.
[2024-10-04 12:17] LABS: Alanine Aminotransferase 63 U/L (10-49); Albumin, Serum 3.1 gm/dL (3.4-4.8); Albumin/Globulin Ratio 1.4 (1.2-2.2); Alkaline Phosphatase 278 U/L (46-116); Anion Gap 10 (7-16); Aspartate Amino Transferase 156 U/L (0-34); BUN/Creatinine Ratio 27 Ratio (12-20); Bilirubin,Total 1.7 mg/dL (0.3-1.2); Blood Urea Nitrogen 24 mg/dL (9-23); Calcium 7.5 mg/dL (8.3-10.6); Calcium (Corrected) 8.2 mg/dL (8.5-10.1); Carbon Dioxide 35.3 mMol/L (20.0-31.0); Chloride 106 mMol/L (98-107); Creatinine (Component) 0.9 mg/dL (0.6-1.3); Estimated Creatinine Clearance 60.9 mL/min (>60); Globulin 2.2 gm/dL (2.3-3.5); Glucose 164 mg/dL (74-106); Osmolality,Calculated 307 (275-295); Potassium 3.8 mMol/L (3.4-5.1); Sodium 151 mMol/L (136-145); Total Protein 5.3 gm/dL (5.7-8.2); eGFR > 60 See Note
[2024-10-04] MEDS: Magnesium Sulfate 4 GM Ivpb 4 GM/50 ML BAG IV (12:34)
[2024-10-04] MEDS: CALCIUM GLUC/NS 1000MG IVPB 1,000 MG/50 ML BAG 50 MG IV (12:52)
--- NOTE | 2024-10-04 13:05 | PD.RESCONSUL ---
HPI Data of Consult Requesting Physician: Lian Dorado MD Admitting Provider: Keanu Palencia MD Attending Provider: Lian Dorado MD Primary Care Provider: Finn Painter MD Consult Narrative History of present illness: Ms. Oviedo is a 64-year-old female with past medical history significant for hypertension, hyperlipidemia, diabetes and chronic pain presented to the ED complaining of generalized weakness and cough for the last 4 days. Patient was admitted to the hospital for acute respiratory failure and severe sepsis secondary to bilateral pneumonia. Pt. is found to have MRSA bacteremia and sputum culture was also positive for MRSA. Todays CXR does show some improvement in bilateral pneumonia which is likely secondary to MRSA and ABG showed metabolic alkalosis. Sputum cultures were ordered. 10/03 blood cxs show no growth at 24 hours and LP culture results pending although no organisms seen on gram stain. Patient is continued on IV vancomycin for MRSA pneumonia and bactermia. Patient has been encephalopathic throughout hospitalization which is thought to be secondary to polypharmacy plus infectious etiology plus hypoxia although encephalopathy has not improved. Patients home methadone has been resumed. Hospital course complicated by new onset atrial fibrillation with rvr which has now resolved. Cardiology following and patient receiving cardizem and heparin drip. Patient has had persistent lactic acidosis and multiple fluid bolus given during rapid response. Rapid response was called on 10/04/2024 approximately 8:45 AM for worsening hypoxia and altered mental status. Patient was saturating in 70s- 80s on BiPAP and increasingly somnolent without responding to stimuli. Patient was upgraded to the ICU for close monitoring. Upon arrival to the ICU patient was saturating in the 80's at times and the decision was made to intubate the patient. Patient was placed on mechanical ventilation and sedation with fentanyl and precedex. cc:: cc: Lian Dorado MD Review of Systems Review of Systems ROS Unobtainable: unobtainable due to mental status Exam Vital Signs Temp Pulse Resp BP Pulse Ox O2 Del Method O2 Flow Rate 97.5 F 100 20 171/99 H 100 Nasal Cannula 10 10/04/24 08:00 10/04/24 12:49 10/04/24 10:35 10/04/24 12:49 10/04/24 11:49 10/04/24 08:00 10/04/24 10:35 FiO2 100 10/04/24 11:49 Narrative Exam GENERAL: Sedated and mechanically ventilated NEURO: Unobtainable due to patient sedation and mechanical ventilated HEENT: Atraumatic, Normocephalic. mucous membranes moist, ET tube in place HEART: Normal Heart Sounds LUNGS: Diminished breath sounds bilaterally throughout the lung lloyd ABDOMEN: soft, non-distended, non-tender SKIN: No Rash or ecchymoses, diffuse mottling throughout the body EXTREMITIES: No edema, tenderness, able to move all 4 extremities, pedal pulses palpated Results Labs 10/05/24 04:50 10/05/24 04:50 Labs: Short CBC 10/04/24 10/04/24 Range/Units 05:18 10:50 WBC 9.8 12.8 H (3.6-11.0) Thou/mm3 Hgb 12.0 11.2 L (12.0-16.0) g/dL Hct 37.3 34.7 L (36.0-46.0) % Plt Count 219 D 231 (140-440) Thou/mm3 BMP 10/03/24 10/04/24 10/04/24 21:09 05:18 10:50 Sodium 153 H 152 H 151 H Potassium 2.8 L D 2.9 L 3.8 D Chloride 107 106 106 Carbon Dioxide 35.7 H 35.5 H 35.3 H BUN 22 26 H 24 H Creatinine 0.8 0.8 0.9 Glucose 142 H 200 H D 164 H Calcium 8.6 7.4 L 7.5 L Liver Function 10/03/24 10/04/24 10/04/24 Range/Units 21:09 05:18 10:50 Total Bilirubin 2.6 H D 1.7 H D 1.7 H (0.3-1.2) mg/dL AST 203 H 117 H 156 H (0-34) U/L ALT 74 H 57 H 63 H (10-49) U/L Alkaline Phosphatase 316 H D 262 H D 278 H (46-116) U/L Albumin 3.6 3.2 L 3.1 L (3.4-4.8) gm/dL ABG Interpretation ABG results: 09/29/24 09/29/24 09/30/24 00:03 15:16 03:36 ABG pH 7.29 L 7.33 L 7.39 ABG pCO2 42 45 41 ABG pO2 72 L 216 H D 91 D ABG HCO3 20 23 25 ABG O2 Saturation 92 100 H 97 ABG Base Excess -7 L -3 0 09/30/24 09/30/24 10/01/24 13:49 18:56 11:49 ABG pH 7.25 L D 7.35 D 7.49 H D ABG pCO2 53 H D 43 D 35 ABG pO2 161 H D 213 H D 114 H D ABG HCO3 23 24 26 ABG O2 Saturation 99 H 100 H 99 H ABG Base Excess -5 L -2 3 10/02/24 10/03/24 10/04/24 10:53 10:54 09:57 ABG pH 7.50 H 7.53 H 7.54 H ABG pCO2 35 41 46 ABG pO2 71 L D 101 D 46 L* D ABG HCO3 27 H 34 H 39 H ABG O2 Saturation 95 98 85 L ABG Base Excess 4 H 10 H 15 H Quality Measures Quality Measures VTE prophylaxis (Heparin) Medications Home Medications and Allergies Home Medications ?Medication ?Instructions ?Recorded ?Confirmed ?Type diazepam 10 mg tablet (Valium) 10 mg PO BID ##0 04/10/13 09/29/24 History pantoprazole 40 mg tablet,delayed 40 mg PO QDAY ##0 11/21/14 09/29/24 History release (Protonix) duloxetine 60 mg capsule,delayed 120 mg PO BID 08/19/18 09/29/24 History release gabapentin 300 mg capsule 600 mg PO QDAY 08/19/18 09/29/24 History pioglitazone 30 mg tablet 30 mg PO QDAY 08/19/18 09/29/24 History pravastatin 40 mg tablet 40 mg PO QDAY 08/19/18 09/29/24 History tizanidine 4 mg tablet 4 mg PO BID 08/19/18 09/29/24 History insulin glargine 100 unit/mL (3 55 unit subcut QPM 09/20/21 09/29/24 History mL) subcutaneous pen (Lantus Solostar U-100 Insulin) lisinopril 5 mg tablet 5 mg PO QDAY 09/20/21 09/29/24 History metformin 1,000 mg tablet 1,000 mg PO BID 09/20/21 09/29/24 History potassium chloride 8 mEq 8 meq PO QDAY 09/20/21 09/29/24 History tablet,extended release trazodone 100 mg tablet 200 mg PO BID 09/20/21 09/29/24 History zolpidem 10 mg tablet 10 mg PO QPM 09/20/21 09/29/24 History dapagliflozin propanediol 5 mg 5 mg PO QAM 02/04/22 09/29/24 History tablet (Farxiga) quetiapine 100 mg tablet (Seroquel) 100 mg PO QPM 02/04/22 09/29/24 History donepezil 5 mg tablet 5 mg PO DAILY 09/29/24 10/01/24 History methadone 10 mg tablet 10 mg PO TID 09/29/24 10/01/24 History rosuvastatin 5 mg tablet 5 mg PO HS 09/29/24 10/01/24 History solifenacin 5 mg tablet 5 mg PO DAILY 09/29/24 10/01/24 History Allergies Allergy/AdvReac Type Severity Reaction Status Date / Time garlic Allergy Severe Difficulty Verified 09/28/24 15:51 Breathing onion Allergy Severe Difficulty Verified 09/28/24 15:51 Breathing oregano Allergy Severe Difficulty Verified 09/28/24 15:51 Breathing pepper (genus Capsicum) Allergy Severe Difficulty Verified 09/28/24 15:51 Breathing phenylephrine Allergy Severe SEVER Verified 09/28/24 15:51 ANXIETY, HALLUCINATION adhesive tape Allergy Mild Rash Verified 09/28/24 15:51 oxymetazoline Allergy Unknown Verified 09/28/24 15:51 xylometazoline Allergy Unknown Verified 09/28/24 15:51 ondansetron HCl AdvReac Mild Vomiting Verified 09/28/24 15:51 Visit Medications Acetaminophen (Acetaminophen 500 Mg Tablet) 500 mg PO Q6HR PRN PRN Reason: Fever > 100.4 or Pain 1-3 Stop: 11/01/24 16:02 Last Admin: 10/02/24 16:26 Dose: 500 mg Amlodipine Besylate (Amlodipine Besylate 5 Mg Tablet) 5 mg PO QDAY [facility] Stop: 11/04/24 08:59 Dextrose (Dextrose 50%-Water Inj 50 Ml Syringe) 25 ml IV Q15MIN PRN PRN Reason: BG 50-70 responsive npo pt Stop: 10/28/24 23:33 Dextrose (Dextrose 50%-Water Inj 50 Ml Syringe) 50 ml IV Q15MIN PRN PRN Reason: BG <50 OR BG <70 & pt unresponsive Stop: 10/28/24 23:33 Diazepam (Diazepam 5 Mg Tablet) 10 mg PO BID [facility] Stop: 10/04/24 15:54 Last Admin: 09/30/24 09:14 Dose: 10 mg Diltiazem HCl (Diltiazem 30 Mg Tablet) 60 mg PO Q6HR [facility] Stop: 11/01/24 11:59 Last Admin: 10/04/24 12:49 Dose: 60 mg Duloxetine HCl (Duloxetine Hcl 30 Mg Capsule) 60 mg PO BID [facility] Stop: 10/29/24 01:44 Last Admin: 10/02/24 08:05 Dose: Not Given Enoxaparin Sodium (Enoxaparin Sod Inj 40 Mg/0.4 Ml Syringe) 40 mg SC QDAY [facility] Stop: 10/18/24 12:29 Glucagon (Glucagon Inj 1 Mg Vial) 1 mg IM Q15MIN PRN PRN Reason: BG <70, and no IV access Guaifenesin/Dextromethorphan (Guaifenesin/Dm Tablet) 2 each PO BID [facility] Stop: 10/30/24 09:59 Last Admin: 10/04/24 08:23 Dose: 2 each Heparin Sodium/Dextrose (Heparin In D5w Ivpb) 25,000 unit in 250 mls @ 9.362 mls/hr IV .Q24H [facility]; Protocol Stop: 10/13/24 14:59 Last Titration: 10/03/24 07:08 Dose: 11 units/kg/hr, 8.582 mls/hr Vancomycin/Sodium Chloride (Vancomycin/Ns 1 Gm Ivpb) 200 mls @ 120 mls/hr IV BID@1000,2200 [facility]; Protocol Stop: 10/11/24 09:59 Magnesium Sulfate (Magnesium Sulfate Ivpb) 4 gm in 50 mls @ 12.5 mls/hr IV X1 ONE Stop: 10/04/24 13:40 Last Admin: 10/04/24 12:34 Dose: 12.5 mls/hr Norepinephrine/Dextrose (Levophed In D5w 8mg/250ml) 8 mg in 250 mls @ 6.902 mls/hr IV .Q24H PRN; Protocol PRN Reason: PER PROTOCOL Stop: 11/03/24 11:18 Fentanyl Citrate (Sublimaze Inj 2,500 Mcg/250 Ml Bag) 2,500 mcg in 250 mls @ 2.5 mls/hr IV .Q24H PRN; Protocol PRN Reason: PER PROTOCOL Stop: 10/09/24 11:40 Last Admin: 10/04/24 11:47 Dose: 25 mcg/hr, 2.5 mls/hr Dexmedetomidine/Sodium Chloride (Precedex Ivpb) 400 mcg in 100 mls @ 3.681 mls/hr IV .Q24H PRN; Protocol PRN Reason: Per PROTOCOL Stop: 11/03/24 11:43 Last Admin: 10/04/24 11:45 Dose: 0.2 mcg/kg/hr, 3.681 mls/hr Magnesium Sulfate (Magnesium Sulfate Ivpb) 2 gm in 50 mls @ 25 mls/hr IV X1 ONE Stop: 10/04/24 14:27 Last Admin: 10/04/24 12:33 Dose: Not Given Lactated Ringer's (Lactated Ringers) 1,000 mls @ 999 mls/hr IV .Q1H1M ONE Stop: 10/04/24 13:28 Calcium Gluconate/Sodium Chloride (Calcium Gluc/Ns 1000mg Ivpb) 1,000 mg in 50 mls @ 50 mls/hr IV X1 ONE Stop: 10/04/24 13:44 Last Admin: 10/04/24 12:52 Dose: 50 mls/hr Insulin Glargine (Insulin Glargine (Lantus) 5 Unit/0.05 Ml (Per 5 Units)) 18 unit SC HS [facility] Stop: 11/03/24 20:59 Insulin Human Lispro (Insulin Lispro (Admelog) 1 Unit/0.01 Ml Unit) 0 unit SC Q6HR [facility]; Protocol Stop: 10/31/24 18:29 Last Admin: 10/04/24 05:47 Dose: 2 unit Ipratropium [place] (Ipratropium Rt 0.5 Mg/ 2.5 Ml Nebu) 0.5 mg INH Q4HRRT [facility] Stop: 10/29/24 07:34 Last Admin: 10/04/24 10:33 Dose: 0.5 mg Labetalol HCl (Labetalol Inj 5 Mg/Ml Vial 20 Ml) 10 mg IVP Q6HR PRN PRN Reason: Systolic >180 and HR >80 Stop: 11/02/24 20:59 Levalbuterol HCl (Levalbuterol Rt 0.63 Mg/3 Ml Nebu) 0.63 mg INH Q4HRRT [facility] Stop: 11/02/24 06:59 Last Admin: 10/04/24 10:34 Dose: 0.63 mg Ondansetron HCl (Ondansetron Inj 2 Mg/Ml Inj 2 Ml) 4 mg IV Q6H PRN; Protocol PRN Reason: NAUSEA OR VOMITING Stop: 10/28/24 23:25 Pharmacy Consult (Vancomycin Pharmacy To Dose 1 Each Each) 1 each IV QDAY PRN PRN Reason: PROTOCOL Stop: 10/29/24 08:59 Polyethylene Glycol (Polyethylene Glycol 17 Gm Packet) 17 gm PO QDAY [facility] Stop: 10/30/24 09:59 Last Admin: 10/04/24 08:24 Dose: 17 gm Sennosides (Senna Tablet) 1 tab PO QDAY [facility]; Protocol Stop: 10/29/24 08:59 Last Admin: 10/04/24 08:23 Dose: 1 tab Sodium Chloride (Sodium Chloride Rt [place] 0.9% 3 Ml Nebu) 3 ml INH PRN PRN PRN Reason: SOLN Stop: 10/31/24 18:16 Discontinued Medications Acetaminophen (Acetaminophen 325 Mg Tablet) 650 mg PO Q6H PRN PRN Reason: Pain (1-3) or Fever >100.3 Stop: 10/28/24 23:25 Albuterol (Albuterol Rt 2.5 Mg/0.5 Ml Nebu) 10 mg INH X1 ONE Stop: 09/28/24 16:29 Last Admin: 09/28/24 16:41 Dose: 10 mg Albuterol (Albuterol Rt 2.5 Mg/0.5 Ml Nebu) 10 mg INH X1 ONE Stop: 09/28/24 18:38 Last Admin: 09/28/24 19:10 Dose: 10 mg Amlodipine Besylate (Amlodipine Besylate 5 Mg Tablet) 5 mg PO QDAY [facility] Stop: 11/02/24 10:44 Last Admin: 10/04/24 08:23 Dose: 5 mg Azithromycin (Azithromycin 250 Mg Tablet) 250 mg PO DAILY@2100 [facility] Stop: 10/06/24 20:59 Calcium Carbonate (Calcium Carbonate 600 Mg Tablet) 600 mg PO X1 ONE Stop: 09/30/24 07:46 Last Admin: 09/30/24 09:16 Dose: 600 mg Calcium Carbonate (Calcium Carbonate 600 Mg Tablet) 600 mg PO X1 ONE Stop: 10/01/24 06:30 Last Admin: 10/01/24 08:59 Dose: 600 mg Calcium Carbonate (Calcium Carbonate 600 Mg Tablet) 600 mg NG X1 ONE Stop: 10/03/24 10:24 Last Admin: 10/03/24 12:14 Dose: 600 mg Calcium Carbonate (Calcium Carbonate 600 Mg Tablet) 600 mg PO X1 ONE Stop: 10/04/24 07:24 Last Admin: 10/04/24 08:23 Dose: 600 mg Calcium Gluconate (Calcium Gluconate 10% Inj 1 Gm/10 Ml Vial) 1 gm IV X1 ONE Stop: 09/29/24 07:41 Last Admin: 09/29/24 10:17 Dose: 1 gm Calcium Gluconate (Calcium Gluconate 10% Inj 1 Gm/10 Ml Vial) 1 gm IV X1 ONE Stop: 10/01/24 09:46 Last Admin: 10/01/24 09:52 Dose: 1 gm Calcium Gluconate (Calcium Gluconate 10% Inj 1 Gm/10 Ml Vial) 1 gm IV X1 ONE Stop: 10/04/24 12:28 Diltiazem HCl (Diltiazem Inj 5 Mg/Ml Vial 5 Ml) 10 mg IV X1 ONE Stop: 09/29/24 11:55 Last Admin: 09/29/24 12:00 Dose: 10 mg Diltiazem HCl (Diltiazem Inj 5 Mg/Ml Vial 5 Ml) 15 mg IV X1 ONE Stop: 09/30/24 00:29 Last Admin: 10/03/24 16:07 Dose: Not Given Diltiazem HCl (Diltiazem Inj 5 Mg/Ml Vial 5 Ml) 20 mg IV X1 ONE Stop: 09/30/24 00:45 Last Admin: 09/30/24 00:50 Dose: 20 mg Diltiazem HCl (Diltiazem Inj 5 Mg/Ml Vial 5 Ml) 20 mg IV X1 ONE Stop: 09/30/24 02:51 Last Admin: 09/30/24 03:08 Dose: 20 mg Diltiazem HCl (Diltiazem Inj 5 Mg/Ml Vial 5 Ml) 10 mg IV X1 ONE Stop: 10/01/24 18:16 Last Admin: 10/01/24 18:39 Dose: 10 mg Diphenhydramine HCl (Diphenhydramine Inj 50 Mg/Ml Vial) 25 mg IVP X1 ONE Stop: 09/30/24 02:44 Last Admin: 10/03/24 16:07 Dose: Not Given Diphenhydramine HCl (Diphenhydramine Inj 50 Mg/Ml Vial) 50 mg IVP X1 ONE Stop: 09/30/24 02:46 Last Admin: 09/30/24 03:03 Dose: 50 mg Duloxetine HCl (Duloxetine Hcl 30 Mg Capsule) 120 mg PO BID [facility] Stop: 10/29/24 01:14 Last Admin: 09/29/24 02:45 Dose: Not Given Famotidine (Famotidine Inj 10 Mg/Ml Vial 2 Ml) 40 mg IVP X1 ONE Stop: 09/30/24 02:49 Last Admin: 09/30/24 03:01 Dose: 40 mg Fentanyl Citrate (Fentanyl Cit Inj 50 Mcg/Ml Amp 2ml) 100 mcg IVP X1 ONE Stop: 10/04/24 11:31 Last Admin: 10/04/24 11:33 Dose: 100 mcg Furosemide (Furosemide Inj 10 Mg/Ml 4ml Vial) 40 mg IVP X1 ONE Stop: 09/28/24 18:59 Last Admin: 09/28/24 19:06 Dose: 40 mg Furosemide (Furosemide Inj 10 Mg/Ml 4ml Vial) 40 mg IVP X1 ONE Stop: 09/29/24 07:39 Last Admin: 09/29/24 09:06 Dose: 40 mg Guaifenesin (Guaifenesin Syrup 200 Mg/10 Ml Udc) 100 mg PO X1 ONE; Protocol Stop: 09/29/24 14:05 Last Admin: 09/29/24 16:18 Dose: Not Given Heparin Sodium (Porcine) (Heparin Sod Inj 5000 Unit/Ml Vial) 5,000 unit SC Q12HR [facility] Stop: 10/13/24 08:59 Last Admin: 09/29/24 08:37 Dose: 5,000 unit Heparin Sodium (Porcine) (Heparin Sod Inj 5000 Unit/Ml Vial) 4,700 unit 60 unit/kg (4700 unit) IV X1 ONE; Protocol Stop: 09/29/24 15:00 Last Admin: 09/29/24 18:38 Dose: 4,700 unit Heparin Sodium (Porcine) (Heparin Sod Inj 5000 Unit/Ml Vial) 4,000 unit IV X1 ONE Stop: 10/01/24 03:37 Last Admin: 10/01/24 03:47 Dose: 4,000 unit Hydralazine HCl (Hydralazine Inj 20 Mg/Ml Vial) 10 mg IV X1 ONE Stop: 10/01/24 07:30 Last Admin: 10/01/24 07:52 Dose: 10 mg Sodium Chloride (Ns) 1,000 mls @ 999 mls/hr IV .Q1H1M ONE Stop: 09/28/24 17:28 Last Infusion: 09/28/24 18:05 Dose: Infused Ceftriaxone Sodium/Dextrose (Rocephin/D5w 1gm Iv Premix) 50 mls @ 100 mls/hr IV X1 ONE Stop: 09/28/24 17:03 Last Infusion: 09/28/24 17:38 Dose: Infused Sodium Chloride (Ns) 1,000 mls @ 999 mls/hr IV .Q1H1M ONE Stop: 09/28/24 18:16 Last Infusion: 09/28/24 18:40 Dose: Infused Sodium Chloride (Ns) 1,000 mls @ 999 mls/hr IV .Q1H1M ONE Stop: 09/28/24 18:51 Last Infusion: 09/28/24 19:20 Dose: Infused Azithromycin 500 mg/ Sodium (Chloride) 250 mls @ 250 mls/hr IV X1 ONE Stop: 09/28/24 23:40 Last Infusion: 09/28/24 23:54 Dose: Infused Ceftriaxone Sodium/Dextrose (Rocephin/D5w 1gm Iv Premix) 50 mls @ 100 mls/hr IV DAILY@2100 [facility] Stop: 10/06/24 20:59 Sodium Chloride (Ns) 500 mls @ 125 mls/hr IV .Q4H [facility] Stop: 10/29/24 00:29 Sodium Chloride (Ns) 1,000 mls @ 80 mls/hr IV .[id number] ONE Stop: 09/29/24 13:00 Last Infusion: 09/29/24 00:45 Dose: Infused Sodium Chloride (Ns) 1,000 mls @ 75 mls/hr IV .[id number] ONE Stop: 09/29/24 14:04 Last Infusion: 09/29/24 22:52 Dose: Infused Sodium Chloride (Ns) 1,000 mls @ 999 mls/hr IV .Q1H1M ONE Stop: 09/29/24 01:51 Last Infusion: 09/29/24 02:45 Dose: Infused Magnesium Sulfate (Magnesium Sulfate Ivpb) 4 gm in 50 mls @ 12.5 mls/hr IV X1 ONE Stop: 09/29/24 09:40 Last Infusion: 09/29/24 10:07 Dose: Infused Magnesium Sulfate (Magnesium Sulfate Ivpb) 4 gm in 50 mls @ 12.5 mls/hr IV X1 ONE Stop: 09/29/24 13:39 Last Infusion: 09/29/24 16:40 Dose: Infused Potassium Chloride (Kcl Ivpb) 10 meq in 100 mls @ 100 mls/hr IV Q1H [facility] Stop: 09/29/24 09:57 Last Admin: 09/29/24 10:05 Dose: Not Given Piperacillin/Tazobactam/Dextrose (Zosyn) 3.375 gm in 50 mls @ 100 mls/hr IV Q8HR [facility] Stop: 10/06/24 07:42 Last Admin: 09/29/24 08:48 Dose: Not Given Piperacillin Sod/Tazobactam (Sod 3.375 gm/ Sodium Chloride) 100 mls @ 200 mls/hr IV X1 ONE Stop: 09/29/24 08:29 Last Admin: 09/29/24 10:05 Dose: Not Given Piperacillin Sod/Tazobactam (Sod 3.375 gm/ Sodium Chloride) 100 mls @ 25 mls/hr IV Q8H [facility] Stop: 10/06/24 11:59 Vancomycin HCl 2,000 mg/ (Sodium Chloride) 500 mls @ 200 mls/hr IV X1 ONE Stop: 09/29/24 11:29 Last Infusion: 09/29/24 16:39 Dose: Infused Vancomycin HCl 750 mg/ Sodium (Chloride) 250 mls @ 250 mls/hr IV DAILY [facility] Stop: 10/07/24 08:59 Piperacillin Sod/Tazobactam (Sod 3.375 gm/ Sodium Chloride) 100 mls @ 200 mls/hr IV X1 ONE Stop: 09/29/24 08:59 Piperacillin Sod/Tazobactam (Sod 3.375 gm/ Sodium Chloride) 100 mls @ 200 mls/hr IV X1 ONE Stop: 09/29/24 08:59 Last Infusion: 09/29/24 10:06 Dose: Infused Piperacillin Sod/Tazobactam (Sod 3.375 gm/ Sodium Chloride) 100 mls @ 25 mls/hr IV Q8HR [facility]; Protocol Stop: 10/06/24 13:59 Last Infusion: 10/01/24 19:22 Dose: Infused Diltiazem HCl 125 mg/ Dextrose 125 mls @ 5 mls/hr IV .Q24H [facility] Stop: 10/29/24 14:14 Last Infusion: 09/30/24 03:15 Dose: 0 mg/hr, 0 mls/hr Potassium Chloride (Kcl Ivpb) 10 meq in 100 mls @ 100 mls/hr IV Q1H [facility] Stop: 09/30/24 05:45 Last Admin: 09/30/24 10:40 Dose: 100 mls/hr Amiodarone HCl/Dextrose (Nexterone Ivpb) 150 mg in 100 mls @ 600 mls/hr IV .Q10M ONE Stop: 09/30/24 03:17 Last Admin: 09/30/24 03:15 Dose: 600 mls/hr Amiodarone HCl/Dextrose (Nexterone Ivpb) 360 mg in 200 mls @ 33.333 mls/hr IV .Q6H [facility] Stop: 09/30/24 09:07 Last Admin: 09/30/24 03:36 Dose: 33.333 mls/hr Amiodarone HCl/Dextrose (Nexterone Ivpb) 360 mg in 200 mls @ 16.667 mls/hr IV .Q12H [facility] Stop: 10/01/24 08:59 Last Infusion: 09/30/24 22:53 Dose: Infused Vancomycin/Sodium Chloride (Vancomycin/Ns 1 Gm Ivpb) 200 mls @ 120 mls/hr IV QDAY@1000 [facility]; Protocol Stop: 10/07/24 09:59 Last Infusion: 10/01/24 19:22 Dose: Infused Magnesium Sulfate (Magnesium Sulfate Ivpb) 4 gm in 50 mls @ 12.5 mls/hr IV X1 ONE Stop: 09/30/24 11:45 Last Admin: 09/30/24 09:15 Dose: 12.5 mls/hr Lactated Ringer's (Lactated Ringers) 250 mls @ 999 mls/hr IV .Q16M [facility] Stop: 10/01/24 11:27 Last Infusion: 10/01/24 19:22 Dose: Infused Potassium Chloride (Kcl Ivpb) 10 meq in 100 mls @ 100 mls/hr IV Q1H [facility] Stop: 10/01/24 16:48 Last Infusion: 10/01/24 21:41 Dose: Infused Sodium Chloride (Ns) 1,000 mls @ 40 mls/hr IV .Q24H [facility] Stop: 10/02/24 14:15 Last Admin: 10/03/24 16:08 Dose: Not Given Sodium Chloride (Ns) 1,000 mls @ 70 mls/hr IV .[id number] [facility] Stop: 10/02/24 04:43 Last Infusion: 10/02/24 19:14 Dose: Infused Diltiazem HCl 125 mg/ Dextrose 125 mls @ 5 mls/hr IV .Q24H [facility] Stop: 10/31/24 18:15 Last Infusion: 10/02/24 13:30 Dose: Infused Potassium Chloride (Kcl Ivpb) 10 meq in 100 mls @ 100 mls/hr IV Q1H [facility] Stop: 10/02/24 11:54 Last Infusion: 10/02/24 13:42 Dose: Infused Potassium Phosphate (Pot Phos 15 Mmol In Ns 250 Ml) 15 mmol in 250 mls @ 62.5 mls/hr IV X1 ONE Stop: 10/02/24 11:54 Last Admin: 10/02/24 09:42 Dose: Not Given Magnesium Sulfate (Magnesium Sulfate Ivpb) 2 gm in 50 mls @ 25 mls/hr IV X1 ONE Stop: 10/02/24 09:54 Last Infusion: 10/02/24 10:26 Dose: Infused Potassium Phosphate (Pot Phos 15 Mmol In Ns 250 Ml) 15 mmol in 250 mls @ 62.5 mls/hr IV X1 ONE Stop: 10/02/24 16:59 Last Infusion: 10/02/24 19:14 Dose: Infused Vancomycin/Sodium Chloride (Vancomycin/Ns 750 Mg Ivpb) 750 mg in 150 mls @ 120 mls/hr IV BID@1000,2200 [facility]; Protocol Stop: 10/09/24 09:59 Last Infusion: 10/04/24 05:50 Dose: Infused Magnesium Sulfate (Magnesium Sulfate Ivpb) 2 gm in 50 mls @ 25 mls/hr IV X1 ONE Stop: 10/03/24 12:19 Last Admin: 10/03/24 12:10 Dose: 25 mls/hr Magnesium Sulfate (Magnesium Sulfate Ivpb) 2 gm in 50 mls @ 25 mls/hr IV X1 ONE Stop: 10/04/24 09:23 Last Admin: 10/04/24 08:22 Dose: 25 mls/hr Lactated Ringer's (Lactated Ringers) 1,000 mls @ 999 mls/hr IV .Q1H1M [facility] Stop: 10/04/24 11:12 Last Admin: 10/04/24 10:23 Dose: 999 mls/hr Lactated Ringer's (Lactated Ringers) 1,000 mls @ 999 mls/hr IV .Q1H1M [facility] Stop: 10/04/24 12:19 Last Admin: 10/04/24 12:00 Dose: 999 mls/hr Insulin Glargine (Insulin Glargine (Lantus) 5 Unit/0.05 Ml (Per 5 Units)) 10 unit SC QDAY [facility] Stop: 10/29/24 08:59 Insulin Glargine (Insulin Glargine (Lantus) 5 Unit/0.05 Ml (Per 5 Units)) 15 unit SC HS [facility] Stop: 10/29/24 20:59 Last Admin: 09/29/24 20:48 Dose: Not Given Insulin Glargine (Insulin Glargine (Lantus) 5 Unit/0.05 Ml (Per 5 Units)) 15 unit SC X1 ONE Stop: 09/29/24 08:23 Last Admin: 09/29/24 09:14 Dose: 15 unit Insulin Glargine (Insulin Glargine (Lantus) 5 Unit/0.05 Ml (Per 5 Units)) 21 unit SC HS [facility] Stop: 10/30/24 20:59 Last Admin: 09/30/24 20:57 Dose: 21 unit Insulin Glargine (Insulin Glargine (Lantus) 5 Unit/0.05 Ml (Per 5 Units)) 25 unit SC HS [facility] Stop: 10/31/24 20:59 Last Admin: 10/01/24 21:39 Dose: Not Given Insulin Glargine (Insulin Glargine (Lantus) 5 Unit/0.05 Ml (Per 5 Units)) 28 unit SC HS [facility] Stop: 11/01/24 20:59 Last Admin: 10/03/24 20:05 Dose: Not Given Insulin Glargine (Insulin Glargine (Lantus) 5 Unit/0.05 Ml (Per 5 Units)) 10 unit SC X1 ONE Stop: 10/04/24 07:30 Last Admin: 10/04/24 08:44 Dose: 10 unit Insulin Human Lispro (Insulin Lispro (Admelog) 1 Unit/0.01 Ml Unit) 0 unit SC AC [facility]; Protocol Stop: 10/29/24 07:29 Insulin Human Lispro (Insulin Lispro (Admelog) 1 Unit/0.01 Ml Unit) 0 unit SC AC [facility]; Protocol Stop: 10/29/24 07:29 Last Admin: 10/01/24 16:59 Dose: 4 unit Insulin Human Regular (Insulin Hum Regular 1 Unit/0.01 Ml (Per Unit)) 5 unit IV X1 ONE Stop: 09/29/24 00:12 Last Admin: 09/29/24 00:34 Dose: 5 unit Ipratropium [place] (Ipratropium Rt 0.5 Mg/ 2.5 Ml Nebu) 0.5 mg INH X1 ONE Stop: 09/28/24 18:38 Last Admin: 09/28/24 19:10 Dose: 0.5 mg Ketorolac Tromethamine (Ketorolac Inj 30 Mg/Ml Vial) 30 mg IVP X1 ONE Stop: 09/30/24 00:16 Last Admin: 09/30/24 00:21 Dose: 30 mg Ketorolac Tromethamine (Ketorolac Inj 30 Mg/Ml Vial) 15 mg IVP X1 ONE Stop: 10/01/24 09:51 Last Admin: 10/01/24 10:15 Dose: 15 mg Labetalol HCl (Labetalol Inj 5 Mg/Ml Vial 20 Ml) 5 mg IVP X1 ONE Stop: 09/30/24 11:43 Last Admin: 09/30/24 12:08 Dose: 5 mg Labetalol HCl (Labetalol Inj 5 Mg/Ml Vial 20 Ml) 10 mg IVP X1 ONE Stop: 10/02/24 12:30 Last Admin: 10/02/24 12:44 Dose: 10 mg Levalbuterol HCl (Levalbuterol Rt 0.63 Mg/3 Ml Nebu) 0.63 mg INH Q4HR [facility] Stop: 10/29/24 07:29 Last Admin: 10/03/24 16:09 Dose: Not Given Levalbuterol HCl (Levalbuterol Rt 1.25 Mg/0.5 Ml Nebu) 1.25 mg INH X1 ONE Stop: 10/01/24 18:18 Last Admin: 10/01/24 20:01 Dose: Not Given Lorazepam (Lorazepam 2 Mg/Ml Vial) 2 mg IVP X1 ONE Stop: 09/28/24 17:52 Last Admin: 09/28/24 18:42 Dose: 2 mg Methadone HCl (Methadone Hcl 10 Mg Tablet) 10 mg PO TID PRN PRN Reason: Moderate-Severe Stop: 10/04/24 01:44 Last Admin: 09/29/24 17:51 Dose: 10 mg Methadone HCl (Methadone Hcl 10 Mg Tablet) 10 mg PO TID [facility] Stop: 10/05/24 13:59 Last Admin: 10/03/24 16:08 Dose: Not Given Methadone HCl (Methadone Hcl 10 Mg Tablet) 10 mg PO TID [facility] Stop: 10/06/24 08:59 Last Admin: 10/04/24 05:09 Dose: 10 mg Methylprednisolone Sodium Succinate (Methylprednisolone Sod Succ 40 Mg Vial) 125 mg IVP X1 ONE Stop: 09/30/24 02:49 Last Admin: 09/30/24 03:01 Dose: 125 mg Methylprednisolone Sodium Succinate (Methylprednisolone Sod Succ 62.5 Mg/Ml 2ml Vial) 125 mg IVP X1 ONE Stop: 09/30/24 13:56 Last Admin: 09/30/24 14:11 Dose: 125 mg Midazolam HCl (Midazolam Inj 1 Mg/Ml Vial 2 Ml) 4 mg IV X1 ONE Stop: 10/04/24 11:31 Last Admin: 10/04/24 11:33 Dose: 4 mg Morphine Sulfate (Morphine Sulf Inj 10 Mg/Ml Vial) 0.5 mg IVP X1 ONE Stop: 10/01/24 12:22 Last Admin: 10/01/24 12:27 Dose: 0.5 mg Morphine Sulfate (Morphine Sulf Inj 10 Mg/Ml Vial) 1 mg IVP X1 ONE Stop: 10/01/24 15:34 Last Admin: 10/01/24 15:47 Dose: 1 mg Morphine Sulfate (Morphine Sulf Inj 10 Mg/Ml Vial) 1 mg IVP Q4HR PRN PRN Reason: AGITATION Stop: 10/06/24 16:16 Last Admin: 10/01/24 23:27 Dose: 1 mg Naloxone HCl (Naloxone Inj 1 Mg/Ml Syringe 2 Ml) 0.4 mg IV X1 ONE Stop: 10/04/24 10:24 Last Admin: 10/04/24 10:10 Dose: 0.4 mg Naloxone HCl (Naloxone Inj 1 Mg/Ml Syringe 2 Ml) 0.4 mg IV X1 ONE Stop: 10/04/24 10:24 Last Admin: 10/04/24 10:15 Dose: 0.4 mg Nitroglycerin (Nitroglycerin Oint 2% 1 Inch Packet) 1 inch TOP X1 ONE Stop: 09/28/24 18:58 Last Admin: 09/28/24 19:07 Dose: 1 inch Pharmacy Consult (Vancomycin Pharmacy To Dose 1 Each Each) 1 each IV QDAY LUKE Stop: 10/29/24 08:59 Last Admin: 10/03/24 16:07 Dose: Not Given Potassium Chloride (Potassium Chloride 20 Meq Tabcr) 20 meq PO X1 ONE Stop: 09/29/24 05:43 Last Admin: 09/29/24 06:01 Dose: Not Given Potassium Chloride (Potassium Chloride 20 Meq Tabcr) 40 meq PO X1 ONE Stop: 09/29/24 05:43 Last Admin: 09/29/24 06:01 Dose: Not Given Potassium Chloride (Potassium Chloride 10% 20 Meq/15 Ml Udc) 40 meq GT X1 ONE Stop: 09/29/24 08:19 Last Admin: 09/29/24 10:05 Dose: Not Given Potassium Chloride (Potassium Chloride 10% 20 Meq/15 Ml Udc) 40 meq PO X1 ONE Stop: 09/29/24 12:01 Last Admin: 09/29/24 12:53 Dose: 40 meq Potassium Chloride (Potassium Chloride 10% 20 Meq/15 Ml Udc) 40 meq PO X1 ONE Stop: 09/29/24 08:46 Last Admin: 09/29/24 08:55 Dose: 40 meq Potassium Chloride (Potassium Chloride 20 Meq Tabcr) 40 meq PO X1 ONE Stop: 09/29/24 18:01 Last Admin: 09/29/24 19:21 Dose: Not Given Potassium Chloride (Potassium Chloride 20 Meq Tabcr) 40 meq PO X1 ONE Stop: 09/30/24 07:46 Last Admin: 09/30/24 09:16 Dose: 40 meq Potassium Chloride (Potassium Chloride 20 Meq Tabcr) 40 meq PO X1 ONE Stop: 10/03/24 07:59 Last Admin: 10/03/24 12:09 Dose: 40 meq Potassium Chloride (Potassium Chloride 10% 20 Meq/15 Ml Udc) 40 meq PO X1 ONE Stop: 10/04/24 07:23 Last Admin: 10/04/24 08:22 Dose: 40 meq Potassium Chloride (Potassium Chloride 10% 20 Meq/15 Ml Udc) 40 meq PO X1 ONE Stop: 10/04/24 12:01 Last Admin: 10/04/24 12:50 Dose: 40 meq Potassium Phos/Sodium Phos (Naph,[facility] 1 Packet (1.5 Gm)) 2 packet NG X1 ONE Stop: 10/03/24 10:21 Last Admin: 10/03/24 12:14 Dose: 2 packet Potassium Phos/Sodium Phos (Naph,[facility]db 1 Packet (1.5 Gm)) 1 packet NG X1 ONE Stop: 10/04/24 09:42 Last Admin: 10/04/24 12:47 Dose: Not Given Prednisone (Prednisone 20 Mg Tablet) 60 mg PO X1 ONE Stop: 09/28/24 16:29 Last Admin: 09/28/24 17:00 Dose: 60 mg Quetiapine Fumarate (Quetiapine Fumarate 100 Mg Tablet) 100 mg PO HS LUKE Stop: 10/29/24 20:59 Last Admin: 10/03/24 21:53 Dose: 100 mg Rocuronium [place] (Rocuronium Inj 10 Mg/Ml Vial 10 Ml) 70 mg IVP X1 ONE Stop: 10/04/24 11:31 Last Admin: 10/04/24 11:33 Dose: 70 mg Sodium Chloride (Sodium Chloride Rt [place] 0.9% 3 Ml Nebu) 3 ml INH PRN PRN PRN Reason: SOLN Stop: 10/28/24 16:27 Last Admin: 09/28/24 19:14 Dose: 3 ml Sodium Chloride (Sodium Chloride Rt [place] 0.9% 3 Ml Nebu) 3 ml INH PRN PRN PRN Reason: SOLN Stop: 10/28/24 18:36 Sodium Chloride (Sodium Chloride Rt 10% 15 Ml Nebu) 5 ml INH X1 ONE Stop: 09/28/24 23:27 Last Admin: 09/29/24 00:39 Dose: 5 ml Sodium Chloride (Sodium Chloride Rt 10% 15 Ml Nebu) 5 ml INH X1 ONE Stop: 10/04/24 11:48 Tramadol HCl (Tramadol Hcl 50 Mg Tablet) 50 mg PO TID PRN; Protocol PRN Reason: pain Stop: 10/04/24 01:04 Last Admin: 09/29/24 01:54 Dose: 50 mg Assessment & Plan Plan Ms. Oviedo is a 64-year-old female with past medical history significant for hypertension, hyperlipidemia, diabetes and chronic pain presented to the ED complaining of generalized weakness and cough for the last 4 days. Patient was admitted to the hospital for acute respiratory failure and severe sepsis secondary to bilateral pneumonia. neuro # Acute encephalopathy likely multi-factorial secondary to polypharmacy (?withdrawal) plus infectious plus hypoxia now with sedation Per baseline mental status is somnolent throughout day although able to have conversation MRI brain negative for acute hemorrhage, mass effect or midline shift metabolic work-up relatively unrevealing for severity of encephalopathy ' S/P LP although suspicion low for bacterial meningitis based on LP results, cx pending Currently on sedation with precedex and fentanyl, daily sedation vacation, NG tube in place #History of major depressive disorder History of mental health disorders and 2 previous suicide attempts Currently not following psychiatrist although previously followed at [facility] Quetiapine Fumarate 100 mg PO HS Holding diazepam 10 mg PO BID due to altered mentation Holding duloxetine 60 mg PO BID Cardio #New Onset Atrial Fibrillation #Episode of Bradycardia- Resolved Now rate controlled, etiology likely secondary to severe sepsis and hypoxia Cardiology following, recs appreciated Echo: Normal LV size and function. Sigmoid septum. Estimated EF 65-70%, Normal RV size and function. Estimated RVSP 37mmHg, The anterior mitral valve leaflet is mildly calcified. Keep mag above 2 and potassium above 4 Continue cardizem 60mg PO Q4hrs via NG tube CHADVASC 3: Place heparin gtt on hold for dark secretions seen during intubation #Primary Hypertension Holding home lisinopril and norvasc for now Plan: Currently normotensive, continue to monitor Pulm #Acute Hypoxic Respiratory Failure #MRSA Pneumonia Cxr (09/28/2024): Significant bilateral pneumonia Sputum Culture (09/28/2024) MRSA ABG (10/03/2024): pH 7.53, pCO 41, pO2 101, HCO3 34 CT Chest/Abdomen/Pelvis (09/28/2024): Extensive bilateral pneumonia Continue breathing treatments and guaifenesin as necessary Plan: Intubated 10/04/24 for worsening hypoxia on BiPAP and placed on mechanical ventilation with volume control. Continue IV vancomycin and daily spontaneous breathing trial, daily cxr and ABG GI #Hyperbilirubinemia #Hyperalkaline phosphatase Bilirubin on admission was 2.3 with ALP of 243. CT abdomen and pelvis was done showed an absent gallbladder. Hyperbilirubinemia and elevated alkaline phosphatase in the setting of dehydration and poor oral intake. US Gallbladder (09/29/2024): Absent gallbladder. Normal common bile duct. Hepatomegaly, primary hepatocellular disease versus cirrhosis no focal liver lesions Plan: Continue to avoid hepatoxic agents and monitory daily LFTs #Tube Feeds - Plan: Continue glucerna 1.2 & free water flushes via NG tube Renal # Electrolyte disturbance # Hypokalemia #Hypernatremia#Hypocalcemia # Hyponatremia, Resolved # Hypophosphatemia, Resolved # Hypomagnesemia, Resolved Etiology: likely secondary to poor oral intake Plan: -Free Water flushes 60 ml/hr & tube feeds -Monitor CMP, continue to aggressively replace electrolytes and monitor daily labs #Lactic acidosis likely Type A from severe sepsis and hypoxia Plan: continue to treat underlying sepsis and additional fluid bolus given. Continue to trend lactic acid and fluids as needed. On free water flushes via NG tube Endo #Uncontrolled Diabetes Mellitus Type 2 Home regimen: Farxiga 5 mg, insulin Lantus 55 units, metformin 1 g A1c 10.6 Lantus 28 units at bedtime ISS Blood glucose check AC Hypoglycemia protocols in place #Euthyroid Sick Syndrome In the setting of bacteremia and increasing inflammatory response, reduction in TSH and coversion of T4 and T3. (10/01/2024): TSH 0.31, Free T4 0.72, Free T3 1.1 -plan: No intervention for euthyroid sick syndrome , repeat thyroid studies in 4 to 6 weeks MSK/Skin #History of chronic pain Patient reports having a history of chronic pain and is on multiple medications: Duloxetine, gabapentin, tizanidine, tramadol, methadone Holding Valium and tramadol Restarted methadone 10 mg TID via G-tube plan: started on fentanyl gtt and continue to monitor pain control closely given patients extensive history Infectious disease #Severe Sepsis #MRSA bacteremia #MRSA Pneumonia #Leukocytosis Blood Culture (09/28/2024)X2: MRSA, sensitive to vancoymcin Blood Cultures (09/30/2024): No Growth after 48 hours Blood Cultures (10/03/2024): Pending Sputum Culture (09/28/2024) MRSA Cxr (09/28/2024): Significant bilateral pneumonia CT Chest/Abdomen/Pelvis (09/28/2024): Extensive bilateral pneumonia Continuing IV vancomycin [09/29/2024?to present] Repeat second set blood cultures negative Monitor for fever spike, white count elevation and signs of infection Repeat WBC in am and IV abx Health Maintenance Code Status: Full Code Diet: NPO, NG tube on jevity and free water flushes DVT: heparin gtt although placed on hold for now Lines: NG, ET, PIVs, Miller Dispo: Admitted to ICU for acute hypoxic respiratory failure and inability to protect airway Assessment and plan discussed with my attending physician Dr. Estrada Amaya (PGY-1)- Internal medicine resident
[2024-10-04] MEDS: ENOXAPARIN SOD INJ 40 MG/0.4 ML SYRINGE SC (13:13)
[2024-10-04 13:18] LABS: HCO3 39 mEq/L (20-26); Inspired Oxygen, FIO2 100 %; PCO2 53 mmHg (32.0-48.0); PO2 301 mmHg (83-108); pH, Arterial 7.48 (7.35-7.45)
[2024-10-04 13:19] LABS: Allen Test Performed/OK; O2 Saturation 100 % (91-98); Puncture Site Left Radial
[2024-10-04 13:20] LABS: Reflex Lactate? Y
[2024-10-04 14:02] LABS: Lactic Acid, 3 HR 2.6 mMol/L (0.4-2.0)
[2024-10-04] MEDS: VANCOMYCIN/NS 1 GM IVPB 200 ML IV ×2 (14:08→21:02)
[2024-10-04] MEDS: INSULIN GLARGINE (Lantus) 5 UNIT/0.05 ML (PER 5 UNITS) 18 UNIT SC (20:50)
[2024-10-05] VITALS (37 sets, daily range): BP systolic 91–180; BP diastolic 48–84; PULSE 59–90; RESP 0–99; TEMP 36.4–37.7; O2SAT 94–100; BMI 29.5
[2024-10-05] MEDS: DEXMEDETOMIDINE 400 MCG IVPB 400 MCG/100 ML BAG 11.044 MCG IV (01:09)
[2024-10-05] MEDS: IPRATROPIUM RT 0.5 MG/ 2.5 ML NEBU INH ×6 (02:38→22:47)
[2024-10-05] MEDS: LEVALBUTEROL RT 0.63 MG/3 ML NEBU INH ×6 (02:38→22:47)
[2024-10-05 04:35] LABS: Base Excess 10 (-3-3); HCO3 35 mEq/L (20-26); Inspired Oxygen, FIO2 35 %; O2 Saturation 96 % (91-98); PCO2 46 mmHg (32.0-48.0); PO2 75 mmHg (83-108); pH, Arterial 7.49 (7.35-7.45)
[2024-10-05 04:41] LABS: Allen Test Performed/OK; Puncture Site Right Radial
[2024-10-05 05:49] LABS: Basophils # (Auto) 0.1 Thou/mm3 (0.0-0.2); Basophils % (Auto) 1 % (0-2.5); Eosinophils % (Auto) 0 % (0-10); Hematocrit 29.2 % (36.0-46.0); Hemoglobin 9.2 g/dL (12.0-16.0); Immature Granulocytes % (Auto) 1 % (0-0); Lymphocytes # (Auto) 1.4 Thou/mm3 (1.0-4.8); Lymphocytes % (Auto) 13 % (10-50); Mean Corpuscular HGB Conc 31.5 g/dl (31.0-37.0); Mean Corpuscular Hemoglobin 27.5 pg (25.0-35.0); Mean Corpuscular Volume 87 fL (80-100); Monocytes # (Auto) 0.5 Thou/mm3 (0.0-0.8); Monocytes % (Auto) 4 % (0-12); Neutrophils # (Auto) 8.8 Thou/mm3 (1.8-7.7); Neutrophils % (Auto) 81 % (37-80); Nucleated Red Blood Cell # 0.03 Thou/mm3 (0.00-0.00); Nucleated Red Blood Cell % 0 /100 WBC (0); Platelet Count 179 Thou/mm3 (140-440); RDW Standard Deviation 47.7 fL (36.4-46.3); Red Blood Count 3.35 Miln/mm3 (4.00-5.20); White Blood Count 10.9 Thou/mm3 (3.6-11.0)
[2024-10-05] MEDS: INSULIN LISPRO (AdmeLOG) 1 UNIT/0.01 ML UNIT SC ×2 (06:08→23:35)
[2024-10-05 06:25] LABS: Alanine Aminotransferase 50 U/L (10-49); Albumin, Serum 2.7 gm/dL (3.4-4.8); Albumin/Globulin Ratio 1.5 (1.2-2.2); Alkaline Phosphatase 215 U/L (46-116); Anion Gap 6 (7-16); Aspartate Amino Transferase 80 U/L (0-34); BUN/Creatinine Ratio 26 Ratio (12-20); Blood Urea Nitrogen 21 mg/dL (9-23); Calcium 6.9 mg/dL (8.3-10.6); Calcium (Corrected) 7.9 mg/dL (8.5-10.1); Carbon Dioxide 32.8 mMol/L (20.0-31.0); Chloride 103 mMol/L (98-107); Creatinine (Component) 0.8 mg/dL (0.6-1.3); Estimated Creatinine Clearance 67.6 mL/min (>60); Globulin 1.8 gm/dL (2.3-3.5); Glucose 207 mg/dL (74-106); Magnesium 1.7 mg/dL (1.6-2.6); Osmolality,Calculated 292 (275-295); Phosphorous 2.3 mg/dL (2.4-5.1); Potassium 3.4 mMol/L (3.4-5.1); Sodium 142 mMol/L (136-145); Total Protein 4.5 gm/dL (5.7-8.2); eGFR > 60 See Note
--- NOTE | 2024-10-05 08:28 | XR_ITS ---
Examination: AP chest single view Technique: AP portable semiupright chest single view Exam date and time: October 05, 2024 Comparison October 04, 2024, chest films dating to September 30, 2024 Indications: Pneumonia ARDS, hypoxic respiratory failure this week Findings: Bilateral pneumonia, significant diffuse in the right lung Tracheal tube tip 26 mm above mason The orogastric tube is in the stomach tip below the film No pneumothorax Impression: Bilateral pneumonia ARDS pattern, significant in the right lung
--- NOTE | 2024-10-05 08:49 | ESPR_ITS ---
Documentation for date of: 10/05/24 Subjective Subjective Interval history: This is a 64-year-old female who was admitted to the hospital on 29 September for shortness of breath and hypoxia. She was found to have an MRSA pneumonia. Initially she required a BiPAP however then was placed on a facemask. Per the floor team she has been mottled since arrival. Today a rapid response was called for hypoxia desatting down into the 80s. A BiPAP was placed 15/06 at 100% FiO2. Her sats rapidly improved to 100% and we were able to titrate down the FiO2. Her mentation has been altered and she has been encephalopathic since arrival. Given that at 1 point she had a fever the floor team was concerned for meningitis and therefore an LP was performed with no WBCs noted. She does have a history of polypharmacy. She has been on methadone 10 mg p.o. 3 times daily during her hospital stay. During the rapid Narcan was given with slight improvement in mentation however not sufficient. An ABG and a stat chest x-ray were obtained. The chest x-ray showed improvement in her lung lloyd compared paired to prior. The ABG showed a metabolic alkalosis. The BiPAP was providing her with a minute ventilation of 18-20 therefore at that point in time the BiPAP was stopped and she was continued with a facemask. Given her altered mentation her desats and mottling decision was made to bring patient to the ICU. She continued to have intermittent episodes of desat as low as 70%. The decision was made to intubate her. During intubation she was noted to have very thick viscous dark secretions covering her airway which were suctioned with difficulty. 10/05-no acute overnight events, afebrile, good urinary output, patient was given several liters of IV fluid yesterday and her mottling has resolved. Critical Care Note Critical care time (min.): 45 Exam Vital Signs Temp Pulse Resp BP Pulse Ox O2 Del Method O2 Flow Rate 98.9 F 75 22 H 102/48 L 96 Mechanical Ventilation 10 10/05/24 04:00 10/05/24 06:53 10/05/24 06:53 10/05/24 06:53 10/05/24 06:53 10/04/24 20:00 10/04/24 10:35 FiO2 35 12/08/24 06:53 Narrative Exam Gen- NAD, minimal sedation, opens eyes to voice, GCS 8T currently (M4, E3, V1) HEENT- NC/AT, mucosa dry, sclera anicteric, PERRL, ETT/OGT in place Chest- few crackles at post R base, no wheeze, HRRR, no increase in WOB Abd- s/nt/bs+ Ext- no edema, mult areas of bruising and ecchymosis, no mottling, no clubbing, sluggish but withdraws all 4 extremities Vent AC/VC Drips Precedex Fentanyl Physical Exam Completion Physical Exam Complete?: Yes 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 10/05/24 04:50 10/05/24 04:50 Labs: Laboratory Results - last 24 hr 10/04/24 10/04/24 10/04/24 09:57 10:15 10:50 WBC 12.8 H RBC 3.99 L Hgb 11.2 L Hct 34.7 L MCV 87 MCH 28.1 MCHC 32.3 RDW Std Deviation 47.6 H Plt Count 231 Neut % (Auto) 83 H Lymph % (Auto) 11 [place] % (Auto) 6 Eos % (Auto) 0 Baso % (Auto) 0 Neut # (Auto) 10.6 H Lymph # (Auto) 1.4 [place] # (Auto) 0.7 Eos # (Auto) 0.0 Baso # (Auto) 0.0 Immature Gran # (Auto) 0.12 H Absolute Nucleated RBC 0.05 H Immature Gran % 1 H Nucleated RBC % 0 Puncture Site Left Radial ABG pH 7.54 H ABG pCO2 46 ABG pO2 46 L* D ABG HCO3 39 H ABG O2 Saturation 85 L ABG Base Excess 15 H FiO2 21 Sodium 151 H Potassium 3.8 D Chloride 106 Carbon Dioxide 35.3 H Anion Gap 10 BUN 24 H Creatinine 0.9 Estim Creat Clear Calc 60.9 L eGFR > 60 BUN/Creatinine Ratio 27 H Glucose 164 H Calculated Osmolality 307 H Lactic Acid 3.1 H Calcium 7.5 L Corrected Calcium 8.2 L Phosphorus Magnesium Total Bilirubin 1.7 H AST 156 H ALT 63 H Alkaline Phosphatase 278 H Ammonia 25 B-Natriuretic Peptide 707 H* Total Protein 5.3 L Albumin 3.1 L Globulin 2.2 L Albumin/Globulin Ratio 1.4 10/04/24 10/04/2424 13:10 13:50 04:16 WBC RBC Hgb Hct MCV MCH MCHC RDW Std Deviation Plt Count Neut % (Auto) Lymph % (Auto) [place] % (Auto) Eos % (Auto) Baso % (Auto) Neut # (Auto) Lymph # (Auto) [place] # (Auto) Eos # (Auto) Baso # (Auto) Immature Gran # (Auto) Absolute Nucleated RBC Immature Gran % Nucleated RBC % Puncture Site Left Radial Right Radial ABG pH 7.48 H 7.49 H ABG pCO2 53 H 46 ABG pO2 301 H D 75 L D ABG HCO3 39 H 35 H ABG O2 Saturation 100 H 96 ABG Base Excess Not Performed. 10 H FiO2 100 35 Sodium Potassium Chloride Carbon Dioxide Anion Gap BUN Creatinine Estim Creat Clear Calc eGFR BUN/Creatinine Ratio Glucose Calculated Osmolality Lactic Acid 2.6 H Calcium Corrected Calcium Phosphorus Magnesium Total Bilirubin AST ALT Alkaline Phosphatase Ammonia B-Natriuretic Peptide Total Protein Albumin Globulin Albumin/Globulin Ratio 10/05/24 04:50 WBC 10.9 RBC 3.35 L Hgb 9.2 L D Hct 29.2 L MCV 87 MCH 27.5 MCHC 31.5 RDW Std Deviation 47.7 H Plt Count 179 D Neut % (Auto) 81 H Lymph % (Auto) 13 [place] % (Auto) 4 Eos % (Auto) 0 Baso % (Auto) 1 Neut # (Auto) 8.8 H Lymph # (Auto) 1.4 [place] # (Auto) 0.5 Eos # (Auto) 0.0 Baso # (Auto) 0.1 Immature Gran # (Auto) 0.10 H Absolute Nucleated RBC 0.03 H Immature Gran % 1 H Nucleated RBC % 0 Puncture Site ABG pH ABG pCO2 ABG pO2 ABG HCO3 ABG O2 Saturation ABG Base Excess FiO2 Sodium 142 Potassium 3.4 Chloride 103 Carbon Dioxide 32.8 H Anion Gap 6 L BUN 21 Creatinine 0.8 Estim Creat Clear Calc 67.6 eGFR > 60 BUN/Creatinine Ratio 26 H Glucose 207 H Calculated Osmolality 292 Lactic Acid Calcium 6.9 L Corrected Calcium 7.9 L Phosphorus 2.3 L Magnesium 1.7 Total Bilirubin 1.0 D AST 80 H ALT 50 H Alkaline Phosphatase 215 H D Ammonia B-Natriuretic Peptide Total Protein 4.5 L Albumin 2.7 L Globulin 1.8 L Albumin/Globulin Ratio 1.5 Assessment & Plan Problem List (1) Altered mental status: Status: Acute (2) Atrial fibrillation: Status: Acute Additional Assessment Additional Assessment: In summary this 64-year-old female admitted to the ICU for acute hypoxic respiratory failure secondary to MRSA pneumonia and altered mental status 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 She has also been continued on her methadone and Seroquel while in-house. She is hypoxic and hyponatremic. All of these can contribute to her altered mentation. She did undergo a LP for concern of possible meningitis this had 3 WBCs. Neurology is following. An MRI of the brain was performed and found to be within normal limits. -Mentation today appears to be improved from yesterday -Sedation has recently been held and she is off of her methadone and Seroquel for 24 hours -Will monitor closely for withdrawal Chronic pain - pt on methadone as outpt -Given her current obtundation her methadone was held yesterday and she was given Narcan CV Stable Resp Acute Hypoxic Resp failure-patient has been on facemask on the floor and has been requiring 15 L for the last several days. Today she began to desat this together with altered mentation caused a rapid response. The decision was made to upgrade the patient to the ICU. The patient continued to have episodes of desat despite high flow nasal cannula and 100% FiO2 the decision was made to intubate her. She was also noted to be mottled throughout. She was intubated in the ICU and placed on mechanical ventilation. During intubation it was noted that she had very thick viscous desiccated secretions in her posterior oropharynx some of which were covering her vocal cords causing some degree of obstruction. -Today her ABG has metabolic alkalosis-> will give Diamox -Wean from vent as able MRSA [id number] chest x-ray looks improved from arrival. -Continue antibiotics Renal HyperNa-she will be started on free water via her OG tube Lactic Acidosis-patient is mottled throughout and apparently has been so for the last several days. Will give several liters of IV fluids for resuscitation purposes. HypoCa-replete IV -Remains low today given additional calcium GI Transaminitis-mild monitor, I think creased tomorrow consider ultrasound -Today LFTs are trending down GI proph-Pepcid Endo DM- PO meds on hold, cover with SSI Heme Leukocytosis-likely related to MRSA infection Anemia-mild monitor -Drop today but likely from fluid resuscitation yesterday -No active bleeding noted DVT proph-Lovenox ID MRSA bacteremia-patient has been seen by ID and recommendations are appreciated -Repeat blood cultures have been negative since the third Case discussed with ICU team and floor team Labs, imaging and records reviewed Approximately 45 cc minutes required for evaluation, exam, review, intervention, discussion of formulation of plan of care for this critically ill female with acute hypoxic respiratory failure at high risk for further and ongoing decompensation Provider Notation Provider Notation: Although this document has been carefully reviewed, there may still be some phonetic and other typographical errors. These errors are purely grammatical due to imperfections in the software program and should not be construed in any way to compromise the substance of the patient's medical care during this visit. Thank you for the opportunity and privilege in assisting you with this patient's care and management.
[2024-10-05] MEDS: FAMOTIDINE 20 MG TABLET PO ×2 (09:27→20:39)
[2024-10-05] MEDS: SENNA TABLET 1 TAB PO (09:27)
[2024-10-05] MEDS: ACETAzolaMIDE SOD 500 MG in SODIUM CHLORIDE 0.9% (P) 50 ML 100 MG IV (09:27)
[2024-10-05] MEDS: ENOXAPARIN SOD INJ 40 MG/0.4 ML SYRINGE SC (09:27)
[2024-10-05] MEDS: NAPH,KPH MBDB 1 PACKET (1.5 GM) NG (09:27)
[2024-10-05] MEDS: POTASSIUM CHLORIDE 10% 20 MEQ/15 ML UDC 40 MEQ PO (09:28)
[2024-10-05] MEDS: Magnesium Sulfate 4 GM Ivpb 4 GM/50 ML BAG IV (09:28)
--- NOTE | 2024-10-05 11:10 | PD.IMPROG ---
Documentation for date of: 10/05/24 Subjective Subjective Interval history: 2 sets of blood cultures remains negative continue treatemtn for pneumonia Exam Vital Signs Temp Pulse Resp BP Pulse Ox O2 Del Method O2 Flow Rate 98.8 F 68 20 107/57 L 98 Mechanical Ventilation 10 10/05/24 08:01 10/05/24 11:00 10/05/24 08:01 10/05/24 11:00 10/05/24 11:00 10/05/24 09:00 10/04/24 10:35 FiO2 35 10/05/24 08:01 Routine HEENT Exam Head: Present normocephalic and atraumatic Eye: Present EOMI and PERRL ENT: Present mucous membranes moist Routine Neck Exam Neck: Present supple and trachea midline Routine Respiratory Exam Respiratory: Present chest non-tender, lungs clear, normal breath sounds and no resp distress Routine Cardiovascular Exam Cardiovascular: Present RRR Routine Abdominal Exam Abdominal: Present soft and normoactive bowel sounds Routine Extremities Exam Extremities: Present full ROM Routine Skin Exam Skin: Present intact, dry and warm Objective Labs 10/05/24 04:50 10/05/24 04:50 Labs: Laboratory Results - last 24 hr 10/04/24 10/04/24 10/04/24 10:50 13:10 13:50 WBC 12.8 H RBC 3.99 L Hgb 11.2 L Hct 34.7 L MCV 87 MCH 28.1 MCHC 32.3 RDW Std Deviation 47.6 H Plt Count 231 Neut % (Auto) 83 H Lymph % (Auto) 11 [place] % (Auto) 6 Eos % (Auto) 0 Baso % (Auto) 0 Neut # (Auto) 10.6 H Lymph # (Auto) 1.4 [place] # (Auto) 0.7 Eos # (Auto) 0.0 Baso # (Auto) 0.0 Immature Gran # (Auto) 0.12 H Absolute Nucleated RBC 0.05 H Immature Gran % 1 H Nucleated RBC % 0 Puncture Site Left Radial ABG pH 7.48 H ABG pCO2 53 H ABG pO2 301 H D ABG HCO3 39 H ABG O2 Saturation 100 H ABG Base Excess Not Performed. FiO2 100 Sodium 151 H Potassium 3.8 D Chloride 106 Carbon Dioxide 35.3 H Anion Gap 10 BUN 24 H Creatinine 0.9 Estim Creat Clear Calc 60.9 L eGFR > 60 BUN/Creatinine Ratio 27 H Glucose 164 H Calculated Osmolality 307 H Lactic Acid 2.6 H Calcium 7.5 L Corrected Calcium 8.2 L Phosphorus Magnesium Total Bilirubin 1.7 H AST 156 H ALT 63 H Alkaline Phosphatase 278 H B-Natriuretic Peptide 707 H* Total Protein 5.3 L Albumin 3.1 L Globulin 2.2 L Albumin/Globulin Ratio 1.4 10/05/24 10/05/24 04:16 04:50 WBC 10.9 RBC 3.35 L Hgb 9.2 L D Hct 29.2 L MCV 87 MCH 27.5 MCHC 31.5 RDW Std Deviation 47.7 H Plt Count 179 D Neut % (Auto) 81 H Lymph % (Auto) 13 [place] % (Auto) 4 Eos % (Auto) 0 Baso % (Auto) 1 Neut # (Auto) 8.8 H Lymph # (Auto) 1.4 [place] # (Auto) 0.5 Eos # (Auto) 0.0 Baso # (Auto) 0.1 Immature Gran # (Auto) 0.10 H Absolute Nucleated RBC 0.03 H Immature Gran % 1 H Nucleated RBC % 0 Puncture Site Right Radial ABG pH 7.49 H ABG pCO2 46 ABG pO2 75 L D ABG HCO3 35 H ABG O2 Saturation 96 ABG Base Excess 10 H FiO2 35 Sodium 142 Potassium 3.4 Chloride 103 Carbon Dioxide 32.8 H Anion Gap 6 L BUN 21 Creatinine 0.8 Estim Creat Clear Calc 67.6 eGFR > 60 BUN/Creatinine Ratio 26 H Glucose 207 H Calculated Osmolality 292 Lactic Acid Calcium 6.9 L Corrected Calcium 7.9 L Phosphorus 2.3 L Magnesium 1.7 Total Bilirubin 1.0 D AST 80 H ALT 50 H Alkaline Phosphatase 215 H D B-Natriuretic Peptide Total Protein 4.5 L Albumin 2.7 L Globulin 1.8 L Albumin/Globulin Ratio 1.5 ABG Interpretation ABG results: 09/29/24 09/29/24 09/30/24 00:03 15:16 03:36 ABG pH 7.29 L 7.33 L 7.39 ABG pCO2 42 45 41 ABG pO2 72 L 216 H D 91 D ABG HCO3 20 23 25 ABG O2 Saturation 92 100 H 97 ABG Base Excess -7 L -3 0 09/30/24 09/30/24 10/01/24 13:49 18:56 11:49 ABG pH 7.25 L D 7.35 D 7.49 H D ABG pCO2 53 H D 43 D 35 ABG pO2 161 H D 213 H D 114 H D ABG HCO3 23 24 26 ABG O2 Saturation 99 H 100 H 99 H ABG Base Excess -5 L -2 3 10/02/24 10/03/24 10/04/24 10:53 10:54 09:57 ABG pH 7.50 H 7.53 H 7.54 H ABG pCO2 35 41 46 ABG pO2 71 L D 101 D 46 L* D ABG HCO3 27 H 34 H 39 H ABG O2 Saturation 95 98 85 L ABG Base Excess 4 H 10 H 15 H 10/04/24 10/05/24 13:10 04:16 ABG pH 7.48 H 7.49 H ABG pCO2 53 H 46 ABG pO2 301 H D 75 L D ABG HCO3 39 H 35 H ABG O2 Saturation 100 H 96 ABG Base Excess Not Performed. 10 H Assessment & Plan A&P Narrative blood cultures remain negative continue treatment Time Spent With Patient Time: Total time spent is greater than 50% in coordination of care (as documented) at patient's floor/unit and/or counseling patient:
[2024-10-05] MEDS: VANCOMYCIN/NS 1 GM IVPB 200 ML IV ×2 (11:37→21:15)
--- NOTE | 2024-10-05 11:39 | PD.RESPRO ---
Documentation for date of: 10/05/24 Subjective Subjective Interval history: 10/05: no acute overnight events. Pt urine output over night was 25cc/h. Pt. is seen and examined at bedside this morning. Pts RAAS was -2, she opens her eyes to touch and voice but is unable to follow commands. Patient is not on any sedation's this morning but still very somnolent and not waking up. patient has improvement in her edema from yesterday. Will follow-up with EEG reading which was done by the primary team a couple days ago. Exam Vital Signs Temp Pulse Resp BP Pulse Ox O2 Del Method O2 Flow Rate 98.8 F 68 20 107/57 L 98 Mechanical Ventilation 10 10/05/24 08:01 10/05/24 11:00 10/05/24 08:01 10/05/24 11:00 10/05/24 11:00 10/05/24 09:00 10/04/24 10:35 FiO2 35 10/05/24 10:00 Narrative Exam GENERAL: Sedated and mechanically ventilated NEURO: Unobtainable due to patient sedation and mechanical ventilated HEENT: Atraumatic, Normocephalic. mucous membranes moist, ET tube in place HEART: Normal Heart Sounds LUNGS: Decreased breath sounds bilaterally throughout the lung lloyd with crackles ABDOMEN: soft, non-distended, non-tender SKIN: No Rash or ecchymoses, diffuse mottling throughout the body has resolved EXTREMITIES: 1+ pitting edema, no tenderness, able to move all 4 extremities on painful stimuli, pedal pulses palpated Objective Labs 10/05/24 04:50 10/05/24 04:50 Labs: Laboratory Results - last 24 hr 10/04/24 10/04/24 10/04/24 10:50 13:10 13:50 WBC RBC Hgb Hct MCV MCH MCHC RDW Std Deviation Plt Count Neut % (Auto) Lymph % (Auto) [place] % (Auto) Eos % (Auto) Baso % (Auto) Neut # (Auto) Lymph # (Auto) [place] # (Auto) Eos # (Auto) Baso # (Auto) Immature Gran # (Auto) Absolute Nucleated RBC Immature Gran % Nucleated RBC % Puncture Site Left Radial ABG pH 7.48 H ABG pCO2 53 H ABG pO2 301 H D ABG HCO3 39 H ABG O2 Saturation 100 H ABG Base Excess Not Performed. FiO2 100 Sodium 151 H Potassium 3.8 D Chloride 106 Carbon Dioxide 35.3 H Anion Gap 10 BUN 24 H Creatinine 0.9 Estim Creat Clear Calc 60.9 L eGFR > 60 BUN/Creatinine Ratio 27 H Glucose 164 H Calculated Osmolality 307 H Lactic Acid 2.6 H Calcium 7.5 L Corrected Calcium 8.2 L Phosphorus Magnesium Total Bilirubin 1.7 H AST 156 H ALT 63 H Alkaline Phosphatase 278 H B-Natriuretic Peptide 707 H* Total Protein 5.3 L Albumin 3.1 L Globulin 2.2 L Albumin/Globulin Ratio 1.4 10/05/24 10/05/24 04:16 04:50 WBC 10.9 RBC 3.35 L Hgb 9.2 L D Hct 29.2 L MCV 87 MCH 27.5 MCHC 31.5 RDW Std Deviation 47.7 H Plt Count 179 D Neut % (Auto) 81 H Lymph % (Auto) 13 [place] % (Auto) 4 Eos % (Auto) 0 Baso % (Auto) 1 Neut # (Auto) 8.8 H Lymph # (Auto) 1.4 [place] # (Auto) 0.5 Eos # (Auto) 0.0 Baso # (Auto) 0.1 Immature Gran # (Auto) 0.10 H Absolute Nucleated RBC 0.03 H Immature Gran % 1 H Nucleated RBC % 0 Puncture Site Right Radial ABG pH 7.49 H ABG pCO2 46 ABG pO2 75 L D ABG HCO3 35 H ABG O2 Saturation 96 ABG Base Excess 10 H FiO2 35 Sodium 142 Potassium 3.4 Chloride 103 Carbon Dioxide 32.8 H Anion Gap 6 L BUN 21 Creatinine 0.8 Estim Creat Clear Calc 67.6 eGFR > 60 BUN/Creatinine Ratio 26 H Glucose 207 H Calculated Osmolality 292 Lactic Acid Calcium 6.9 L Corrected Calcium 7.9 L Phosphorus 2.3 L Magnesium 1.7 Total Bilirubin 1.0 D AST 80 H ALT 50 H Alkaline Phosphatase 215 H D B-Natriuretic Peptide Total Protein 4.5 L Albumin 2.7 L Globulin 1.8 L Albumin/Globulin Ratio 1.5 ABG Interpretation ABG results: 09/29/24 09/29/24 09/30/24 00:03 15:16 03:36 ABG pH 7.29 L 7.33 L 7.39 ABG pCO2 42 45 41 ABG pO2 72 L 216 H D 91 D ABG HCO3 20 23 25 ABG O2 Saturation 92 100 H 97 ABG Base Excess -7 L -3 0 09/30/24 09/30/24 10/01/24 13:49 18:56 11:49 ABG pH 7.25 L D 7.35 D 7.49 H D ABG pCO2 53 H D 43 D 35 ABG pO2 161 H D 213 H D 114 H D ABG HCO3 23 24 26 ABG O2 Saturation 99 H 100 H 99 H ABG Base Excess -5 L -2 3 10/02/24 10/03/24 10/04/24 10:53 10:54 09:57 ABG pH 7.50 H 7.53 H 7.54 H ABG pCO2 35 41 46 ABG pO2 71 L D 101 D 46 L* D ABG HCO3 27 H 34 H 39 H ABG O2 Saturation 95 98 85 L ABG Base Excess 4 H 10 H 15 H 10/04/24 10/05/24 13:10 04:16 ABG pH 7.48 H 7.49 H ABG pCO2 53 H 46 ABG pO2 301 H D 75 L D ABG HCO3 39 H 35 H ABG O2 Saturation 100 H 96 ABG Base Excess Not Performed. 10 H Quality Measures Quality Measures VTE prophylaxis (Heparin) Assessment & Plan Assessment Current Active Medications: Generic Name Dose Route Start Last Admin Trade Name Freq PRN Reason Stop Dose Admin Acetaminophen 500 mg 10/02/24 16:03 10/02/24 16:26 Acetaminophen 500 Mg Tablet PO 11/01/24 16:02 500 mg Q6HR PRN Administration Fever > 100.4 or Pain 1-3 Amlodipine Besylate 5 mg 10/05/24 09:00 10/05/24 09:17 Amlodipine Besylate 5 Mg Tablet PO 11/04/24 08:59 Not Given QDAY LUKE Dextrose 25 ml 09/28/24 23:34 Dextrose 50%-Water Inj 50 Ml Syringe IV 10/28/24 23:33 Q15MIN PRN BG 50-70 responsive npo pt Dextrose 50 ml 09/28/24 23:34 Dextrose 50%-Water Inj 50 Ml Syringe IV 10/28/24 23:33 Q15MIN PRN BG <50 OR BG <70 & pt unresponsive Diltiazem HCl 60 mg 10/02/24 12:00 10/05/24 06:08 Diltiazem 30 Mg Tablet PO 11/01/24 11:59 Not Given Q6HR LUKE Duloxetine HCl 60 mg 09/29/24 01:45 10/02/24 08:05 Duloxetine Hcl 30 Mg Capsule PO 10/29/24 01:44 Not Given BID LUKE Enoxaparin Sodium 40 mg 10/04/24 12:30 10/05/24 09:27 Enoxaparin Sod Inj 40 Mg/0.4 Ml Syringe SC 10/18/24 12:29 40 mg QDAY LUKE Administration Famotidine 20 mg 10/05/24 09:00 10/05/24 09:27 Famotidine 20 Mg Tablet PO 11/04/24 08:59 20 mg BID LUKE Administration Glucagon 1 mg 09/28/24 23:34 Glucagon Inj 1 Mg Vial IM Q15MIN PRN BG <70, and no IV access Guaifenesin/Dextromethorphan 2 each 09/30/24 10:00 10/04/24 20:56 Guaifenesin/Dm Tablet PO 10/30/24 09:59 Not Given BID LUKE Heparin Sodium/Dextrose 25,000 unit in 250 mls @ 9.362 mls/hr 09/29/24 15:00 10/03/24 07:08 Heparin In D5w Ivpb IV 10/13/24 14:59 11 units/kg/hr .Q24H LUKE 8.582 mls/hr Titration Protocol 12 UNITS/KG/HR Vancomycin/Sodium Chloride 200 mls @ 120 mls/hr 10/04/24 10:00 10/05/24 11:37 Vancomycin/Ns 1 Gm Ivpb IV 10/11/24 09:59 120 mls/hr BID@1000,2200 LUKE Administration Protocol Norepinephrine/Dextrose 8 mg in 250 mls @ 6.902 mls/hr 10/04/24 11:19 Levophed In D5w 8mg/250ml IV 11/03/24 11:18 .Q24H PRN PER PROTOCOL Protocol 0.05 MCG/KG/MIN Fentanyl Citrate 2,500 mcg in 250 mls @ 2.5 mls/hr 10/04/24 11:41 10/05/24 08:13 Sublimaze Inj 2,500 Mcg/250 Ml Bag IV 10/09/24 11:40 0 mcg/hr .Q24H PRN 0 mls/hr PER PROTOCOL Titration Protocol 25 MCG/HR Dexmedetomidine/Sodium Chloride 400 mcg in 100 mls @ 3.681 mls/hr 10/04/24 11:44 10/05/24 08:13 Precedex Ivpb IV 11/03/24 11:43 0 mcg/kg/hr .Q24H PRN 0 mls/hr Per PROTOCOL Titration Protocol 0.2 MCG/KG/HR Magnesium Sulfate 4 gm in 50 mls @ 12.5 mls/hr 10/05/24 08:38 10/05/24 09:28 Magnesium Sulfate Ivpb IV 10/05/24 12:37 12.5 mls/hr X1 ONE Administration Insulin Glargine 18 unit 10/04/24 21:00 10/04/24 20:50 Insulin Glargine (Lantus) 5 Unit/0.05 Ml (Per 5 Units) SC 11/03/24 20:59 18 unit HS LUKE Administration Insulin Human Lispro 0 unit 10/01/24 18:30 10/05/24 06:08 Insulin Lispro (Admelog) 1 Unit/0.01 Ml Unit SC 10/31/24 18:29 4 unit Q6HR LUKE Administration Protocol Ipratropium Normanna 0.5 mg 09/29/24 07:35 10/05/24 06:53 Ipratropium Rt 0.5 Mg/ 2.5 Ml Nebu INH 10/29/24 07:34 0.5 mg Q4HRRT LUKE Administration Labetalol HCl 10 mg 10/03/24 21:00 Labetalol Inj 5 Mg/Ml Vial 20 Ml IVP 11/02/24 20:59 Q6HR PRN Systolic >180 and HR >80 Levalbuterol HCl 0.63 mg 10/03/24 07:00 10/05/24 07:32 Levalbuterol Rt 0.63 Mg/3 Ml Nebu INH 11/02/24 06:59 0.63 mg Q4HRRT LUKE Administration Ondansetron HCl 4 mg 09/28/24 23:26 Ondansetron Inj 2 Mg/Ml Inj 2 Ml IV 10/28/24 23:25 Q6H PRN NAUSEA OR VOMITING Protocol Pharmacy Consult 1 each 09/30/24 06:36 Vancomycin Pharmacy To Dose 1 Each Each IV 10/29/24 08:59 QDAY PRN PROTOCOL Polyethylene Glycol 17 gm 09/30/24 10:00 10/04/24 08:24 Polyethylene Glycol 17 Gm Packet PO 10/30/24 09:59 17 gm QDAY LUKE Administration Sennosides 1 tab 09/29/24 09:00 10/05/24 09:27 Senna Tablet PO 10/29/24 08:59 1 tab QDAY LUKE Administration Protocol Sodium Chloride 3 ml 10/01/24 18:17 Sodium Chloride Rt Kamille 0.9% 3 Ml Nebu INH 10/31/24 18:16 PRN PRN SOLN Plan Ms. Oviedo is a 64-year-old female with past medical history significant for hypertension, hyperlipidemia, diabetes and chronic pain presented to the ED complaining of generalized weakness and cough for the last 4 days. Patient was admitted to the hospital for acute respiratory failure and severe sepsis secondary to bilateral pneumonia. neuro # Acute encephalopathy -likely multi-factorial secondary to polypharmacy (?withdrawal) plus infectious plus hypoxia now with sedation -MRI brain on 10/03 negative for acute hemorrhage, mass effect or midline shift -S/P LP done on 10/03- CSF gram stain and culture had no WBCs and no organisms -Currently turned off the sedation this morning (precedex and fentanyl) to monitor if Pt. will wake up -NG tube in place -EEG done-pending reading #History of major depressive disorder -History of mental health disorders and 2 previous suicide attempts - due to current mentation will hold home Quetiapine, diazepam, duloxetine Cardio # Volume overload -BNP 707 -Likely in the setting of fluid resuscitation -On physical examination patient did have some crackles and 1+ pitting edema on lower extremities -Echo done on 09/29- EF 65-70% -Will continue to monitor -Acetazolamide x 1 given on 10/05 #New onset A-fib -Likely secondary to severe sepsis and hypoxia -Cardizem every 6 hours -Keep mag above 2 and potassium above 4 -[id number] score is 3 -Patient is on Lovenox daily #Primary Hypertension -Holding home lisinopril -Continue amlodipine 5 Mg Pulm #Acute Hypoxic Respiratory Failure #MRSA Pneumonia -Patient is intubated on mechanically ventilated on 10/04/2024 -bilateral pneumonia evident on chest x-rays and CT scan -Continue breathing treatments and guaifenesin as necessary -Blood Culture (09/28/2024)X2: MRSA, sensitive to vancoymcin, since then blood cultures have been negative -Sputum Culture (09/28/2024) MRSA -Continuing IV vancomycin [09/29/2024?to present] -Repeat blood cultures have been negative -Today Pt. is switched to spontaneous vent setting with PEEP5, FiO2 28 and RR 11 GI #Transaminitis- downtrending #Elevated alkaline phosphatase-downtrending -AST 80, ALT 50, alkaline phosphatase 250 -Likely secondary to severe sepsis, will continue to monitor # NG tube -Will hold tube feedings with glucerna 1.2 & free water flushes via NG tube Renal #Hypocalcemia #Hypophosphatemia -Corrected calcium 7.9 and phosphorus 2.3 -likely in the setting of severe sepsis and poor oral intake -Patient is given 1 packet of Neutra-Phos and repleted calcium -Will continue to monitor daily labs Endo #Uncontrolled Diabetes Mellitus Type 2 -Home regimen: Farxiga 5 mg, insulin Lantus 55 units, metformin 1 g -HA1c 10.6 on 09/29 -Lantus 28 units at bedtime -ISS -Continue to monitor blood glucose Heme #Acute anemia -Hemoglobin 9.2, hematocrit 29.2 -Likely secondary to dilution patient received over 3 L of fluids -Will monitor daily CBC MSK/Skin # Mottling-resolved #History of chronic pain -Patient reports having a history of chronic pain and is on multiple medications: Duloxetine, gabapentin, tizanidine, tramadol, methadone -Holding home neuro suppressing medications due to patient's current mental status Infectious disease #Severe Sepsis #MRSA bacteremia #MRSA Pneumonia - as above Health Maintenance Code Status: Full Code Diet: NG tube feedings will be held for now DVT: Lovenox Lines: NG, ET, PIVs, Miller Dispo: Admitted to ICU for acute hypoxic respiratory failure and inability to protect airway. Patient is intubated on 10/04 Assessment and plan discussed with my attending physician Dr. Estrada Amaya (PGY-1)- Internal medicine resident
[2024-10-05 11:46] LABS: Base Excess 9 (-3-3); HCO3 33 mEq/L (20-26); Inspired Oxygen, FIO2 28 %; O2 Saturation 94 % (91-98); PCO2 45 mmHg (32.0-48.0); PO2 68 mmHg (83-108); pH, Arterial 7.48 (7.35-7.45)
[2024-10-05 11:48] LABS: Allen Test Performed/OK; Puncture Site Right Radial
[2024-10-05] MEDS: DILTIAZEM 30 MG TABLET 60 MG PO ×3 (11:59→23:27)
[2024-10-05] MEDS: POLYETHYLENE GLYCOL 17 GM PACKET PO (11:59)
--- NOTE | 2024-10-05 20:00 | PC.NURSE ---
clarified tube feed order, MD Duenas stated to continue current tube feed
[2024-10-05] MEDS: INSULIN GLARGINE (Lantus) 5 UNIT/0.05 ML (PER 5 UNITS) 18 UNIT SC (20:39)
[2024-10-06] VITALS (37 sets, daily range): BP systolic 90–191; BP diastolic 69–93; PULSE 74–106; RESP 8–36; TEMP 36.3–38.1; O2SAT 95–100; BMI 29.4
[2024-10-06 01:51] LABS: Vancomycin,Trough 22.4 mcg/mL (5.0-10.0)
[2024-10-06] MEDS: LEVALBUTEROL RT 0.63 MG/3 ML NEBU INH ×6 (02:52→23:02)
[2024-10-06] MEDS: IPRATROPIUM RT 0.5 MG/ 2.5 ML NEBU INH ×6 (02:52→23:02)
[2024-10-06 04:34] LABS: Base Excess 7 (-3-3); HCO3 31 mEq/L (20-26); Inspired Oxygen, FIO2 28 %; O2 Saturation 91 % (91-98); PCO2 42 mmHg (32.0-48.0); pH, Arterial 7.48 (7.35-7.45)
[2024-10-06 04:48] LABS: Allen Test Performed/OK; Puncture Site Right Radial
[2024-10-06 04:50] LABS: PO2 57 mmHg (83-108)
[2024-10-06 05:32] LABS: Basophils % (Auto) 0 % (0-2.5); Eosinophils # (Auto) 0.1 Thou/mm3 (0.0-0.5); Eosinophils % (Auto) 0 % (0-10); Hematocrit 35.3 % (36.0-46.0); Immature Granulocytes % (Auto) 1 % (0-0); Immature Granulocytes Auto 0.15 Thou/mm3 (0.00-0.00); Lymphocytes # (Auto) 1.2 Thou/mm3 (1.0-4.8); Lymphocytes % (Auto) 9 % (10-50); Mean Corpuscular HGB Conc 31.2 g/dl (31.0-37.0); Mean Corpuscular Hemoglobin 27.6 pg (25.0-35.0); Mean Corpuscular Volume 89 fL (80-100); Monocytes # (Auto) 0.6 Thou/mm3 (0.0-0.8); Monocytes % (Auto) 4 % (0-12); Neutrophils # (Auto) 11.4 Thou/mm3 (1.8-7.7); Neutrophils % (Auto) 85 % (37-80); Nucleated Red Blood Cell # 0.05 Thou/mm3 (0.00-0.00); Nucleated Red Blood Cell % 0 /100 WBC (0); Platelet Count 210 Thou/mm3 (140-440); RDW Standard Deviation 48.5 fL (36.4-46.3); Red Blood Count 3.98 Miln/mm3 (4.00-5.20); White Blood Count 13.4 Thou/mm3 (3.6-11.0)
[2024-10-06] MEDS: INSULIN LISPRO (AdmeLOG) 1 UNIT/0.01 ML UNIT SC ×2 (05:48→17:35)
[2024-10-06] MEDS: DILTIAZEM 30 MG TABLET 60 MG PO ×3 (05:48→17:33)
[2024-10-06 06:09] LABS: Alanine Aminotransferase 107 U/L (10-49); Albumin, Serum 3.1 gm/dL (3.4-4.8); Albumin/Globulin Ratio 1.3 (1.2-2.2); Alkaline Phosphatase 341 U/L (46-116); Anion Gap 8 (7-16); Aspartate Amino Transferase 223 U/L (0-34); BUN/Creatinine Ratio 19 Ratio (12-20); Bilirubin,Total 1.1 mg/dL (0.3-1.2); Blood Urea Nitrogen 15 mg/dL (9-23); Calcium 7.2 mg/dL (8.3-10.6); Calcium (Corrected) 7.9 mg/dL (8.5-10.1); Carbon Dioxide 30.2 mMol/L (20.0-31.0); Chloride 102 mMol/L (98-107); Creatinine (Component) 0.8 mg/dL (0.6-1.3); Estimated Creatinine Clearance 69.3 mL/min (>60); Globulin 2.3 gm/dL (2.3-3.5); Glucose 168 mg/dL (74-106); Magnesium 1.6 mg/dL (1.6-2.6); Osmolality,Calculated 284 (275-295); Sodium 140 mMol/L (136-145); Total Protein 5.4 gm/dL (5.7-8.2); eGFR > 60 See Note
[2024-10-06] MEDS: POTASSIUM CHLORIDE 10% 20 MEQ/15 ML UDC 40 MEQ GT (09:25)
[2024-10-06] MEDS: ENOXAPARIN SOD INJ 40 MG/0.4 ML SYRINGE SC (09:25)
[2024-10-06] MEDS: guaiFENesin/DM TABLET 2 EACH PO ×2 (09:25→20:20)
[2024-10-06] MEDS: SENNA TABLET 1 TAB PO (09:26)
[2024-10-06] MEDS: FAMOTIDINE 20 MG TABLET PO ×2 (09:26→20:20)
[2024-10-06] MEDS: amLODIPine BESYLATE 5 MG TABLET PO (09:26)
[2024-10-06] MEDS: POLYETHYLENE GLYCOL 17 GM PACKET PO (09:26)
[2024-10-06] MEDS: Lisinopril 2.5 MG TABLET 5 MG PO (09:26)
[2024-10-06] MEDS: VANCOMYCIN/NS 750 MG IVPB 750 MG/150 ML BAG 120 MG IV ×2 (09:27→22:40)
--- NOTE | 2024-10-06 10:38 | ESPR_ITS ---
Documentation for date of: 10/06/24 Subjective Subjective Interval history: 10/05: no acute overnight events. Pt urine output over night was 25cc/h. Pt. is seen and examined at bedside this morning. Pts RAAS was -2, she opens her eyes to touch and voice but is unable to follow commands. Patient is not on any sedation's this morning but still very somnolent and not waking up. patient has improvement in her edema from yesterday. Will follow-up with EEG reading which was done by the primary team a couple days ago. 10/06: no acute overnight events. pts urine output is about 850ml/h and have not had a bowel movement. Pt. is awake off sedation, she responds to voice by opening her eyes and moves her head in the direction of voice but does not follow command. She also does not respond to painful stimuli. she does not move her upper or lower extremities to painful stimuli. EEG reading showed diffuse slowing. Pt's edema in the upper and lower extremities is unchanged from yesterday. she is mechanical ventilated on spontaneous pressure support. will continue to monitor to see if pt. will be able to tolerate extubation today. Exam Vital Signs Temp Pulse Resp BP Pulse Ox O2 Del Method O2 Flow Rate 99.7 F 84 10 L 185/84 H 100 Mechanical Ventilation 10 10/06/24 04:00 10/06/24 09:26 10/06/24 07:01 10/06/24 09:26 10/06/24 07:01 10/06/24 06:00 10/04/24 10:35 FiO2 28 10/06/24 07:01 Narrative Exam GENERAL: awake, follows some commands NEURO: Unobtainable due to pt is mechanical ventilated HEENT: Atraumatic, Normocephalic. mucous membranes moist, ET and OG tube present HEART: Normal Heart Sounds LUNGS: coarse breath sounds bilaterally throughout the lung lloyd ABDOMEN: soft, non-distended, non-tender SKIN: No Rash or ecchymoses, mottling around the knees, skin is cold to touch EXTREMITIES: 1+ edema in all 4 extremities, no tenderness, not able to move all 4 extremities on painful stimuli, pedal pulses palpated Objective Labs 10/06/24 05:06 10/06/24 05:06 Labs: Laboratory Results - last 24 hr 10/05/24 10/05/24 10/06/24 11:35 21:09 04:22 WBC RBC Hgb Hct MCV MCH MCHC RDW Std Deviation Plt Count Neut % (Auto) Lymph % (Auto) [place] % (Auto) Eos % (Auto) Baso % (Auto) Neut # (Auto) Lymph # (Auto) [place] # (Auto) Eos # (Auto) Baso # (Auto) Immature Gran # (Auto) Absolute Nucleated RBC Immature Gran % Nucleated RBC % Puncture Site Right Radial Right Radial ABG pH 7.48 H 7.48 H ABG pCO2 45 42 ABG pO2 68 L 57 L* ABG HCO3 33 H 31 H ABG O2 Saturation 94 91 ABG Base Excess 9 H 7 H FiO2 28 28 Sodium Potassium Chloride Carbon Dioxide Anion Gap BUN Creatinine Estim Creat Clear Calc eGFR BUN/Creatinine Ratio Glucose Calculated Osmolality Calcium Corrected Calcium Phosphorus Magnesium Total Bilirubin AST ALT Alkaline Phosphatase Total Protein Albumin Globulin Albumin/Globulin Ratio Vancomycin Trough 22.4 H* 10/06/24 05:06 WBC 13.4 H RBC 3.98 L Hgb 11.0 L Hct 35.3 L MCV 89 MCH 27.6 MCHC 31.2 RDW Std Deviation 48.5 H Plt Count 210 D Neut % (Auto) 85 H Lymph % (Auto) 9 L [place] % (Auto) 4 Eos % (Auto) 0 Baso % (Auto) 0 Neut # (Auto) 11.4 H Lymph # (Auto) 1.2 [place] # (Auto) 0.6 Eos # (Auto) 0.1 Baso # (Auto) 0.0 Immature Gran # (Auto) 0.15 H Absolute Nucleated RBC 0.05 H Immature Gran % 1 H Nucleated RBC % 0 Puncture Site ABG pH ABG pCO2 ABG pO2 ABG HCO3 ABG O2 Saturation ABG Base Excess FiO2 Sodium 140 Potassium 3.0 L Chloride 102 Carbon Dioxide 30.2 Anion Gap 8 BUN 15 Creatinine 0.8 Estim Creat Clear Calc 69.3 eGFR > 60 BUN/Creatinine Ratio 19 Glucose 168 H Calculated Osmolality 284 Calcium 7.2 L Corrected Calcium 7.9 L Phosphorus 3.0 Magnesium 1.6 Total Bilirubin 1.1 AST 223 H ALT 107 H Alkaline Phosphatase 341 H D Total Protein 5.4 L Albumin 3.1 L Globulin 2.3 Albumin/Globulin Ratio 1.3 Vancomycin Trough ABG Interpretation ABG results: 09/29/24 09/29/24 09/30/24 00:03 15:16 03:36 ABG pH 7.29 L 7.33 L 7.39 ABG pCO2 42 45 41 ABG pO2 72 L 216 H D 91 D ABG HCO3 20 23 25 ABG O2 Saturation 92 100 H 97 ABG Base Excess -7 L -3 0 09/30/24 09/30/24 10/01/24 13:49 18:56 11:49 ABG pH 7.25 L D 7.35 D 7.49 H D ABG pCO2 53 H D 43 D 35 ABG pO2 161 H D 213 H D 114 H D ABG HCO3 23 24 26 ABG O2 Saturation 99 H 100 H 99 H ABG Base Excess -5 L -2 3 10/02/24 10/03/24 10/04/24 10:53 10:54 09:57 ABG pH 7.50 H 7.53 H 7.54 H ABG pCO2 35 41 46 ABG pO2 71 L D 101 D 46 L* D ABG HCO3 27 H 34 H 39 H ABG O2 Saturation 95 98 85 L ABG Base Excess 4 H 10 H 15 H 10/04/24 10/05/24 10/05/24 13:10 04:16 11:35 ABG pH 7.48 H 7.49 H 7.48 H ABG pCO2 53 H 46 45 ABG pO2 301 H D 75 L D 68 L ABG HCO3 39 H 35 H 33 H ABG O2 Saturation 100 H 96 94 ABG Base Excess Not Performed. 10 H 9 H 10/06/24 04:22 ABG pH 7.48 H ABG pCO2 42 ABG pO2 57 L* ABG HCO3 31 H ABG O2 Saturation 91 ABG Base Excess 7 H Quality Measures Quality Measures VTE prophylaxis (Heparin) Assessment & Plan Assessment Current Active Medications: Generic Name Dose Route Start Last Admin Trade Name Freq PRN Reason Stop Dose Admin Acetaminophen 500 mg 10/02/24 16:03 10/02/24 16:26 Acetaminophen 500 Mg Tablet PO 11/01/24 16:02 500 mg Q6HR PRN Administration Fever > 100.4 or Pain 1-3 Amlodipine Besylate 5 mg 10/05/24 09:00 10/06/24 09:26 Amlodipine Besylate 5 Mg Tablet PO 11/04/24 08:59 5 mg QDAY LUKE Administration Dextrose 25 ml 09/28/24 23:34 Dextrose 50%-Water Inj 50 Ml Syringe IV 10/28/24 23:33 Q15MIN PRN BG 50-70 responsive npo pt Dextrose 50 ml 09/28/24 23:34 Dextrose 50%-Water Inj 50 Ml Syringe IV 10/28/24 23:33 Q15MIN PRN BG <50 OR BG <70 & pt unresponsive Diltiazem HCl 60 mg 10/02/24 12:00 10/06/24 05:48 Diltiazem 30 Mg Tablet PO 11/01/24 11:59 60 mg Q6HR LUKE Administration Duloxetine HCl 60 mg 09/29/24 01:45 10/02/24 08:05 Duloxetine Hcl 30 Mg Capsule PO 10/29/24 01:44 Not Given BID LUKE Enoxaparin Sodium 40 mg 10/04/24 12:30 10/06/24 09:25 Enoxaparin Sod Inj 40 Mg/0.4 Ml Syringe SC 10/18/24 12:29 40 mg QDAY LUKE Administration Famotidine 20 mg 10/05/24 09:00 10/06/24 09:26 Famotidine 20 Mg Tablet PO 11/04/24 08:59 20 mg BID LUKE Administration Glucagon 1 mg 09/28/24 23:34 Glucagon Inj 1 Mg Vial IM Q15MIN PRN BG <70, and no IV access Guaifenesin/Dextromethorphan 2 each 09/30/24 10:00 10/06/24 09:25 Guaifenesin/Dm Tablet PO 10/30/24 09:59 2 each BID LUKE Administration Heparin Sodium/Dextrose 25,000 unit in 250 mls @ 9.362 mls/hr 09/29/24 15:00 10/03/24 07:08 Heparin In D5w Ivpb IV 10/13/24 14:59 11 units/kg/hr .Q24H LUKE 8.582 mls/hr Titration Protocol 12 UNITS/KG/HR Norepinephrine/Dextrose 8 mg in 250 mls @ 6.902 mls/hr 10/04/24 11:19 Levophed In D5w 8mg/250ml IV 11/03/24 11:18 .Q24H PRN PER PROTOCOL Protocol 0.05 MCG/KG/MIN Fentanyl Citrate 2,500 mcg in 250 mls @ 2.5 mls/hr 10/04/24 11:41 10/05/24 08:13 Sublimaze Inj 2,500 Mcg/250 Ml Bag IV 10/09/24 11:40 0 mcg/hr .Q24H PRN 0 mls/hr PER PROTOCOL Titration Protocol 25 MCG/HR Dexmedetomidine/Sodium Chloride 400 mcg in 100 mls @ 3.681 mls/hr 10/04/24 11:44 10/05/24 08:13 Precedex Ivpb IV 11/03/24 11:43 0 mcg/kg/hr .Q24H PRN 0 mls/hr Per PROTOCOL Titration Protocol 0.2 MCG/KG/HR Vancomycin/Sodium Chloride 750 mg in 150 mls @ 120 mls/hr 10/06/24 10:00 10/06/24 09:27 Vancomycin/Ns 750 Mg Ivpb IV 10/13/24 09:59 120 mls/hr BID@1000,2200 LUKE Administration Protocol Insulin Glargine 18 unit 10/04/24 21:00 10/05/24 20:39 Insulin Glargine (Lantus) 5 Unit/0.05 Ml (Per 5 Units) SC 11/03/24 20:59 18 unit HS LUKE Administration Insulin Human Lispro 0 unit 10/01/24 18:30 10/06/24 05:48 Insulin Lispro (Admelog) 1 Unit/0.01 Ml Unit SC 10/31/24 18:29 2 unit Q6HR LUKE Administration Protocol Ipratropium [place] 0.5 mg 09/29/24 07:35 10/06/24 07:01 Ipratropium Rt 0.5 Mg/ 2.5 Ml Nebu INH 10/29/24 07:34 0.5 mg Q4HRRT LUKE Administration Labetalol HCl 10 mg 10/03/24 21:00 Labetalol Inj 5 Mg/Ml Vial 20 Ml IVP 11/02/24 20:59 Q6HR PRN Systolic >180 and HR >80 Levalbuterol HCl 0.63 mg 10/03/24 07:00 10/06/24 07:01 Levalbuterol Rt 0.63 Mg/3 Ml Nebu INH 11/02/24 06:59 0.63 mg Q4HRRT LUKE Administration Lisinopril 5 mg 10/06/24 09:15 10/06/24 09:26 Lisinopril 2.5 Mg Tablet PO 11/05/24 09:14 5 mg QDAY LUKE Administration Ondansetron HCl 4 mg 09/28/24 23:26 Ondansetron Inj 2 Mg/Ml Inj 2 Ml IV 10/28/24 23:25 Q6H PRN NAUSEA OR VOMITING Protocol Pharmacy Consult 1 each 09/30/24 06:36 Vancomycin Pharmacy To Dose 1 Each Each IV 10/29/24 08:59 QDAY PRN PROTOCOL Polyethylene Glycol 17 gm 09/30/24 10:00 10/06/24 09:26 Polyethylene Glycol 17 Gm Packet PO 10/30/24 09:59 17 gm QDAY LUKE Administration Potassium Chloride 40 meq 10/06/24 13:00 Potassium Chloride 10% 20 Meq/15 Ml Udc GT 10/06/24 13:01 X1 ONE Sennosides 1 tab 09/29/24 09:00 10/06/24 09:26 Senna Tablet PO 10/29/24 08:59 1 tab QDAY LUKE Administration Protocol Sodium Chloride 3 ml 10/01/24 18:17 Sodium Chloride Rt [place] 0.9% 3 Ml Nebu INH 10/31/24 18:16 PRN PRN SOLN Plan Ms. Oviedo is a 64-year-old female with past medical history significant for hypertension, hyperlipidemia, diabetes and chronic pain presented to the ED complaining of generalized weakness and cough for the last 4 days. Patient was admitted to the hospital for acute respiratory failure and severe sepsis secondary to bilateral pneumonia. neuro # Acute encephalopathy -likely multi-factorial secondary to polypharmacy (?withdrawal) plus infectious plus hypoxia now with sedation -MRI brain on 10/03 negative for acute hemorrhage, mass effect or midline shift -S/P LP done on 10/03- CSF gram stain and culture had no WBCs and no organisms -Currently turned off the sedation but still have profound weakness in her U and L extremities and does not move her arms or legs to painful stimuli -EEG showed diffuse slowing -neurologist is following- waiting on further recommendations #History of major depressive disorder -History of mental health disorders and 2 previous suicide attempts -due to current mentation will hold home Quetiapine, diazepam, duloxetine Cardio #Volume overload -BNP 707 om 10/05 -Likely in the setting of fluid resuscitation -On physical examination patient did have some crackles and 1+ pitting edema on lower extremities -Echo done on 09/29- EF 65-70% -Will continue to monitor -Acetazolamide x 1 given on 10/05 #New onset A-fib -Likely secondary to severe sepsis and hypoxia -Cardizem every 6 hours -Keep mag above 2 and potassium above 4 -[id number] score is 3 -Patient is on Lovenox daily #Primary Hypertension -resumed home lisinopril 5mg due to elevate BP today -Continue amlodipine 5 Mg #DVT prophylaxis - Lovenox Pulm #Acute Hypoxic Respiratory Failure #MRSA Pneumonia -Patient is intubated on mechanically ventilated on 10/04/2024 -bilateral pneumonia evident on chest x-rays and CT scan -Continue breathing treatments and guaifenesin as necessary -Blood Culture (09/28/2024)X2: MRSA, sensitive to vancoymcin, since then blood cultures have been negative -Sputum Culture (09/28/2024) MRSA -Continuing IV vancomycin [09/29/2024?to present] -Repeat blood cultures have been negative -Pt. is on spontaneous pressure support -vent setting is PS 5, PEEP5, FiO2 28 and RR 11 and TV 613 GI #Transaminitis #Elevated alkaline phosphatase -AST 223, ALT 107, alkaline phosphatase 341 -Likely secondary to severe sepsis, will continue to monitor -avoid hepatotoxic agents # NG tube -Glucerna 1.2 at 20 ml/hr via NG tube with Glucerna 1.2 at 20 ml/hr and water flushes of 75 ml/hr Renal #Hypocalcemia #Hypophosphatemia -Corrected calcium 7.9 and phosphorus 2.3 -likely in the setting of severe sepsis and poor oral intake -Patient is given 1 packet of Neutra-Phos and repleted calcium -Will continue to monitor daily labs Endo #Uncontrolled Diabetes Mellitus Type 2 -Home regimen: Farxiga 5 mg, insulin Lantus 55 units, metformin 1 g -HA1c 10.6 on 09/29 -Lantus 28 units at bedtime -ISS -Continue to monitor blood glucose Heme #Acute anemia- improving -Hemoglobin 9, hematocrit 29.2 -Likely secondary to dilution patient received over 3 L of fluids -Will monitor daily CBC MSK/Skin # Mottling-over the knees -likely in the setting of severe/refractory sepsis -will treat underlying condition and continue to monitor #History of chronic pain -Patient reports having a history of chronic pain and is on multiple medications: Duloxetine, gabapentin, tizanidine, tramadol, methadone -Holding home neuro suppressing medications due to patient's current mental status Infectious disease #Severe Sepsis #MRSA bacteremia #MRSA Pneumonia # Leukocytosis - as above, patient is on antibiotics Health Maintenance Code Status: Full Code Diet: NG tube feedings resumed with Glucerna 1.2 at 20 ml/hr and water flushes of 75 ml/hr DVT: Lovenox Lines: NG, ET, PIVs, Miller Dispo: Admitted to ICU for acute hypoxic respiratory failure and inability to protect airway. Patient is intubated on 10/04 Assessment and plan discussed with my attending physician Dr. Estrada Amaya (PGY-1)- Internal medicine resident
--- NOTE | 2024-10-06 11:15 | PD.INTPROG ---
Documentation for date of: 10/06/24 Subjective Subjective Interval history: This is a 64-year-old female who was admitted to the hospital on 29 September for shortness of breath and hypoxia. She was found to have an MRSA pneumonia. Initially she required a BiPAP however then was placed on a facemask. Per the floor team she has been mottled since arrival. Today a rapid response was called for hypoxia desatting down into the 80s. A BiPAP was placed 15/06 at 100% FiO2. Her sats rapidly improved to 100% and we were able to titrate down the FiO2. Her mentation has been altered and she has been encephalopathic since arrival. Given that at 1 point she had a fever the floor team was concerned for meningitis and therefore an LP was performed with no WBCs noted. She does have a history of polypharmacy. She has been on methadone 10 mg p.o. 3 times daily during her hospital stay. During the rapid Narcan was given with slight improvement in mentation however not sufficient. An ABG and a stat chest x-ray were obtained. The chest x-ray showed improvement in her lung lloyd compared paired to prior. The ABG showed a metabolic alkalosis. The BiPAP was providing her with a minute ventilation of 18-20 therefore at that point in time the BiPAP was stopped and she was continued with a facemask. Given her altered mentation her desats and mottling decision was made to bring patient to the ICU. She continued to have intermittent episodes of desat as low as 70%. The decision was made to intubate her. During intubation she was noted to have very thick viscous dark secretions covering her airway which were suctioned with difficulty. 10/05-no acute overnight events, afebrile, good urinary output, patient was given several liters of IV fluid yesterday and her mottling has resolved. 10/06-no acute overnight events, has remained off of all sedation, today is able to open her eyes to commands and track, she is able to weakly wiggle her toes, does not appear to have much movement in her upper extremities does appear to have profound weakness, afebrile, good urinary output. Critical Care Note Critical care time (min.): 40 Exam Vital Signs Temp Pulse Resp BP Pulse Ox O2 Del Method O2 Flow Rate 99.7 F 84 10 L 185/84 H 100 Mechanical Ventilation 10 10/06/24 04:00 10/06/24 09:26 10/06/24 07:01 10/06/24 09:26 10/06/24 07:01 10/06/24 06:00 10/04/24 10:35 FiO2 28 10/06/24 07:01 Narrative Exam General-no acute distress, intubated, off sedation, normal body habitus HEENT-normocephalic, atraumatic, sclera icteric, oral mucosa is hydrated, ET tube and OG tube in place Chest-lungs clear to auscultation, heart regular rhythmic, no bruits murmurs, no increased work of breathing Abdomen-soft, nontender, sounds present, no rebound or guard Extremities-1+ pitting edema, pulses palpable, no clubbing, mottling resolved, no cyanosis Vent AC VC Physical Exam Completion Physical Exam Complete?: Yes Objective - [employer] Labs 10/06/24 05:06 10/06/24 05:06 Labs: Laboratory Results - last 24 hr 10/05/24 10/05/24 10/06/24 11:35 21:09 04:22 WBC RBC Hgb Hct MCV MCH MCHC RDW Std Deviation Plt Count Neut % (Auto) Lymph % (Auto) [place] % (Auto) Eos % (Auto) Baso % (Auto) Neut # (Auto) Lymph # (Auto) [place] # (Auto) Eos # (Auto) Baso # (Auto) Immature Gran # (Auto) Absolute Nucleated RBC Immature Gran % Nucleated RBC % Puncture Site Right Radial Right Radial ABG pH 7.48 H 7.48 H ABG pCO2 45 42 ABG pO2 68 L 57 L* ABG HCO3 33 H 31 H ABG O2 Saturation 94 91 ABG Base Excess 9 H 7 H FiO2 28 28 Sodium Potassium Chloride Carbon Dioxide Anion Gap BUN Creatinine Estim Creat Clear Calc eGFR BUN/Creatinine Ratio Glucose Calculated Osmolality Calcium Corrected Calcium Phosphorus Magnesium Total Bilirubin AST ALT Alkaline Phosphatase Total Protein Albumin Globulin Albumin/Globulin Ratio Vancomycin Trough 22.4 H* 10/06/24 05:06 WBC 13.4 H RBC 3.98 L Hgb 11.0 L Hct 35.3 L MCV 89 MCH 27.6 MCHC 31.2 RDW Std Deviation 48.5 H Plt Count 210 D Neut % (Auto) 85 H Lymph % (Auto) 9 L [place] % (Auto) 4 Eos % (Auto) 0 Baso % (Auto) 0 Neut # (Auto) 11.4 H Lymph # (Auto) 1.2 [place] # (Auto) 0.6 Eos # (Auto) 0.1 Baso # (Auto) 0.0 Immature Gran # (Auto) 0.15 H Absolute Nucleated RBC 0.05 H Immature Gran % 1 H Nucleated RBC % 0 Puncture Site ABG pH ABG pCO2 ABG pO2 ABG HCO3 ABG O2 Saturation ABG Base Excess FiO2 Sodium 140 Potassium 3.0 L Chloride 102 Carbon Dioxide 30.2 Anion Gap 8 BUN 15 Creatinine 0.8 Estim Creat Clear Calc 69.3 eGFR > 60 BUN/Creatinine Ratio 19 Glucose 168 H Calculated Osmolality 284 Calcium 7.2 L Corrected Calcium 7.9 L Phosphorus 3.0 Magnesium 1.6 Total Bilirubin 1.1 AST 223 H ALT 107 H Alkaline Phosphatase 341 H D Total Protein 5.4 L Albumin 3.1 L Globulin 2.3 Albumin/Globulin Ratio 1.3 Vancomycin Trough Assessment & Plan Problem List (1) Altered mental status: Status: Acute (2) Atrial fibrillation: Status: Acute Additional Assessment Additional Assessment: In summary this 64-year-old female admitted to the ICU for acute hypoxic respiratory failure secondary to MRSA pneumonia and 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 She has also been continued on her methadone and Seroquel while in-house. She is hypoxic and hyponatremic. All of these can contribute to her altered mentation. She did undergo a LP for concern of possible meningitis this had 3 WBCs. Neurology is following. An MRI of the brain was performed and found to be within normal limits. -Will monitor closely for withdrawal -Today patient opens eyes spontaneously and is able to track around the room -Cognitive status seems to be much improved -Continue to hold all of her home psych meds - pt has gen weakness but UE seem to be more affected than LE, ? need for EMG/conduction studies - will d/w neuro - EEG done and shows gen slowing Chronic pain - pt on methadone as outpt -Given her current obtundation her methadone was held yesterday and she was given Narcan CV Stable Resp Acute Hypoxic Resp failure-FiO2 needs have significantly decreased -Today on PSV -Will attempt to obtain weaning parameters -She is not positive will give 1 dose of Lasix MRSA [id number] chest x-ray looks improved from arrival. -Continue antibiotics Renal HyperNa-resolved Lactic Acidosis-resolved HypoCa- 2gr IV HypoK- repleted PO and IV GI Transaminitis-mild monitor, - CT on arrival showed fatty liver - check viral panel GI proph-Pepcid Endo DM- PO meds on hold, cover with SSI Heme Leukocytosis-likely related to MRSA infection Anemia-mild monitor -Drop today but likely from fluid resuscitation yesterday -No active bleeding noted DVT proph-Lovenox ID MRSA bacteremia-patient has been seen by ID and recommendations are appreciated -Repeat blood cultures have been negative since the third Case discussed with ICU team and floor team Labs, imaging and records reviewed Approximately 40 cc minutes required for evaluation, exam, review, intervention, discussion of formulation of plan of care for this critically ill female with acute hypoxic respiratory failure at high risk for further and ongoing decompensation Provider Notation Provider Notation: Although this document has been carefully reviewed, there may still be some phonetic and other typographical errors. These errors are purely grammatical due to imperfections in the software program and should not be construed in any way to compromise the substance of the patient's medical care during this visit. Thank you for the opportunity and privilege in assisting you with this patient's care and management.
[2024-10-06] MEDS: FUROSEMIDE INJ 10 MG/ML 4ML VIAL 40 MG IVP (11:42)
[2024-10-06] MEDS: POTASSIUM CHLORIDE 10% 20 MEQ/15 ML UDC 60 MEQ GT (11:42)
[2024-10-06] MEDS: CALCIUM GLUC/NS 1000MG IVPB 1,000 MG/50 ML BAG 50 MG IV ×3 (11:43→14:45)
[2024-10-06] MEDS: POTASSIUM CHL 10 mEq IVPB 10 MEQ/100 ML BAG 100 MEQ IV ×2 (11:44→13:11)
[2024-10-06] MEDS: ACETAMINOPHEN 500 MG TABLET PO (13:11)
[2024-10-06 13:13] LABS: Hepatitis A Antibody IgM Non Reactive (Non React); Hepatitis B Core Antibody IgM Non Reactive (Non React); Hepatitis B Surface Antigen Non Reactive (Non React); Hepatitis C Antibody Non Reactive (Non React)
--- NOTE | 2024-10-06 15:52 | PC.SS ---
Update: Patient is intubated. Feedings via NG tube. Patient is not receiving pressors. Possible extubation tomorrow.
[2024-10-06] MEDS: INSULIN GLARGINE (Lantus) 5 UNIT/0.05 ML (PER 5 UNITS) 18 UNIT SC (20:19)
--- NOTE | 2024-10-06 23:59 | PC.RT ---
settings found on ventilator difer from order, order updated RN aware.
[2024-10-07] VITALS (35 sets, daily range): BP systolic 142–191; BP diastolic 71–98; PULSE 10–105; RESP 1–26; TEMP 36.6–38.1; O2SAT 3–100; BMI 29.4
[2024-10-07] MEDS: INSULIN LISPRO (AdmeLOG) 1 UNIT/0.01 ML UNIT SC ×2 (00:41→05:26)
[2024-10-07] MEDS: DILTIAZEM 30 MG TABLET 60 MG PO ×4 (00:41→19:05)
[2024-10-07] MEDS: LEVALBUTEROL RT 0.63 MG/3 ML NEBU INH ×6 (02:31→22:27)
[2024-10-07] MEDS: IPRATROPIUM RT 0.5 MG/ 2.5 ML NEBU INH ×6 (02:31→22:27)
--- NOTE | 2024-10-07 03:27 | RESP.EEG ---
EEG COMPLETED AND READY FOR REVIEW.
[2024-10-07 04:34] LABS: Base Excess 9 (-3-3); HCO3 33 mEq/L (20-26); Inspired Oxygen, FIO2 28 %; O2 Saturation 96 % (91-98); PCO2 40 mmHg (32.0-48.0); PO2 72 mmHg (83-108); pH, Arterial 7.52 (7.35-7.45)
[2024-10-07 04:40] LABS: Allen Test Not Performed; Puncture Site Right Radial
[2024-10-07 05:57] LABS: Basophils % (Auto) 0 % (0-2.5); Eosinophils % (Auto) 0 % (0-10); Hematocrit 35.4 % (36.0-46.0); Hemoglobin 11.6 g/dL (12.0-16.0); Immature Granulocytes % (Auto) 1 % (0-0); Immature Granulocytes Auto 0.12 Thou/mm3 (0.00-0.00); Lymphocytes # (Auto) 1.1 Thou/mm3 (1.0-4.8); Lymphocytes % (Auto) 8 % (10-50); Mean Corpuscular HGB Conc 32.8 g/dl (31.0-37.0); Mean Corpuscular Hemoglobin 28.1 pg (25.0-35.0); Mean Corpuscular Volume 86 fL (80-100); Monocytes # (Auto) 0.7 Thou/mm3 (0.0-0.8); Monocytes % (Auto) 5 % (0-12); Neutrophils # (Auto) 12.3 Thou/mm3 (1.8-7.7); Neutrophils % (Auto) 87 % (37-80); Nucleated Red Blood Cell # 0.03 Thou/mm3 (0.00-0.00); Nucleated Red Blood Cell % 0 /100 WBC (0); Platelet Count 207 Thou/mm3 (140-440); Red Blood Count 4.13 Miln/mm3 (4.00-5.20); White Blood Count 14.3 Thou/mm3 (3.6-11.0)
[2024-10-07 06:15] LABS: Alanine Aminotransferase 86 U/L (10-49); Albumin, Serum 3.2 gm/dL (3.4-4.8); Albumin/Globulin Ratio 1.2 (1.2-2.2); Alkaline Phosphatase 335 U/L (46-116); Anion Gap 8 (7-16); Aspartate Amino Transferase 92 U/L (0-34); BUN/Creatinine Ratio 14 Ratio (12-20); Blood Urea Nitrogen 11 mg/dL (9-23); Calcium 7.7 mg/dL (8.3-10.6); Calcium (Corrected) 8.3 mg/dL (8.5-10.1); Carbon Dioxide 32.9 mMol/L (20.0-31.0); Chloride 98 mMol/L (98-107); Creatinine (Component) 0.8 mg/dL (0.6-1.3); Estimated Creatinine Clearance 69.3 mL/min (>60); Globulin 2.6 gm/dL (2.3-3.5); Glucose 212 mg/dL (74-106); Osmolality,Calculated 282 (275-295); Potassium 3.1 mMol/L (3.4-5.1); Sodium 139 mMol/L (136-145); Total Protein 5.8 gm/dL (5.7-8.2); eGFR > 60 See Note
[2024-10-07] MEDS: POTASSIUM CHLORIDE 10% 20 MEQ/15 ML UDC 40 MEQ GT (06:24)
--- NOTE | 2024-10-07 07:21 | XR_ITS ---
Examination: AP chest single view Technique one AP portable semiupright chest single view Exam date and time: October 07, 2024 0815 hours Compared to October 05, 2024 INDICATIONS: Acute hypoxic respiratory failure sepsis this week, postintubation, extensive pneumonia on chest film September 2024 FINDINGS: Diffuse bilateral pneumonia again noted Normal heart size Endotracheal tube tip 3.2 cm above mason The orogastric tube is in the stomach in satisfactory position IMPRESSION: No significant change in diffuse bilateral pneumonia
[2024-10-07] MEDS: Lisinopril 2.5 MG TABLET 5 MG PO ×2 (08:22→10:18)
[2024-10-07] MEDS: POLYETHYLENE GLYCOL 17 GM PACKET PO ×2 (08:22→10:19)
[2024-10-07] MEDS: SENNA TABLET 1 TAB PO (08:23)
[2024-10-07] MEDS: amLODIPine BESYLATE 5 MG TABLET PO (08:23)
[2024-10-07] MEDS: guaiFENesin/DM TABLET 2 EACH PO ×2 (08:23→21:18)
[2024-10-07] MEDS: FAMOTIDINE 20 MG TABLET PO ×2 (08:23→21:18)
[2024-10-07] MEDS: ENOXAPARIN SOD INJ 40 MG/0.4 ML SYRINGE SC (08:24)
--- NOTE | 2024-10-07 09:35 | PD.IMPROG ---
Documentation for date of: 10/07/24 Subjective Subjective Interval history: pt continue to be treated for respiratory failure Exam Vital Signs Temp Pulse Resp BP Pulse Ox O2 Del Method O2 Flow Rate 100.5 F H 90 16 167/83 H 72 L Mechanical Ventilation 10 10/07/24 08:01 10/07/24 08:23 10/07/24 08:22 10/07/24 08:23 10/07/24 08:22 10/07/24 06:00 10/04/24 10:35 FiO2 28 10/07/24 08:22 Routine HEENT Exam Head: Present normocephalic and atraumatic Eye: Present EOMI and PERRL ENT: Present mucous membranes moist Routine Neck Exam Neck: Present supple and trachea midline Routine Respiratory Exam Respiratory: Present chest non-tender, lungs clear, normal breath sounds and no resp distress Routine Cardiovascular Exam Cardiovascular: Present RRR Routine Abdominal Exam Abdominal: Present soft and normoactive bowel sounds Routine Extremities Exam Extremities: Present full ROM Routine Skin Exam Skin: Present intact, dry and warm Objective Labs 10/07/24 05:37 10/07/24 05:37 Labs: Laboratory Results - last 24 hr 10/06/24 10/07/24 10/07/24 05:06 04:25 05:37 WBC 14.3 H RBC 4.13 Hgb 11.6 L Hct 35.4 L MCV 86 MCH 28.1 MCHC 32.8 RDW Std Deviation 46.0 Plt Count 207 Neut % (Auto) 87 H Lymph % (Auto) 8 L [place] % (Auto) 5 Eos % (Auto) 0 Baso % (Auto) 0 Neut # (Auto) 12.3 H Lymph # (Auto) 1.1 [place] # (Auto) 0.7 Eos # (Auto) 0.0 Baso # (Auto) 0.0 Immature Gran # (Auto) 0.12 H Absolute Nucleated RBC 0.03 H Immature Gran % 1 H Nucleated RBC % 0 Puncture Site Right Radial ABG pH 7.52 H ABG pCO2 40 ABG pO2 72 L ABG HCO3 33 H ABG O2 Saturation 96 ABG Base Excess 9 H FiO2 28 Sodium 139 Potassium 3.1 L Chloride 98 Carbon Dioxide 32.9 H Anion Gap 8 BUN 11 Creatinine 0.8 Estim Creat Clear Calc 69.3 eGFR > 60 BUN/Creatinine Ratio 14 Glucose 212 H Calculated Osmolality 282 Calcium 7.7 L Corrected Calcium 8.3 L Total Bilirubin 1.0 AST 92 H ALT 86 H Alkaline Phosphatase 335 H Total Protein 5.8 Albumin 3.2 L Globulin 2.6 Albumin/Globulin Ratio 1.2 Hepatitis A IgM Ab Non Reactive Hep Bs Antigen Non Reactive Hep B Core IgM Ab Non Reactive Hepatitis C Antibody Non Reactive ABG Interpretation ABG results: 09/29/24 09/29/24 09/30/24 00:03 15:16 03:36 ABG pH 7.29 L 7.33 L 7.39 ABG pCO2 42 45 41 ABG pO2 72 L 216 H D 91 D ABG HCO3 20 23 25 ABG O2 Saturation 92 100 H 97 ABG Base Excess -7 L -3 0 09/30/24 09/30/24 10/01/24 13:49 18:56 11:49 ABG pH 7.25 L D 7.35 D 7.49 H D ABG pCO2 53 H D 43 D 35 ABG pO2 161 H D 213 H D 114 H D ABG HCO3 23 24 26 ABG O2 Saturation 99 H 100 H 99 H ABG Base Excess -5 L -2 3 10/02/24 10/03/24 10/04/24 10:53 10:54 09:57 ABG pH 7.50 H 7.53 H 7.54 H ABG pCO2 35 41 46 ABG pO2 71 L D 101 D 46 L* D ABG HCO3 27 H 34 H 39 H ABG O2 Saturation 95 98 85 L ABG Base Excess 4 H 10 H 15 H 10/04/24 10/05/24 10/05/24 13:10 04:16 11:35 ABG pH 7.48 H 7.49 H 7.48 H ABG pCO2 53 H 46 45 ABG pO2 301 H D 75 L D 68 L ABG HCO3 39 H 35 H 33 H ABG O2 Saturation 100 H 96 94 ABG Base Excess Not Performed. 10 H 9 H 10/06/24 10/07/24 04:22 04:25 ABG pH 7.48 H 7.52 H ABG pCO2 42 40 ABG pO2 57 L* 72 L ABG HCO3 31 H 33 H ABG O2 Saturation 91 96 ABG Base Excess 7 H 9 H Assessment & Plan Assessment and plan (1) Atrial fibrillation: Status: Acute (2) RAD (reactive airway disease): Status: Acute (3) Hypoxia: Status: Acute (4) Severe sepsis: Status: Acute (5) Respiratory failure: Status: Acute A&P Narrative blood cultures remain negative continue treatment Time Spent With Patient Time: Total time spent is greater than 50% in coordination of care (as documented) at patient's floor/unit and/or counseling patient:
[2024-10-07] MEDS: POTASSIUM CHLORIDE 10% 20 MEQ/15 ML UDC GT (10:18)
[2024-10-07] MEDS: POT PHOS 15 mMol in NS 250 ML 15 MMOL/250 ML BAG 62.5 MMOL IV (10:19)
[2024-10-07 10:29] LABS: Vancomycin,Trough 17.5 mcg/mL (5.0-10.0)
[2024-10-07] MEDS: VANCOMYCIN/NS 750 MG IVPB 750 MG/150 ML BAG 120 MG IV ×2 (11:01→21:19)
[2024-10-07] MEDS: ACETAzolaMIDE SOD 500 MG in SODIUM CHLORIDE 0.9% (P) 50 ML 100 MG IV (11:35)
--- NOTE | 2024-10-07 12:24 | PD.RESPRO ---
Documentation for date of: 10/07/24 Subjective Subjective Interval history: 10/05: no acute overnight events. Pt urine output over night was 25cc/h. Pt. is seen and examined at bedside this morning. Pts RAAS was -2, she opens her eyes to touch and voice but is unable to follow commands. Patient is not on any sedation's this morning but still very somnolent and not waking up. patient has improvement in her edema from yesterday. Will follow-up with EEG reading which was done by the primary team a couple days ago. 10/06: no acute overnight events. pts urine output is about 850ml/h and have not had a bowel movement. Pt. is awake off sedation, she responds to voice by opening her eyes and moves her head in the direction of voice but does not follow command. She also does not respond to painful stimuli. she does not move her upper or lower extremities to painful stimuli. EEG reading showed diffuse slowing. Pt's edema in the upper and lower extremities is unchanged from yesterday. she is mechanical ventilated on spontaneous pressure support. will continue to monitor to see if pt. will be able to tolerate extubation today. 10/07: Overnight patient had a temperature of 100.6, urine output was 650. Patient is awake and alert. She is extubated today, patient has weakness in her extremities and able to move her extremities. Exam Vital Signs Temp Pulse Resp BP Pulse Ox O2 Del Method O2 Flow Rate 100.5 F H 91 18 143/98 H 100 Mechanical Ventilation 3 10/07/24 08:01 10/07/24 10:36 10/07/24 10:36 10/07/24 10:18 10/07/24 10:36 10/07/24 06:00 10/07/24 10:36 FiO2 28 10/07/24 08:22 Narrative Exam GENERAL: awake, follows some commands NEURO: Unobtainable due to pt is mechanical ventilated HEENT: Atraumatic, Normocephalic. mucous membranes moist, ET and OG tube present HEART: Normal Heart Sounds LUNGS: coarse breath sounds bilaterally throughout the lung lloyd ABDOMEN: soft, non-distended, non-tender SKIN: No Rash or ecchymoses, mottling resolved EXTREMITIES: edema in all 4 extremities, no tenderness, able to move all 4 extremities on painful stimuli, pedal pulses palpated Objective Labs 10/07/24 05:37 10/07/24 05:37 Labs: Laboratory Results - last 24 hr 10/06/24 10/07/24 10/07/24 05:06 04:25 05:37 WBC 14.3 H RBC 4.13 Hgb 11.6 L Hct 35.4 L MCV 86 MCH 28.1 MCHC 32.8 RDW Std Deviation 46.0 Plt Count 207 Neut % (Auto) 87 H Lymph % (Auto) 8 L [place] % (Auto) 5 Eos % (Auto) 0 Baso % (Auto) 0 Neut # (Auto) 12.3 H Lymph # (Auto) 1.1 [place] # (Auto) 0.7 Eos # (Auto) 0.0 Baso # (Auto) 0.0 Immature Gran # (Auto) 0.12 H Absolute Nucleated RBC 0.03 H Immature Gran % 1 H Nucleated RBC % 0 Puncture Site Right Radial ABG pH 7.52 H ABG pCO2 40 ABG pO2 72 L ABG HCO3 33 H ABG O2 Saturation 96 ABG Base Excess 9 H FiO2 28 Sodium 139 Potassium 3.1 L Chloride 98 Carbon Dioxide 32.9 H Anion Gap 8 BUN 11 Creatinine 0.8 Estim Creat Clear Calc 69.3 eGFR > 60 BUN/Creatinine Ratio 14 Glucose 212 H Calculated Osmolality 282 Calcium 7.7 L Corrected Calcium 8.3 L Total Bilirubin 1.0 AST 92 H ALT 86 H Alkaline Phosphatase 335 H Total Protein 5.8 Albumin 3.2 L Globulin 2.6 Albumin/Globulin Ratio 1.2 Vancomycin Trough Hepatitis A IgM Ab Non Reactive Hep Bs Antigen Non Reactive Hep B Core IgM Ab Non Reactive Hepatitis C Antibody Non Reactive 10/07/24 09:30 WBC RBC Hgb Hct MCV MCH MCHC RDW Std Deviation Plt Count Neut % (Auto) Lymph % (Auto) [place] % (Auto) Eos % (Auto) Baso % (Auto) Neut # (Auto) Lymph # (Auto) [place] # (Auto) Eos # (Auto) Baso # (Auto) Immature Gran # (Auto) Absolute Nucleated RBC Immature Gran % Nucleated RBC % Puncture Site ABG pH ABG pCO2 ABG pO2 ABG HCO3 ABG O2 Saturation ABG Base Excess FiO2 Sodium Potassium Chloride Carbon Dioxide Anion Gap BUN Creatinine Estim Creat Clear Calc eGFR BUN/Creatinine Ratio Glucose Calculated Osmolality Calcium Corrected Calcium Total Bilirubin AST ALT Alkaline Phosphatase Total Protein Albumin Globulin Albumin/Globulin Ratio Vancomycin Trough 17.5 H Hepatitis A IgM Ab Hep Bs Antigen Hep B Core IgM Ab Hepatitis C Antibody ABG Interpretation ABG results: 09/29/24 09/29/24 09/30/24 00:03 15:16 03:36 ABG pH 7.29 L 7.33 L 7.39 ABG pCO2 42 45 41 ABG pO2 72 L 216 H D 91 D ABG HCO3 20 23 25 ABG O2 Saturation 92 100 H 97 ABG Base Excess -7 L -3 0 09/30/24 09/30/24 10/01/24 13:49 18:56 11:49 ABG pH 7.25 L D 7.35 D 7.49 H D ABG pCO2 53 H D 43 D 35 ABG pO2 161 H D 213 H D 114 H D ABG HCO3 23 24 26 ABG O2 Saturation 99 H 100 H 99 H ABG Base Excess -5 L -2 3 10/02/24 10/03/24 10/04/24 10:53 10:54 09:57 ABG pH 7.50 H 7.53 H 7.54 H ABG pCO2 35 41 46 ABG pO2 71 L D 101 D 46 L* D ABG HCO3 27 H 34 H 39 H ABG O2 Saturation 95 98 85 L ABG Base Excess 4 H 10 H 15 H 10/04/24 10/05/24 10/05/24 13:10 04:16 11:35 ABG pH 7.48 H 7.49 H 7.48 H ABG pCO2 53 H 46 45 ABG pO2 301 H D 75 L D 68 L ABG HCO3 39 H 35 H 33 H ABG O2 Saturation 100 H 96 94 ABG Base Excess Not Performed. 10 H 9 H 10/06/24 10/07/24 04:22 04:25 ABG pH 7.48 H 7.52 H ABG pCO2 42 40 ABG pO2 57 L* 72 L ABG HCO3 31 H 33 H ABG O2 Saturation 91 96 ABG Base Excess 7 H 9 H Quality Measures Quality Measures VTE prophylaxis (Heparin) Assessment & Plan Assessment Current Active Medications: Generic Name Dose Route Start Last Admin Trade Name Freq PRN Reason Stop Dose Admin Acetaminophen 500 mg 10/02/24 16:03 10/06/24 13:11 Acetaminophen 500 Mg Tablet PO 11/01/24 16:02 500 mg Q6HR PRN Administration Fever > 100.4 or Pain 1-3 Amlodipine Besylate 5 mg 10/05/24 09:00 10/07/24 08:23 Amlodipine Besylate 5 Mg Tablet PO 11/04/24 08:59 5 mg QDAY LUKE Administration Dextrose 25 ml 09/28/24 23:34 Dextrose 50%-Water Inj 50 Ml Syringe IV 10/28/24 23:33 Q15MIN PRN BG 50-70 responsive npo pt Dextrose 50 ml 09/28/24 23:34 Dextrose 50%-Water Inj 50 Ml Syringe IV 10/28/24 23:33 Q15MIN PRN BG <50 OR BG <70 & pt unresponsive Diltiazem HCl 60 mg 10/02/24 12:00 10/07/24 05:26 Diltiazem 30 Mg Tablet PO 11/01/24 11:59 60 mg Q6HR LUKE Administration Duloxetine HCl 60 mg 09/29/24 01:45 10/02/24 08:05 Duloxetine Hcl 30 Mg Capsule PO 10/29/24 01:44 Not Given BID LUKE Enoxaparin Sodium 40 mg 10/04/24 12:30 10/07/24 08:24 Enoxaparin Sod Inj 40 Mg/0.4 Ml Syringe SC 10/18/24 12:29 40 mg QDAY LUKE Administration Famotidine 20 mg 10/05/24 09:00 10/07/24 08:23 Famotidine 20 Mg Tablet PO 11/04/24 08:59 20 mg BID LUKE Administration Glucagon 1 mg 09/28/24 23:34 Glucagon Inj 1 Mg Vial IM Q15MIN PRN BG <70, and no IV access Guaifenesin/Dextromethorphan 2 each 09/30/24 10:00 10/07/24 08:23 Guaifenesin/Dm Tablet PO 10/30/24 09:59 2 each BID LUKE Administration Heparin Sodium/Dextrose 25,000 unit in 250 mls @ 9.362 mls/hr 09/29/24 15:00 10/03/24 07:08 Heparin In D5w Ivpb IV 10/13/24 14:59 11 units/kg/hr .Q24H LUKE 8.582 mls/hr Titration Protocol 12 UNITS/KG/HR Norepinephrine/Dextrose 8 mg in 250 mls @ 6.902 mls/hr 10/04/24 11:19 Levophed In D5w 8mg/250ml IV 11/03/24 11:18 .Q24H PRN PER PROTOCOL Protocol 0.05 MCG/KG/MIN Fentanyl Citrate 2,500 mcg in 250 mls @ 2.5 mls/hr 10/04/24 11:41 10/05/24 08:13 Sublimaze Inj 2,500 Mcg/250 Ml Bag IV 10/09/24 11:40 0 mcg/hr .Q24H PRN 0 mls/hr PER PROTOCOL Titration Protocol 25 MCG/HR Dexmedetomidine/Sodium Chloride 400 mcg in 100 mls @ 3.681 mls/hr 10/04/24 11:44 10/05/24 08:13 Precedex Ivpb IV 11/03/24 11:43 0 mcg/kg/hr .Q24H PRN 0 mls/hr Per PROTOCOL Titration Protocol 0.2 MCG/KG/HR Vancomycin/Sodium Chloride 750 mg in 150 mls @ 120 mls/hr 10/06/24 10:00 10/07/24 11:01 Vancomycin/Ns 750 Mg Ivpb IV 10/13/24 09:59 120 mls/hr BID@1000,2200 LUKE Administration Protocol Potassium Phosphate 15 mmol in 250 mls @ 62.5 mls/hr 10/07/24 09:51 10/07/24 10:19 Pot Phos 15 Mmol In Ns 250 Ml IV 10/07/24 13:50 62.5 mls/hr X1 ONE Administration Insulin Glargine 18 unit 10/04/24 21:00 10/06/24 20:19 Insulin Glargine (Lantus) 5 Unit/0.05 Ml (Per 5 Units) SC 11/03/24 20:59 18 unit HS LUKE Administration Insulin Human Lispro 0 unit 10/01/24 18:30 10/07/24 05:26 Insulin Lispro (Admelog) 1 Unit/0.01 Ml Unit SC 10/31/24 18:29 4 unit Q6HR LUKE Administration Protocol Ipratropium [place] 0.5 mg 09/29/24 07:35 10/07/24 10:35 Ipratropium Rt 0.5 Mg/ 2.5 Ml Nebu INH 10/29/24 07:34 0.5 mg Q4HRRT LUKE Administration Labetalol HCl 10 mg 10/03/24 21:00 Labetalol Inj 5 Mg/Ml Vial 20 Ml IVP 11/02/24 20:59 Q6HR PRN Systolic >180 and HR >80 Levalbuterol HCl 0.63 mg 10/03/24 07:00 10/07/24 10:35 Levalbuterol Rt 0.63 Mg/3 Ml Nebu INH 11/02/24 06:59 0.63 mg Q4HRRT LUKE Administration Lisinopril 10 mg 10/08/24 09:00 Lisinopril 2.5 Mg Tablet PO 11/07/24 08:59 QDAY LUKE Magnesium Hydroxide 30 ml 10/07/24 09:49 Milk Of Magnesia Susp 30 Ml Udc PO 11/06/24 09:48 QDAY PRN CONSTIPATION Protocol Ondansetron HCl 4 mg 09/28/24 23:26 Ondansetron Inj 2 Mg/Ml Inj 2 Ml IV 10/28/24 23:25 Q6H PRN NAUSEA OR VOMITING Protocol Pharmacy Consult 1 each 09/30/24 06:36 Vancomycin Pharmacy To Dose 1 Each Each IV 10/29/24 08:59 QDAY PRN PROTOCOL Polyethylene Glycol 17 gm 09/30/24 10:00 10/07/24 08:22 Polyethylene Glycol 17 Gm Packet PO 10/30/24 09:59 17 gm QDAY LUKE Administration Sennosides 1 tab 09/29/24 09:00 10/07/24 08:23 Senna Tablet PO 10/29/24 08:59 1 tab QDAY LUKE Administration Protocol Sodium Chloride 3 ml 10/01/24 18:17 Sodium Chloride Rt [place] 0.9% 3 Ml Nebu INH 10/31/24 18:16 PRN PRN SOLN Plan Ms. Oviedo is a 64-year-old female with past medical history significant for hypertension, hyperlipidemia, diabetes and chronic pain presented to the ED complaining of generalized weakness and cough for the last 4 days. Patient was admitted to the hospital for acute respiratory failure and severe sepsis secondary to bilateral pneumonia. neuro # Acute encephalopathy -likely multi-factorial secondary to polypharmacy (as Pt is on many psych meds) , infectious, hypoxia secondary to AHRF -MRI brain on 10/03 negative for acute hemorrhage, mass effect or midline shift -S/P LP done on 10/03- CSF gram stain and culture had no WBCs and no organisms -Currently turned off the sedation but still have profound weakness in her U and L extremities and does not move her arms or legs to painful stimuli -EEG showed diffuse slowing -neurologist is following- waiting on further recommendations #History of major depressive disorder -History of mental health disorders and 2 previous suicide attempts -due to current mentation will hold home Quetiapine, diazepam, duloxetine Cardio #Volume overload -BNP 707 om 10/05 -Likely in the setting of fluid resuscitation -On physical examination patient did have some crackles and 1+ pitting edema on lower extremities -Echo done on 09/29- EF 65-70% -Will continue to monitor -Acetazolamide x 1 given on 10/05 #New onset A-fib -Likely secondary to severe sepsis and hypoxia -Cardizem every 6 hours -Keep mag above 2 and potassium above 4 -[id number] score is 3 -Patient is on Lovenox daily #Primary Hypertension -increase home lisinopril 10mg due to elevate BP today -Continue amlodipine 5 Mg #DVT prophylaxis - Lovenox Pulm #Acute Hypoxic Respiratory Failure #MRSA Pneumonia -Patient is intubated on mechanically ventilated on 10/04/2024 -bilateral pneumonia evident on chest x-rays and CT scan -Continue breathing treatments and guaifenesin as necessary -Blood Culture (09/28/2024)X2: MRSA, sensitive to vancoymcin, since then blood cultures have been negative -Sputum Culture (09/28/2024) MRSA -Continuing IV vancomycin [09/29/2024?to present] -Repeat blood cultures have been negative -Pt is extubated today 10/07 GI #Transaminitis #Elevated alkaline phosphatase -AST 223, ALT 107, alkaline phosphatase 341 -Likely secondary to severe sepsis, will continue to monitor -avoid hepatotoxic agents #Constipation - Pt. have not had a bowel movement since the h of August -moderate stool throughout the colon evident on CT on 09/28 -Pt is given Senna, miralax and milk of magnesium # NG tube -Glucerna 1.2 at 20 ml/hr via NG tube with Glucerna 1.2 at 20 ml/hr and water flushes of 75 ml/hr Renal #Hypocalcemia #hypokalemia -Corrected calcium 8.3 and potassium 3.1 -likely in the setting of severe sepsis and poor oral intake -80 meq potassium given -Will continue to monitor daily labs #metabolic alkalosis -pH 7.52, CO2 40, O2 72, HCO3 33 -pt. is not on diuretics, no diarrhea, no vomiting and no continuos nasogastric suctioning -Acetazolamide x1 given on 10/07 Endo #Uncontrolled Diabetes Mellitus Type 2 -Home regimen: Farxiga 5 mg, insulin Lantus 55 units, metformin 1 g -HA1c 10.6 on 09/29 -Lantus 28 units at bedtime -ISS -Continue to monitor blood glucose Heme # Leukocytosis -WBC 14.3 -11/30 to sepsis in the setting of MRSA bacteremia MSK/Skin # Mottling-over the knees -likely in the setting of severe/refractory sepsis -will treat underlying condition and continue to monitor #History of chronic pain -Patient reports having a history of chronic pain and is on multiple medications: Duloxetine, gabapentin, tizanidine, tramadol, methadone -Holding home neuro suppressing medications due to patient's current mental status Infectious disease #Severe Sepsis #MRSA bacteremia #MRSA Pneumonia - as above, patient is on antibiotics Health Maintenance Code Status: Full Code Diet: NG tube feedings resumed with Glucerna 1.2 at 20 ml/hr and water flushes of 75 ml/hr DVT: Lovenox Lines: NG, ET, PIVs, Miller Dispo: Admitted to ICU for acute hypoxic respiratory failure and inability to protect airway. Patient is intubated on 10/04 and extubated on 10/07 Assessment and plan discussed with my attending physician Dr. Estrada Amaya ([id number]-[id number])- Internal medicine resident
[2024-10-07] MEDS: Milk Of Magnesia Susp 30 ML UDC PO (13:05)
--- NOTE | 2024-10-07 15:47 | ESPR_ITS ---
Documentation for date of: 10/07/24 Subjective Subjective Interval history: This is a 64-year-old female who was admitted to the hospital on 29 September for shortness of breath and hypoxia. She was found to have an MRSA pneumonia. Initially she required a BiPAP however then was placed on a facemask. Per the floor team she has been mottled since arrival. Today a rapid response was called for hypoxia desatting down into the 80s. A BiPAP was placed / at 100% FiO2. Her sats rapidly improved to 100% and we were able to titrate down the FiO2. Her mentation has been altered and she has been encephalopathic since arrival. Given that at 1 point she had a fever the floor team was concerned for meningitis and therefore an LP was performed with no WBCs noted. She does have a history of polypharmacy. She has been on methadone 10 mg p.o. 3 times daily during her hospital stay. During the rapid Narcan was given with slight improvement in mentation however not sufficient. An ABG and a stat chest x-ray were obtained. The chest x-ray showed improvement in her lung lloyd compared paired to prior. The ABG showed a metabolic alkalosis. The BiPAP was providing her with a minute ventilation of 18-20 therefore at that point in time the BiPAP was stopped and she was continued with a facemask. Given her altered mentation her desats and mottling decision was made to bring patient to the ICU. She continued to have intermittent episodes of desat as low as 70%. The decision was made to intubate her. During intubation she was noted to have very thick viscous dark secretions covering her airway which were suctioned with difficulty. 10/05-no acute overnight events, afebrile, good urinary output, patient was given several liters of IV fluid yesterday and her mottling has resolved. 10/06-no acute overnight events, has remained off of all sedation, today is able to open her eyes to commands and track, she is able to weakly wiggle her toes, does not appear to have much movement in her upper extremities does appear to have profound weakness, afebrile, good urinary output. 10/07-no acute overnight events, patient is awake and able to follow commands, has extreme weakness of her upper extremities, able to move her lower extremities, good urinary output, Tmax of 100.5 Critical Care Note Critical care time (min.): 38 Exam Vital Signs Temp Pulse Resp BP Pulse Ox O2 Del Method O2 Flow Rate 98.7 F 84 18 142/77 H 100 Mechanical Ventilation 3 10/07/24 12:00 10/07/24 14:22 10/07/24 14:22 10/07/24 14:01 10/07/24 14:22 10/07/24 06:00 10/07/24 14:22 FiO2 28 10/07/24 08:22 Narrative Exam General-no acute distress, awake, weak, normal body habitus HEENT-normocephalic, atraumatic, sclera icteric, oral mucosa is hydrated, EOMI, pupils equal reactive Chest-lungs clear to auscultation bilaterally, heart regular rhythmic, no bruits or murmurs auscultated on exam, no increased work of breathing Abdomen-soft, nontender, sounds present, no rebound or guarding Extremities-pulses palpable, no clubbing, no mottling, unable to elicit withdrawal in upper extremities, will follow commands with lower extremities Vent PSV Physical Exam Completion Physical Exam Complete?: Yes Objective - [employer] 10/07/24 05:37 10/07/24 05:37 Labs: Laboratory Results - last 24 hr 10/07/24 10/07/24 10/07/24 04:25 05:37 09:30 WBC 14.3 H RBC 4.13 Hgb 11.6 L Hct 35.4 L MCV 86 MCH 28.1 MCHC 32.8 RDW Std Deviation 46.0 Plt Count 207 Neut % (Auto) 87 H Lymph % (Auto) 8 L [place] % (Auto) 5 Eos % (Auto) 0 Baso % (Auto) 0 Neut # (Auto) 12.3 H Lymph # (Auto) 1.1 [place] # (Auto) 0.7 Eos # (Auto) 0.0 Baso # (Auto) 0.0 Immature Gran # (Auto) 0.12 H Absolute Nucleated RBC 0.03 H Immature Gran % 1 H Nucleated RBC % 0 Puncture Site Right Radial ABG pH 7.52 H ABG pCO2 40 ABG pO2 72 L ABG HCO3 33 H ABG O2 Saturation 96 ABG Base Excess 9 H FiO2 28 Sodium 139 Potassium 3.1 L Chloride 98 Carbon Dioxide 32.9 H Anion Gap 8 BUN 11 Creatinine 0.8 Estim Creat Clear Calc 69.3 eGFR > 60 BUN/Creatinine Ratio 14 Glucose 212 H Calculated Osmolality 282 Calcium 7.7 L Corrected Calcium 8.3 L Total Bilirubin 1.0 AST 92 H ALT 86 H Alkaline Phosphatase 335 H Total Protein 5.8 Albumin 3.2 L Globulin 2.6 Albumin/Globulin Ratio 1.2 Vancomycin Trough 17.5 H Assessment & Plan Problem List (1) Atrial fibrillation: Status: Acute (2) RAD (reactive airway disease): Status: Acute (3) Hypoxia: Status: Acute (4) Severe sepsis: Status: Acute (5) Respiratory failure: Status: Acute Additional Assessment Additional Assessment: In summary this 64-year-old female admitted to the ICU for acute hypoxic respiratory failure secondary to MRSA pneumonia and altered mental status 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 She has also been continued on her methadone and Seroquel while in-house. She is hypoxic and hyponatremic. All of these can contribute to her altered mentation. She did undergo a LP for concern of possible meningitis this had 3 WBCs. Neurology is following. An MRI of the brain was performed and found to be within normal limits. -Will monitor closely for withdrawal -Today patient opens eyes spontaneously and is able to track around the room -Cognitive status seems to be much improved -Continue to hold all of her home psych meds - pt has gen weakness but UE seem to be more affected than LE, ? need for EMG/conduction studies - will d/w neuro-> eval still pending - EEG done and shows gen slowing -Patient's mentation appears to be improved continue off meds Chronic pain - pt on methadone as outpt -Given her current obtundation her methadone was held yesterday and she was given Narcan -Continue to hold methadone CV Stable Resp Acute Hypoxic Resp failure-patient has been on PSV -NIF of -24 -Extubated successfully to room air MRSA [id number] chest x-ray looks improved from arrival. -Continue antibiotics -Appears to be doing well Renal HyperNa-resolved Metabolic alkalosis-given 1 dose of Diamox HypoCa- 2gr IV HypoK- repleted PO and IV -Continues to be low today, will replete once more GI Transaminitis-mild monitor, - CT on arrival showed fatty liver -Viral panel is negative GI proph-Pepcid Endo DM- PO meds on hold, cover with SSI Heme Leukocytosis-likely related to MRSA infection Anemia-mild monitor -Drop today but likely from fluid resuscitation yesterday -No active bleeding noted DVT proph-Lovenox ID MRSA bacteremia-patient has been seen by ID and recommendations are appreciated -Repeat blood cultures have been negative since the third Case discussed with ICU team Labs, imaging and records reviewed Approximately 38 cc minutes required for evaluation, exam, review, intervention, discussion of formulation of plan of care for this critically ill female with acute hypoxic respiratory failure at high risk for further and ongoing decompensation Provider Notation Provider Notation: Although this document has been carefully reviewed, there may still be some phonetic and other typographical errors. These errors are purely grammatical due to imperfections in the software program and should not be construed in any way to compromise the substance of the patient's medical care during this visit. Thank you for the opportunity and privilege in assisting you with this patient's care and management.
[2024-10-07] MEDS: INSULIN GLARGINE (Lantus) 5 UNIT/0.05 ML (PER 5 UNITS) 18 UNIT SC (22:14)
--- NOTE | 2024-10-07 23:21 | PD.NEUROPROG ---
Documentation for date of: 10/07/24 Subjective Subjective Interval history: Patient was seen in ICU today, got extubated this morning and is maintaining oxygen saturation well. However continues to be weak in both upper and lower extremities. Exam - Neurology Vital Signs Temp Pulse Resp BP Pulse Ox O2 Del Method O2 Flow Rate 98.6 F 102 H 20 161/85 H 100 Nasal Cannula 3 10/07/24 20:00 10/07/24 22:29 10/07/24 22:29 10/07/24 20:00 10/07/24 22:29 10/07/24 20:00 10/07/24 22:29 FiO2 28 10/07/24 08:22 Narrative Exam GENERAL APPEARANCE: Well hydrated, well-nourished in no acute distress. HEENT: Normocephalic, atraumatic, extraocular movements intact. Pupils: Equal reacting to light and accommodation NECK: Supple, no JVD or bruits. CARDIOVASULAR: Heart: S1, S2 heard, regular without S3-S4 or murmur no rubs or gallops. LUNGS/CHEST: Clear to auscultation bilaterally. No rails, rhonchi, or wheezing. Normal inspection. ABDOMEN: Soft, nontender, with normal bowel sounds. No pulsatile masses. No rebound, rigidity, or guarding. Normal inspection and palpation. EXTREMITIES: Normal inspection and palpation. No edema, clubbing or cyanosis. SKIN: Warm and dry without rashes. Normal inspection. MUSCULOSKELETAL: No cervical, thoracic, lumbar or midline bony tenderness. Normal inspection. NEURO: Alert, awake. Cranial nerves: II through XII grossly intact. Speech and language: hypophonic. Motor system: Tone and bulk: Normal: Strength: significant weakness in both proximal and distal UE and LE. Deep tendon reflexes: hyporeflexic, bilaterally symmetrical. Plantar reflex: Downgoing bilaterally. Sensory system: Intact to pinprick sensation bilaterally. Coordination and gait cannot be tested. No signs of meningeal irritation noted. PSYCHIATRIC: Normal mood and affect. Objective Labs 10/07/24 05:37 10/07/24 05:37 Labs: Laboratory Results - last 24 hr 10/07/24 10/07/24 10/07/24 04:25 05:37 09:30 WBC 14.3 H RBC 4.13 Hgb 11.6 L Hct 35.4 L MCV 86 MCH 28.1 MCHC 32.8 RDW Std Deviation 46.0 Plt Count 207 Neut % (Auto) 87 H Lymph % (Auto) 8 L [place] % (Auto) 5 Eos % (Auto) 0 Baso % (Auto) 0 Neut # (Auto) 12.3 H Lymph # (Auto) 1.1 [place] # (Auto) 0.7 Eos # (Auto) 0.0 Baso # (Auto) 0.0 Immature Gran # (Auto) 0.12 H Absolute Nucleated RBC 0.03 H Immature Gran % 1 H Nucleated RBC % 0 Puncture Site Right Radial ABG pH 7.52 H ABG pCO2 40 ABG pO2 72 L ABG HCO3 33 H ABG O2 Saturation 96 ABG Base Excess 9 H FiO2 28 Sodium 139 Potassium 3.1 L Chloride 98 Carbon Dioxide 32.9 H Anion Gap 8 BUN 11 Creatinine 0.8 Estim Creat Clear Calc 69.3 eGFR > 60 BUN/Creatinine Ratio 14 Glucose 212 H Calculated Osmolality 282 Calcium 7.7 L Corrected Calcium 8.3 L Total Bilirubin 1.0 AST 92 H ALT 86 H Alkaline Phosphatase 335 H Total Protein 5.8 Albumin 3.2 L Globulin 2.6 Albumin/Globulin Ratio 1.2 Vancomycin Trough 17.5 H ABG Interpretation ABG results: 09/29/24 09/29/24 09/30/24 00:03 15:16 03:36 ABG pH 7.29 L 7.33 L 7.39 ABG pCO2 42 45 41 ABG pO2 72 L 216 H D 91 D ABG HCO3 20 23 25 ABG O2 Saturation 92 100 H 97 ABG Base Excess -7 L -3 0 09/30/24 09/30/24 10/01/24 13:49 18:56 11:49 ABG pH 7.25 L D 7.35 D 7.49 H D ABG pCO2 53 H D 43 D 35 ABG pO2 161 H D 213 H D 114 H D ABG HCO3 23 24 26 ABG O2 Saturation 99 H 100 H 99 H ABG Base Excess -5 L -2 3 10/02/24 10/03/24 10/04/24 10:53 10:54 09:57 ABG pH 7.50 H 7.53 H 7.54 H ABG pCO2 35 41 46 ABG pO2 71 L D 101 D 46 L* D ABG HCO3 27 H 34 H 39 H ABG O2 Saturation 95 98 85 L ABG Base Excess 4 H 10 H 15 H 10/04/24 10/05/24 10/05/24 13:10 04:16 11:35 ABG pH 7.48 H 7.49 H 7.48 H ABG pCO2 53 H 46 45 ABG pO2 301 H D 75 L D 68 L ABG HCO3 39 H 35 H 33 H ABG O2 Saturation 100 H 96 94 ABG Base Excess Not Performed. 10 H 9 H 10/06/24 10/07/24 04:22 04:25 ABG pH 7.48 H 7.52 H ABG pCO2 42 40 ABG pO2 57 L* 72 L ABG HCO3 31 H 33 H ABG O2 Saturation 91 96 ABG Base Excess 7 H 9 H Assessment & Plan Assessment and plan (1) Quadriparesis: Status: Acute Assessment and plan: DD: Critical illness polyneuropathy/Myopathy MG GBS Plan: ESR, CRP, Acetylcholine receptor antibodies: binding, blocking and modulating, CPK, Aldolase, YVROSE level in serum Will consider LP and send the CSF to rule out GBS. If significant for albumino cytological dissociation, consider IVIG x5 days Will need EMG and NCS of both UE and LE as an outpatient if weakness persists. Consider PT/OT as needed. (2) Atrial fibrillation: Status: Acute (3) Hypoxia: Status: Resolved Assessment and plan: got extubated and maintaining o2 saturstion. (4) Severe sepsis: Status: Acute Assessment and plan: being treated with IV antibiotics and stable. (5) Respiratory failure: Status: Resolved
[2024-10-08] VITALS (18 sets, daily range): BP systolic 116–160; BP diastolic 67–88; PULSE 86–115; RESP 14–26; TEMP 36.2–37.3; O2SAT 90–100; BMI 29.4
--- NOTE | 2024-10-08 | XR_ITS ---
Examination: MRI lumbar spine , with intravenous contrast. Exam date and time: May 08, 2024 1924 hrs. Indications: Low back pain beginning years ago, 2 spinal surgeries 1989 9M 2003, mild central lumbar disc bulge L5-S1 Noncontrast MRI lumbar spine October 04, 2012 Technique: Multiple axial, sagittal and coronal images of the lumbar spine have been obtained with the Siemens high-resolution 1.5 Rosina MRI scanner. Images obtained included T2 weighted fat suppressed sagittal sections, TR 3500, TE 46, T2 weighted coronal fat suppressed images, TR 3050, TE 84, T2-weighted transverse fat suppressed images, TR 30-60, TE 63, proton density transverse images, TR 4720, TE 46, and T1 weighted coronal images, TR 560, TE 13. Axial, sagittal and coronal images are obtained post intravenous injection 15 cc gadolinium. Findings: Transpedicular lumbar fusion L4-S1 with satisfactory alignment No abnormal osseous disc or epidural enhancement diagnostic for epidural abscess Adequate alignment lumbar vertebral bodies The precontrast images would have been very helpful for comparison Impression: Transpedicular lumbar fusion L4-S1 with satisfactory alignment No findings of osteomyelitis discitis or definite epidural abscess
[2024-10-08] MEDS: DILTIAZEM 30 MG TABLET 60 MG PO ×5 (00:32→23:43)
[2024-10-08] MEDS: IPRATROPIUM RT 0.5 MG/ 2.5 ML NEBU INH ×5 (02:22→20:31)
[2024-10-08] MEDS: LEVALBUTEROL RT 0.63 MG/3 ML NEBU INH ×5 (02:22→20:31)
[2024-10-08] MEDS: INSULIN LISPRO (AdmeLOG) 1 UNIT/0.01 ML UNIT SC ×4 (05:21→23:43)
[2024-10-08 05:56] LABS: Basophils % (Auto) 0 % (0-2.5); Eosinophils % (Auto) 0 % (0-10); Hematocrit 34.2 % (36.0-46.0); Hemoglobin 11.4 g/dL (12.0-16.0); Immature Granulocytes % (Auto) 1 % (0-0); Immature Granulocytes Auto 0.14 Thou/mm3 (0.00-0.00); Lymphocytes # (Auto) 1.3 Thou/mm3 (1.0-4.8); Lymphocytes % (Auto) 9 % (10-50); Mean Corpuscular HGB Conc 33.3 g/dl (31.0-37.0); Mean Corpuscular Hemoglobin 28.1 pg (25.0-35.0); Mean Corpuscular Volume 84 fL (80-100); Monocytes % (Auto) 7 % (0-12); Neutrophils # (Auto) 12.5 Thou/mm3 (1.8-7.7); Neutrophils % (Auto) 84 % (37-80); Nucleated Red Blood Cell # 0.02 Thou/mm3 (0.00-0.00); Nucleated Red Blood Cell % 0 /100 WBC (0); Platelet Count 200 Thou/mm3 (140-440); RDW Standard Deviation 45.6 fL (36.4-46.3); Red Blood Count 4.05 Miln/mm3 (4.00-5.20)
[2024-10-08 06:38] LABS: Alanine Aminotransferase 65 U/L (10-49); Albumin, Serum 3.2 gm/dL (3.4-4.8); Albumin/Globulin Ratio 1.1 (1.2-2.2); Alkaline Phosphatase 290 U/L (46-116); Anion Gap 12 (7-16); Aspartate Amino Transferase 79 U/L (0-34); BUN/Creatinine Ratio 19 Ratio (12-20); Blood Urea Nitrogen 13 mg/dL (9-23); Calcium (Corrected) 7.6 mg/dL (8.5-10.1); Carbon Dioxide 24.6 mMol/L (20.0-31.0); Chloride 104 mMol/L (98-107); Creatinine (Component) 0.7 mg/dL (0.6-1.3); Estimated Creatinine Clearance 79.2 mL/min (>60); Globulin 2.8 gm/dL (2.3-3.5); Glucose 169 mg/dL (74-106); Osmolality,Calculated 285 (275-295); Phosphorous 4.4 mg/dL (2.4-5.1); Sodium 141 mMol/L (136-145); eGFR > 60 See Note
[2024-10-08 07:37] LABS: HIV (1&2) Antibody Rapid Non-Reactive
--- NOTE | 2024-10-08 08:00 | EVENTNT_ITS ---
<Statement entered by Chaparro Velez MD - 10/08/24 14:39> I saw and examined the patient, and I agree with current management stated by Dr Jamee MD,PGY1. Plan of care was discussed with the attending physician and resident physician. Disclaimer: Despite multiple revisions, due to the dictation software being used, the document bellow may not be free of grammatical errors including phonetic/typographic errors. However, this does not deter from our commitment to providing health care in the patient's best interest in mind. Dr. Agustin MD, PGY 2 Documentation for date of: 10/08/24 Event Note Event Note: Event Note Downgrade overnight on 10/08/2024 Patient is a 64 year female with past medical history of DM 2 insulin dependent, hyperlipidemia, chronic back pain, history of behaviral health issues, and chronic back pain on methadone. Found to have MRS bacteremia likely secondary to CAP placed on antibiotics. Patient was downgrade overnight from ICU to floors. Patient was initially upgraded to ICU on 10/04/2024 for acute hypoxic respiratory failure with inability to protect airway requiring intubation. Neurology was consulted in ICU. ESR, CRP, and Acetycholine placed. Currently saturating well on N.C. but encephalopathy still present. Patient will return to floors on 10/08/2024. - The patient's plan was discussed with attending Dr. Del Cid and senior residents Dr. Agustin Mancuso MD PGY1 Internal Medicine
[2024-10-08] MEDS: FAMOTIDINE 20 MG TABLET PO ×2 (08:10→20:43)
[2024-10-08] MEDS: amLODIPine BESYLATE 5 MG TABLET PO (08:10)
[2024-10-08] MEDS: POLYETHYLENE GLYCOL 17 GM PACKET PO (08:10)
[2024-10-08] MEDS: ENOXAPARIN SOD INJ 40 MG/0.4 ML SYRINGE SC (08:10)
[2024-10-08] MEDS: SENNA TABLET 1 TAB PO (08:10)
[2024-10-08] MEDS: Lisinopril 2.5 MG TABLET 10 MG PO (08:10)
[2024-10-08] MEDS: guaiFENesin/DM TABLET 2 EACH PO ×2 (08:10→20:43)
[2024-10-08] MEDS: POTASSIUM CHLORIDE 10% 20 MEQ/15 ML UDC 40 MEQ NG ×2 (09:34→12:36)
[2024-10-08] MEDS: CALCIUM CARBONATE 600 MG TABLET NG (09:34)
[2024-10-08] MEDS: Magnesium Sulfate 4 GM Ivpb 4 GM/50 ML BAG IV (09:34)
[2024-10-08] MEDS: VANCOMYCIN/NS 750 MG IVPB 750 MG/150 ML BAG 120 MG IV ×2 (09:44→21:01)
[2024-10-08] MEDS: Magnesium Sulfate 2 GM Ivpb 2 GM/50 ML BAG IV (12:36)
--- NOTE | 2024-10-08 13:21 | ESPR_ITS ---
<Statement entered by Chaparro Velez MD - 10/08/24 14:48> Patient was seen and examined at the bedside. Patient was extubated yesterday safely without complication and was downgraded from ICU. She was seen and examined at the bedside with . She was alert however not responding to commands but was noting her head and moving eyes spontaneously on few questions. Repeat blood cultures have been negative. EEG showed myoclonic seizures. Neurology placed further investigations including ESR, CRP, CPK, aldolase, YVROSE levels, acetylcholine receptor antibody. Differentials include critical illness polyneuropathy/myopathy. Currently managing with IV antibiotic vancomycin. We ordered MRI lumbar spine to rule out epidural abscess. Resumed Eliquis 5 mg twice daily and ordered Mucomyst Q4 hourly with chest PT Q4 hourly. Electrolytes were repleted today. All labs and orders were reviewed. I saw and examined the patient, and I agree with current management stated by Dr Jamee MD,[id number]. Plan of care was discussed with the attending physician and resident physician. Disclaimer: Despite multiple revisions, due to the dictation software being used, the document bellow may not be free of grammatical errors including phonetic/typographic errors. However, this does not deter from our commitment to providing health care in the patient's best interest in mind. Dr. Agustin MD, PGY 2 Documentation for date of: 10/08/24 Subjective Subjective Interval history: Patient is a 67-year-old female with a past medical history of diabetes mellitus type 2 insulin-dependent nonadherent, hyperlipidemia, Hypertension, and history of chronic back pack (on methadone at home), and history of behavarial health. No overnight events reported for patient. Patient was extubated on 10/07/2024. Patien continues to be in an altered state despite antibiotics treating MRSA bacteria seoncary to CAP. Patient alert and following some commands but continues to have decreased motor function in all 4 extremities. Exam Vital Signs Temp Pulse Resp BP Pulse Ox O2 Del Method O2 Flow Rate 98.1 F 102 H 18 134/67 H 100 Nasal Cannula 1 10/08/24 11:59 10/08/24 12:36 10/08/24 11:59 10/08/24 12:36 10/08/24 11:59 10/08/24 11:59 10/08/24 11:59 FiO2 28 10/08/24 00:00 Narrative Exam General Appearance: Alert & Oriented X0, well-nourished female who is lying in bed in no acute distress, alert but continues to be altered and unable to follow commands. HEENT: Skull symmetrical and atraumatic. Conjunctivae pin and moist. Pupils equal, round, reactive to light and accommodation (PERRL). External ear without lesion or discharge. Straight, nares patient, mucosa pink, no discharge. Cardio: Normal Rate and Rhythm with S1 and S2 heart sounds. No murmurs or extra heart sounds auscultated. No bruits on carotid auscultation. No peripheral edema or cyanosis. Lungs: Symmetric with good expansion. Chest and back non-tender. Breath sounds vesicular without crackles, wheezing or rhonchi Abdomen: Non-tender, Non-distended, Normal Reactive Bowel Sounds Neuro: YES Alert,Yes cooperative, No oriented to person, No place, and NO time. None verbal. CN grossly intact. Upper motor strength 0/5 and Lower motor strength 0/5. Sensation intact. Objective Labs 10/09/24 04:52 10/09/24 04:52 Labs: Laboratory Results - last 24 hr 10/08/24 05:30 WBC 15.0 H RBC 4.05 Hgb 11.4 L Hct 34.2 L MCV 84 MCH 28.1 MCHC 33.3 RDW Std Deviation 45.6 Plt Count 200 Neut % (Auto) 84 H Lymph % (Auto) 9 L [place] % (Auto) 7 Eos % (Auto) 0 Baso % (Auto) 0 Neut # (Auto) 12.5 H Lymph # (Auto) 1.3 [place] # (Auto) 1.0 H Eos # (Auto) 0.0 Baso # (Auto) 0.0 Immature Gran # (Auto) 0.14 H Absolute Nucleated RBC 0.02 H Immature Gran % 1 H Nucleated RBC % 0 Sodium 141 Potassium 3.0 L Chloride 104 Carbon Dioxide 24.6 Anion Gap 12 BUN 13 Creatinine 0.7 Estim Creat Clear Calc 79.2 eGFR > 60 BUN/Creatinine Ratio 19 Glucose 169 H Calculated Osmolality 285 Calcium 7.0 L Corrected Calcium 7.6 L Phosphorus 4.4 Magnesium 1.0 L Total Bilirubin 1.0 AST 79 H ALT 65 H Alkaline Phosphatase 290 H D Total Protein 6.0 Albumin 3.2 L Globulin 2.8 Albumin/Globulin Ratio 1.1 L HIV 1&2 Antibody Rapid Non-Reactive ABG Interpretation ABG results: 09/29/24 09/29/24 09/30/24 00:03 15:16 03:36 ABG pH 7.29 L 7.33 L 7.39 ABG pCO2 42 45 41 ABG pO2 72 L 216 H D 91 D ABG HCO3 20 23 25 ABG O2 Saturation 92 100 H 97 ABG Base Excess -7 L -3 0 09/30/24 09/30/24 10/01/24 13:49 18:56 11:49 ABG pH 7.25 L D 7.35 D 7.49 H D ABG pCO2 53 H D 43 D 35 ABG pO2 161 H D 213 H D 114 H D ABG HCO3 23 24 26 ABG O2 Saturation 99 H 100 H 99 H ABG Base Excess -5 L -2 3 10/02/24 10/03/24 10/04/24 10:53 10:54 09:57 ABG pH 7.50 H 7.53 H 7.54 H ABG pCO2 35 41 46 ABG pO2 71 L D 101 D 46 L* D ABG HCO3 27 H 34 H 39 H ABG O2 Saturation 95 98 85 L ABG Base Excess 4 H 10 H 15 H 10/04/24 10/05/24 10/05/24 13:10 04:16 11:35 ABG pH 7.48 H 7.49 H 7.48 H ABG pCO2 53 H 46 45 ABG pO2 301 H D 75 L D 68 L ABG HCO3 39 H 35 H 33 H ABG O2 Saturation 100 H 96 94 ABG Base Excess Not Performed. 10 H 9 H 10/06/24 10/07/24 04:22 04:25 ABG pH 7.48 H 7.52 H ABG pCO2 42 40 ABG pO2 57 L* 72 L ABG HCO3 31 H 33 H ABG O2 Saturation 91 96 ABG Base Excess 7 H 9 H Quality Measures Quality Measures VTE prophylaxis (Heparin) Assessment & Plan Assessment Current Active Medications: Generic Name Dose Route Start Last Admin Trade Name Freq PRN Reason Stop Dose Admin Acetaminophen 500 mg 10/02/24 16:03 10/06/24 13:11 Acetaminophen 500 Mg Tablet PO 11/01/24 16:02 500 mg Q6HR PRN Administration Fever > 100.4 or Pain 1-3 Acetylcysteine 3 ml 12/11/24 15:00 Acetylcysteine Rt [place] 10% 4 Ml Nebu INH 11/07/24 14:59 Q4HRRT LUKE Amlodipine Besylate 5 mg 10/05/24 09:00 10/08/24 08:10 Amlodipine Besylate 5 Mg Tablet PO 11/04/24 08:59 5 mg QDAY LUKE Administration Apixaban 5 mg 10/08/24 21:00 Apixaban 2.5 Mg Tablet PO 11/07/24 20:59 BID LUKE Calcium Carbonate 600 mg 10/08/24 09:00 10/08/24 09:34 Calcium Carbonate 600 Mg Tablet NG 11/07/24 08:59 600 mg QDAY LUKE Administration Dextrose 25 ml 09/28/24 23:34 Dextrose 50%-Water Inj 50 Ml Syringe IV 10/28/24 23:33 Q15MIN PRN BG 50-70 responsive npo pt Dextrose 50 ml 09/28/24 23:34 Dextrose 50%-Water Inj 50 Ml Syringe IV 10/28/24 23:33 Q15MIN PRN BG <50 OR BG <70 & pt unresponsive Diltiazem HCl 60 mg 10/02/24 12:00 10/08/24 12:36 Diltiazem 30 Mg Tablet PO 11/01/24 11:59 60 mg Q6HR LUKE Administration Duloxetine HCl 60 mg 09/29/24 01:45 10/02/24 08:05 Duloxetine Hcl 30 Mg Capsule PO 10/29/24 01:44 Not Given BID LUKE Famotidine 20 mg 10/05/24 09:00 10/08/24 08:10 Famotidine 20 Mg Tablet PO 11/04/24 08:59 20 mg BID LUKE Administration Glucagon 1 mg 09/28/24 23:34 Glucagon Inj 1 Mg Vial IM Q15MIN PRN BG <70, and no IV access Guaifenesin/Dextromethorphan 2 each 09/30/24 10:00 10/08/24 08:10 Guaifenesin/Dm Tablet PO 10/30/24 09:59 2 each BID LUKE Administration Vancomycin/Sodium Chloride 750 mg in 150 mls @ 120 mls/hr 10/06/24 10:00 10/08/24 09:44 Vancomycin/Ns 750 Mg Ivpb IV 10/13/24 09:59 120 mls/hr BID@1000,2200 LUKE Administration Protocol Magnesium Sulfate 2 gm in 50 mls @ 25 mls/hr 10/08/24 12:10 10/08/24 12:36 Magnesium Sulfate Ivpb IV 10/08/24 14:09 25 mls/hr X1 ONE Administration Insulin Glargine 18 unit 10/04/24 21:00 10/07/24 22:14 Insulin Glargine (Lantus) 5 Unit/0.05 Ml (Per 5 Units) SC 11/03/24 20:59 18 unit HS LUKE Administration Insulin Human Lispro 0 unit 10/01/24 18:30 10/08/24 12:36 Insulin Lispro (Admelog) 1 Unit/0.01 Ml Unit SC 10/31/24 18:29 2 unit Q6HR LUKE Administration Protocol Ipratropium [place] 0.5 mg 09/29/24 07:35 10/08/24 10:56 Ipratropium Rt 0.5 Mg/ 2.5 Ml Nebu INH 10/29/24 07:34 0.5 mg Q4HRRT LUKE Administration Labetalol HCl 10 mg 10/03/24 21:00 Labetalol Inj 5 Mg/Ml Vial 20 Ml IVP 11/02/24 20:59 Q6HR PRN Systolic >180 and HR >80 Levalbuterol HCl 0.63 mg 10/03/24 07:00 10/08/24 10:56 Levalbuterol Rt 0.63 Mg/3 Ml Nebu INH 11/02/24 06:59 0.63 mg Q4HRRT LUKE Administration Lisinopril 10 mg 10/08/24 09:00 10/08/24 08:10 Lisinopril 2.5 Mg Tablet PO 11/07/24 08:59 10 mg QDAY LUKE Administration Magnesium Hydroxide 30 ml 10/07/24 09:49 10/07/24 13:05 Milk Of Magnesia Susp 30 Ml Udc PO 11/06/24 09:48 30 ml QDAY PRN Administration CONSTIPATION Protocol Ondansetron HCl 4 mg 09/28/24 23:26 Ondansetron Inj 2 Mg/Ml Inj 2 Ml IV 10/28/24 23:25 Q6H PRN NAUSEA OR VOMITING Protocol Pharmacy Consult 1 each 09/30/24 06:36 Vancomycin Pharmacy To Dose 1 Each Each IV 10/29/24 08:59 QDAY PRN PROTOCOL Polyethylene Glycol 17 gm 09/30/24 10:00 10/08/24 08:10 Polyethylene Glycol 17 Gm Packet PO 10/30/24 09:59 17 gm QDAY LUKE Administration Sennosides 1 tab 09/29/24 09:00 10/08/24 08:10 Senna Tablet PO 10/29/24 08:59 1 tab QDAY LUKE Administration Protocol Sodium Chloride 3 ml 10/01/24 18:17 Sodium Chloride Rt [place] 0.9% 3 Ml Nebu INH 10/31/24 18:16 PRN PRN SOLN Plan Patient is a 67-year-old female with a past medical history of diabetes mellitus type 2 insulin-dependent nonadherent, hyperlipidemia, and hypertension who was admitted on 09/29/2024 for severe sepsis and acute hypoxic respiratory failure likely secondary to extensive bilateral pneumonia, MRSA + bacteremia and not well be acute encephalopathy likely multifactorial involving underlying sepsis and polypharmacy. # Acute encephalopathy # Likely multifactorial Etiology: Multifactorial: Benzodiazepine withdrawal versus pain medication withdrawal vs less likely stroke as patient MRI was unremarkable vs less likely CSF infection as LP was unremarkable-with negative results for Neisseria negative, influenza, Strep B, and negative [place]. CSF ratio within normal limits. CSF WBC 3 and RBC 2-making HSV less likely Diagnostic: -MRI Brain (10/03/2024): Negative for acute hemorrhage mass effect or midline shift No acute infarct -Lumbar x-ray (10/03/2024): Successful fluoroscopically guided diagnostic lumbar puncture -CSF: WBC 3, RBC 2 Glucose 119, CSF Protein 46, Influenza neg, Neisseria negative, Strep B, -CSF Pending [place] Negative -CSF Pending Myelin and Angiotensin Plan: -MRI brain (10/08/2024): Transpedicular lumbar fusion L4 -S1 with satisfactory alignment . No findings of osteomyelitis discitis or definite epidural abscess. -ESR, CRP, Acetylcholine receptor antibodies -CPK, Aldolase, YVROSE level in serum -confirm with lab if these were placed unable to locate -Holding antipsychotic medications, diazepam and tramadol -Dietitian consulted for starting tube feeds and water flushes -Treating underlying infection -Per neuro recommendations: consider electromyography (EMG) and nerve conduction study (NCS)-outpatient #MRSA bacteremia #Community acquired pneumonia #Acute Hypoxic Respiratory Failure # Leukocytosis #Severe sepsis, likely secondary to CAP, Resolved Etiolgoy: Bacterial community-acquired pneumonia cannot be ruled out given past medical history of comorbidities and age, likely Streptococcus pneumoniae vs staph aures-->MRSA positive given first set of blood cultures and sputum cultures. DDx: Viral infection less likely as patient tested negative for Influenza and COVID vs less likely cocci as results were negative for serology. Diagnostic Test: -Blood Culture (09/28/2024)X2: MRSA, sensitive to vancoymcin -Blood Cultures (09/30/2024): No Growth after 48 hours -Blood Cutlrues (10/03/2024): Negative After 48 hours -Sputum Culture (09/29/2024) MRSA -Blood Culture (10/06/2024): Negative After 48 hours -CSF Culture: Negative -Cxr (10/07/2024): No significant change in diffuse bilateral pneumonia -Cxr (09/28/2024): Significant bilateral pneumonia -Head CT (09/28/2024): Negative for acute hemorrhage, mass effect or midline shift. If symptoms persist, consider brain MRI follow-up -CT Abdomen/Pelvis (09/28/2024): Extensive bilateral pneumonia. No renal or ureteral calculi, no hydronephrosis. Moderate stool throughout the colon Plan: -Continuing IV vancomycin [09/29/2024?to 10/04] per Dr. Humera gonzalez -Chest PT treatment Q4HR -Guaifenesin -Repeat second set blood cultures negative -Monitor for fever spike, white count elevation and signs of infection -Daily labs # Electrolyte disturbance # Hypokalemia #Hypomagnesium Potassium repletion. Magnesium repleted Diagnostics: -10/08/2024: K 3.0 and Magnesium Plan -Total 40 meq X 1 spaced apart -Magnesium 2g X 1 and Magnesium 4 X1 -Calcium Carbonate 600 mg Qday #New onset atrial Fibrilation with RVR, rate controlled #Bradycardia, Resolved Etiology: Acute atrial flutter likely secondary to sepsis.Overnight patient converted from atrial flutter to A-fib and diltiazem was switched to amnio. Rapid reports during day team at approximately 1335 for episode of bradycardia lasting about 1 second with possible AV block. Amio DC'd. If patient develops atrial flutter or atrial fibrillation may restart diltiazem at a slower rate. (10/01/2024) Patient experience episode of atrial fibrillation for 1 second. Given Positive MRSA blood culture, tentative VALERIE planned for Sunday-Dr. Romo DDx: Electrolyte imbalance versus cardiac etiology such as ectopic foci. Diagnostic: CHADVASC 3 EKG:Atrial Flutter EKG (09/30/2024) Atrial Fibrillation Cxr (09/29/2024): Significant bilateral pneumonia Plan: -Switch from Cardizem drip to p.o. Cardizem 60 mg 4 times daily via NG tube -Eliquis 5 mg BID (10/08/2024) -Cardiology recommended VALERIE-currently holding given altered mental status -Cardio consult, Dr. Romo, appreciate recommendation # Tube feedings -Due to acute encephalopathy -NG tube: Glucerna 1.2 at 20 ml/hr via NG tube by pump. Advance 10 ml every 8 hrs to goal rate of 55 ml/hr x 24 hrs. If no IV fluids, water flushes of 25 ml/hr (or per MD). Plan: -Refer to registered dietitian -Continue tube feeds and water flushes per nutritional recommendations by dietitian #History of Hypertension Patient at home takes lisinopril 5 mg daily. Plan -Lisinopril 10 mg Qday -Amlodipine add 5 mg QDay- -Labetalol 10 mg was given x 1, 10/02 #History of diabetes mellitus type 2 insulin dependent The patient home medication Farxiga 5 mg, insulin Lantus 55 units, metformin- currenlty holding oral medication Diagnostics: -A1c 10.6 -Fasting Glucose (10/03/2024): 169 Plan: -Lantus 18 units at bedtime -ISS -Hypoglycemia protocols in place #History of major depressive disorder #History of mental health disorders. HOld Diazepam and methadone in the setting of multiple rapid response and bradycardia with possible av block of about 1 second. Plan -Continue duloxetine 60 mg PO BID -Holding Quetiapine Fumarate 100 mg PO HS -Holding diazepam 10 mg PO BID due to altered mentation #History of chronic pain Patient reports having a history of chronic pain and is on multiple medications: Duloxetine, gabapentin, tizanidine, tramadol, methadone She does not respon well to opioids Plan: -Holding Valium and tramadol -Holding Methadone 10 mg TID via G-tube #Euthyroid Sick Syndrome In the setting of bacteremia and increasing inflammatory response, reduction in TSH and coversion of T4 and T3. Unlikely this is a lab error as T4/T3 are both low and TSH levels are Diagnostic: -(10/01/2024): TSH 0.31, Free T4 0.72, Free T3 1.1 Plan -No intervention for euthyroid sick syndrome #Hyperbilirubinemia #Hyperalkaline phosphatase Bilirubin on admission was 2.3 with ALP of 243. CT abdomen and pelvis was done showed an absent gallbladder. Hyperbilirubinemia and elevated alkaline phosphatase in the setting of dehydration and poor oral intake. Patient has abdominal pain or fever and is anicteric. Diagnostics: US Gallbladder (09/29/2024): Absent gallbladder. Normal common bile duct. Hepatomegaly, primary hepatocellular disease versus cirrhosis no focal liver lesions 10/01/2024: Total Bili 1.8 Alkaline Phosphatase 201 AST 92 ALT 34-->10/04/2024 Total bili 1.7, AST 117, ALT 57 Plan: -No acute intervention #Elevated anion Gap, resolved #Lactic acidosis likely type B, Resolved Attending Provider Attestation/Addendum I have discussed and was present for the essential components of the history, physical examination, diagnosis, and treatment plan with the resident. I agree with the patient's care as documented by the resident and amended herein by me. Donn Del Cid DO. Although this document has been carefully reviewed, there may still be some phonetic and other typographical errors. These errors are purely grammatical due to imperfections in the software program and should not be construed in any way to compromise the substance of the patient's medical care during this visit.
[2024-10-08] MEDS: ACETYLCYSTEINE RT SOL 10% 4 ML NEBU 3 ML INH ×2 (14:14→20:31)
[2024-10-08 14:38] LABS: Sodium 137 mMol/L (136-145)
--- NOTE | 2024-10-08 15:03 | ESPR_ITS ---
Subjective Subjective Interval history: pt with mrsa bacteremia presumably of pulm origin. no flu test located. was in icu briefly and is now back on tele Exam Vital Signs Temp Pulse Resp BP Pulse Ox O2 Del Method O2 Flow Rate 98.1 F 86 22 H 134/67 H 98 Nasal Cannula 1 10/08/24 11:59 10/08/24 14:23 10/08/24 14:23 10/08/24 12:36 10/08/24 14:23 10/08/24 11:59 10/08/24 14:23 FiO2 28 10/08/24 00:00 Narrative Exam on O2, but seems minimal. not interactive. not at her side as usual. Objective - Internal Medicine Labs 10/08/24 05:30 10/08/24 14:11 Labs: Laboratory Results - last 24 hr 10/08/24 10/08/24 05:30 14:11 WBC 15.0 H RBC 4.05 Hgb 11.4 L Hct 34.2 L MCV 84 MCH 28.1 MCHC 33.3 RDW Std Deviation 45.6 Plt Count 200 Neut % (Auto) 84 H Lymph % (Auto) 9 L [place] % (Auto) 7 Eos % (Auto) 0 Baso % (Auto) 0 Neut # (Auto) 12.5 H Lymph # (Auto) 1.3 [place] # (Auto) 1.0 H Eos # (Auto) 0.0 Baso # (Auto) 0.0 Immature Gran # (Auto) 0.14 H Absolute Nucleated RBC 0.02 H Immature Gran % 1 H Nucleated RBC % 0 Sodium 141 137 Potassium 3.0 L Chloride 104 Carbon Dioxide 24.6 Anion Gap 12 BUN 13 Creatinine 0.7 Estim Creat Clear Calc 79.2 eGFR > 60 BUN/Creatinine Ratio 19 Glucose 169 H Calculated Osmolality 285 Calcium 7.0 L Corrected Calcium 7.6 L Phosphorus 4.4 Magnesium 1.0 L Total Bilirubin 1.0 AST 79 H ALT 65 H Alkaline Phosphatase 290 H D Total Protein 6.0 Albumin 3.2 L Globulin 2.8 Albumin/Globulin Ratio 1.1 L HIV 1&2 Antibody Rapid Non-Reactive ABG Interpretation ABG results: 09/29/24 09/29/24 09/30/24 00:03 15:16 03:36 ABG pH 7.29 L 7.33 L 7.39 ABG pCO2 42 45 41 ABG pO2 72 L 216 H D 91 D ABG HCO3 20 23 25 ABG O2 Saturation 92 100 H 97 ABG Base Excess -7 L -3 0 09/30/24 09/30/24 10/01/24 13:49 18:56 11:49 ABG pH 7.25 L D 7.35 D 7.49 H D ABG pCO2 53 H D 43 D 35 ABG pO2 161 H D 213 H D 114 H D ABG HCO3 23 24 26 ABG O2 Saturation 99 H 100 H 99 H ABG Base Excess -5 L -2 3 10/02/24 10/03/24 10/04/24 10:53 10:54 09:57 ABG pH 7.50 H 7.53 H 7.54 H ABG pCO2 35 41 46 ABG pO2 71 L D 101 D 46 L* D ABG HCO3 27 H 34 H 39 H ABG O2 Saturation 95 98 85 L ABG Base Excess 4 H 10 H 15 H 10/04/24 10/05/24 10/05/24 13:10 04:16 11:35 ABG pH 7.48 H 7.49 H 7.48 H ABG pCO2 53 H 46 45 ABG pO2 301 H D 75 L D 68 L ABG HCO3 39 H 35 H 33 H ABG O2 Saturation 100 H 96 94 ABG Base Excess Not Performed. 10 H 9 H 10/06/24 10/07/24 04:22 04:25 ABG pH 7.48 H 7.52 H ABG pCO2 42 40 ABG pO2 57 L* 72 L ABG HCO3 31 H 33 H ABG O2 Saturation 91 96 ABG Base Excess 7 H 9 H Assessment & Plan A&P Narrative mrsa bacteremia multiple food allergies suggest iv vanco thru 10/14. will see again prn. ok to do twice weekly renal panel in house on iv vanco, remove line at end of rx today is 10/08. Time Spent With Patient Time: Total time spent is greater than 50% in coordination of care (as documented) at patient's floor/unit and/or counseling patient:
--- NOTE | 2024-10-08 15:05 | ESPR_ITS ---
Documentation for date of: 10/08/24 Subjective Subjective Interval history: pt seen in the telemetry appears comfortable - confused no cardiac symptoms Exam Vital Signs Temp Pulse Resp BP Pulse Ox O2 Del Method O2 Flow Rate 98.1 F 86 22 H 134/67 H 98 Nasal Cannula 1 10/08/24 11:59 10/08/24 14:23 10/08/24 14:23 10/08/24 12:36 10/08/24 14:23 10/08/24 11:59 10/08/24 14:23 FiO2 28 10/08/24 00:00 Routine HEENT Exam Head: Present normocephalic and atraumatic Eye: Present EOMI and PERRL ENT: Present mucous membranes moist Routine Neck Exam Neck: Present supple and trachea midline Routine Respiratory Exam Respiratory: Present chest non-tender, lungs clear, normal breath sounds and no resp distress Routine Cardiovascular Exam Cardiovascular: Present RRR Routine Abdominal Exam Abdominal: Present soft and normoactive bowel sounds Routine Extremities Exam Extremities: Present full ROM Routine Skin Exam Skin: Present intact, dry and warm Routine Neurological Exam Neurological: Present alert, oriented X3 and CN II-XII intact Routine Psychiatric Exam Psychiatric: Present normal affect and normal thought process Objective Labs 10/08/24 05:30 10/08/24 14:11 Labs: Laboratory Results - last 24 hr 10/08/24 10/08/24 05:30 14:11 WBC 15.0 H RBC 4.05 Hgb 11.4 L Hct 34.2 L MCV 84 MCH 28.1 MCHC 33.3 RDW Std Deviation 45.6 Plt Count 200 Neut % (Auto) 84 H Lymph % (Auto) 9 L [place] % (Auto) 7 Eos % (Auto) 0 Baso % (Auto) 0 Neut # (Auto) 12.5 H Lymph # (Auto) 1.3 [place] # (Auto) 1.0 H Eos # (Auto) 0.0 Baso # (Auto) 0.0 Immature Gran # (Auto) 0.14 H Absolute Nucleated RBC 0.02 H Immature Gran % 1 H Nucleated RBC % 0 Sodium 141 137 Potassium 3.0 L Chloride 104 Carbon Dioxide 24.6 Anion Gap 12 BUN 13 Creatinine 0.7 Estim Creat Clear Calc 79.2 eGFR > 60 BUN/Creatinine Ratio 19 Glucose 169 H Calculated Osmolality 285 Calcium 7.0 L Corrected Calcium 7.6 L Phosphorus 4.4 Magnesium 1.0 L Total Bilirubin 1.0 AST 79 H ALT 65 H Alkaline Phosphatase 290 H D Total Protein 6.0 Albumin 3.2 L Globulin 2.8 Albumin/Globulin Ratio 1.1 L HIV 1&2 Antibody Rapid Non-Reactive ABG Interpretation ABG results: 09/29/24 09/29/24 09/30/24 00:03 15:16 03:36 ABG pH 7.29 L 7.33 L 7.39 ABG pCO2 42 45 41 ABG pO2 72 L 216 H D 91 D ABG HCO3 20 23 25 ABG O2 Saturation 92 100 H 97 ABG Base Excess -7 L -3 0 09/30/24 09/30/24 10/01/24 13:49 18:56 11:49 ABG pH 7.25 L D 7.35 D 7.49 H D ABG pCO2 53 H D 43 D 35 ABG pO2 161 H D 213 H D 114 H D ABG HCO3 23 24 26 ABG O2 Saturation 99 H 100 H 99 H ABG Base Excess -5 L -2 3 10/02/24 10/03/24 10/04/24 10:53 10:54 09:57 ABG pH 7.50 H 7.53 H 7.54 H ABG pCO2 35 41 46 ABG pO2 71 L D 101 D 46 L* D ABG HCO3 27 H 34 H 39 H ABG O2 Saturation 95 98 85 L ABG Base Excess 4 H 10 H 15 H 10/04/24 10/05/24 10/05/24 13:10 04:16 11:35 ABG pH 7.48 H 7.49 H 7.48 H ABG pCO2 53 H 46 45 ABG pO2 301 H D 75 L D 68 L ABG HCO3 39 H 35 H 33 H ABG O2 Saturation 100 H 96 94 ABG Base Excess Not Performed. 10 H 9 H 10/06/24 10/07/24 04:22 04:25 ABG pH 7.48 H 7.52 H ABG pCO2 42 40 ABG pO2 57 L* 72 L ABG HCO3 31 H 33 H ABG O2 Saturation 91 96 ABG Base Excess 7 H 9 H Assessment & Plan A&P Narrative continue supportive care and treatment for pneumonia Time Spent With Patient Time: Total time spent is greater than 50% in coordination of care (as documented) at patient's floor/unit and/or counseling patient:
[2024-10-08] MEDS: LORazepam 2 MG/ML VIAL 1 MG IVP (19:10)
[2024-10-08] MEDS: APIXABAN 2.5 MG TABLET 5 MG PO (20:43)
[2024-10-08] MEDS: INSULIN GLARGINE (Lantus) 5 UNIT/0.05 ML (PER 5 UNITS) 18 UNIT SC (20:44)
--- NOTE | 2024-10-08 21:47 | ESPR_ITS ---
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 Exam - Neurology Vital Signs Temp Pulse Resp BP Pulse Ox O2 Del Method O2 Flow Rate 99.2 F 102 H 24 H 153/77 H 95 Nasal Cannula 1 10/08/24 20:00 10/08/24 20:31 10/08/24 20:31 10/08/24 20:00 10/08/24 20:31 10/08/24 20:00 10/08/24 20:31 FiO2 28 10/08/24 00:00 Narrative Exam GENERAL APPEARANCE: Well hydrated, well-nourished in no acute distress. HEENT: Normocephalic, atraumatic, extraocular movements intact. Pupils: Equal reacting to light and accommodation NECK: Supple, no JVD or bruits. CARDIOVASULAR: Heart: S1, S2 heard, regular without S3-S4 or murmur no rubs or gallops. LUNGS/CHEST: Clear to auscultation bilaterally. No rails, rhonchi, or wheezing. Normal inspection. ABDOMEN: Soft, nontender, with normal bowel sounds. No pulsatile masses. No rebound, rigidity, or guarding. Normal inspection and palpation. EXTREMITIES: Normal inspection and palpation. 3+edema in both upper and lower extremities, no clubbing or cyanosis noted. SKIN: Warm and dry without rashes. Normal inspection. MUSCULOSKELETAL: No cervical, thoracic, lumbar or midline bony tenderness. Normal inspection. NEURO: Alert, awake. nonverbal. follows commands. Cranial nerves: II through XII grossly intact. Motor system: Tone and bulk: Normal: Strength: significant weakness in both proximal and distal UE and LE. Deep tendon reflexes: hyporeflexic, bilaterally symmetrical. Plantar reflex: Downgoing bilaterally. Coordination and gait cannot be tested. No signs of meningeal irritation noted. PSYCHIATRIC: flat mood and affect. Objective Labs 10/08/24 05:30 10/08/24 14:11 Labs: Laboratory Results - last 24 hr 10/08/24 10/08/24 05:30 14:11 WBC 15.0 H RBC 4.05 Hgb 11.4 L Hct 34.2 L MCV 84 MCH 28.1 MCHC 33.3 RDW Std Deviation 45.6 Plt Count 200 Neut % (Auto) 84 H Lymph % (Auto) 9 L [place] % (Auto) 7 Eos % (Auto) 0 Baso % (Auto) 0 Neut # (Auto) 12.5 H Lymph # (Auto) 1.3 [place] # (Auto) 1.0 H Eos # (Auto) 0.0 Baso # (Auto) 0.0 Immature Gran # (Auto) 0.14 H Absolute Nucleated RBC 0.02 H Immature Gran % 1 H Nucleated RBC % 0 Sodium 141 137 Potassium 3.0 L Chloride 104 Carbon Dioxide 24.6 Anion Gap 12 BUN 13 Creatinine 0.7 Estim Creat Clear Calc 79.2 eGFR > 60 BUN/Creatinine Ratio 19 Glucose 169 H Calculated Osmolality 285 Calcium 7.0 L Corrected Calcium 7.6 L Phosphorus 4.4 Magnesium 1.0 L Total Bilirubin 1.0 AST 79 H ALT 65 H Alkaline Phosphatase 290 H D Total Protein 6.0 Albumin 3.2 L Globulin 2.8 Albumin/Globulin Ratio 1.1 L HIV 1&2 Antibody Rapid Non-Reactive ABG Interpretation ABG results: 09/29/24 09/29/24 09/30/24 00:03 15:16 03:36 ABG pH 7.29 L 7.33 L 7.39 ABG pCO2 42 45 41 ABG pO2 72 L 216 H D 91 D ABG HCO3 20 23 25 ABG O2 Saturation 92 100 H 97 ABG Base Excess -7 L -3 0 09/30/24 09/30/24 10/01/24 13:49 18:56 11:49 ABG pH 7.25 L D 7.35 D 7.49 H D ABG pCO2 53 H D 43 D 35 ABG pO2 161 H D 213 H D 114 H D ABG HCO3 23 24 26 ABG O2 Saturation 99 H 100 H 99 H ABG Base Excess -5 L -2 3 10/02/24 10/03/24 10/04/24 10:53 10:54 09:57 ABG pH 7.50 H 7.53 H 7.54 H ABG pCO2 35 41 46 ABG pO2 71 L D 101 D 46 L* D ABG HCO3 27 H 34 H 39 H ABG O2 Saturation 95 98 85 L ABG Base Excess 4 H 10 H 15 H 10/04/24 10/05/24 10/05/24 13:10 04:16 11:35 ABG pH 7.48 H 7.49 H 7.48 H ABG pCO2 53 H 46 45 ABG pO2 301 H D 75 L D 68 L ABG HCO3 39 H 35 H 33 H ABG O2 Saturation 100 H 96 94 ABG Base Excess Not Performed. 10 H 9 H 10/06/24 10/07/24 04:22 04:25 ABG pH 7.48 H 7.52 H ABG pCO2 42 40 ABG pO2 57 L* 72 L ABG HCO3 31 H 33 H ABG O2 Saturation 91 96 ABG Base Excess 7 H 9 H Assessment & Plan Assessment and plan (1) Quadriparesis: Status: Acute Assessment and plan: DD: Critical illness polyneuropathy/Myopathy csf protein is not significantly high to be considered for GBS for now. Will need EMG and NCS of both UE and LE as an outpatient if weakness persists. Consider PT/OT as needed. (2) Atrial fibrillation: Status: Acute (3) Hypoxia: Status: Resolved Assessment and plan: got extubated and maintaining o2 saturstion. (4) Severe sepsis: Status: Acute Assessment and plan: being treated with IV antibiotics and stable. (5) Respiratory failure: Status: Resolved
[2024-10-09] VITALS (20 sets, daily range): BP systolic 102–160; BP diastolic 63–78; PULSE 79–99; RESP 14–25; TEMP 35.9–36.6; O2SAT 93–99; BMI 29.5
[2024-10-09] MEDS: ACETYLCYSTEINE RT SOL 10% 4 ML NEBU 3 ML INH ×6 (00:27→22:47)
[2024-10-09] MEDS: LEVALBUTEROL RT 0.63 MG/3 ML NEBU INH ×6 (00:27→22:47)
[2024-10-09] MEDS: IPRATROPIUM RT 0.5 MG/ 2.5 ML NEBU INH ×7 (00:27→22:47)
[2024-10-09] MEDS: INSULIN LISPRO (AdmeLOG) 1 UNIT/0.01 ML UNIT SC ×3 (05:26→23:25)
[2024-10-09] MEDS: DILTIAZEM 30 MG TABLET 60 MG PO ×4 (05:26→23:25)
[2024-10-09 05:49] LABS: Basophils % (Auto) 0 % (0-2.5); Eosinophils % (Auto) 0 % (0-10); Hematocrit 31.1 % (36.0-46.0); Immature Granulocytes % (Auto) 1 % (0-0); Immature Granulocytes Auto 0.12 Thou/mm3 (0.00-0.00); Lymphocytes # (Auto) 1.2 Thou/mm3 (1.0-4.8); Lymphocytes % (Auto) 9 % (10-50); Mean Corpuscular HGB Conc 32.2 g/dl (31.0-37.0); Mean Corpuscular Hemoglobin 27.8 pg (25.0-35.0); Mean Corpuscular Volume 86 fL (80-100); Monocytes % (Auto) 7 % (0-12); Neutrophils # (Auto) 11.2 Thou/mm3 (1.8-7.7); Neutrophils % (Auto) 83 % (37-80); Nucleated Red Blood Cell # 0.03 Thou/mm3 (0.00-0.00); Nucleated Red Blood Cell % 0 /100 WBC (0); Platelet Count 224 Thou/mm3 (140-440); RDW Standard Deviation 47.4 fL (36.4-46.3); White Blood Count 13.6 Thou/mm3 (3.6-11.0)
[2024-10-09 06:26] LABS: Alanine Aminotransferase 55 U/L (10-49); Albumin, Serum 3.1 gm/dL (3.4-4.8); Albumin/Globulin Ratio 1.1 (1.2-2.2); Alkaline Phosphatase 288 U/L (46-116); Anion Gap 5 (7-16); Aspartate Amino Transferase 54 U/L (0-34); BUN/Creatinine Ratio 15 Ratio (12-20); Bilirubin,Total 0.7 mg/dL (0.3-1.2); Blood Urea Nitrogen 12 mg/dL (9-23); Calcium 7.3 mg/dL (8.3-10.6); Carbon Dioxide 28.2 mMol/L (20.0-31.0); Chloride 104 mMol/L (98-107); Creatinine (Component) 0.8 mg/dL (0.6-1.3); Estimated Creatinine Clearance 69.5 mL/min (>60); Globulin 2.8 gm/dL (2.3-3.5); Glucose 216 mg/dL (74-106); Magnesium 1.8 mg/dL (1.6-2.6); Osmolality,Calculated 280 (275-295); Potassium 3.4 mMol/L (3.4-5.1); Sodium 137 mMol/L (136-145); Total Protein 5.9 gm/dL (5.7-8.2); eGFR > 60 See Note
[2024-10-09 06:56] LABS: Angiotensin Convert Enz, CSF* 5 U/L (< OR = 15)
[2024-10-09] MEDS: POTASSIUM CHLORIDE 10% 20 MEQ/15 ML UDC 40 MEQ NG (09:09)
[2024-10-09] MEDS: Magnesium Sulfate 2 GM Ivpb 2 GM/50 ML BAG IV (09:09)
[2024-10-09] MEDS: POTASSIUM CHLORIDE 10% 20 MEQ/15 ML UDC NG (09:09)
[2024-10-09] MEDS: CALCIUM GLUC/NS 1000MG IVPB 1,000 MG/50 ML BAG 50 MG IV (09:09)
[2024-10-09] MEDS: SENNA TABLET 1 TAB PO (09:10)
[2024-10-09] MEDS: LACTULOSE SYRUP 20 GM/30 ML UDC 10 GM PO ×3 (09:10→21:01)
[2024-10-09] MEDS: amLODIPine BESYLATE 5 MG TABLET PO (09:10)
[2024-10-09] MEDS: FAMOTIDINE 20 MG TABLET PO (09:10)
[2024-10-09] MEDS: CALCIUM CARBONATE 600 MG TABLET NG (09:10)
[2024-10-09] MEDS: POLYETHYLENE GLYCOL 17 GM PACKET PO (09:11)
[2024-10-09] MEDS: APIXABAN 2.5 MG TABLET 5 MG PO ×2 (09:11→21:01)
[2024-10-09] MEDS: Lisinopril 2.5 MG TABLET 10 MG PO (09:11)
[2024-10-09] MEDS: guaiFENesin/DM TABLET 2 EACH PO ×2 (09:13→21:00)
[2024-10-09 09:45] LABS: Vancomycin,Trough 16.5 mcg/mL (5.0-10.0)
--- NOTE | 2024-10-09 10:10 | XR_ITS ---
Examination: Abdomen AP single view Technique: AP portable supine abdomen, single view Exam date and time: October 09, 2024 1032 hours INDICATIONS: No bowel movement beginning 3 days ago. FINDINGS: Abundant stool in the right colon No obstruction No free air Extensive lower lumbar fusion Prominent osteopenia IMPRESSION: Abundant stool in the right colon, no obstruction
[2024-10-09] MEDS: MAGNESIUM CITRATE 300 ML BTL PO (10:51)
[2024-10-09] MEDS: METOCLOPRAMIDE INJ 5 MG/ML VIAL 2 ML IVP ×3 (10:52→23:24)
[2024-10-09] MEDS: VANCOMYCIN/NS 750 MG IVPB 750 MG/150 ML BAG 120 MG IV ×2 (10:52→21:01)
--- NOTE | 2024-10-09 13:00 | ESPR_ITS ---
<Statement entered by Chaparro Velez MD - 10/09/24 13:01> Patient was seen and examined at the bedside. Patient appears to be more alert and oriented today. was present at bedside. She was able to do head- nodding home health on further questioning. Patient did not had a bowel movement since admission. We ordered a KUB to rule out small bowel obstruction and ordered senna, MiraLAX and magnesium citrate. Will follow-up on that. Patient has been having residue from tube feeds around 250 ordered Reglan. We have to continue vancomycin until 10/14. Electrolytes were repleted. Lantus was increased to 22 units given blood sugars above 200 mg/dL. Neurology is following the case. Will likely remove NG tube tomorrow and order speech and swallow eval once she shows improvement in her mentation more than today. All labs and orders were reviewed. I saw and examined the patient, and I agree with current management stated by Dr Jamee MD,PGY1. Plan of care was discussed with the attending physician and resident physician. Disclaimer: Despite multiple revisions, due to the dictation software being used, the document bellow may not be free of grammatical errors including phonetic/typographic errors. However, this does not deter from our commitment to providing health care in the patient's best interest in mind. Dr. Agustin MD, PGY 2 Documentation for date of: 10/09/24 Subjective Subjective Interval history: Patient is a 67-year-old female with a past medical history of diabetes mellitus type 2 insulin-dependent nonadherent, hyperlipidemia, Hypertension, and history of chronic back pack (on methadone at home), and history of behavarial health. No overnight events reported for patient. Patient continues to be altered. Alert and cooperative but non verbal with decreased motor function. Patient was given enema two times as no bowel movement had been recorded-after two enemas, one bowel movement was reported. Patient is experiencing residual volumes in NG tube feed of 200 cc. Reglan given and rate slowed to 20 ml/hr with water flushes at 50 cc per hour. Exam Vital Signs Temp Pulse Resp BP Pulse Ox O2 Del Method O2 Flow Rate 97.1 F 86 17 118/69 97 Nasal Cannula 2 10/09/24 12:00 10/09/24 12:15 10/09/24 12:00 10/09/24 12:15 10/09/24 12:00 10/09/24 12:00 10/09/24 12:00 FiO2 28 10/09/24 08:00 Narrative Exam General Appearance: Alert & Oriented X0, well-nourished female who is lying in bed in no acute distress HEENT: Skull symmetrical and atraumatic. Conjunctivae pin and moist. Pupils equal, round, reactive to light and accommodation (PERRL). External ear without lesion or discharge. Straight, nares patient, mucosa pink, no discharge. Cardio: Normal Rate and Rhythm with S1 and S2 heart sounds. No murmurs or extra heart sounds auscultated. No bruits on carotid auscultation. No peripheral edema or cyanosis. Lungs: Symmetric with good expansion. Chest and back non-tender. Breath sounds vesicular without crackles, wheezing or rhonchi Abdomen: Non-tender, Non-distended, Normal Reactive Bowel Sounds Neuro: YES Alert, YES cooperative, oriented to NO person, No place, and No time. No verbal. Upper motor strength 1/5 and Lower motor strength 1/5. Sensation intact. Objective Labs 10/09/24 04:52 10/09/24 04:52 Labs: Laboratory Results - last 24 hr 10/03/24 10/08/24 10/09/24 15:43 14:11 04:52 WBC 13.6 H RBC 3.60 L Hgb 10.0 L Hct 31.1 L MCV 86 MCH 27.8 MCHC 32.2 RDW Std Deviation 47.4 H Plt Count 224 Neut % (Auto) 83 H Lymph % (Auto) 9 L Bureau % (Auto) 7 Eos % (Auto) 0 Baso % (Auto) 0 Neut # (Auto) 11.2 H Lymph # (Auto) 1.2 Bureau # (Auto) 1.0 H Eos # (Auto) 0.0 Baso # (Auto) 0.0 Immature Gran # (Auto) 0.12 H Absolute Nucleated RBC 0.03 H Immature Gran % 1 H Nucleated RBC % 0 Sodium 137 137 Potassium 3.4 Chloride 104 Carbon Dioxide 28.2 Anion Gap 5 L BUN 12 Creatinine 0.8 Estim Creat Clear Calc 69.5 eGFR > 60 BUN/Creatinine Ratio 15 Glucose 216 H Calculated Osmolality 280 Calcium 7.3 L Corrected Calcium 8.0 L Phosphorus 3.0 Magnesium 1.8 Total Bilirubin 0.7 AST 54 H ALT 55 H Alkaline Phosphatase 288 H Total Protein 5.9 Albumin 3.1 L Globulin 2.8 Albumin/Globulin Ratio 1.1 L CSF Angiotensin Conv Enz 5 Vancomycin Trough 10/09/24 08:30 WBC RBC Hgb Hct MCV MCH MCHC RDW Std Deviation Plt Count Neut % (Auto) Lymph % (Auto) Bureau % (Auto) Eos % (Auto) Baso % (Auto) Neut # (Auto) Lymph # (Auto) Bureau # (Auto) Eos # (Auto) Baso # (Auto) Immature Gran # (Auto) Absolute Nucleated RBC Immature Gran % Nucleated RBC % Sodium Potassium Chloride Carbon Dioxide Anion Gap BUN Creatinine Estim Creat Clear Calc eGFR BUN/Creatinine Ratio Glucose Calculated Osmolality Calcium Corrected Calcium Phosphorus Magnesium Total Bilirubin AST ALT Alkaline Phosphatase Total Protein Albumin Globulin Albumin/Globulin Ratio CSF Angiotensin Conv Enz Vancomycin Trough 16.5 H ABG Interpretation ABG results: 09/29/24 09/29/24 09/30/24 00:03 15:16 03:36 ABG pH 7.29 L 7.33 L 7.39 ABG pCO2 42 45 41 ABG pO2 72 L 216 H D 91 D ABG HCO3 20 23 25 ABG O2 Saturation 92 100 H 97 ABG Base Excess -7 L -3 0 09/30/24 09/30/24 10/01/24 13:49 18:56 11:49 ABG pH 7.25 L D 7.35 D 7.49 H D ABG pCO2 53 H D 43 D 35 ABG pO2 161 H D 213 H D 114 H D ABG HCO3 23 24 26 ABG O2 Saturation 99 H 100 H 99 H ABG Base Excess -5 L -2 3 10/02/24 10/03/24 10/04/24 10:53 10:54 09:57 ABG pH 7.50 H 7.53 H 7.54 H ABG pCO2 35 41 46 ABG pO2 71 L D 101 D 46 L* D ABG HCO3 27 H 34 H 39 H ABG O2 Saturation 95 98 85 L ABG Base Excess 4 H 10 H 15 H 10/04/24 10/05/24 10/05/24 13:10 04:16 11:35 ABG pH 7.48 H 7.49 H 7.48 H ABG pCO2 53 H 46 45 ABG pO2 301 H D 75 L D 68 L ABG HCO3 39 H 35 H 33 H ABG O2 Saturation 100 H 96 94 ABG Base Excess Not Performed. 10 H 9 H 10/06/24 10/07/24 04:22 04:25 ABG pH 7.48 H 7.52 H ABG pCO2 42 40 ABG pO2 57 L* 72 L ABG HCO3 31 H 33 H ABG O2 Saturation 91 96 ABG Base Excess 7 H 9 H Quality Measures Quality Measures VTE prophylaxis (Heparin) Assessment & Plan Assessment Current Active Medications: Generic Name Dose Route Start Last Admin Trade Name Freq PRN Reason Stop Dose Admin Acetaminophen 500 mg 10/02/24 16:03 10/06/24 13:11 Acetaminophen 500 Mg Tablet PO 11/01/24 16:02 500 mg Q6HR PRN Administration Fever > 100.4 or Pain 1-3 Acetylcysteine 3 ml 10/08/24 15:00 10/09/24 11:06 Acetylcysteine Rt [place] 10% 4 Ml Nebu INH 11/07/24 14:59 3 ml Q4HRRT LUKE Administration Amlodipine Besylate 5 mg 10/05/24 09:00 10/09/24 09:10 Amlodipine Besylate 5 Mg Tablet PO 11/04/24 08:59 5 mg QDAY LUKE Administration Apixaban 5 mg 10/08/24 21:00 10/09/24 09:11 Apixaban 2.5 Mg Tablet PO 11/07/24 20:59 5 mg BID LUKE Administration Calcium Carbonate 600 mg 10/08/24 09:00 10/09/24 09:10 Calcium Carbonate 600 Mg Tablet NG 11/07/24 08:59 600 mg QDAY LUKE Administration Dextrose 25 ml 09/28/24 23:34 Dextrose 50%-Water Inj 50 Ml Syringe IV 10/28/24 23:33 Q15MIN PRN BG 50-70 responsive npo pt Dextrose 50 ml 09/28/24 23:34 Dextrose 50%-Water Inj 50 Ml Syringe IV 10/28/24 23:33 Q15MIN PRN BG <50 OR BG <70 & pt unresponsive Diltiazem HCl 60 mg 10/02/24 12:00 10/09/24 12:15 Diltiazem 30 Mg Tablet PO 11/01/24 11:59 60 mg Q6HR LUKE Administration Duloxetine HCl 60 mg 09/29/24 01:45 12/05/24 08:05 Duloxetine Hcl 30 Mg Capsule PO 10/29/24 01:44 Not Given BID LUKE Famotidine 20 mg 10/05/24 09:00 10/09/24 09:10 Famotidine 20 Mg Tablet PO 11/04/24 08:59 20 mg BID LUKE Administration Glucagon 1 mg 09/28/24 23:34 Glucagon Inj 1 Mg Vial IM Q15MIN PRN BG <70, and no IV access Guaifenesin/Dextromethorphan 2 each 09/30/24 10:00 10/09/24 09:13 Guaifenesin/Dm Tablet PO 10/30/24 09:59 2 each BID LUKE Administration Vancomycin/Sodium Chloride 750 mg in 150 mls @ 120 mls/hr 10/06/24 10:00 10/09/24 10:52 Vancomycin/Ns 750 Mg Ivpb IV 10/13/24 09:59 120 mls/hr BID@1000,2200 LUKE Administration Protocol Insulin Glargine 22 unit 10/09/24 21:00 Insulin Glargine (Lantus) 5 Unit/0.05 Ml (Per 5 Units) SC 11/08/24 20:59 HS LUKE Insulin Human Lispro 0 unit 10/01/24 18:30 10/09/24 12:15 Insulin Lispro (Admelog) 1 Unit/0.01 Ml Unit SC 10/31/24 18:29 4 unit Q6HR LUKE Administration Protocol Ipratropium [place] 0.5 mg 09/29/24 07:35 10/09/24 11:06 Ipratropium Rt 0.5 Mg/ 2.5 Ml Nebu INH 10/29/24 07:34 0.5 mg Q4HRRT LUKE Administration Labetalol HCl 10 mg 10/03/24 21:00 Labetalol Inj 5 Mg/Ml Vial 20 Ml IVP 11/02/24 20:59 Q6HR PRN Systolic >180 and HR >80 Lactulose 10 gm 10/09/24 08:15 10/09/24 09:10 Lactulose Syrup 20 Gm/30 Ml Udc PO 11/08/24 08:14 10 gm TID LUKE Administration Protocol Levalbuterol HCl 0.63 mg 10/03/24 07:00 10/09/24 11:06 Levalbuterol Rt 0.63 Mg/3 Ml Nebu INH 11/02/24 06:59 0.63 mg Q4HRRT LUKE Administration Lisinopril 10 mg 10/08/24 09:00 10/09/24 09:11 Lisinopril 2.5 Mg Tablet PO 11/07/24 08:59 10 mg QDAY LUKE Administration Magnesium Hydroxide 30 ml 10/07/24 09:49 10/07/24 13:05 Milk Of Magnesia Susp 30 Ml Udc PO 11/06/24 09:48 30 ml QDAY PRN Administration CONSTIPATION Protocol Metoclopramide HCl 5 mg 10/09/24 09:55 10/09/24 12:17 Metoclopramide Inj 5 Mg/Ml Vial 2 Ml IVP 11/08/24 09:54 Not Given Q6HR LUKE Protocol Ondansetron HCl 4 mg 09/28/24 23:26 Ondansetron Inj 2 Mg/Ml Inj 2 Ml IV 10/28/24 23:25 Q6H PRN NAUSEA OR VOMITING Protocol Pharmacy Consult 1 each 09/30/24 06:36 Vancomycin Pharmacy To Dose 1 Each Each IV 10/14/24 06:35 QDAY PRN PROTOCOL Polyethylene Glycol 17 gm 09/30/24 10:00 10/09/24 09:11 Polyethylene Glycol 17 Gm Packet PO 10/30/24 09:59 17 gm QDAY LUKE Administration Sennosides 1 tab 09/29/24 09:00 10/09/24 09:10 Senna Tablet PO 10/29/24 08:59 1 tab QDAY LUKE Administration Protocol Sodium Chloride 3 ml 10/01/24 18:17 Sodium Chloride Rt [place] 0.9% 3 Ml Nebu INH 10/31/24 18:16 PRN PRN SOLN Plan Patient is a 67-year-old female with a past medical history of diabetes mellitus type 2 insulin-dependent nonadherent, hyperlipidemia, and hypertension who was admitted on 09/29/2024 for severe sepsis and acute hypoxic respiratory failure likely secondary to extensive bilateral pneumonia, MRSA + bacteremia and not well be acute encephalopathy likely multifactorial involving underlying sepsis and polypharmacy. # Acute encephalopathy # Likely multifactorial Etiology: Multifactorial: Benzodiazepine withdrawal versus pain medication withdrawal vs less likely stroke as patient MRI was unremarkable vs less likely CSF infection as LP was unremarkable-with negative results for Neisseria negative, influenza, Strep B, and negative [place]. CSF ratio within normal limits. CSF WBC 3 and RBC 2-making HSV less likely. MRI lumbar showed no abscess. Diagnostic: -lumbar MRI (10/08/2024): Transpedicular lumbar fusion L4 -S1 with satisfactory alignment . No findings of osteomyelitis discitis or definite epidural abscess. -MRI Brain (10/03/2024): Negative for acute hemorrhage mass effect or midline shift No acute infarct -Lumbar x-ray (10/03/2024): Successful fluoroscopically guided diagnostic lumbar puncture -CSF: WBC 3, RBC 2 Glucose 119, CSF Protein 46, Influenza neg, Neisseria negative, Strep B, -CSF Pending [place] Negative -CSF Pending Myelin and Angiotensin Plan: -Holding antipsychotic medications, diazepam and tramadol -Dietitian consulted for starting tube feeds and water flushes -Treating underlying infection -Per neuro recommendations: consider electromyography (EMG) and nerve conduction study (NCS)-outpatient #MRSA bacteremia #Community acquired pneumonia #Acute Hypoxic Respiratory Failure # Leukocytosis #Severe sepsis, likely secondary to CAP, Resolved Etiolgoy: Bacterial community-acquired pneumonia cannot be ruled out given past medical history of comorbidities and age, likely Streptococcus pneumoniae vs staph aures-->MRSA positive given first set of blood cultures and sputum cultures. DDx: Viral infection less likely as patient tested negative for Influenza and COVID vs less likely cocci as results were negative for serology. Diagnostic Test: -Blood Culture (09/28/2024)X2: MRSA, sensitive to vancoymcin -Blood Cultures (09/30/2024): No Growth after 48 hours -Blood Cutlrues (10/03/2024): Negative After 48 hours -Sputum Culture (09/29/2024) MRSA -Blood Culture (10/06/2024): Negative After 48 hours -CSF Culture: Negative -Cxr (10/07/2024): No significant change in diffuse bilateral pneumonia -Cxr (09/28/2024): Significant bilateral pneumonia -Head CT (09/28/2024): Negative for acute hemorrhage, mass effect or midline shift. If symptoms persist, consider brain MRI follow-up -CT Abdomen/Pelvis (09/28/2024): Extensive bilateral pneumonia. No renal or ureteral calculi, no hydronephrosis. Moderate stool throughout the colon Plan: -Continuing IV vancomycin [09/29/2024?to 10/04] per Dr. Humera gonzalez -Chest PT treatment Q4HR -Guaifenesin -Repeat second set blood cultures negative -Monitor for fever spike, white count elevation and signs of infection -Daily labs # Electrolyte disturbance # Hypokalemia #Hypomagnesium Potassium repletion. Magnesium repleted Plan -Continue to replace potassium as needed. -Calcium Carbonate 600 mg Qday #New onset atrial Fibrilation with RVR, rate controlled #Bradycardia, Resolved Etiology: Acute atrial flutter likely secondary to sepsis.Overnight patient converted from atrial flutter to A-fib and diltiazem was switched to amnio. Rapid reports during day team at approximately 1335 for episode of bradycardia lasting about 1 second with possible AV block. Amio DC'd. If patient develops atrial flutter or atrial fibrillation may restart diltiazem at a slower rate. (10/01/2024) Patient experience episode of atrial fibrillation for 1 second. Given Positive MRSA blood culture, tentative VALERIE planned for Sunday-Dr. Romo DDx: Electrolyte imbalance versus cardiac etiology such as ectopic foci. Diagnostic: CHADVASC 3 EKG:Atrial Flutter EKG (09/30/2024) Atrial Fibrillation Cxr (09/29/2024): Significant bilateral pneumonia Plan: -Switch from Cardizem drip to p.o. Cardizem 60 mg 4 times daily via NG tube -Eliquis 5 mg BID (10/08/2024) -Cardiology recommended VALERIE-currently holding given altered mental status -Cardio consult, Dr. Romo, appreciate recommendation # Tube feedings -Due to acute encephalopathy -NG tube: Glucerna 1.2 at 20 ml/hr via NG tube by pump. Advance 10 ml every 8 hrs to goal rate of 55 ml/hr x 24 hrs. If no IV fluids, water flushes of 70 ml/hr (or per MD).-->given residual rate decreased to 20 ml/hr and flushes down to 50. Plan: -Refer to registered dietitian -Continue tube feeds and water flushes per nutritional recommendations by dietitian #History of Hypertension Patient at home takes lisinopril 5 mg daily. Plan -Lisinopril 10 mg Qday -Amlodipine add 5 mg QDay- -Labetalol 10 mg was given x 1, 10/02 #History of diabetes mellitus type 2 insulin dependent The patient home medication Farxiga 5 mg, insulin Lantus 55 units, metformin- currenlty holding oral medication Diagnostics: -A1c 10.6 Plan: -Lantus 22 units at bedtime -ISS -Hypoglycemia protocols in place #History of major depressive disorder #History of mental health disorders. HOld Diazepam and methadone in the setting of multiple rapid response and bradycardia with possible av block of about 1 second. Plan -Continue duloxetine 60 mg PO BID -Holding Quetiapine Fumarate 100 mg PO HS -Holding diazepam 10 mg PO BID due to altered mentation #History of chronic pain Patient reports having a history of chronic pain and is on multiple medications: Duloxetine, gabapentin, tizanidine, tramadol, methadone She does not respon well to opioids Plan: -Holding Valium and tramadol -Holding Methadone 10 mg TID via G-tube #Euthyroid Sick Syndrome In the setting of bacteremia and increasing inflammatory response, reduction in TSH and coversion of T4 and T3. Unlikely this is a lab error as T4/T3 are both low and TSH levels are Diagnostic: -(10/01/2024): TSH 0.31, Free T4 0.72, Free T3 1.1 Plan -No intervention for euthyroid sick syndrome #Hyperbilirubinemia #Hyperalkaline phosphatase Bilirubin on admission was 2.3 with ALP of 243. CT abdomen and pelvis was done showed an absent gallbladder. Hyperbilirubinemia and elevated alkaline phosphatase in the setting of dehydration and poor oral intake. Patient has abdominal pain or fever and is anicteric. Diagnostics: US Gallbladder (09/29/2024): Absent gallbladder. Normal common bile duct. Hepatomegaly, primary hepatocellular disease versus cirrhosis no focal liver lesions 10/01/2024: Total Bili 1.8 Alkaline Phosphatase 201 AST 92 ALT 34-->10/04/2024 Total bili 1.7, AST 117, ALT 57 Plan: -No acute intervention #Elevated anion Gap, resolved #Lactic acidosis likely type B, Resolved Health Maintenance: Disp: Pt is currently admitted to floors for further management of acute encephalopathy and bacteremia, awaiting vancomycin completion. FEN: NG Tubes at rate of 20 ml/hr with water flushes at 50 cc/hr given residual throught the day DVT: on subQ heparin Code: Full Code - The patient's plan was discussed with attending Dr Del Cid and senior residents Dr. Agustin Mancuso MD PGY1 Internal Medicine Attending Provider Attestation/Addendum I have discussed and was present for the essential components of the history, physical examination, diagnosis, and treatment plan with the resident. I agree with the patient's care as documented by the resident and amended herein by me. Donn Del Cid, DO. In short, 67-year-old female with significant past medical history of DM2, nonadherent with insulin medication noncompliance, hyperlipidemia and hypertension who was initially admitted on 09/29 for severe sepsis and acute hypoxic respiratory failure secondary to extensive bilateral ammonia, subsequently found to have MRSA bacteremia. Patient was acutely encephalopathic on arrival however has shown improvement in the last day. No acute events overnight, vital signs stable, patient afebrile, I/O20 788, 1850, patiently presently on 2 L via NC, SpO2 99%. Significant labs include a downtrending WBC of 13.6, stable hemoglobin 10, calcium 8, sodium 137, potassium 3.4 and elevated blood glucose of 216. KUB was ordered today for suspected constipation, which demonstrated abundant stool in the right colon however no obstruction. Lumbar spine MRI performed on 10/08 showed previous lumbar fusion however no signs of infection to include osteomyelitis, discitis or epidural abscess. Blood cultures on demonstrated MRSA, first negative culture was on 09/30 and have been negative since. ET secretion culture on 10/04 also demonstrated MRSA. Significant problem list/plan: #MRSA bacteremia #Community-acquired pneumonia, likely MRSA #Acute hypoxic respiratory failure?improved ?Infectious disease consulted, appreciate recommendations, will continue IV vancomycin through 10/14. Will continue to follow with cultures, see above. #Atrial fibrillation with RVR, presently rate controlled #Bradycardia ? Cardiology consulted, Dr. Romo appreciate recommendations. Patient presently on Cardizem 60 mg 4 times daily via NG tube. Will also continue Eliquis 5 mg twice daily. VALERIE was initially planned however will be deferred for now due to encephalopathy which has been improving. #Acute encephalopathy, likely multifactorial ? Neurology consulted, appreciate recommendations. Previous MRI brain on 10/03 negative for any acute intracranial pathology. A lumbar puncture was performed earlier in her course, culture results negative, initial serologies demonstrated elevated glucose and total protein, other serologies pending. Per neurology, CSF protein is not high enough to be considered for GBS however recommended perform EMG and NCS for both upper and lower extremities as an outpatient if her weakness persist. Will also continue physical therapy. If patient continues to improve, may consider removing NG tube however not ready yet Although this document has been carefully reviewed, there may still be some phonetic and other typographical errors. These errors are purely grammatical due to imperfections in the software program and should not be construed in any way to compromise the substance of the patient's medical care during this visit.
[2024-10-09 17:51] LABS: West Nile Virus (IgG), CSF <1.30
[2024-10-09] MEDS: INSULIN GLARGINE (Lantus) 5 UNIT/0.05 ML (PER 5 UNITS) 10 UNIT SC (21:02)
--- NOTE | 2024-10-09 23:19 | ESPR_ITS ---
Documentation for date of: 10/09/24 Subjective Subjective Interval history: Patient was seen in telemetry today, continues to be weak in both upper and lower extremities, but moves her limbs purposefully. Exam - Neurology Vital Signs Temp Pulse Resp BP Pulse Ox O2 Del Method O2 Flow Rate 97.7 F 91 20 102/64 99 Nasal Cannula 2 10/09/24 20:00 10/09/24 22:50 10/09/24 22:50 10/09/24 20:00 10/09/24 22:50 10/09/24 20:00 10/09/24 22:50 FiO2 28 10/09/24 16:00 Narrative Exam GENERAL APPEARANCE: Well hydrated, well-nourished in no acute distress. HEENT: Normocephalic, atraumatic, extraocular movements intact. Pupils: Equal reacting to light and accommodation NECK: Supple, no JVD or bruits. CARDIOVASULAR: Heart: S1, S2 heard, regular without S3-S4 or murmur no rubs or gallops. LUNGS/CHEST: Clear to auscultation bilaterally. No rails, rhonchi, or wheezing. Normal inspection. ABDOMEN: Soft, nontender, with normal bowel sounds. No pulsatile masses. No rebound, rigidity, or guarding. Normal inspection and palpation. EXTREMITIES: Normal inspection and palpation. 3+edema in both upper and lower extremities, no clubbing or cyanosis noted. SKIN: Warm and dry without rashes. Normal inspection. MUSCULOSKELETAL: No cervical, thoracic, lumbar or midline bony tenderness. Normal inspection. NEURO: Alert, awake. nonverbal. follows commands. Cranial nerves: II through XII grossly intact. Motor system: Tone and bulk: Normal: Strength: significant weakness in both proximal and distal UE and LE. Purposeful mvoements noted. Deep tendon reflexes: hyporeflexic, bilaterally symmetrical. Plantar reflex: Downgoing bilaterally. Coordination and gait cannot be tested. No signs of meningeal irritation noted. PSYCHIATRIC: flat mood and affect. Objective Labs 10/09/24 04:52 10/09/24 04:52 Labs: Laboratory Results - last 24 hr 10/03/24 10/09/24 10/09/24 15:43 04:52 08:30 WBC 13.6 H RBC 3.60 L Hgb 10.0 L Hct 31.1 L MCV 86 MCH 27.8 MCHC 32.2 RDW Std Deviation 47.4 H Plt Count 224 Neut % (Auto) 83 H Lymph % (Auto) 9 L [place] % (Auto) 7 Eos % (Auto) 0 Baso % (Auto) 0 Neut # (Auto) 11.2 H Lymph # (Auto) 1.2 [place] # (Auto) 1.0 H Eos # (Auto) 0.0 Baso # (Auto) 0.0 Immature Gran # (Auto) 0.12 H Absolute Nucleated RBC 0.03 H Immature Gran % 1 H Nucleated RBC % 0 Sodium 137 Potassium 3.4 Chloride 104 Carbon Dioxide 28.2 Anion Gap 5 L BUN 12 Creatinine 0.8 Estim Creat Clear Calc 69.5 eGFR > 60 BUN/Creatinine Ratio 15 Glucose 216 H Calculated Osmolality 280 Calcium 7.3 L Corrected Calcium 8.0 L Phosphorus 3.0 Magnesium 1.8 Total Bilirubin 0.7 AST 54 H ALT 55 H Alkaline Phosphatase 288 H Total Protein 5.9 Albumin 3.1 L Globulin 2.8 Albumin/Globulin Ratio 1.1 L CSF Angiotensin Conv Enz 5 Vancomycin Trough 16.5 H ABG Interpretation ABG results: 09/29/24 09/29/24 09/30/24 00:03 15:16 03:36 ABG pH 7.29 L 7.33 L 7.39 ABG pCO2 42 45 41 ABG pO2 72 L 216 H D 91 D ABG HCO3 20 23 25 ABG O2 Saturation 92 100 H 97 ABG Base Excess -7 L -3 0 09/30/24 09/30/24 10/01/24 13:49 18:56 11:49 ABG pH 7.25 L D 7.35 D 7.49 H D ABG pCO2 53 H D 43 D 35 ABG pO2 161 H D 213 H D 114 H D ABG HCO3 23 24 26 ABG O2 Saturation 99 H 100 H 99 H ABG Base Excess -5 L -2 3 10/02/24 10/03/24 10/04/24 10:53 10:54 09:57 ABG pH 7.50 H 7.53 H 7.54 H ABG pCO2 35 41 46 ABG pO2 71 L D 101 D 46 L* D ABG HCO3 27 H 34 H 39 H ABG O2 Saturation 95 98 85 L ABG Base Excess 4 H 10 H 15 H 10/04/24 10/05/24 10/05/24 13:10 04:16 11:35 ABG pH 7.48 H 7.49 H 7.48 H ABG pCO2 53 H 46 45 ABG pO2 301 H D 75 L D 68 L ABG HCO3 39 H 35 H 33 H ABG O2 Saturation 100 H 96 94 ABG Base Excess Not Performed. 10 H 9 H 10/06/24 10/07/24 04:22 04:25 ABG pH 7.48 H 7.52 H ABG pCO2 42 40 ABG pO2 57 L* 72 L ABG HCO3 31 H 33 H ABG O2 Saturation 91 96 ABG Base Excess 7 H 9 H Assessment & Plan Assessment and plan (1) Quadriparesis: Status: Acute Assessment and plan: DD: Critical illness polyneuropathy/Myopathy gradually improving csf protein is not significantly high to be considered for GBS for now. Will need EMG and NCS of both UE and LE as an outpatient if weakness persists. Consider PT/OT as needed. (2) Atrial fibrillation: Status: Acute (3) Hypoxia: Status: Resolved Assessment and plan: got extubated and maintaining o2 saturstion. (4) Severe sepsis: Status: Acute Assessment and plan: being treated with IV antibiotics and stable. (5) Respiratory failure: Status: Resolved
[2024-10-10] VITALS (24 sets, daily range): BP systolic 119–175; BP diastolic 76–85; PULSE 80–96; RESP 16–24; TEMP 36.1–36.6; O2SAT 92–100; BMI 30.9; BMI 12.0
[2024-10-10] MEDS: IPRATROPIUM RT 0.5 MG/ 2.5 ML NEBU INH ×6 (03:06→23:20)
[2024-10-10] MEDS: LEVALBUTEROL RT 0.63 MG/3 ML NEBU INH ×6 (03:06→23:15)
[2024-10-10] MEDS: METOCLOPRAMIDE INJ 5 MG/ML VIAL 2 ML IVP ×4 (05:33→23:19)
[2024-10-10] MEDS: LACTULOSE SYRUP 20 GM/30 ML UDC 10 GM PO ×3 (05:33→21:29)
[2024-10-10] MEDS: DILTIAZEM 30 MG TABLET 60 MG PO ×4 (05:34→23:23)
[2024-10-10] MEDS: INSULIN LISPRO (AdmeLOG) 1 UNIT/0.01 ML UNIT SC ×3 (05:34→20:31)
[2024-10-10 05:54] LABS: Basophils % (Auto) 0 % (0-2.5); Eosinophils # (Auto) 0.1 Thou/mm3 (0.0-0.5); Eosinophils % (Auto) 1 % (0-10); Hemoglobin 9.4 g/dL (12.0-16.0); Immature Granulocytes % (Auto) 1 % (0-0); Immature Granulocytes Auto 0.11 Thou/mm3 (0.00-0.00); Lymphocytes # (Auto) 1.4 Thou/mm3 (1.0-4.8); Lymphocytes % (Auto) 10 % (10-50); Mean Corpuscular HGB Conc 32.4 g/dl (31.0-37.0); Mean Corpuscular Hemoglobin 28.1 pg (25.0-35.0); Mean Corpuscular Volume 87 fL (80-100); Monocytes # (Auto) 0.9 Thou/mm3 (0.0-0.8); Monocytes % (Auto) 7 % (0-12); Neutrophils # (Auto) 10.9 Thou/mm3 (1.8-7.7); Neutrophils % (Auto) 82 % (37-80); Nucleated Red Blood Cell % 0 /100 WBC (0); Platelet Count 177 Thou/mm3 (140-440); RDW Standard Deviation 47.8 fL (36.4-46.3); Red Blood Count 3.34 Miln/mm3 (4.00-5.20); White Blood Count 13.3 Thou/mm3 (3.6-11.0)
[2024-10-10 06:21] LABS: Alanine Aminotransferase 46 U/L (10-49); Albumin, Serum 3.1 gm/dL (3.4-4.8); Albumin/Globulin Ratio 1.1 (1.2-2.2); Alkaline Phosphatase 278 U/L (46-116); Anion Gap 3 (7-16); Aspartate Amino Transferase 65 U/L (0-34); BUN/Creatinine Ratio 14 Ratio (12-20); Bilirubin,Total 0.7 mg/dL (0.3-1.2); Blood Urea Nitrogen 10 mg/dL (9-23); Calcium 7.8 mg/dL (8.3-10.6); Calcium (Corrected) 8.5 mg/dL (8.5-10.1); Carbon Dioxide 27.9 mMol/L (20.0-31.0); Chloride 106 mMol/L (98-107); Creatinine (Component) 0.7 mg/dL (0.6-1.3); Estimated Creatinine Clearance 81.3 mL/min (>60); Globulin 2.9 gm/dL (2.3-3.5); Glucose 140 mg/dL (74-106); Magnesium 1.7 mg/dL (1.6-2.6); Osmolality,Calculated 274 (275-295); Phosphorous 3.3 mg/dL (2.4-5.1); Potassium 3.5 mMol/L (3.4-5.1); Sodium 137 mMol/L (136-145); eGFR > 60 See Note
[2024-10-10] MEDS: POTASSIUM CHL 10 mEq IVPB 10 MEQ/100 ML BAG 100 MEQ IV ×4 (08:59→12:32)
[2024-10-10] MEDS: Magnesium Sulfate 2 GM Ivpb 2 GM/50 ML BAG IV (08:59)
[2024-10-10] MEDS: SENNA TABLET 1 TAB PO (09:00)
[2024-10-10] MEDS: POLYETHYLENE GLYCOL 17 GM PACKET PO (09:00)
[2024-10-10] MEDS: APIXABAN 2.5 MG TABLET 5 MG PO ×2 (09:00→20:28)
[2024-10-10] MEDS: amLODIPine BESYLATE 5 MG TABLET PO (09:00)
[2024-10-10] MEDS: Lisinopril 2.5 MG TABLET 10 MG PO ×2 (09:01→14:52)
[2024-10-10] MEDS: CALCIUM CARBONATE 600 MG TABLET NG (09:01)
[2024-10-10] MEDS: guaiFENesin/DM TABLET 2 EACH PO ×2 (09:03→20:28)
--- NOTE | 2024-10-10 09:55 | PCS.ST ---
Swallow Evaluation completed. See report for details. Overall declined in function. Conservative diet for now. Recommend Dysphagia 2/Mildly thick liquids. ST will follow for diet consistencies.
[2024-10-10] MEDS: VANCOMYCIN/NS 750 MG IVPB 750 MG/150 ML BAG 120 MG IV ×2 (10:10→21:46)
[2024-10-10] MEDS: ACETYLCYSTEINE RT SOL 10% 4 ML NEBU 3 ML INH ×4 (10:36→23:15)
--- NOTE | 2024-10-10 13:38 | PD.HHPROG ---
Documentation for date of: 10/10/24 Subjective - Hospitalist Subjective Interval history: Patient seen and eval this a.m. NG tube in place. She complains that she has pain in the back of the throat secondary to the NG tube. Patient is requesting for tube to be removed. Will have speech therapy work with the patient to advance diet and possibly remove tube. Patient otherwise denies any chest pain, shortness of breath, fevers or chills otherwise. No acute events overnight per nursing. Patient has not had a bowel movement for several days despite laxatives. Review of Systems Review of Systems Systems Reviewed: All systems reviewed, normal except as documented Exam Vital Signs Temp Pulse Resp BP Pulse Ox O2 Del Method O2 Flow Rate 97.0 F 80 18 168/80 H 98 Nasal Cannula 1 10/10/24 07:00 10/10/24 12:31 10/10/24 10:41 10/10/24 12:31 10/10/24 10:41 10/10/24 07:00 10/10/24 10:41 FiO2 28 10/09/24 16:00 Narrative Gen: No acute distress HEENT: NCAT, PERRLOU, Sclera anicteric, conjunctiva noninjected, oral mucosa moist without erythema, NG tube in right nostril in place with minimal output Neck: Supple, full range of motion, no LAD CV: RRR, no murmurs, rubs or gallops Resp: CTAB/L, no wheezing, rhonchi or rales GI: abdomen soft, bowel sounds noted, no tenderness to palpation, no guarding or rebound tenderness, no organomegaly Skin: clean, dry, no rashes, lesions or ecchymosis Ext: no clubbing, cyanosis, or edema Neuro: A&O x3, CN II- XII intact b/l, slow to respond to questions with delay, but responds to questions appropriately. MS 3/5 in all four extremities. Voice is hoarse Objective - Hospitalist Labs Diagram: 10/10/24 04:45 10/10/24 04:45 Labs: Laboratory Results - last 24 hr 10/10/24 04:45 WBC 13.3 H RBC 3.34 L Hgb 9.4 L Hct 29.0 L MCV 87 MCH 28.1 MCHC 32.4 RDW Std Deviation 47.8 H Plt Count 177 D Neut % (Auto) 82 H Lymph % (Auto) 10 [place] % (Auto) 7 Eos % (Auto) 1 Baso % (Auto) 0 Neut # (Auto) 10.9 H Lymph # (Auto) 1.4 [place] # (Auto) 0.9 H Eos # (Auto) 0.1 Baso # (Auto) 0.0 Immature Gran # (Auto) 0.11 H Absolute Nucleated RBC 0.00 Immature Gran % 1 H Nucleated RBC % 0 Sodium 137 Potassium 3.5 Chloride 106 Carbon Dioxide 27.9 Anion Gap 3 L BUN 10 Creatinine 0.7 Estim Creat Clear Calc 81.3 eGFR > 60 BUN/Creatinine Ratio 14 Glucose 140 H D Calculated Osmolality 274 L Calcium 7.8 L Corrected Calcium 8.5 Phosphorus 3.3 Magnesium 1.7 Total Bilirubin 0.7 AST 65 H ALT 46 Alkaline Phosphatase 278 H Total Protein 6.0 Albumin 3.1 L Globulin 2.9 Albumin/Globulin Ratio 1.1 L ABG Interpretation ABG results: 09/29/24 09/29/24 09/30/24 00:03 15:16 03:36 ABG pH 7.29 L 7.33 L 7.39 ABG pCO2 42 45 41 ABG pO2 72 L 216 H D 91 D ABG HCO3 20 23 25 ABG O2 Saturation 92 100 H 97 ABG Base Excess -7 L -3 0 09/30/24 09/30/24 10/01/24 13:49 18:56 11:49 ABG pH 7.25 L D 7.35 D 7.49 H D ABG pCO2 53 H D 43 D 35 ABG pO2 161 H D 213 H D 114 H D ABG HCO3 23 24 26 ABG O2 Saturation 99 H 100 H 99 H ABG Base Excess -5 L -2 3 10/02/24 10/03/24 10/04/24 10:53 10:54 09:57 ABG pH 7.50 H 7.53 H 7.54 H ABG pCO2 35 41 46 ABG pO2 71 L D 101 D 46 L* D ABG HCO3 27 H 34 H 39 H ABG O2 Saturation 95 98 85 L ABG Base Excess 4 H 10 H 15 H 10/04/24 10/05/24 10/05/24 13:10 04:16 11:35 ABG pH 7.48 H 7.49 H 7.48 H ABG pCO2 53 H 46 45 ABG pO2 301 H D 75 L D 68 L ABG HCO3 39 H 35 H 33 H ABG O2 Saturation 100 H 96 94 ABG Base Excess Not Performed. 10 H 9 H 10/06/24 10/07/24 04:22 04:25 ABG pH 7.48 H 7.52 H ABG pCO2 42 40 ABG pO2 57 L* 72 L ABG HCO3 31 H 33 H ABG O2 Saturation 91 96 ABG Base Excess 7 H 9 H Assessment & Plan Assessment: Patient is a 67-year-old female with a past medical history of diabetes mellitus type 2 insulin-dependent nonadherent, hyperlipidemia, and hypertension who was admitted on 09/29/2024 for severe sepsis and acute hypoxic respiratory failure likely secondary to extensive bilateral pneumonia, MRSA + bacteremia and not well be acute encephalopathy likely multifactorial involving underlying sepsis and polypharmacy. # Acute encephalopathy, Likely multifactorial, improving #Deconditioning #Dysphagia 2/2 above Etiology: Multifactorial: Benzodiazepine withdrawal versus pain medication withdrawal vs less likely stroke as patient MRI was unremarkable vs less likely CSF infection as LP was unremarkable-with negative results for Neisseria negative, influenza, Strep B, and negative [place]. CSF ratio within normal limits. CSF WBC 3 and RBC 2-making HSV less likely. MRI lumbar showed no abscess. Diagnostic: -lumbar MRI (10/08/2024): Transpedicular lumbar fusion L4 -S1 with satisfactory alignment . No findings of osteomyelitis discitis or definite epidural abscess. -MRI Brain (10/03/2024): Negative for acute hemorrhage mass effect or midline shift No acute infarct -Lumbar x-ray (10/03/2024): Successful fluoroscopically guided diagnostic lumbar puncture -CSF: WBC 3, RBC 2 Glucose 119, CSF Protein 46, Influenza neg, Neisseria negative, Strep B, -CSF Pending [place] Negative -CSF Pending Myelin and Angiotensin Plan: -Holding antipsychotic medications, diazepam and tramadol -Treating underlying infection -Per neuro recommendations: consider electromyography (EMG) and nerve conduction study (NCS)-outpatient - patient has been deconditioned given prolonged hospital stay. Continue with PT if tolerated. Patient will need SNF placement on discharge - NG tube discontinued and started on PO diet as per ST recommendations - aspiration precautions, HOB 45 #MRSA bacteremia #Community acquired pneumonia #Acute Hypoxic Respiratory Failure # Leukocytosis #Severe sepsis, likely secondary to CAP, Resolved Etiolgoy: Bacterial community-acquired pneumonia cannot be ruled out given past medical history of comorbidities and age, likely Streptococcus pneumoniae vs staph aures-->MRSA positive given first set of blood cultures and sputum cultures. DDx: Viral infection less likely as patient tested negative for Influenza and COVID vs less likely cocci as results were negative for serology. Diagnostic Test: -Blood Culture (09/28/2024)X2: MRSA, sensitive to vancoymcin -Blood Cultures (09/30/2024): No Growth after 48 hours -Blood Cutlrues (10/03/2024): Negative After 48 hours -Sputum Culture (09/29/2024) MRSA -Blood Culture (10/06/2024): Negative After 48 hours -CSF Culture: Negative -Cxr (10/07/2024): No significant change in diffuse bilateral pneumonia -Cxr (09/28/2024): Significant bilateral pneumonia -Head CT (09/28/2024): Negative for acute hemorrhage, mass effect or midline shift. If symptoms persist, consider brain MRI follow-up -CT Abdomen/Pelvis (09/28/2024): Extensive bilateral pneumonia. No renal or ureteral calculi, no hydronephrosis. Moderate stool throughout the colon Plan: -Continuing IV vancomycin [09/29/2024?to 10/04] per Dr. Humera gonzalez -Chest PT treatment Q4HR -Guaifenesin -Repeat second set blood cultures negative -Monitor for fever spike, white count elevation and signs of infection and renal function -Daily labs #New onset atrial Fibrilation with RVR, rate controlled #Bradycardia, Resolved Etiology: Acute atrial flutter likely secondary to sepsis.Overnight patient converted from atrial flutter to A-fib and diltiazem was switched to amnio. Rapid reports during day team at approximately 1335 for episode of bradycardia lasting about 1 second with possible AV block. Amio DC'd. If patient develops atrial flutter or atrial fibrillation may restart diltiazem at a slower rate. (10/01/2024) Patient experience episode of atrial fibrillation for 1 second. Given Positive MRSA blood culture, tentative VALERIE planned for Sunday-Dr. Romo DDx: Electrolyte imbalance versus cardiac etiology such as ectopic foci. Diagnostic: CHADVASC 3 EKG:Atrial Flutter EKG (09/30/2024) Atrial Fibrillation Cxr (09/29/2024): Significant bilateral pneumonia Plan: -Switch from Cardizem drip to p.o. Cardizem 60 mg 4 times daily -Eliquis 5 mg BID (10/08/2024) -Cardiology recommended VALERIE-currently holding given altered mental status -Cardio consult, Dr. Romo, appreciate recommendation # Hypertension, uncontrolled Patient at home takes lisinopril 5 mg daily. Plan -Lisinopril 10 mg Qday -Amlodipine add 5 mg QDay- -Labetalol 10 mg was given x 1, 10/02, increased lisinopril to 20mg po daily # diabetes mellitus type 2, insulin dependent The patient home medication Farxiga 5 mg, insulin Lantus 55 units, metformin-currenlty holding oral medication Diagnostics: -A1c 10.6 Plan: -Lantus 22 units at bedtime -ISS -Hypoglycemia protocols in place # Electrolyte disturbance # Hypokalemia #Hypomagnesium Potassium repletion. Magnesium repleted Plan -Continue to replace potassium as needed. -Calcium Carbonate 600 mg Qday #History of major depressive disorder #History of mental health disorders. HOld Diazepam and methadone in the setting of multiple rapid response and bradycardia with possible av block of about 1 second. Plan -Continue duloxetine 60 mg PO BID -Holding Quetiapine Fumarate 100 mg PO HS -Holding diazepam 10 mg PO BID due to altered mentation #History of chronic pain Patient reports having a history of chronic pain and is on multiple medications: Duloxetine, gabapentin, tizanidine, tramadol, methadone She does not respon well to opioids Plan: -Holding Valium and tramadol -Holding Methadone 10 mg TID via G-tube #Euthyroid Sick Syndrome In the setting of bacteremia and increasing inflammatory response, reduction in TSH and coversion of T4 and T3. Unlikely this is a lab error as T4/T3 are both low and TSH levels are Diagnostic: -(10/01/2024): TSH 0.31, Free T4 0.72, Free T3 1.1 Plan -No intervention for euthyroid sick syndrome #Hyperbilirubinemia #Hyperalkaline phosphatase Bilirubin on admission was 2.3 with ALP of 243. CT abdomen and pelvis was done showed an absent gallbladder. Hyperbilirubinemia and elevated alkaline phosphatase in the setting of dehydration and poor oral intake. Patient has abdominal pain or fever and is anicteric. Diagnostics: US Gallbladder (09/29/2024): Absent gallbladder. Normal common bile duct. Hepatomegaly, primary hepatocellular disease versus cirrhosis no focal liver lesions 10/01/2024: Total Bili 1.8 Alkaline Phosphatase 201 AST 92 ALT 34-->10/04/2024 Total bili 1.7, AST 117, ALT 57 Plan: -No acute intervention #Elevated anion Gap, resolved #Lactic acidosis likely type B, Resolved Health Maintenance: Disp: Pt is currently admitted to floors for further management of acute encephalopathy and bacteremia, awaiting vancomycin completion. FEN: NG Tubes at rate of 20 ml/hr with water flushes at 50 cc/hr given residual throught the day DVT: on subQ heparin Code: Full Code Time Spent with Patient Time: Total time spent is greater than 50% in coordination of care (as documented) at patient's floor/unit and/or counseling patient: Time with patient: 25 - 35 minutes Reason for Continued Stay Reason for continued stay: further monitoring and further dx testing Quality Measures Quality Measures VTE prophylaxis (Heparin)
[2024-10-10] MEDS: INSULIN GLARGINE (Lantus) 5 UNIT/0.05 ML (PER 5 UNITS) 10 UNIT SC (20:32)
[2024-10-10 21:37] LABS: Vancomycin,Trough 14.1 mcg/mL (5.0-10.0)
--- NOTE | 2024-10-10 23:29 | ESPR_ITS ---
Documentation for date of: 10/10/24 Subjective Subjective Interval history: Patient was seen in telemetry today, moving both upper and lower extremities, started communicating in sentences with family and staff Exam - Neurology Vital Signs Temp Pulse Resp BP Pulse Ox O2 Del Method O2 Flow Rate 97.1 F 85 19 149/77 H 94 L Room Air 1 10/10/24 19:00 10/10/24 23:23 10/10/24 23:20 10/10/24 23:23 10/10/24 23:20 10/10/24 19:00 10/10/24 10:41 FiO2 28 10/09/24 16:00 Narrative Exam GENERAL APPEARANCE: Well hydrated, well-nourished in no acute distress. HEENT: Normocephalic, atraumatic, extraocular movements intact. Pupils: Equal reacting to light and accommodation NECK: Supple, no JVD or bruits. CARDIOVASULAR: Heart: S1, S2 heard, regular without S3-S4 or murmur no rubs or gallops. LUNGS/CHEST: Clear to auscultation bilaterally. No rails, rhonchi, or wheezing. Normal inspection. ABDOMEN: Soft, nontender, with normal bowel sounds. No pulsatile masses. No rebound, rigidity, or guarding. Normal inspection and palpation. EXTREMITIES: Normal inspection and palpation. 3+edema in both upper and lower extremities, no clubbing or cyanosis noted. SKIN: Warm and dry without rashes. Normal inspection. MUSCULOSKELETAL: No cervical, thoracic, lumbar or midline bony tenderness. Normal inspection. NEURO: Alert, awake. Able to speak in sentences, cranial nerves: II through XII grossly intact. Motor system: Tone and bulk: Normal: Strength: Moves both upper and lower extremities. Deep tendon reflexes: hyporeflexic, bilaterally symmetrical. Plantar reflex: Downgoing bilaterally. No signs of meningeal irritation noted. PSYCHIATRIC: flat mood and affect. Objective Labs 10/10/24 04:45 10/10/24 04:45 Labs: Laboratory Results - last 24 hr 10/10/24 10/10/24 04:45 21:15 WBC 13.3 H RBC 3.34 L Hgb 9.4 L Hct 29.0 L MCV 87 MCH 28.1 MCHC 32.4 RDW Std Deviation 47.8 H Plt Count 177 D Neut % (Auto) 82 H Lymph % (Auto) 10 [place] % (Auto) 7 Eos % (Auto) 1 Baso % (Auto) 0 Neut # (Auto) 10.9 H Lymph # (Auto) 1.4 [place] # (Auto) 0.9 H Eos # (Auto) 0.1 Baso # (Auto) 0.0 Immature Gran # (Auto) 0.11 H Absolute Nucleated RBC 0.00 Immature Gran % 1 H Nucleated RBC % 0 Sodium 137 Potassium 3.5 Chloride 106 Carbon Dioxide 27.9 Anion Gap 3 L BUN 10 Creatinine 0.7 Estim Creat Clear Calc 81.3 eGFR > 60 BUN/Creatinine Ratio 14 Glucose 140 H D Calculated Osmolality 274 L Calcium 7.8 L Corrected Calcium 8.5 Phosphorus 3.3 Magnesium 1.7 Total Bilirubin 0.7 AST 65 H ALT 46 Alkaline Phosphatase 278 H Total Protein 6.0 Albumin 3.1 L Globulin 2.9 Albumin/Globulin Ratio 1.1 L Vancomycin Trough 14.1 H ABG Interpretation ABG results: 09/29/24 09/29/24 09/30/24 00:03 15:16 03:36 ABG pH 7.29 L 7.33 L 7.39 ABG pCO2 42 45 41 ABG pO2 72 L 216 H D 91 D ABG HCO3 20 23 25 ABG O2 Saturation 92 100 H 97 ABG Base Excess -7 L -3 0 09/30/24 09/30/24 10/01/24 13:49 18:56 11:49 ABG pH 7.25 L D 7.35 D 7.49 H D ABG pCO2 53 H D 43 D 35 ABG pO2 161 H D 213 H D 114 H D ABG HCO3 23 24 26 ABG O2 Saturation 99 H 100 H 99 H ABG Base Excess -5 L -2 3 10/02/24 10/03/24 10/04/24 10:53 10:54 09:57 ABG pH 7.50 H 7.53 H 7.54 H ABG pCO2 35 41 46 ABG pO2 71 L D 101 D 46 L* D ABG HCO3 27 H 34 H 39 H ABG O2 Saturation 95 98 85 L ABG Base Excess 4 H 10 H 15 H 10/04/24 10/05/24 10/05/24 13:10 04:16 11:35 ABG pH 7.48 H 7.49 H 7.48 H ABG pCO2 53 H 46 45 ABG pO2 301 H D 75 L D 68 L ABG HCO3 39 H 35 H 33 H ABG O2 Saturation 100 H 96 94 ABG Base Excess Not Performed. 10 H 9 H 10/06/24 10/07/24 04:22 04:25 ABG pH 7.48 H 7.52 H ABG pCO2 42 40 ABG pO2 57 L* 72 L ABG HCO3 31 H 33 H ABG O2 Saturation 91 96 ABG Base Excess 7 H 9 H Assessment & Plan Assessment and plan (1) Quadriparesis: Status: Acute Assessment and plan: DD: Critical illness polyneuropathy/Myopathy Significantly improving Will need EMG and NCS of both UE and LE as an outpatient if weakness persists. Continue with physical therapy for ambulation safety before deciding on discharge (2) Atrial fibrillation: Status: Acute (3) Hypoxia: Status: Resolved Assessment and plan: got extubated and maintaining o2 saturstion. (4) Severe sepsis: Status: Acute Assessment and plan: being treated with IV antibiotics and stable. (5) Respiratory failure: Status: Resolved
[2024-10-11] VITALS (14 sets, daily range): BP systolic 134–176; BP diastolic 67–96; PULSE 63–100; RESP 18–20; TEMP 36–36.4; O2SAT 93–98; BMI 30.9
[2024-10-11] MEDS: IPRATROPIUM RT 0.5 MG/ 2.5 ML NEBU INH ×2 (03:07→06:48)
[2024-10-11] MEDS: ACETYLCYSTEINE RT SOL 10% 4 ML NEBU 3 ML INH (03:07)
[2024-10-11] MEDS: LEVALBUTEROL RT 0.63 MG/3 ML NEBU INH ×2 (03:36→06:48)
[2024-10-11] MEDS: METOCLOPRAMIDE INJ 5 MG/ML VIAL 2 ML IVP ×4 (05:20→23:03)
[2024-10-11] MEDS: LACTULOSE SYRUP 20 GM/30 ML UDC 10 GM PO ×2 (05:23→21:47)
[2024-10-11] MEDS: DILTIAZEM 30 MG TABLET 60 MG PO ×3 (05:24→17:00)
[2024-10-11 06:45] LABS: Basophils % (Auto) 0 % (0-2.5); Eosinophils % (Auto) 0 % (0-10); Hematocrit 32.3 % (36.0-46.0); Hemoglobin 10.4 g/dL (12.0-16.0); Immature Granulocytes % (Auto) 1 % (0-0); Lymphocytes # (Auto) 1.3 Thou/mm3 (1.0-4.8); Lymphocytes % (Auto) 10 % (10-50); Mean Corpuscular HGB Conc 32.2 g/dl (31.0-37.0); Mean Corpuscular Volume 87 fL (80-100); Monocytes # (Auto) 0.7 Thou/mm3 (0.0-0.8); Monocytes % (Auto) 5 % (0-12); Neutrophils % (Auto) 84 % (37-80); Nucleated Red Blood Cell # 0.02 Thou/mm3 (0.00-0.00); Nucleated Red Blood Cell % 0 /100 WBC (0); Platelet Count 206 Thou/mm3 (140-440); RDW Standard Deviation 47.2 fL (36.4-46.3); Red Blood Count 3.72 Miln/mm3 (4.00-5.20); White Blood Count 13.2 Thou/mm3 (3.6-11.0)
[2024-10-11 07:18] LABS: Alanine Aminotransferase 48 U/L (10-49); Albumin, Serum 3.3 gm/dL (3.4-4.8); Alkaline Phosphatase 263 U/L (46-116); Anion Gap 7 (7-16); Aspartate Amino Transferase 50 U/L (0-34); BUN/Creatinine Ratio 13 Ratio (12-20); Bilirubin,Total 0.7 mg/dL (0.3-1.2); Blood Urea Nitrogen 8 mg/dL (9-23); Calcium 7.9 mg/dL (8.3-10.6); Calcium (Corrected) 8.5 mg/dL (8.5-10.1); Chloride 103 mMol/L (98-107); Creatinine (Component) 0.6 mg/dL (0.6-1.3); Estimated Creatinine Clearance 94.8 mL/min (>60); Globulin 3.2 gm/dL (2.3-3.5); Glucose 132 mg/dL (74-106); Magnesium 1.6 mg/dL (1.6-2.6); Osmolality,Calculated 274 (275-295); Phosphorous 3.7 mg/dL (2.4-5.1); Potassium 3.4 mMol/L (3.4-5.1); Sodium 137 mMol/L (136-145); Total Protein 6.5 gm/dL (5.7-8.2); eGFR > 60 See Note
[2024-10-11] MEDS: POLYETHYLENE GLYCOL 17 GM PACKET PO (08:53)
[2024-10-11] MEDS: CALCIUM CARBONATE 600 MG TABLET NG (08:54)
[2024-10-11] MEDS: APIXABAN 2.5 MG TABLET 5 MG PO ×2 (08:54→20:38)
[2024-10-11] MEDS: Lisinopril 20 MG TABLET PO (08:54)
[2024-10-11] MEDS: amLODIPine BESYLATE 5 MG TABLET PO (08:54)
[2024-10-11] MEDS: SENNA TABLET 1 TAB PO (08:54)
[2024-10-11] MEDS: Magnesium Sulfate 4 GM Ivpb 4 GM/50 ML BAG IV (08:58)
[2024-10-11] MEDS: POTASSIUM CHLORIDE 20 mEq TABCR 40 MEQ PO (08:58)
[2024-10-11] MEDS: guaiFENesin/DM TABLET 2 EACH PO ×2 (09:00→21:48)
[2024-10-11] MEDS: VANCOMYCIN/NS 1 GM IVPB 200 ML IV ×2 (10:57→21:47)
--- NOTE | 2024-10-11 16:03 | ESPR_ITS ---
<Statement entered by Chaparro Velez MD - 10/11/24 19:40> Patient was seen and examined at the bedside. Patient appeared to be more alert and was able to speak with gentle phonation. She did not had any bowel movement despite getting enema therefore manual disimpaction was performed however patient did not had hard feces. We are starting on GoLytely prep to see if she can bowel movements. Patient's diet was resumed as she passed swallow screen. Will continue Cardizem CD 240 from tomorrow. Electrolytes were repleted as necessary. All labs and orders were reviewed. I saw and examined the patient, and I agree with current management stated by Dr Jamee MD,PGY1. Plan of care was discussed with the attending physician and resident physician. Disclaimer: Despite multiple revisions, due to the dictation software being used, the document bellow may not be free of grammatical errors including phonetic/typographic errors. However, this does not deter from our commitment to providing health care in the patient's best interest in mind. Dr. Agustin MD, PGY 2 Documentation for date of: 10/11/24 Subjective Subjective Interval history: Patient is a 67-year-old female with a past medical history of diabetes mellitus type 2 insulin-dependent nonadherent, hyperlipidemia, Hypertension, and history of chronic back pack (on methadone at home), and history of behavarial health. No overnight events. No bowel movement. Patient deneid chest pain or dyspnea. Currently saturating well on room air. Manual dis-impaction today. Despite efforts, little stool removed. Exam Vital Signs Temp Pulse Resp BP Pulse Ox O2 Del Method O2 Flow Rate 97.0 F 88 18 134/67 H 98 Room Air 1 10/11/24 12:00 10/11/24 12:56 10/11/24 12:00 10/11/24 12:56 10/11/24 12:00 10/11/24 12:00 10/10/24 10:41 FiO2 28 10/09/24 16:00 Narrative Exam General Appearance: Alert & Oriented X3, well-nourished female who is lying in bed in no acute distress HEENT: Skull symmetrical and atraumatic. Conjunctivae pin and moist. Pupils equal, round, reactive to light and accommodation (PERRL). External ear without lesion or discharge. Straight, nares patient, mucosa pink, no discharge. Cardio: Normal Rate and Rhythm with S1 and S2 heart sounds. No murmurs or extra heart sounds auscultated. No bruits on carotid auscultation. No peripheral edema or cyanosis. Lungs: Symmetric with good expansion. Chest and back non-tender. Breath sounds vesicular without crackles, wheezing or rhonchi, pulmonary sounds greatly improved as compared to initial admission. Abdomen: Non-tender, Non-distended, Normal Reactive Bowel Sounds Neuro: Alert, cooperative, oriented to person, place, and time. Speech, improved. Upper motor strength 4/5 and Lower motor strength 3/5. Sensation intact. Objective Labs 10/12/24 05:08 10/12/24 05:08 Labs: Laboratory Results - last 24 hr 10/10/24 10/11/24 21:15 05:59 WBC 13.2 H RBC 3.72 L Hgb 10.4 L Hct 32.3 L MCV 87 MCH 28.0 MCHC 32.2 RDW Std Deviation 47.2 H Plt Count 206 Neut % (Auto) 84 H Lymph % (Auto) 10 [place] % (Auto) 5 Eos % (Auto) 0 Baso % (Auto) 0 Neut # (Auto) 11.0 H Lymph # (Auto) 1.3 [place] # (Auto) 0.7 Eos # (Auto) 0.0 Baso # (Auto) 0.0 Immature Gran # (Auto) 0.10 H Absolute Nucleated RBC 0.02 H Immature Gran % 1 H Nucleated RBC % 0 Sodium 137 Potassium 3.4 Chloride 103 Carbon Dioxide 27.0 Anion Gap 7 BUN 8 L Creatinine 0.6 Estim Creat Clear Calc 94.8 eGFR > 60 BUN/Creatinine Ratio 13 Glucose 132 H Calculated Osmolality 274 L Calcium 7.9 L Corrected Calcium 8.5 Phosphorus 3.7 Magnesium 1.6 Total Bilirubin 0.7 AST 50 H ALT 48 Alkaline Phosphatase 263 H Total Protein 6.5 Albumin 3.3 L Globulin 3.2 Albumin/Globulin Ratio 1.0 L Vancomycin Trough 14.1 H ABG Interpretation ABG results: 09/29/24 09/29/24 09/30/24 00:03 15:16 03:36 ABG pH 7.29 L 7.33 L 7.39 ABG pCO2 42 45 41 ABG pO2 72 L 216 H D 91 D ABG HCO3 20 23 25 ABG O2 Saturation 92 100 H 97 ABG Base Excess -7 L -3 0 09/30/24 09/30/24 10/01/24 13:49 18:56 11:49 ABG pH 7.25 L D 7.35 D 7.49 H D ABG pCO2 53 H D 43 D 35 ABG pO2 161 H D 213 H D 114 H D ABG HCO3 23 24 26 ABG O2 Saturation 99 H 100 H 99 H ABG Base Excess -5 L -2 3 10/02/24 10/03/24 10/04/24 10:53 10:54 09:57 ABG pH 7.50 H 7.53 H 7.54 H ABG pCO2 35 41 46 ABG pO2 71 L D 101 D 46 L* D ABG HCO3 27 H 34 H 39 H ABG O2 Saturation 95 98 85 L ABG Base Excess 4 H 10 H 15 H 10/04/24 10/05/24 10/05/24 13:10 04:16 11:35 ABG pH 7.48 H 7.49 H 7.48 H ABG pCO2 53 H 46 45 ABG pO2 301 H D 75 L D 68 L ABG HCO3 39 H 35 H 33 H ABG O2 Saturation 100 H 96 94 ABG Base Excess Not Performed. 10 H 9 H 10/06/24 10/07/24 04:22 04:25 ABG pH 7.48 H 7.52 H ABG pCO2 42 40 ABG pO2 57 L* 72 L ABG HCO3 31 H 33 H ABG O2 Saturation 91 96 ABG Base Excess 7 H 9 H Quality Measures Quality Measures VTE prophylaxis (Heparin) Assessment & Plan Assessment Current Active Medications: Generic Name Dose Route Start Last Admin Trade Name Momoq PRN Reason Stop Dose Admin Acetaminophen 500 mg 10/02/24 16:03 10/06/24 13:11 Acetaminophen 500 Mg Tablet PO 11/01/24 16:02 500 mg Q6HR PRN Administration Fever > 100.4 or Pain 1-3 Amlodipine Besylate 5 mg 10/05/24 09:00 10/11/24 08:54 Amlodipine Besylate 5 Mg Tablet PO 11/04/24 08:59 5 mg QDAY LUKE Administration Apixaban 5 mg 10/08/24 21:00 10/11/24 08:54 Apixaban 2.5 Mg Tablet PO 11/07/24 20:59 5 mg BID LUKE Administration Calcium Carbonate 600 mg 10/08/24 09:00 10/11/24 08:54 Calcium Carbonate 600 Mg Tablet NG 11/07/24 08:59 600 mg QDAY LUKE Administration Dextrose 25 ml 09/28/24 23:34 Dextrose 50%-Water Inj 50 Ml Syringe IV 10/28/24 23:33 Q15MIN PRN BG 50-70 responsive npo pt Dextrose 50 ml 09/28/24 23:34 Dextrose 50%-Water Inj 50 Ml Syringe IV 10/28/24 23:33 Q15MIN PRN BG <50 OR BG <70 & pt unresponsive Diltiazem HCl 60 mg 10/02/24 12:00 10/11/24 12:56 Diltiazem 30 Mg Tablet PO 10/11/24 20:00 60 mg Q6HR LUKE Administration Diltiazem HCl 240 mg 10/12/24 09:00 Diltiazem Cd 120 Mg Capcr PO 11/11/24 08:59 QDAY LUKE Duloxetine HCl 60 mg 09/29/24 01:45 10/02/24 08:05 Duloxetine Hcl 30 Mg Capsule PO 10/29/24 01:44 Not Given BID LUKE Glucagon 1 mg 09/28/24 23:34 Glucagon Inj 1 Mg Vial IM Q15MIN PRN BG <70, and no IV access Guaifenesin/Dextromethorphan 2 each 09/30/24 10:00 10/11/24 09:00 Guaifenesin/Dm Tablet PO 10/30/24 09:59 2 each BID LUKE Administration Vancomycin/Sodium Chloride 200 mls @ 120 mls/hr 10/11/24 10:00 10/11/24 13:05 Vancomycin/Ns 1 Gm Ivpb IV 10/18/24 09:59 Infused BID@1000,2200 [facility] Infusion Protocol Insulin Glargine 10 unit 10/09/24 21:00 10/10/24 20:32 Insulin Glargine (Lantus) 5 Unit/0.05 Ml (Per 5 Units) SC 11/08/24 20:59 10 unit HS LUKE Administration Insulin Human Lispro 0 unit 10/10/24 17:00 10/11/24 11:35 Insulin Lispro (Admelog) 1 Unit/0.01 Ml Unit SC 11/09/24 16:59 Not Given ACHS [facility] Protocol Labetalol HCl 10 mg 10/03/24 21:00 Labetalol Inj 5 Mg/Ml Vial 20 Ml IVP 11/02/24 20:59 Q6HR PRN Systolic >180 and HR >80 Lactulose 10 gm 10/09/24 08:15 10/11/24 14:01 Lactulose Syrup 20 Gm/30 Ml Udc PO 11/08/24 08:14 Not Given TID LUKE Protocol Lisinopril 20 mg 10/11/24 09:00 10/11/24 08:54 Lisinopril 20 Mg Tablet PO 11/10/24 08:59 20 mg QDAY LUKE Administration Magnesium Hydroxide 30 ml 10/07/24 09:49 10/07/24 13:05 Milk Of Magnesia Susp 30 Ml Udc PO 11/06/24 09:48 30 ml QDAY PRN Administration CONSTIPATION Protocol Metoclopramide HCl 5 mg 10/09/24 09:55 10/11/24 12:59 Metoclopramide Inj 5 Mg/Ml Vial 2 Ml IVP 11/08/24 09:54 5 mg Q6HR LUKE Administration Protocol Ondansetron HCl 4 mg 09/28/24 23:26 Ondansetron Inj 2 Mg/Ml Inj 2 Ml IV 10/28/24 23:25 Q6H PRN NAUSEA OR VOMITING Protocol Pharmacy Consult 1 each 09/30/24 06:36 Vancomycin Pharmacy To Dose 1 Each Each IV 10/14/24 06:35 QDAY PRN PROTOCOL Polyethylene Glycol 17 gm 09/30/24 10:00 10/11/24 08:53 Polyethylene Glycol 17 Gm Packet PO 10/30/24 09:59 17 gm QDAY LUKE Administration Sennosides 1 tab 09/29/24 09:00 10/11/24 08:54 Senna Tablet PO 10/29/24 08:59 1 tab QDAY LUKE Administration Protocol Sodium Chloride 3 ml 10/01/24 18:17 Sodium Chloride Rt Kamille 0.9% 3 Ml Nebu INH 10/31/24 18:16 PRN PRN SOLN Plan Patient is a 67-year-old female with a past medical history of diabetes mellitus type 2 insulin-dependent nonadherent, hyperlipidemia, and hypertension who was admitted on 09/29/2024 for severe sepsis and acute hypoxic respiratory failure likely secondary to extensive bilateral pneumonia, MRSA + bacteremia and not well be acute encephalopathy likely multifactorial involving underlying sepsis and polypharmacy. # Acute encephalopathy, Likely multifactorial, improving #Deconditioning #Dysphagia 2/2 above Etiology: Multifactorial: Benzodiazepine withdrawal versus pain medication withdrawal vs less likely stroke as patient MRI was unremarkable vs less likely CSF infection as LP was unremarkable-with negative results for Neisseria negative, influenza, Strep B, and negative [place]. CSF ratio within normal limits. CSF WBC 3 and RBC 2-making HSV less likely. MRI lumbar showed no abscess. Crital Illness myopathy can not be ruled out in the setting of MRSA Bacteremia. Will require outpatient follow up with Neurology. Diagnostic: -lumbar MRI (10/08/2024): Transpedicular lumbar fusion L4 -S1 with satisfactory alignment . No findings of osteomyelitis discitis or definite epidural abscess. -MRI Brain (10/03/2024): Negative for acute hemorrhage mass effect or midline shift No acute infarct -Lumbar x-ray (10/03/2024): Successful fluoroscopically guided diagnostic lumbar puncture -CSF: WBC 3, RBC 2 Glucose 119, CSF Protein 46, Influenza neg, Neisseria negative, Strep B, -CSF Pending [place] Negative -CSF Pending Myelin and Angiotensin Plan: -Holding antipsychotic medications, diazepam and tramadol -Treating underlying infection -Per neuro recommendations: consider electromyography (EMG) and nerve conduction study (NCS)-outpatient - patient has been deconditioned given prolonged hospital stay. Continue with PT if tolerated. Patient will need SNF placement on discharge - NG tube discontinued--> Dysphagia 2 - aspiration precautions, Head Of Bed 45 #MRSA bacteremia #Community acquired pneumonia, imporved #Acute Hypoxic Respiratory Failure, Resolved #Leukocytosis, improving #Severe sepsis, likely secondary to CAP, Resolved Etiolgoy: Bacterial community-acquired pneumonia cannot be ruled out given past medical history of comorbidities and age, likely Streptococcus pneumoniae vs staph aures-->MRSA positive given first set of blood cultures and sputum cultures. Continue Vanco until 10/14/2024 DDx: Viral infection less likely as patient tested negative for Influenza and COVID vs less likely cocci as results were negative for serology. Diagnostic Test: -Blood Culture (09/28/2024)X2: MRSA, sensitive to vancoymcin -Blood Cultures (09/30/2024): No Growth after 48 hours -Blood Cutlrues (10/03/2024): Negative After 48 hours -Sputum Culture (09/29/2024) MRSA -Blood Culture (10/06/2024): Negative After 48 hours -CSF Culture: Negative -Cxr (10/07/2024): No significant change in diffuse bilateral pneumonia -Cxr (09/28/2024): Significant bilateral pneumonia -Head CT (09/28/2024): Negative for acute hemorrhage, mass effect or midline shift. If symptoms persist, consider brain MRI follow-up -CT Abdomen/Pelvis (09/28/2024): Extensive bilateral pneumonia. No renal or ureteral calculi, no hydronephrosis. Moderate stool throughout the colon Plan: -Continuing IV vancomycin [09/29/2024?to 10/14] per Dr. Humera gonzalez -Chest PT treatment Q4HR -Guaifenesin -Repeat second set blood cultures negative -Monitor for fever spike, white count elevation and signs of infection and renal function -Daily labs #New onset atrial Fibrilation with RVR, rate controlled #Bradycardia, Resolved Etiology: Acute atrial flutter likely secondary to sepsis.Overnight patient converted from atrial flutter to A-fib and diltiazem was switched to amnio. Rapid reports during day team at approximately 1335 for episode of bradycardia lasting about 1 second with possible AV block. Amio DC'd. If patient develops atrial flutter or atrial fibrillation may restart diltiazem at a slower rate. (10/01/2024) Patient experience episode of atrial fibrillation for 1 second. Given Positive MRSA blood culture, tentative VALERIE planned for Sunday-Dr. Romo DDx: Electrolyte imbalance versus cardiac etiology such as ectopic foci. Diagnostic: CHADVASC 3 EKG:Atrial Flutter EKG (09/30/2024) Atrial Fibrillation Cxr (09/29/2024): Significant bilateral pneumonia Plan: -START Diltiazem Cd 240 PO QDay -Eliquis 5 mg BID (10/08/2024) -Switch from Cardizem drip to p.o. Cardizem 60 mg 4 times daily, STOP (10/11/2024) -Cardiology recommended VALERIE-currently holding given altered mental status -Cardio consult, Dr. Romo, appreciate recommendation # Hypertension, improved Patient at home takes lisinopril 5 mg daily, increased on 10/10/2024 to Lisinopril 20 given continued increased systolic BP. Plan -Lisinopril 20 mg Qday -Amlodipine add 5 mg QDay- -Labetalol 10 mg was given x 1, 10/02, increased lisinopril to 20mg po daily #Diabetes mellitus type 2, insulin dependent The patient home medication Farxiga 5 mg, insulin Lantus 55 units, metformin- currenlty holding oral medication Diagnostics: -A1c 10.6 Plan: -Lantus 22 units at bedtime -ISS -Hypoglycemia protocols in place # Electrolyte disturbance # Hypokalemia #Hypomagnesium Potassium repletion. Magnesium repleted Plan -Continue to replace potassium as needed. -Calcium Carbonate 600 mg Qday #History of major depressive disorder #History of mental health disorders. HOld Diazepam and methadone in the setting of multiple rapid response and bradycardia with possible av block of about 1 second. Plan -Continue duloxetine 60 mg PO BID -Holding Quetiapine Fumarate 100 mg PO HS -Holding diazepam 10 mg PO BID due to altered mentation #History of chronic pain Patient reports having a history of chronic pain and is on multiple medications: Duloxetine, gabapentin, tizanidine, tramadol, methadone She does not respond well to Opioids Plan: -Holding Valium and tramadol -Holding Methadone 10 mg TID via G-tube #Euthyroid Sick Syndrome In the setting of bacteremia and increasing inflammatory response, reduction in TSH and coversion of T4 and T3. Unlikely this is a lab error as T4/T3 are both low and TSH levels are Diagnostic: -(10/01/2024): TSH 0.31, Free T4 0.72, Free T3 1.1 Plan -No intervention for euthyroid sick syndrome #Hyperbilirubinemia, improving #Hyperalkaline phosphatase Bilirubin on admission was 2.3 with ALP of 243. CT abdomen and pelvis was done showed an absent gallbladder. Hyperbilirubinemia and elevated alkaline phosphatase in the setting of dehydration and poor oral intake. Patient has abdominal pain or fever and is anicteric. Diagnostics: US Gallbladder (09/29/2024): Absent gallbladder. Normal common bile duct. Hepatomegaly, primary hepatocellular disease versus cirrhosis no focal liver lesions 10/01/2024: Total Bili 1.8 Alkaline Phosphatase 201 AST 92 ALT 34-->10/11/2024 Total bili 0.7, AST 50, ALT 48, Alkaline Phosphatase 263 Plan: -No acute intervention #Elevated anion Gap, resolved #Lactic acidosis likely type B, Resolved Health Maintenance: Disp: Pt is currently admitted to floors for further management of acute encephalopathy and MRSA bacteremia, awaiting vancomycin completion. FEN: Diet Carb Consistent DVT: on subQ heparin Code: Full Code - The patient's plan was discussed with attending Dr. Bethea and senior residents Dr. Agustin Mancuso MD PGY1 Internal Medicine Attending Provider Attestation/Addendum I, Liane Bethea DO, attest that I was physically present for the yan portions of the service and evaluated the patient with the resident and I reviewed and discussed the case with the resident and agree with the resident's findings and plans of care as documented above Patient seen and evaluated this AM. She states that she is she is thirsty, but otherwise doing well. No acute events overnight. Patient had a small BM after manual disimpaction. Will start on GoLytely. She is noted to have B/L UE edema. Low suspicion for any DVT as patient remains on apixaban. Will give on dose of albumin as patient is likely third spacing from hypoalbuminemia. Continue with IV vancomycin at this time.
[2024-10-11] MEDS: INSULIN LISPRO (AdmeLOG) 1 UNIT/0.01 ML UNIT SC ×2 (16:34→20:37)
[2024-10-11] MEDS: ALBUMIN HUMAN 25% IVPB 12.5 GM/50 ML BTL IV (16:34)
[2024-10-11] MEDS: NA SU/NAHCO3/KC/PEG (Golytely) 4,000 ML BTL 4000 ML PO (19:20)
[2024-10-11] MEDS: INSULIN GLARGINE (Lantus) 5 UNIT/0.05 ML (PER 5 UNITS) 10 UNIT SC (20:38)
--- NOTE | 2024-10-11 23:08 | VVPN_ITS ---
Telemedicine visit statement This visit was conducted with the use of phone was obtained on 10/11/24 at 2308. Documentation for date of: 10/11/24 Subjective Subjective Interval history: Patient was in telemetry, No new symptoms reported. Speech is back to normal, able to move both upper and lower extremities. Virtual exam Vital Signs Temp Pulse Resp BP Pulse Ox O2 Del Method O2 Flow Rate 96.8 F 85 19 176/85 H 95 Room Air 1 10/11/24 20:00 10/11/24 20:00 10/11/24 16:00 10/11/24 20:00 10/11/24 20:00 10/11/24 20:00 10/10/24 10:41 FiO2 28 10/09/24 16:00 Objective Labs 10/11/24 05:59 10/11/24 05:59 Labs: Laboratory Results - last 24 hr 10/11/24 05:59 WBC 13.2 H RBC 3.72 L Hgb 10.4 L Hct 32.3 L MCV 87 MCH 28.0 MCHC 32.2 RDW Std Deviation 47.2 H Plt Count 206 Neut % (Auto) 84 H Lymph % (Auto) 10 [place] % (Auto) 5 Eos % (Auto) 0 Baso % (Auto) 0 Neut # (Auto) 11.0 H Lymph # (Auto) 1.3 [place] # (Auto) 0.7 Eos # (Auto) 0.0 Baso # (Auto) 0.0 Immature Gran # (Auto) 0.10 H Absolute Nucleated RBC 0.02 H Immature Gran % 1 H Nucleated RBC % 0 Sodium 137 Potassium 3.4 Chloride 103 Carbon Dioxide 27.0 Anion Gap 7 BUN 8 L Creatinine 0.6 Estim Creat Clear Calc 94.8 eGFR > 60 BUN/Creatinine Ratio 13 Glucose 132 H Calculated Osmolality 274 L Calcium 7.9 L Corrected Calcium 8.5 Phosphorus 3.7 Magnesium 1.6 Total Bilirubin 0.7 AST 50 H ALT 48 Alkaline Phosphatase 263 H Total Protein 6.5 Albumin 3.3 L Globulin 3.2 Albumin/Globulin Ratio 1.0 L ABG Interpretation ABG results: 09/29/24 09/29/24 09/30/24 00:03 15:16 03:36 ABG pH 7.29 L 7.33 L 7.39 ABG pCO2 42 45 41 ABG pO2 72 L 216 H D 91 D ABG HCO3 20 23 25 ABG O2 Saturation 92 100 H 97 ABG Base Excess -7 L -3 0 09/30/24 09/30/24 10/01/24 13:49 18:56 11:49 ABG pH 7.25 L D 7.35 D 7.49 H D ABG pCO2 53 H D 43 D 35 ABG pO2 161 H D 213 H D 114 H D ABG HCO3 23 24 26 ABG O2 Saturation 99 H 100 H 99 H ABG Base Excess -5 L -2 3 10/02/24 10/03/24 10/04/24 10:53 10:54 09:57 ABG pH 7.50 H 7.53 H 7.54 H ABG pCO2 35 41 46 ABG pO2 71 L D 101 D 46 L* D ABG HCO3 27 H 34 H 39 H ABG O2 Saturation 95 98 85 L ABG Base Excess 4 H 10 H 15 H 10/04/24 10/05/24 10/05/24 13:10 04:16 11:35 ABG pH 7.48 H 7.49 H 7.48 H ABG pCO2 53 H 46 45 ABG pO2 301 H D 75 L D 68 L ABG HCO3 39 H 35 H 33 H ABG O2 Saturation 100 H 96 94 ABG Base Excess Not Performed. 10 H 9 H 10/06/24 10/07/24 04:22 04:25 ABG pH 7.48 H 7.52 H ABG pCO2 42 40 ABG pO2 57 L* 72 L ABG HCO3 31 H 33 H ABG O2 Saturation 91 96 ABG Base Excess 7 H 9 H Assessment & Plan Assessment 1) Quadriparesis: Status: Acute Assessment and plan: DD: Critical illness polyneuropathy/Myopathy Significantly improving Will need EMG and NCS of both UE and LE as an outpatient if weakness persists. Continue with physical therapy for ambulation safety before deciding on discharge. (2) Atrial fibrillation: stable. Status: Acute Possible transesophageal echocardiogram on Sunday Dr. Romo. (3) Hypoxia: Status: Resolved Assessment and plan: got extubated and maintaining o2 saturstion. (4) Severe sepsis, leukocytosis trending down Status: Acute Assessment and plan: being treated with IV antibiotics and stable. (5) Respiratory failure: Status: Resolved
[2024-10-12] VITALS (12 sets, daily range): BP systolic 137–175; BP diastolic 63–87; PULSE 73–98; RESP 15–22; TEMP 35.9–36.7; O2SAT 93–99; BMI 12.0
--- NOTE | 2024-10-12 05:09 | PC.NURSE ---
Patient was started on golytely last night. Pt had small x1 formed stool this morning
[2024-10-12] MEDS: LACTULOSE SYRUP 20 GM/30 ML UDC 10 GM PO ×2 (05:26→21:47)
[2024-10-12] MEDS: METOCLOPRAMIDE INJ 5 MG/ML VIAL 2 ML IVP ×4 (05:26→23:23)
[2024-10-12 06:17] LABS: Basophils % (Auto) 0 % (0-2.5); Eosinophils % (Auto) 0 % (0-10); Hematocrit 32.5 % (36.0-46.0); Hemoglobin 10.3 g/dL (12.0-16.0); Immature Granulocytes % (Auto) 1 % (0-0); Immature Granulocytes Auto 0.16 Thou/mm3 (0.00-0.00); Lymphocytes # (Auto) 1.3 Thou/mm3 (1.0-4.8); Lymphocytes % (Auto) 9 % (10-50); Mean Corpuscular HGB Conc 31.7 g/dl (31.0-37.0); Mean Corpuscular Hemoglobin 27.7 pg (25.0-35.0); Mean Corpuscular Volume 87 fL (80-100); Monocytes # (Auto) 0.8 Thou/mm3 (0.0-0.8); Monocytes % (Auto) 6 % (0-12); Neutrophils # (Auto) 11.2 Thou/mm3 (1.8-7.7); Neutrophils % (Auto) 83 % (37-80); Nucleated Red Blood Cell % 0 /100 WBC (0); Platelet Count 167 Thou/mm3 (140-440); RDW Standard Deviation 48.4 fL (36.4-46.3); Red Blood Count 3.72 Miln/mm3 (4.00-5.20); White Blood Count 13.5 Thou/mm3 (3.6-11.0)
[2024-10-12 06:39] LABS: Alanine Aminotransferase 39 U/L (10-49); Albumin, Serum 3.6 gm/dL (3.4-4.8); Albumin/Globulin Ratio 1.1 (1.2-2.2); Alkaline Phosphatase 256 U/L (46-116); Anion Gap 9 (7-16); Aspartate Amino Transferase 34 U/L (0-34); BUN/Creatinine Ratio 13 Ratio (12-20); Bilirubin,Total 0.8 mg/dL (0.3-1.2); Blood Urea Nitrogen 9 mg/dL (9-23); Calcium 8.3 mg/dL (8.3-10.6); Calcium (Corrected) 8.6 mg/dL (8.5-10.1); Carbon Dioxide 27.4 mMol/L (20.0-31.0); Chloride 101 mMol/L (98-107); Creatinine (Component) 0.7 mg/dL (0.6-1.3); Globulin 3.2 gm/dL (2.3-3.5); Glucose 163 mg/dL (74-106); Magnesium 1.8 mg/dL (1.6-2.6); Osmolality,Calculated 276 (275-295); Phosphorous 2.8 mg/dL (2.4-5.1); Potassium 3.3 mMol/L (3.4-5.1); Sodium 137 mMol/L (136-145); Total Protein 6.8 gm/dL (5.7-8.2); eGFR > 60 See Note
[2024-10-12] MEDS: Magnesium Sulfate 1 gm Ivpb 1 GM/100 ML BAG IV (08:34)
[2024-10-12] MEDS: POTASSIUM CHLORIDE 10% 20 MEQ/15 ML UDC 40 MEQ PO (08:34)
[2024-10-12] MEDS: DILTIAZEM CD 120 MG CAPCR 240 MG PO (08:34)
[2024-10-12] MEDS: APIXABAN 2.5 MG TABLET 5 MG PO ×2 (08:35→21:49)
[2024-10-12] MEDS: CALCIUM CARBONATE 600 MG TABLET NG (08:36)
[2024-10-12] MEDS: amLODIPine BESYLATE 5 MG TABLET PO (08:36)
[2024-10-12] MEDS: SENNA TABLET 1 TAB PO (08:36)
[2024-10-12] MEDS: POLYETHYLENE GLYCOL 17 GM PACKET PO (08:36)
[2024-10-12] MEDS: guaiFENesin/DM TABLET 2 EACH PO (08:37)
[2024-10-12] MEDS: Lisinopril 20 MG TABLET PO (08:37)
--- NOTE | 2024-10-12 09:20 | PD.RESPRO ---
Documentation for date of: 10/12/24 Subjective Subjective Interval history: Patient was seen and examined at the bedside. Patient was passing bowel movements with GoLytely prep. Will continue vancomycin for 3 more days. Encouraged on ambulation with the physical therapist and started chest PT Q4 hourly with Mucomyst Q4 hourly before chest PT. Patient is able to talk and do conversation slowly. Miller catheter was discontinued. Electrolytes were repleted. Hemoglobin stable at 10.3. Patient's was updated regarding the plan. Encouragement on ambulation. All labs and orders were reviewed. Exam Vital Signs Temp Pulse Resp BP Pulse Ox O2 Del Method O2 Flow Rate 97.4 F 73 19 141/71 H 93 L Room Air 1 10/12/24 08:00 10/12/24 08:37 10/12/24 08:00 10/12/24 08:37 10/12/24 08:00 10/12/24 08:00 10/10/24 10:41 FiO2 28 10/09/24 16:00 Narrative Exam General Appearance: Alert & Oriented X3, well-nourished female who is lying in bed in no acute distress HEENT: Skull symmetrical and atraumatic. Conjunctivae pin and moist. Pupils equal, round, reactive to light and accommodation (PERRL). External ear without lesion or discharge. Straight, nares patient, mucosa pink, no discharge. Cardio: Normal Rate and Rhythm with S1 and S2 heart sounds. No murmurs or extra heart sounds auscultated. No bruits on carotid auscultation. No peripheral edema or cyanosis. Lungs: Symmetric with good expansion. Chest and back non-tender. Breath sounds vesicular without crackles, wheezing or rhonchi, pulmonary sounds greatly improved as compared to initial admission. Abdomen: Non-tender, Non-distended, Normal Reactive Bowel Sounds Neuro: Alert, cooperative, oriented to person, place, and time. Speech, improved. Upper motor strength 4/5 and Lower motor strength 3/5. Sensation intact. Objective Labs 10/12/24 05:08 10/12/24 05:08 Labs: Laboratory Results - last 24 hr 10/12/24 05:08 WBC 13.5 H RBC 3.72 L Hgb 10.3 L Hct 32.5 L MCV 87 MCH 27.7 MCHC 31.7 RDW Std Deviation 48.4 H Plt Count 167 D Neut % (Auto) 83 H Lymph % (Auto) 9 L [place] % (Auto) 6 Eos % (Auto) 0 Baso % (Auto) 0 Neut # (Auto) 11.2 H Lymph # (Auto) 1.3 [place] # (Auto) 0.8 Eos # (Auto) 0.0 Baso # (Auto) 0.0 Immature Gran # (Auto) 0.16 H Absolute Nucleated RBC 0.00 Immature Gran % 1 H Nucleated RBC % 0 Sodium 137 Potassium 3.3 L Chloride 101 Carbon Dioxide 27.4 Anion Gap 9 BUN 9 Creatinine 0.7 Estim Creat Clear Calc 80.0 eGFR > 60 BUN/Creatinine Ratio 13 Glucose 163 H Calculated Osmolality 276 Calcium 8.3 Corrected Calcium 8.6 Phosphorus 2.8 Magnesium 1.8 Total Bilirubin 0.8 AST 34 ALT 39 Alkaline Phosphatase 256 H Total Protein 6.8 Albumin 3.6 Globulin 3.2 Albumin/Globulin Ratio 1.1 L ABG Interpretation ABG results: 09/29/24 09/29/24 09/30/24 00:03 15:16 03:36 ABG pH 7.29 L 7.33 L 7.39 ABG pCO2 42 45 41 ABG pO2 72 L 216 H D 91 D ABG HCO3 20 23 25 ABG O2 Saturation 92 100 H 97 ABG Base Excess -7 L -3 0 09/30/24 09/30/24 10/01/24 13:49 18:56 11:49 ABG pH 7.25 L D 7.35 D 7.49 H D ABG pCO2 53 H D 43 D 35 ABG pO2 161 H D 213 H D 114 H D ABG HCO3 23 24 26 ABG O2 Saturation 99 H 100 H 99 H ABG Base Excess -5 L -2 3 10/02/24 10/03/24 10/04/24 10:53 10:54 09:57 ABG pH 7.50 H 7.53 H 7.54 H ABG pCO2 35 41 46 ABG pO2 71 L D 101 D 46 L* D ABG HCO3 27 H 34 H 39 H ABG O2 Saturation 95 98 85 L ABG Base Excess 4 H 10 H 15 H 10/04/24 10/05/24 10/05/24 13:10 04:16 11:35 ABG pH 7.48 H 7.49 H 7.48 H ABG pCO2 53 H 46 45 ABG pO2 301 H D 75 L D 68 L ABG HCO3 39 H 35 H 33 H ABG O2 Saturation 100 H 96 94 ABG Base Excess Not Performed. 10 H 9 H 10/06/24 10/07/24 04:22 04:25 ABG pH 7.48 H 7.52 H ABG pCO2 42 40 ABG pO2 57 L* 72 L ABG HCO3 31 H 33 H ABG O2 Saturation 91 96 ABG Base Excess 7 H 9 H Quality Measures Quality Measures VTE prophylaxis (Heparin) Assessment & Plan Assessment Current Active Medications: Generic Name Dose Route Start Last Admin Trade Name Freq PRN Reason Stop Dose Admin Acetaminophen 500 mg 10/02/24 16:03 10/06/24 13:11 Acetaminophen 500 Mg Tablet PO 11/01/24 16:02 500 mg Q6HR PRN Administration Fever > 100.4 or Pain 1-3 Amlodipine Besylate 5 mg 10/05/24 09:00 10/12/24 08:36 Amlodipine Besylate 5 Mg Tablet PO 11/04/24 08:59 5 mg QDAY LUKE Administration Apixaban 5 mg 10/08/24 21:00 10/12/24 08:35 Apixaban 2.5 Mg Tablet PO 11/07/24 20:59 5 mg BID LUKE Administration Calcium Carbonate 600 mg 10/08/24 09:00 10/12/24 08:36 Calcium Carbonate 600 Mg Tablet NG 11/07/24 08:59 600 mg QDAY LUKE Administration Dextrose 25 ml 09/28/24 23:34 Dextrose 50%-Water Inj 50 Ml Syringe IV 10/28/24 23:33 Q15MIN PRN BG 50-70 responsive npo pt Dextrose 50 ml 09/28/24 23:34 Dextrose 50%-Water Inj 50 Ml Syringe IV 10/28/24 23:33 Q15MIN PRN BG <50 OR BG <70 & pt unresponsive Diltiazem HCl 240 mg 10/12/24 09:00 10/12/24 08:34 Diltiazem Cd 120 Mg Capcr PO 11/11/24 08:59 240 mg QDAY LUKE Administration Duloxetine HCl 60 mg 09/29/24 01:45 10/02/24 08:05 Duloxetine Hcl 30 Mg Capsule PO 10/29/24 01:44 Not Given BID LUKE Glucagon 1 mg 09/28/24 23:34 Glucagon Inj 1 Mg Vial IM Q15MIN PRN BG <70, and no IV access Guaifenesin/Dextromethorphan 2 each 09/30/24 10:00 10/12/24 08:37 Guaifenesin/Dm Tablet PO 10/30/24 09:59 2 each BID LUKE Administration Vancomycin/Sodium Chloride 200 mls @ 120 mls/hr 10/11/24 10:00 10/11/24 21:47 Vancomycin/Ns 1 Gm Ivpb IV 10/18/24 09:59 120 mls/hr BID@1000,2200 LUKE Administration Protocol Insulin Glargine 10 unit 10/09/24 21:00 10/11/24 20:38 Insulin Glargine (Lantus) 5 Unit/0.05 Ml (Per 5 Units) SC 11/08/24 20:59 10 unit HS LUKE Administration Insulin Human Lispro 0 unit 10/10/24 17:00 10/12/24 07:24 Insulin Lispro (Admelog) 1 Unit/0.01 Ml Unit SC 11/09/24 16:59 Not Given ACHS LUKE Protocol Labetalol HCl 10 mg 10/03/24 21:00 Labetalol Inj 5 Mg/Ml Vial 20 Ml IVP 11/02/24 20:59 Q6HR PRN Systolic >180 and HR >80 Lactulose 10 gm 10/09/24 08:15 10/12/24 05:26 Lactulose Syrup 20 Gm/30 Ml Udc PO 11/08/24 08:14 10 gm TID LUKE Administration Protocol Lisinopril 20 mg 10/11/24 09:00 10/12/24 08:37 Lisinopril 20 Mg Tablet PO 11/10/24 08:59 20 mg QDAY LUKE Administration Magnesium Hydroxide 30 ml 10/07/24 09:49 10/07/24 13:05 Milk Of Magnesia Susp 30 Ml Udc PO 11/06/24 09:48 30 ml QDAY PRN Administration CONSTIPATION Protocol Metoclopramide HCl 5 mg 10/09/24 09:55 10/12/24 05:26 Metoclopramide Inj 5 Mg/Ml Vial 2 Ml IVP 11/08/24 09:54 5 mg Q6HR LUKE Administration Protocol Ondansetron HCl 4 mg 09/28/24 23:26 Ondansetron Inj 2 Mg/Ml Inj 2 Ml IV 10/28/24 23:25 Q6H PRN NAUSEA OR VOMITING Protocol Pharmacy Consult 1 each 09/30/24 06:36 Vancomycin Pharmacy To Dose 1 Each Each IV 10/14/24 06:35 QDAY PRN PROTOCOL Polyethylene Glycol 17 gm 09/30/24 10:00 10/12/24 08:36 Polyethylene Glycol 17 Gm Packet PO 10/30/24 09:59 17 gm QDAY LUKE Administration Sennosides 1 tab 09/29/24 09:00 10/12/24 08:36 Senna Tablet PO 10/29/24 08:59 1 tab QDAY LUKE Administration Protocol Sodium Chloride 3 ml 10/01/24 18:17 Sodium Chloride Rt Kamille 0.9% 3 Ml Nebu INH 10/31/24 18:16 PRN PRN SOLN Plan Patient is a 67-year-old female with a past medical history of diabetes mellitus type 2 insulin-dependent nonadherent, hyperlipidemia, and hypertension who was admitted on 09/29/2024 for severe sepsis and acute hypoxic respiratory failure likely secondary to extensive bilateral pneumonia, MRSA + bacteremia and not well be acute encephalopathy likely multifactorial involving underlying sepsis and polypharmacy. # Acute encephalopathy, Likely multifactorial, resolving #Deconditioning #Dysphagia 2/2 above Etiology: Multifactorial: Benzodiazepine withdrawal versus pain medication withdrawal vs less likely stroke as patient MRI was unremarkable vs less likely CSF infection as LP was unremarkable-with negative results for Neisseria negative, influenza, Strep B, and negative [place]. CSF ratio within normal limits. CSF WBC 3 and RBC 2-making HSV less likely. MRI lumbar showed no abscess. Crital Illness myopathy can not be ruled out in the setting of MRSA Bacteremia. Will require outpatient follow up with Neurology. Diagnostic: -lumbar MRI (10/08/2024): Transpedicular lumbar fusion L4 -S1 with satisfactory alignment . No findings of osteomyelitis discitis or definite epidural abscess. -MRI Brain (10/03/2024): Negative for acute hemorrhage mass effect or midline shift No acute infarct -Lumbar x-ray (10/03/2024): Successful fluoroscopically guided diagnostic lumbar puncture -CSF: WBC 3, RBC 2 Glucose 119, CSF Protein 46, Influenza neg, Neisseria negative, Strep B, -CSF Pending [place] Negative -CSF Pending Myelin and Angiotensin Plan: -Encouraged on ambulation with PT -Removed Miller catheter -Holding antipsychotic medications, diazepam and tramadol -Treating underlying infection -Per neuro recommendations: consider electromyography (EMG) and nerve conduction study (NCS)-outpatient - patient has been deconditioned given prolonged hospital stay. Continue with PT if tolerated. Patient will need SNF placement on discharge - NG tube discontinued--> Dysphagia 2 - aspiration precautions, Head Of Bed 45 #MRSA bacteremia #Community acquired pneumonia, imporved #Acute Hypoxic Respiratory Failure, Resolved #Leukocytosis, improving #Severe sepsis, likely secondary to CAP, Resolved Etiolgoy: Bacterial community-acquired pneumonia cannot be ruled out given past medical history of comorbidities and age, likely Streptococcus pneumoniae vs staph aures-->MRSA positive given first set of blood cultures and sputum cultures. Continue Vanco until 10/14/2024 DDx: Viral infection less likely as patient tested negative for Influenza and COVID vs less likely cocci as results were negative for serology. Diagnostic Test: -Blood Culture (09/28/2024)X2: MRSA, sensitive to vancoymcin -Blood Cultures (09/30/2024): No Growth after 48 hours -Blood Cutlrues (10/03/2024): Negative After 48 hours -Sputum Culture (09/29/2024) MRSA -Blood Culture (10/06/2024): Negative After 48 hours -CSF Culture: Negative -Cxr (10/07/2024): No significant change in diffuse bilateral pneumonia -Cxr (09/28/2024): Significant bilateral pneumonia -Head CT (09/28/2024): Negative for acute hemorrhage, mass effect or midline shift. If symptoms persist, consider brain MRI follow-up -CT Abdomen/Pelvis (09/28/2024): Extensive bilateral pneumonia. No renal or ureteral calculi, no hydronephrosis. Moderate stool throughout the colon Plan: -Continuing IV vancomycin [09/29/2024?to 10/14] per Dr. Humera gonzalez -Chest PT treatment Q4HR and Mucomyst every 4 hourly -Guaifenesin -Repeat second set blood cultures negative -Monitor for fever spike, white count elevation and signs of infection and renal function -Daily labs #New onset atrial Fibrilation with RVR, rate controlled #Bradycardia, Resolved Etiology: Acute atrial flutter likely secondary to sepsis.Overnight patient converted from atrial flutter to A-fib and diltiazem was switched to amnio. Rapid reports during day team at approximately 1335 for episode of bradycardia lasting about 1 second with possible AV block. Amio DC'd. If patient develops atrial flutter or atrial fibrillation may restart diltiazem at a slower rate. (10/01/2024) Patient experience episode of atrial fibrillation for 1 second. Given Positive MRSA blood culture, tentative VALERIE planned for Sunday-Dr. Romo DDx: Electrolyte imbalance versus cardiac etiology such as ectopic foci. Diagnostic: CHADVASC 3 EKG:Atrial Flutter EKG (09/30/2024) Atrial Fibrillation Cxr (09/29/2024): Significant bilateral pneumonia Plan: -START Diltiazem Cd 240 PO QDay -Eliquis 5 mg BID (10/08/2024) -Switch from Cardizem drip to p.o. Cardizem 60 mg 4 times daily, STOP (10/11/2024) -Cardiology recommended VALERIE-currently holding given altered mental status -Cardio consult, Dr. Romo, appreciate recommendation # Constipation ? Patient did not had bowel movement for at least 10 days during hospital stay ? Manual disimpaction performed on 10/11 which only showed semisolid feces Plan: ? Continue MiraLAX and senna scheduled ? Patient was given GoLytely prep due to failure to enema, MiraLAX, senna and lactulose ? Passing bowel movements now with GoLytely prep ? Encouraged on ambulation # Hypertension, improved Patient at home takes lisinopril 5 mg daily, increased on 10/10/2024 to Lisinopril 20 given continued increased systolic BP. Plan -Lisinopril 20 mg Qday -Amlodipine add 5 mg QDay- -Labetalol 10 mg was given x 1, 10/02, increased lisinopril to 20mg po daily #Diabetes mellitus type 2, insulin dependent The patient home medication Farxiga 5 mg, insulin Lantus 55 units, metformin-currenlty holding oral medication Diagnostics: -A1c 10.6 Plan: -Lantus 22 units at bedtime -ISS -Hypoglycemia protocols in place # Electrolyte disturbance # Hypokalemia #Hypomagnesium Potassium repletion. Magnesium repleted Plan -Continue to replace potassium as needed. -Calcium Carbonate 600 mg Qday #History of major depressive disorder #History of mental health disorders. HOld Diazepam and methadone in the setting of multiple rapid response and bradycardia with possible av block of about 1 second. Plan -Continue duloxetine 60 mg PO BID -Holding Quetiapine Fumarate 100 mg PO HS -Holding diazepam 10 mg PO BID due to altered mentation #History of chronic pain Patient reports having a history of chronic pain and is on multiple medications: Duloxetine, gabapentin, tizanidine, tramadol, methadone She does not respond well to Opioids Plan: -Holding Valium and tramadol -Holding Methadone 10 mg TID via G-tube #Euthyroid Sick Syndrome In the setting of bacteremia and increasing inflammatory response, reduction in TSH and coversion of T4 and T3. Unlikely this is a lab error as T4/T3 are both low and TSH levels are Diagnostic: -(10/01/2024): TSH 0.31, Free T4 0.72, Free T3 1.1 Plan -No intervention for euthyroid sick syndrome #Hyperbilirubinemia, improving #Hyperalkaline phosphatase Bilirubin on admission was 2.3 with ALP of 243. CT abdomen and pelvis was done showed an absent gallbladder. Hyperbilirubinemia and elevated alkaline phosphatase in the setting of dehydration and poor oral intake. Patient has abdominal pain or fever and is anicteric. Diagnostics: US Gallbladder (09/29/2024): Absent gallbladder. Normal common bile duct. Hepatomegaly, primary hepatocellular disease versus cirrhosis no focal liver lesions 10/01/2024: Total Bili 1.8 Alkaline Phosphatase 201 AST 92 ALT 34-->10/11/2024 Total bili 0.7, AST 50, ALT 48, Alkaline Phosphatase 263 Plan: -No acute intervention #Elevated anion Gap, resolved #Lactic acidosis likely type B, Resolved Health Maintenance: Disp: Pt is currently admitted to floors for further management of acute encephalopathy and MRSA bacteremia, awaiting vancomycin completion. FEN: Diet Carb Consistent DVT: on subQ heparin Code: Full Code - Plan of care discussed with attending physician, Dr. Neema Velez MD, PGY 2 Attending Provider Attestation/Addendum I, Liane Bethea DO, attest that I was physically present for the yan portions of the service and evaluated the patient with the resident and I reviewed and discussed the case with the resident and agree with the resident's findings and plans of care as documented above Patient seen and evaluated this AM. She states that she was able to have a bowel movement this morning after receiving GoLytely. Will continue with colon cleanse as patient remains very distended due to stool impaction. Abdomen is otherwise soft. Patient had misunderstood that she was going to go for a colonoscopy since she was given GoLytely. However, explained to patient and her at bedside that she was given GoLytely since no laxatives have been helping her go to the bathroom prior to this intervention. There are no plans for colonoscopy otherwise. Will continue with IV antibiotics until the . All questions and concerns were addressed at bedside to patient and satisfaction.
--- NOTE | 2024-10-12 10:49 | PC.SS ---
Addendum entered and electronically signed by Lilliam Elizabeth [facility] 10/13/24 15:36: Correction - [facility] gurney transport, Addendum entered and electronically signed by Lilliam Elizabeth [facility] 10/13/24 15:31: File Exchanged PASSR to [facility]. Confirmed with [facility] that they received auth. Patient max assist to sit at bedside, will likely need [facility] gurney transport with [facility]. Will pass on on IMAN Hines. Addendum entered and electronically signed by Lilliam Elizabeth [facility] 10/13/24 14:53: Received VM from [facility] and patient meets criteria for SNF; [facility] will receive auth within 1 hour. Antic PASSR to be up later this afternoon, will file exchange at that time. Addendum entered and electronically signed by Lilliam Elizabeth [facility] 10/13/24 14:32: Confirmed with [facility] they are able to accept. [facility] booked on [facility]. Unable to file exchange PASSR at this time as website is down. S/W [facility] and requested they review patient for auth. Addendum entered and electronically signed by Lilliam Elizabeth [facility] 10/13/24 13:03: Patient has been accepted by 3 facilities including [facility] with 1 facility considering. Original Note: IP ARCHITECT met with family to discuss snf's placement's and pt stated that [facility] is the pt's preference for SNF.
[2024-10-12 11:04] LABS: Vancomycin,Trough 15.7 mcg/mL (5.0-10.0)
[2024-10-12] MEDS: VANCOMYCIN/NS 1 GM IVPB 200 ML IV ×2 (11:18→21:48)
--- NOTE | 2024-10-12 11:57 | PC.SS ---
Addendum entered and electronically signed by Lilliam Elizabeth RPh 10/13/24 12:55: PASSR Level 2 closed for no SMI. Letters downloaded. Original Note: [employer] submitted snf's referral via [employer], and completed level one PASSAR
[2024-10-12] MEDS: INSULIN LISPRO (AdmeLOG) 1 UNIT/0.01 ML UNIT SC ×2 (17:28→21:47)
--- NOTE | 2024-10-12 20:43 | VVPN_ITS ---
Telemedicine visit statement This visit was conducted with the use of interactive audio and video telecommunications system that permits real time communication between the patient and the provider. Patient's verbal consent for virtual visit was obtained on 10/12/24 at 2043. Documentation for date of: 10/12/24 Subjective Subjective Interval history: Patient was in telemetry, No new symptoms reported. Still weak and hypophonic but able to speak in a soft voice, able to move both upper and lower extremities. She already had bowel movements x 3 in the daytime after the GoLytely. Virtual exam Vital Signs Temp Pulse Resp BP Pulse Ox O2 Del Method O2 Flow Rate 98.1 F 82 15 145/63 H 96 Room Air 1 10/12/24 20:00 10/12/24 20:00 10/12/24 20:00 10/12/24 20:00 10/12/24 20:00 10/12/24 20:00 10/10/24 10:41 FiO2 28 10/09/24 16:00 Objective Labs 10/12/24 05:08 10/12/24 05:08 Labs: Laboratory Results - last 24 hr 10/12/24 10/12/24 05:08 10:15 WBC 13.5 H RBC 3.72 L Hgb 10.3 L Hct 32.5 L MCV 87 MCH 27.7 MCHC 31.7 RDW Std Deviation 48.4 H Plt Count 167 D Neut % (Auto) 83 H Lymph % (Auto) 9 L [place] % (Auto) 6 Eos % (Auto) 0 Baso % (Auto) 0 Neut # (Auto) 11.2 H Lymph # (Auto) 1.3 [place] # (Auto) 0.8 Eos # (Auto) 0.0 Baso # (Auto) 0.0 Immature Gran # (Auto) 0.16 H Absolute Nucleated RBC 0.00 Immature Gran % 1 H Nucleated RBC % 0 Sodium 137 Potassium 3.3 L Chloride 101 Carbon Dioxide 27.4 Anion Gap 9 BUN 9 Creatinine 0.7 Estim Creat Clear Calc 80.0 eGFR > 60 BUN/Creatinine Ratio 13 Glucose 163 H Calculated Osmolality 276 Calcium 8.3 Corrected Calcium 8.6 Phosphorus 2.8 Magnesium 1.8 Total Bilirubin 0.8 AST 34 ALT 39 Alkaline Phosphatase 256 H Total Protein 6.8 Albumin 3.6 Globulin 3.2 Albumin/Globulin Ratio 1.1 L Vancomycin Trough 15.7 H ABG Interpretation ABG results: 09/29/24 09/29/24 09/30/24 00:03 15:16 03:36 ABG pH 7.29 L 7.33 L 7.39 ABG pCO2 42 45 41 ABG pO2 72 L 216 H D 91 D ABG HCO3 20 23 25 ABG O2 Saturation 92 100 H 97 ABG Base Excess -7 L -3 0 09/30/24 09/30/24 10/01/24 13:49 18:56 11:49 ABG pH 7.25 L D 7.35 D 7.49 H D ABG pCO2 53 H D 43 D 35 ABG pO2 161 H D 213 H D 114 H D ABG HCO3 23 24 26 ABG O2 Saturation 99 H 100 H 99 H ABG Base Excess -5 L -2 3 10/02/24 10/03/24 10/04/24 10:53 10:54 09:57 ABG pH 7.50 H 7.53 H 7.54 H ABG pCO2 35 41 46 ABG pO2 71 L D 101 D 46 L* D ABG HCO3 27 H 34 H 39 H ABG O2 Saturation 95 98 85 L ABG Base Excess 4 H 10 H 15 H 10/04/24 10/05/24 10/05/24 13:10 04:16 11:35 ABG pH 7.48 H 7.49 H 7.48 H ABG pCO2 53 H 46 45 ABG pO2 301 H D 75 L D 68 L ABG HCO3 39 H 35 H 33 H ABG O2 Saturation 100 H 96 94 ABG Base Excess Not Performed. 10 H 9 H 10/06/24 10/07/24 04:22 04:25 ABG pH 7.48 H 7.52 H ABG pCO2 42 40 ABG pO2 57 L* 72 L ABG HCO3 31 H 33 H ABG O2 Saturation 91 96 ABG Base Excess 7 H 9 H Assessment & Plan Assessment 1) Quadriparesis: Status: Acute Assessment and plan: DD: Critical illness polyneuropathy/Myopathy Significantly improving Will need EMG and NCS of both UE and LE as an outpatient if weakness persists. Continue with physical therapy for ambulation safety before deciding on discharge. (2) Atrial fibrillation: stable. Status: Acute Possible transesophageal echocardiogram on Sunday Dr. Romo. (3) Hypoxia: Status: Resolved Assessment and plan: got extubated and maintaining o2 saturstion. (4) Severe sepsis, leukocytosis trending down Status: Acute Assessment and plan: being treated with IV antibiotics and stable. (5) Respiratory failure: Status: Resolved
[2024-10-12] MEDS: INSULIN GLARGINE (Lantus) 5 UNIT/0.05 ML (PER 5 UNITS) 10 UNIT SC (21:48)
[2024-10-13] VITALS (10 sets, daily range): BP systolic 140–156; BP diastolic 65–101; PULSE 74–95; RESP 16–78; TEMP 35.7–36.6; O2SAT 92–97; BMI 29.5; BMI 11.0
--- NOTE | 2024-10-13 01:42 | PC.NURSE ---
Pt had x3 BM tonight. MD Cotter was made aware and said that it is ok to stop the golytely now
[2024-10-13] MEDS: LACTULOSE SYRUP 20 GM/30 ML UDC 10 GM PO ×3 (05:38→21:41)
[2024-10-13] MEDS: METOCLOPRAMIDE INJ 5 MG/ML VIAL 2 ML IVP ×3 (05:38→17:05)
[2024-10-13 06:04] LABS: Basophils % (Auto) 0 % (0-2.5); Eosinophils % (Auto) 0 % (0-10); Hematocrit 38.2 % (36.0-46.0); Hemoglobin 12.3 g/dL (12.0-16.0); Immature Granulocytes % (Auto) 1 % (0-0); Lymphocytes # (Auto) 1.5 Thou/mm3 (1.0-4.8); Lymphocytes % (Auto) 12 % (10-50); Mean Corpuscular HGB Conc 32.2 g/dl (31.0-37.0); Mean Corpuscular Volume 87 fL (80-100); Monocytes # (Auto) 0.8 Thou/mm3 (0.0-0.8); Monocytes % (Auto) 7 % (0-12); Neutrophils % (Auto) 80 % (37-80); Nucleated Red Blood Cell # 0.02 Thou/mm3 (0.00-0.00); Nucleated Red Blood Cell % 0 /100 WBC (0); Platelet Count 105 Thou/mm3 (140-440); RDW Standard Deviation 48.4 fL (36.4-46.3); Red Blood Count 4.39 Miln/mm3 (4.00-5.20); White Blood Count 12.6 Thou/mm3 (3.6-11.0)
[2024-10-13 06:31] LABS: Alanine Aminotransferase 26 U/L (10-49); Albumin, Serum 3.8 gm/dL (3.4-4.8); Alkaline Phosphatase 270 U/L (46-116); Anion Gap 10 (7-16); Aspartate Amino Transferase 52 U/L (0-34); BUN/Creatinine Ratio 12 Ratio (12-20); Bilirubin,Total 0.8 mg/dL (0.3-1.2); Blood Urea Nitrogen 7 mg/dL (9-23); Calcium 8.8 mg/dL (8.3-10.6); Carbon Dioxide 25.9 mMol/L (20.0-31.0); Chloride 103 mMol/L (98-107); Creatinine (Component) 0.6 mg/dL (0.6-1.3); Estimated Creatinine Clearance 92.6 mL/min (>60); Globulin 3.9 gm/dL (2.3-3.5); Glucose 88 mg/dL (74-106); Magnesium 1.6 mg/dL (1.6-2.6); Osmolality,Calculated 274 (275-295); Phosphorous 2.9 mg/dL (2.4-5.1); Potassium 3.4 mMol/L (3.4-5.1); Sodium 139 mMol/L (136-145); Total Protein 7.7 gm/dL (5.7-8.2); eGFR > 60 See Note
[2024-10-13 06:49] LABS: Myelin Basic Protein, CSF* <2.0 mcg/L (< OR = 4.0); West Nile Virus (IgM), CSF <0.90
[2024-10-13 07:06] LABS: Enterovirus Source CSF
[2024-10-13] MEDS: POTASSIUM CHLORIDE 10% 20 MEQ/15 ML UDC 40 MEQ PO (09:12)
[2024-10-13] MEDS: DILTIAZEM CD 120 MG CAPCR 240 MG PO (09:12)
[2024-10-13] MEDS: amLODIPine BESYLATE 5 MG TABLET PO (09:13)
[2024-10-13] MEDS: SENNA TABLET 1 TAB PO (09:13)
[2024-10-13] MEDS: APIXABAN 2.5 MG TABLET 5 MG PO ×2 (09:13→21:40)
[2024-10-13] MEDS: Lisinopril 20 MG TABLET PO (09:13)
[2024-10-13] MEDS: Magnesium Sulfate 4 GM Ivpb 4 GM/50 ML BAG IV (09:14)
[2024-10-13] MEDS: CALCIUM CARBONATE 600 MG TABLET NG (09:14)
[2024-10-13] MEDS: POLYETHYLENE GLYCOL 17 GM PACKET PO (09:14)
--- NOTE | 2024-10-13 10:02 | PD.RESPRO ---
Documentation for date of: 10/13/24 Subjective Subjective Interval history: No overnight events, seen and examined in telemetry, clinically improving, now able to speak in soft voice, able to move all extremities. Exam Vital Signs Temp Pulse Resp BP Pulse Ox O2 Del Method O2 Flow Rate 97.5 F 92 20 154/79 H 96 Room Air 1 10/13/24 08:00 10/13/24 09:13 10/13/24 08:49 10/13/24 09:13 10/13/24 08:49 10/13/24 08:00 10/10/24 10:41 FiO2 28 10/09/24 16:00 Objective Labs 10/14/24 04:48 10/14/24 13:33 Labs: Laboratory Results - last 24 hr 10/03/24 10/12/24 10/13/24 15:43 10:15 05:19 WBC 12.6 H RBC 4.39 Hgb 12.3 D Hct 38.2 MCV 87 MCH 28.0 MCHC 32.2 RDW Std Deviation 48.4 H Plt Count 105 L D Neut % (Auto) 80 Lymph % (Auto) 12 [place] % (Auto) 7 Eos % (Auto) 0 Baso % (Auto) 0 Neut # (Auto) 10.0 H Lymph # (Auto) 1.5 [place] # (Auto) 0.8 Eos # (Auto) 0.0 Baso # (Auto) 0.0 Immature Gran # (Auto) 0.10 H Absolute Nucleated RBC 0.02 H Immature Gran % 1 H Nucleated RBC % 0 Sodium 139 Potassium 3.4 Chloride 103 Carbon Dioxide 25.9 Anion Gap 10 BUN 7 L Creatinine 0.6 Estim Creat Clear Calc 92.6 eGFR > 60 BUN/Creatinine Ratio 12 Glucose 88 D Calculated Osmolality 274 L Calcium 8.8 Corrected Calcium 9.0 Phosphorus 2.9 Magnesium 1.6 Total Bilirubin 0.8 AST 52 H ALT 26 Alkaline Phosphatase 270 H Total Protein 7.7 Albumin 3.8 Globulin 3.9 H Albumin/Globulin Ratio 1.0 L CSF Myelin Basic Protein <2.0 CSF [place] IgG Ab <1.30 CSF [place] IgM Ab <0.90 Vancomycin Trough 15.7 H ABG Interpretation ABG results: 09/29/24 09/29/24 09/30/24 00:03 15:16 03:36 ABG pH 7.29 L 7.33 L 7.39 ABG pCO2 42 45 41 ABG pO2 72 L 216 H D 91 D ABG HCO3 20 23 25 ABG O2 Saturation 92 100 H 97 ABG Base Excess -7 L -3 0 09/30/24 09/30/24 10/01/24 13:49 18:56 11:49 ABG pH 7.25 L D 7.35 D 7.49 H D ABG pCO2 53 H D 43 D 35 ABG pO2 161 H D 213 H D 114 H D ABG HCO3 23 24 26 ABG O2 Saturation 99 H 100 H 99 H ABG Base Excess -5 L -2 3 10/02/24 10/03/24 10/04/24 10:53 10:54 09:57 ABG pH 7.50 H 7.53 H 7.54 H ABG pCO2 35 41 46 ABG pO2 71 L D 101 D 46 L* D ABG HCO3 27 H 34 H 39 H ABG O2 Saturation 95 98 85 L ABG Base Excess 4 H 10 H 15 H 10/04/24 10/05/24 10/05/24 13:10 04:16 11:35 ABG pH 7.48 H 7.49 H 7.48 H ABG pCO2 53 H 46 45 ABG pO2 301 H D 75 L D 68 L ABG HCO3 39 H 35 H 33 H ABG O2 Saturation 100 H 96 94 ABG Base Excess Not Performed. 10 H 9 H 10/06/24 10/07/24 04:22 04:25 ABG pH 7.48 H 7.52 H ABG pCO2 42 40 ABG pO2 57 L* 72 L ABG HCO3 31 H 33 H ABG O2 Saturation 91 96 ABG Base Excess 7 H 9 H Quality Measures Quality Measures VTE prophylaxis (Heparin) Assessment & Plan Assessment Current Active Medications: Generic Name Dose Route Start Last Admin Trade Name Freq PRN Reason Stop Dose Admin Acetaminophen 500 mg 10/02/24 16:03 10/06/24 13:11 Acetaminophen 500 Mg Tablet PO 11/01/24 16:02 500 mg Q6HR PRN Administration Fever > 100.4 or Pain 1-3 Acetylcysteine 3 ml 10/12/24 10:01 Acetylcysteine Rt Kamille 10% 4 Ml Nebu INH 11/11/24 10:00 Q4HRRT PRN SHORTNESS OF BREATH OR WHEEZE Amlodipine Besylate 5 mg 10/05/24 09:00 12/16/24 09:13 Amlodipine Besylate 5 Mg Tablet PO 11/04/24 08:59 5 mg QDAY LUKE Administration Apixaban 5 mg 10/08/24 21:00 10/13/24 09:13 Apixaban 2.5 Mg Tablet PO 11/07/24 20:59 5 mg BID LUKE Administration Calcium Carbonate 600 mg 10/08/24 09:00 10/13/24 09:14 Calcium Carbonate 600 Mg Tablet NG 11/07/24 08:59 600 mg QDAY LUKE Administration Dextrose 25 ml 09/28/24 23:34 Dextrose 50%-Water Inj 50 Ml Syringe IV 10/28/24 23:33 Q15MIN PRN BG 50-70 responsive npo pt Dextrose 50 ml 09/28/24 23:34 Dextrose 50%-Water Inj 50 Ml Syringe IV 10/28/24 23:33 Q15MIN PRN BG <50 OR BG <70 & pt unresponsive Diltiazem HCl 240 mg 10/12/24 09:00 10/13/24 09:12 Diltiazem Cd 120 Mg Capcr PO 11/11/24 08:59 240 mg QDAY LUKE Administration Duloxetine HCl 60 mg 09/29/24 01:45 10/02/24 08:05 Duloxetine Hcl 30 Mg Capsule PO 10/29/24 01:44 Not Given BID LUKE Glucagon 1 mg 09/28/24 23:34 Glucagon Inj 1 Mg Vial IM Q15MIN PRN BG <70, and no IV access Guaifenesin/Dextromethorphan 2 each 09/30/24 10:00 10/12/24 22:08 Guaifenesin/Dm Tablet PO 10/30/24 09:59 Not Given BID LUKE Vancomycin/Sodium Chloride 200 mls @ 120 mls/hr 10/11/24 10:00 10/12/24 21:48 Vancomycin/Ns 1 Gm Ivpb IV 10/14/24 09:59 120 mls/hr BID@1000,2200 LUKE Administration Protocol Magnesium Sulfate 4 gm in 50 mls @ 12.5 mls/hr 10/13/24 08:02 10/13/24 09:14 Magnesium Sulfate Ivpb IV 10/13/24 12:01 12.5 mls/hr X1 ONE Administration Insulin Glargine 10 unit 10/09/24 21:00 10/12/24 21:48 Insulin Glargine (Lantus) 5 Unit/0.05 Ml (Per 5 Units) SC 11/08/24 20:59 10 unit HS LUKE Administration Insulin Human Lispro 0 unit 10/10/24 17:00 10/13/24 07:35 Insulin Lispro (Admelog) 1 Unit/0.01 Ml Unit SC 11/09/24 16:59 Not Given ACHS LUKE Protocol Labetalol HCl 10 mg 10/03/24 21:00 Labetalol Inj 5 Mg/Ml Vial 20 Ml IVP 11/02/24 20:59 Q6HR PRN Systolic >180 and HR >80 Lactulose 10 gm 10/09/24 08:15 10/13/24 05:38 Lactulose Syrup 20 Gm/30 Ml Udc PO 11/08/24 08:14 10 gm TID LUKE Administration Protocol Lisinopril 20 mg 10/11/24 09:00 10/13/24 09:13 Lisinopril 20 Mg Tablet PO 11/10/24 08:59 20 mg QDAY LUKE Administration Magnesium Hydroxide 30 ml 10/07/24 09:49 10/07/24 13:05 Milk Of Magnesia Susp 30 Ml Udc PO 11/06/24 09:48 30 ml QDAY PRN Administration CONSTIPATION Protocol Metoclopramide HCl 5 mg 10/09/24 09:55 10/13/24 05:38 Metoclopramide Inj 5 Mg/Ml Vial 2 Ml IVP 11/08/24 09:54 5 mg Q6HR LUKE Administration Protocol Ondansetron HCl 4 mg 09/28/24 23:26 Ondansetron Inj 2 Mg/Ml Inj 2 Ml IV 10/28/24 23:25 Q6H PRN NAUSEA OR VOMITING Protocol Pharmacy Consult 1 each 09/30/24 06:36 Vancomycin Pharmacy To Dose 1 Each Each IV 10/14/24 06:35 QDAY PRN PROTOCOL Polyethylene Glycol 17 gm 09/30/24 10:00 10/13/24 09:14 Polyethylene Glycol 17 Gm Packet PO 10/30/24 09:59 17 gm QDAY LUKE Administration Sennosides 1 tab 09/29/24 09:00 10/13/24 09:13 Senna Tablet PO 10/29/24 08:59 1 tab QDAY LUKE Administration Protocol Sodium Chloride 3 ml 10/01/24 18:17 Sodium Chloride Rt Kamille 0.9% 3 Ml Nebu INH 10/31/24 18:16 PRN PRN SOLN Plan Patient is a 67-year-old female with a past medical history of diabetes mellitus type 2 insulin-dependent nonadherent, hyperlipidemia, and hypertension who was admitted on 09/29/2024 for severe sepsis and acute hypoxic respiratory failure likely secondary to extensive bilateral pneumonia, MRSA + bacteremia and not well be acute encephalopathy likely multifactorial involving underlying sepsis and polypharmacy. # Acute encephalopathy, resolving #Critical illness polyneuropathy/Myopathy Significantly improving -lumbar MRI (10/08/2024): Transpedicular lumbar fusion L4 -S1 with satisfactory alignment . No findings of osteomyelitis discitis or definite epidural abscess. -MRI Brain (10/03/2024): Negative for acute hemorrhage mass effect or midline shift No acute infarct -Lumbar puncture: -CSF: WBC 3, RBC 2 Glucose 119, CSF Protein 46, Influenza neg, Neisseria negative, Strep B, -CSF Pending [place] Negative -CSF Pending Myelin and Angiotensin -Will need EMG and NCS of both UE and LE as an outpatient if weakness persists. -Continue with physical therapy for ambulation safety before deciding on discharge -Will require outpatient follow up with Neurology. Patient's care discussed with attending physician, Dr Linda Gibson MD PGY3 Attending Provider Attestation/Addendum I personally have seen and examined the patient at the bedside and agree with resident findings, assessment and plan of care. Patient's symptoms are gradually improving. She was transferred to local rehab for continuing physical therapy as she is still weak. Will consider doing EMG nerve conduction study as an outpatient.
[2024-10-13] MEDS: VANCOMYCIN/NS 1 GM IVPB 200 ML IV ×2 (10:08→21:41)
[2024-10-13] MEDS: INSULIN LISPRO (AdmeLOG) 1 UNIT/0.01 ML UNIT SC ×2 (11:26→21:46)
[2024-10-13] MEDS: guaiFENesin/DM TABLET 2 EACH PO ×2 (11:26→21:41)
--- NOTE | 2024-10-13 15:03 | ESPR_ITS ---
<Statement entered by Chaparro Velez MD - 10/13/24 15:46> Patient was seen and examined at the bedside. Patient is significantly improved since yesterday and has been having multiple bowel movements on GoLytely therefore GoLytely was stopped. Will continue with IV vancomycin until tomorrow morning. PT encouragement on ambulation as tolerated. Electrolytes were repleted. Patient's was updated regarding plan. All labs and orders were reviewed. I saw and examined the patient, and I agree with current management stated by Dr Jamee MD,PGY1. Plan of care was discussed with the attending physician and resident physician. Disclaimer: Despite multiple revisions, due to the dictation software being used, the document bellow may not be free of grammatical errors including phonetic/typographic errors. However, this does not deter from our commitment to providing health care in the patient's best interest in mind. Dr. Agustin MD, PGY 2 Documentation for date of: 10/13/24 Subjective Subjective Interval history: Patient is a 67-year-old female with a past medical history of diabetes mellitus type 2 insulin-dependent nonadherent, hyperlipidemia, Hypertension, and history of chronic back pack (on methadone at home), and history of behavarial health. Bowel movements reported overnight. Patient continues to improve, increasingly more alert and orientated. Patient has improved upper motor strength. Patient denied chest pain or dyspnea-currenlty on room air. Exam Vital Signs Temp Pulse Resp BP Pulse Ox O2 Del Method O2 Flow Rate 97.6 F 93 20 154/101 H 93 L Room Air 1 10/13/24 12:00 10/13/24 12:00 10/13/24 12:10/13/24 12:00 10/13/24 12:00 10/13/24 12:00 10/10/24 10:41 FiO2 28 10/09/24 16:00 Narrative Exam General Appearance: Alert & Oriented X3, well-nourished female who is lying in bed in no acute distress HEENT: Skull symmetrical and atraumatic. Conjunctivae pin and moist. Pupils equal, round, reactive to light and accommodation (PERRL). External ear without lesion or discharge. Straight, nares patient, mucosa pink, no discharge. Cardio: Normal Rate and Rhythm with S1 and S2 heart sounds. No murmurs or extra heart sounds auscultated. No bruits on carotid auscultation. No peripheral edema or cyanosis. Lungs: Symmetric with good expansion. Chest and back non-tender. Breath sounds vesicular without crackles, wheezing or rhonchi, Abdomen: Non-tender, Non-distended, Normal Reactive Bowel Sounds Neuro: Alert, cooperative, oriented to person, place, and time. Speech, improved. Upper motor strength 4/5 and Lower motor strength 3/5. Sensation intact. Objective Labs 10/14/24 04:48 10/14/24 04:48 Labs: Laboratory Results - last 24 hr 10/03/24 10/13/24 15:43 05:19 WBC 12.6 H RBC 4.39 Hgb 12.3 D Hct 38.2 MCV 87 MCH 28.0 MCHC 32.2 RDW Std Deviation 48.4 H Plt Count 105 L D Neut % (Auto) 80 Lymph % (Auto) 12 [place] % (Auto) 7 Eos % (Auto) 0 Baso % (Auto) 0 Neut # (Auto) 10.0 H Lymph # (Auto) 1.5 [place] # (Auto) 0.8 Eos # (Auto) 0.0 Baso # (Auto) 0.0 Immature Gran # (Auto) 0.10 H Absolute Nucleated RBC 0.02 H Immature Gran % 1 H Nucleated RBC % 0 Sodium 139 Potassium 3.4 Chloride 103 Carbon Dioxide 25.9 Anion Gap 10 BUN 7 L Creatinine 0.6 Estim Creat Clear Calc 92.6 eGFR > 60 BUN/Creatinine Ratio 12 Glucose 88 D Calculated Osmolality 274 L Calcium 8.8 Corrected Calcium 9.0 Phosphorus 2.9 Magnesium 1.6 Total Bilirubin 0.8 AST 52 H ALT 26 Alkaline Phosphatase 270 H Total Protein 7.7 Albumin 3.8 Globulin 3.9 H Albumin/Globulin Ratio 1.0 L CSF Myelin Basic Protein <2.0 CSF [place] IgG Ab <1.30 CSF [place] IgM Ab <0.90 ABG Interpretation ABG results: 09/29/24 09/29/24 09/30/24 00:03 15:16 03:36 ABG pH 7.29 L 7.33 L 7.39 ABG pCO2 42 45 41 ABG pO2 72 L 216 H D 91 D ABG HCO3 20 23 25 ABG O2 Saturation 92 100 H 97 ABG Base Excess -7 L -3 0 12/01/1909/30/24 10/01/24 13:49 18:56 11:49 ABG pH 7.25 L D 7.35 D 7.49 H D ABG pCO2 53 H D 43 D 35 ABG pO2 161 H D 213 H D 114 H D ABG HCO3 23 24 26 ABG O2 Saturation 99 H 100 H 99 H ABG Base Excess -5 L -2 3 10/02/24 10/03/24 10/04/24 10:53 10:54 09:57 ABG pH 7.50 H 7.53 H 7.54 H ABG pCO2 35 41 46 ABG pO2 71 L D 101 D 46 L* D ABG HCO3 27 H 34 H 39 H ABG O2 Saturation 95 98 85 L ABG Base Excess 4 H 10 H 15 H 10/04/24 10/05/24 10/05/24 13:10 04:16 11:35 ABG pH 7.48 H 7.49 H 7.48 H ABG pCO2 53 H 46 45 ABG pO2 301 H D 75 L D 68 L ABG HCO3 39 H 35 H 33 H ABG O2 Saturation 100 H 96 94 ABG Base Excess Not Performed. 10 H 9 H 10/06/24 10/07/24 04:22 04:25 ABG pH 7.48 H 7.52 H ABG pCO2 42 40 ABG pO2 57 L* 72 L ABG HCO3 31 H 33 H ABG O2 Saturation 91 96 ABG Base Excess 7 H 9 H Quality Measures Quality Measures VTE prophylaxis (Heparin) Assessment & Plan Assessment Current Active Medications: Generic Name Dose Route Start Last Admin Trade Name Freq PRN Reason Stop Dose Admin Acetaminophen 500 mg 10/02/24 16:03 10/06/24 13:11 Acetaminophen 500 Mg Tablet PO 11/01/24 16:02 500 mg Q6HR PRN Administration Fever > 100.4 or Pain 1-3 Acetylcysteine 3 ml 10/12/24 10:01 Acetylcysteine Rt Kam[place] 10% 4 Ml Nebu INH 11/11/24 10:00 Q4HRRT PRN SHORTNESS OF BREATH OR WHEEZE Amlodipine Besylate 5 mg 10/05/24 09:00 10/13/24 09:13 Amlodipine Besylate 5 Mg Tablet PO 11/04/24 08:59 5 mg QDAY LUKE Administration Apixaban 5 mg 10/08/24 21:00 10/13/24 09:13 Apixaban 2.5 Mg Tablet PO 11/07/24 20:59 5 mg BID LUKE Administration Calcium Carbonate 600 mg 10/08/24 09:00 10/13/24 09:14 Calcium Carbonate 600 Mg Tablet NG 11/07/24 08:59 600 mg QDAY LUKE Administration Dextrose 25 ml 09/28/24 23:34 Dextrose 50%-Water Inj 50 Ml Syringe IV 10/28/24 23:33 Q15MIN PRN BG 50-70 responsive npo pt Dextrose 50 ml 09/28/24 23:34 Dextrose 50%-Water Inj 50 Ml Syringe IV 10/28/24 23:33 Q15MIN PRN BG <50 OR BG <70 & pt unresponsive Diltiazem HCl 240 mg 10/12/24 09:00 10/13/24 09:12 Diltiazem Cd 120 Mg Capcr PO 11/11/24 08:59 240 mg QDAY LUKE Administration Duloxetine HCl 60 mg 09/29/24 01:45 10/02/24 08:05 Duloxetine Hcl 30 Mg Capsule PO 10/29/24 01:44 Not Given BID LUKE Glucagon 1 mg 09/28/24 23:34 Glucagon Inj 1 Mg Vial IM Q15MIN PRN BG <70, and no IV access Guaifenesin/Dextromethorphan 2 each 09/30/24 10:00 10/13/24 11:26 Guaifenesin/Dm Tablet PO 10/30/24 09:59 2 each BID LUKE Administration Vancomycin/Sodium Chloride 200 mls @ 120 mls/hr 10/11/24 10:00 10/13/24 10:08 Vancomycin/Ns 1 Gm Ivpb IV 10/14/24 09:59 120 mls/hr BID@1000,2200 LUKE Administration Protocol Insulin Glargine 10 unit 10/09/24 21:00 10/12/24 21:48 Insulin Glargine (Lantus) 5 Unit/0.05 Ml (Per 5 Units) SC 11/08/24 20:59 10 unit HS LUKE Administration Insulin Human Lispro 0 unit 10/10/24 17:00 10/13/24 11:26 Insulin Lispro (Admelog) 1 Unit/0.01 Ml Unit SC 11/09/24 16:59 2 unit ACHS LUKE Administration Protocol Labetalol HCl 10 mg 10/03/24 21:00 Labetalol Inj 5 Mg/Ml Vial 20 Ml IVP 11/02/24 20:59 Q6HR PRN Systolic >180 and HR >80 Lactulose 10 gm 10/09/24 08:15 10/13/24 13:43 Lactulose Syrup 20 Gm/30 Ml Udc PO 11/08/24 08:14 10 gm TID LUKE Administration Protocol Lisinopril 20 mg 10/11/24 09:00 10/13/24 09:13 Lisinopril 20 Mg Tablet PO 11/10/24 08:59 20 mg QDAY LUKE Administration Magnesium Hydroxide 30 ml 10/07/24 09:49 10/07/24 13:05 Milk Of Magnesia Susp 30 Ml Udc PO 11/06/24 09:48 30 ml QDAY PRN Administration CONSTIPATION Protocol Metoclopramide HCl 5 mg 10/09/24 09:55 10/13/24 11:45 Metoclopramide Inj 5 Mg/Ml Vial 2 Ml IVP 11/08/24 09:54 5 mg Q6HR LUKE Administration Protocol Ondansetron HCl 4 mg 09/28/24 23:26 Ondansetron Inj 2 Mg/Ml Inj 2 Ml IV 10/28/24 23:25 Q6H PRN NAUSEA OR VOMITING Protocol Pharmacy Consult 1 each 09/30/24 06:36 Vancomycin Pharmacy To Dose 1 Each Each IV 10/14/24 06:35 QDAY PRN PROTOCOL Polyethylene Glycol 17 gm 09/30/24 10:00 10/13/24 09:14 Polyethylene Glycol 17 Gm Packet PO 10/30/24 09:59 17 gm QDAY LUKE Administration Sennosides 1 tab 09/29/24 09:00 10/13/24 09:13 Senna Tablet PO 10/29/24 08:59 1 tab QDAY LUKE Administration Protocol Sodium Chloride 3 ml 10/01/24 18:17 Sodium Chloride Rt Kamille 0.9% 3 Ml Nebu INH 10/31/24 18:16 PRN PRN SOLN Plan Patient is a 67-year-old female with a past medical history of diabetes mellitus type 2 insulin-dependent nonadherent, hyperlipidemia, and hypertension who was admitted on 09/29/2024 for severe sepsis and acute hypoxic respiratory failure likely secondary to extensive bilateral pneumonia, MRSA + bacteremia and not well be acute encephalopathy likely multifactorial involving underlying sepsis and polypharmacy. #Critical Illness Polyneuropathy/Myopathy # Acute encephalopathy, Likely multifactorial, resolving #Deconditioning, improving #Dysphagia 2/2 above, improved Etiology: Multifactorial: Benzodiazepine withdrawal versus pain medication withdrawal vs less likely stroke as patient MRI was unremarkable vs less likely CSF infection as LP was unremarkable-with negative results for Neisseria negative, influenza, Strep B, and negative [place]. CSF ratio within normal limits. CSF WBC 3 and RBC 2-making HSV less likely. MRI lumbar showed no abscess. 10/11/2024 Critical Illness myopathy can not be ruled out in the setting of MRSA Bacteremia and prolonged hospital stay with little to no ambulation. Will require outpatient follow up with Neurology. Diagnostic: -lumbar MRI (10/08/2024): Transpedicular lumbar fusion L4 -S1 with satisfactory alignment . No findings of osteomyelitis discitis or definite epidural abscess. -MRI Brain (10/03/2024): Negative for acute hemorrhage mass effect or midline shift No acute infarct -Lumbar x-ray (10/03/2024): Successful fluoroscopically guided diagnostic lumbar puncture -CSF: WBC 3, RBC 2 Glucose 119, CSF Protein 46, Influenza neg, Neisseria negative, Strep B, -CSF Pending [place] Negative -CSF Pending Myelin and Angiotensin Plan: -Encouraged on ambulation with PT -Removed Miller catheter -Holding antipsychotic medications, diazepam and tramadol -Treating underlying infection -Per neuro recommendations: consider electromyography (EMG) and nerve conduction study (NCS)-outpatient - patient has been deconditioned given prolonged hospital stay. Continue with PT if tolerated. Patient will need SNF placement on discharge - NG tube discontinued--> Dysphagia 2 - aspiration precautions, Head Of Bed 45 #MRSA bacteremiam, imroving #Community acquired pneumonia, imporved #Acute Hypoxic Respiratory Failure, Resolved #Leukocytosis, improving #Severe sepsis, likely secondary to CAP, Resolved Etiolgoy: Bacterial community-acquired pneumonia cannot be ruled out given past medical history of comorbidities and age, likely Streptococcus pneumoniae vs staph aures-->MRSA positive given first set of blood cultures and sputum cultures. Continue Vanco until 10/14/2024 DDx: Viral infection less likely as patient tested negative for Influenza and COVID vs less likely cocci as results were negative for serology. Diagnostic Test: -Blood Culture (09/28/2024)X2: MRSA, sensitive to vancoymcin -Blood Cultures (09/30/2024): No Growth after 48 hours -Blood Cutlrues (10/03/2024): Negative After 48 hours -Sputum Culture (09/29/2024) MRSA -Blood Culture (10/06/2024): Negative After 48 hours -CSF Culture: Negative -Cxr (10/07/2024): No significant change in diffuse bilateral pneumonia -Cxr (09/28/2024): Significant bilateral pneumonia -Head CT (09/28/2024): Negative for acute hemorrhage, mass effect or midline shift. If symptoms persist, consider brain MRI follow-up -CT Abdomen/Pelvis (09/28/2024): Extensive bilateral pneumonia. No renal or ureteral calculi, no hydronephrosis. Moderate stool throughout the colon Plan: -Continuing IV vancomycin [09/29/2024?to 10/14] per Dr. Humera gonzalez -Chest PT treatment Q4HR and Mucomyst every 4 hourly -Guaifenesin -Repeat second set blood cultures negative -Monitor for fever spike, white count elevation and signs of infection and renal function -Daily labs #New onset atrial Fibrilation with RVR, rate controlled #Bradycardia, Resolved Etiology: Acute atrial flutter likely secondary to sepsis.Overnight patient converted from atrial flutter to A-fib and diltiazem was switched to amnio. Rapid reports during day team at approximately 1335 for episode of bradycardia lasting about 1 second with possible AV block. Amio DC'd. If patient develops atrial flutter or atrial fibrillation may restart diltiazem at a slower rate. (10/01/2024) Patient experience episode of atrial fibrillation for 1 second. Given Positive MRSA blood culture, tentative VALERIE planned for Sunday-Dr. Romo DDx: Electrolyte imbalance versus cardiac etiology such as ectopic foci. Diagnostic: CHADVASC 3 EKG:Atrial Flutter EKG (09/30/2024) Atrial Fibrillation Cxr (09/29/2024): Significant bilateral pneumonia Plan: -START Diltiazem Cd 240 PO QDay -Eliquis 5 mg BID (10/08/2024) -Switch from Cardizem drip to p.o. Cardizem 60 mg 4 times daily, STOP (10/11/2024) -Cardiology recommended VALERIE-currently holding given altered mental status -Cardio consult, Dr. Romo, appreciate recommendation # Hypertension, improved Patient at home takes lisinopril 5 mg daily, increased on 10/10/2024 to Lisinopril 20 given continued increased systolic BP. Plan -Lisinopril 20 mg Qday -Amlodipine add 5 mg QDay- -Labetalol 10 mg was given x 1, 10/02, #Diabetes mellitus type 2, insulin dependent The patient home medication Farxiga 5 mg, insulin Lantus 55 units, metformin- currenlty holding oral medication Diagnostics: -A1c 10.6 Plan: -Lantus 10 units at bedtime -ISS -Hypoglycemia protocols in place -Holding home medication of Farxiga # Electrolyte disturbance # Hypokalemia #Hypomagnesium Potassium repletion. Magnesium repleted Plan -Continue to replace potassium as needed. -Calcium Carbonate 600 mg Qday #History of major depressive disorder #History of mental health disorders. HOld Diazepam and methadone in the setting of polypharamacy Plan -Continue duloxetine 60 mg PO BID -Holding Quetiapine Fumarate 100 mg PO HS -Holding diazepam 10 mg PO BID due to altered mentation #History of chronic pain Patient reports having a history of chronic pain and is on multiple medications: Duloxetine, gabapentin, tizanidine, tramadol, methadone She does not respond well to Opioids Plan: -Holding Valium and tramadol -Holding Methadone 10 mg TID via G-tube #Euthyroid Sick Syndrome In the setting of bacteremia and increasing inflammatory response, reduction in TSH and coversion of T4 and T3. Unlikely this is a lab error as T4/T3 are both low and TSH levels are Diagnostic: -(10/01/2024): TSH 0.31, Free T4 0.72, Free T3 1.1 Plan -No intervention for euthyroid sick syndrome #Hyperbilirubinemia, improving #Hyperalkaline phosphatase Bilirubin on admission was 2.3 with ALP of 243. CT abdomen and pelvis was done showed an absent gallbladder. Hyperbilirubinemia and elevated alkaline phosphatase in the setting of dehydration and poor oral intake vs ischemia from MRSA bacteremia vs polypharmacy Diagnostics: US Gallbladder (09/29/2024): Absent gallbladder. Normal common bile duct. Hepatomegaly, primary hepatocellular disease versus cirrhosis no focal liver lesions 10/01/2024: Total Bili 1.8 Alkaline Phosphatase 201 AST 92 ALT 34-->10/13/2024 AST 50, ALT 26, Alkaline Phosphatase 270 Plan: -No acute intervention #Elevated anion Gap, resolved #Lactic acidosis likely type B, Resolved # Constipation, resolved Health Maintenance: Disp: Pt is currently admitted to floors for further management of acute encephalopathy and MRSA bacteremia, awaiting vancomycin completion. FEN: Diet Carb Consistent DVT: on subQ heparin Code: Full Code - The patient's plan was discussed with attending Dr. Bethea and senior residents Dr. Agustin Mancuso MD PGY1 Internal Medicine Attending Provider Attestation/Addendum I, Liane Bethea DO, attest that I was physically present for the yan portions of the service and evaluated the patient with the resident and I reviewed and discussed the case with the resident and agree with the resident's findings and plans of care as documented above Patient seen and eval this a.m. She has several bowel movements following GoLytely. Patient states that she was feeling much improved. Patient is more talkative today. She has no acute complaints. Bilateral upper extremity edema appears to be improved with albumin. She continues to be on IV vancomycin, tomorrow being the last day. Anticipate discharge to SNF once IV antibiotics are completed. Anticipate discharge within next 24 hours.
[2024-10-13] MEDS: ACETAMINOPHEN 500 MG TABLET PO (19:32)
[2024-10-13] MEDS: INSULIN GLARGINE (Lantus) 5 UNIT/0.05 ML (PER 5 UNITS) 10 UNIT SC (21:46)
[2024-10-14] VITALS (8 sets, daily range): BP systolic 119–168; BP diastolic 61–84; PULSE 75–97; RESP 13–20; TEMP 36–36.7; O2SAT 90–98; BMI 11.0
[2024-10-14] MEDS: METOCLOPRAMIDE INJ 5 MG/ML VIAL 2 ML IVP ×3 (00:19→11:29)
[2024-10-14] MEDS: LACTULOSE SYRUP 20 GM/30 ML UDC 10 GM PO (06:11)
[2024-10-14 06:15] LABS: Enterovirus RNA, PCR CSF NOT DETECTED
[2024-10-14 06:22] LABS: Basophils % (Auto) 0 % (0-2.5); Eosinophils # (Auto) 0.1 Thou/mm3 (0.0-0.5); Eosinophils % (Auto) 1 % (0-10); Hematocrit 30.4 % (36.0-46.0); Hemoglobin 9.8 g/dL (12.0-16.0); Immature Granulocytes % (Auto) 1 % (0-0); Immature Granulocytes Auto 0.05 Thou/mm3 (0.00-0.00); Lymphocytes # (Auto) 1.4 Thou/mm3 (1.0-4.8); Lymphocytes % (Auto) 14 % (10-50); Mean Corpuscular HGB Conc 32.2 g/dl (31.0-37.0); Mean Corpuscular Volume 87 fL (80-100); Monocytes # (Auto) 0.7 Thou/mm3 (0.0-0.8); Monocytes % (Auto) 6 % (0-12); Neutrophils # (Auto) 8.2 Thou/mm3 (1.8-7.7); Neutrophils % (Auto) 79 % (37-80); Nucleated Red Blood Cell % 0 /100 WBC (0); RDW Standard Deviation 48.4 fL (36.4-46.3); White Blood Count 10.4 Thou/mm3 (3.6-11.0)
[2024-10-14 06:24] LABS: Platelet Count 71 Thou/mm3 (140-440)
[2024-10-14] MEDS: ONDANSETRON INJ 2 MG/ML INJ 2 ML 4 MG IV (06:46)
[2024-10-14 07:26] LABS: Alanine Aminotransferase 32 U/L (10-49); Albumin, Serum 3.3 gm/dL (3.4-4.8); Albumin/Globulin Ratio 1.1 (1.2-2.2); Alkaline Phosphatase 225 U/L (46-116); Anion Gap 9 (7-16); Aspartate Amino Transferase 38 U/L (0-34); BUN/Creatinine Ratio 12 Ratio (12-20); Bilirubin,Total 0.7 mg/dL (0.3-1.2); Blood Urea Nitrogen 7 mg/dL (9-23); Calcium 8.2 mg/dL (8.3-10.6); Calcium (Corrected) 8.8 mg/dL (8.5-10.1); Carbon Dioxide 29.1 mMol/L (20.0-31.0); Chloride 103 mMol/L (98-107); Creatinine (Component) 0.6 mg/dL (0.6-1.3); Estimated Creatinine Clearance 92.5 mL/min (>60); Globulin 3.1 gm/dL (2.3-3.5); Glucose 111 mg/dL (74-106); Magnesium 1.5 mg/dL (1.6-2.6); Osmolality,Calculated 280 (275-295); Phosphorous 3.8 mg/dL (2.4-5.1); Potassium 2.8 mMol/L (3.4-5.1); Sodium 141 mMol/L (136-145); Total Protein 6.4 gm/dL (5.7-8.2); eGFR > 60 See Note
[2024-10-14 07:51] LABS: Slide Review Platelets confirmed
[2024-10-14] MEDS: guaiFENesin/DM TABLET 2 EACH PO (08:25)
[2024-10-14] MEDS: Magnesium Sulfate 4 GM Ivpb 4 GM/50 ML BAG IV (08:25)
[2024-10-14] MEDS: DILTIAZEM CD 120 MG CAPCR 240 MG PO (08:25)
[2024-10-14] MEDS: amLODIPine BESYLATE 5 MG TABLET PO (08:26)
[2024-10-14] MEDS: SENNA TABLET 1 TAB PO (08:26)
[2024-10-14] MEDS: Lisinopril 20 MG TABLET PO (08:26)
[2024-10-14] MEDS: APIXABAN 2.5 MG TABLET 5 MG PO (08:26)
[2024-10-14] MEDS: POTASSIUM CHLORIDE 20 mEq TABCR 40 MEQ PO (08:26)
[2024-10-14] MEDS: CALCIUM CARBONATE 600 MG TABLET NG (08:27)
[2024-10-14] MEDS: POLYETHYLENE GLYCOL 17 GM PACKET PO (08:27)
--- NOTE | 2024-10-14 08:47 | PC.NURSE ---
Per Dr.Zaragosa fraser to hold iv potassium and give at 1100 as patient already took 40meq po before the order was discontinued
--- NOTE | 2024-10-14 10:36 | ESPR_ITS ---
Documentation for date of: 10/14/24 Subjective Subjective Interval history: No acute over night event, continue physical therapy Exam Vital Signs Temp Pulse Resp BP Pulse Ox O2 Del Method O2 Flow Rate 97.1 F 90 20 146/82 H 91 L Room Air 1 10/14/24 08:00 10/14/24 08:26 10/14/24 08:00 10/14/24 08:26 10/14/24 08:00 10/14/24 08:00 10/10/24 10:41 FiO2 28 10/09/24 16:00 Narrative Exam GENERAL: Comfortable adult seen resting comfortably in hospital bed, no acute distress VITALS: All vitals were reviewed and the pulse ox is 98% on room air HEENT: Normocephalic, atraumatic. Pupils are equal and reactive. Oral mucosa is moist. NECK: Supple, nontender, no JVD CHEST: Symmetrical, atraumatic and with equal expansion ,Nontender on palpation CARDIOVASCULAR: Heart regular rhythm & rate. S1/S2. no murmur or gallop rub or extra beats. LUNGS: Clear to auscultation bilaterally with symmetrical chest rise. No laboring tachypnea or wheezing. No intercostal subcostal retraction. No rales and no rhonchi. ABDOMEN: Soft, flat, nontender to palpation, no guarding or rebound tenderness. Active and normal bowel sounds. SKIN: Warm and dry, no jaundice or rashes noted. NEURO: Patient is AO x 3, Upper motor strength 4/5 and Lower motor strength 3/5. Sensation intact. PSYCHIATRIC: Patient is in normal mood, cooperative, no SI or HI or hallucinations. Objective Labs 10/14/24 04:48 10/14/24 13:33 Labs: Laboratory Results - last 24 hr 10/03/24 10/14/24 17:47 04:48 WBC 10.4 RBC 3.50 L Hgb 9.8 L D Hct 30.4 L MCV 87 MCH 28.0 MCHC 32.2 RDW Std Deviation 48.4 H Plt Count 71 L D Neut % (Auto) 79 Lymph % (Auto) 14 [place] % (Auto) 6 Eos % (Auto) 1 Baso % (Auto) 0 Neut # (Auto) 8.2 H Lymph # (Auto) 1.4 [place] # (Auto) 0.7 Eos # (Auto) 0.1 Baso # (Auto) 0.0 Immature Gran # (Auto) 0.05 H Absolute Nucleated RBC 0.00 Immature Gran % 1 H Nucleated RBC % 0 Sodium 141 Potassium 2.8 L D Chloride 103 Carbon Dioxide 29.1 Anion Gap 9 BUN 7 L Creatinine 0.6 Estim Creat Clear Calc 92.5 eGFR > 60 BUN/Creatinine Ratio 12 Glucose 111 H Calculated Osmolality 280 Calcium 8.2 L Corrected Calcium 8.8 Phosphorus 3.8 Magnesium 1.5 L Total Bilirubin 0.7 AST 38 H ALT 32 Alkaline Phosphatase 225 H D Total Protein 6.4 Albumin 3.3 L D Globulin 3.1 Albumin/Globulin Ratio 1.1 L CSF Enterovirus RNA Qual NOT DETECTED Enterovirus Source CSF Misc Test Result Platelets confirmed ABG Interpretation ABG results: 09/29/24 09/29/24 09/30/24 00:03 15:16 03:36 ABG pH 7.29 L 7.33 L 7.39 ABG pCO2 42 45 41 ABG pO2 72 L 216 H D 91 D ABG HCO3 20 23 25 ABG O2 Saturation 92 100 H 97 ABG Base Excess -7 L -3 0 09/30/24 09/30/24 10/01/24 13:49 18:56 11:49 ABG pH 7.25 L D 7.35 D 7.49 H D ABG pCO2 53 H D 43 D 35 ABG pO2 161 H D 213 H D 114 H D ABG HCO3 23 24 26 ABG O2 Saturation 99 H 100 H 99 H ABG Base Excess -5 L -2 3 10/02/24 10/03/24 10/04/24 10:53 10:54 09:57 ABG pH 7.50 H 7.53 H 7.54 H ABG pCO2 35 41 46 ABG pO2 71 L D 101 D 46 L* D ABG HCO3 27 H 34 H 39 H ABG O2 Saturation 95 98 85 L ABG Base Excess 4 H 10 H 15 H 10/04/24 10/05/24 10/05/24 13:10 04:16 11:35 ABG pH 7.48 H 7.49 H 7.48 H ABG pCO2 53 H 46 45 ABG pO2 301 H D 75 L D 68 L ABG HCO3 39 H 35 H 33 H ABG O2 Saturation 100 H 96 94 ABG Base Excess Not Performed. 10 H 9 H 10/06/24 10/07/24 04:22 04:25 ABG pH 7.48 H 7.52 H ABG pCO2 42 40 ABG pO2 57 L* 72 L ABG HCO3 31 H 33 H ABG O2 Saturation 91 96 ABG Base Excess 7 H 9 H Quality Measures Quality Measures VTE prophylaxis (Heparin) Assessment & Plan Assessment Current Active Medications: Generic Name Dose Route Start Last Admin Trade Name Freq PRN Reason Stop Dose Admin Acetaminophen 500 mg 10/02/24 16:03 10/13/24 19:32 Acetaminophen 500 Mg Tablet PO 11/01/24 16:02 500 mg Q6HR PRN Administration Fever > 100.4 or Pain 1-3 Acetylcysteine 3 ml 10/12/24 10:01 Acetylcysteine Rt Kamille 10% 4 Ml Nebu INH 11/11/24 10:00 Q4HRRT PRN SHORTNESS OF BREATH OR WHEEZE Amlodipine Besylate 5 mg 10/05/24 09:00 10/14/24 08:26 Amlodipine Besylate 5 Mg Tablet PO 11/04/24 08:59 5 mg QDAY LUKE Administration Apixaban 5 mg 10/08/24 21:00 10/14/24 08:26 Apixaban 2.5 Mg Tablet PO 11/07/24 20:59 5 mg BID LUKE Administration Calcium Carbonate 600 mg 10/08/24 09:00 10/14/24 08:27 Calcium Carbonate 600 Mg Tablet NG 11/07/24 08:59 600 mg QDAY LUKE Administration Dextrose 25 ml 09/28/24 23:34 Dextrose 50%-Water Inj 50 Ml Syringe IV 10/28/24 23:33 Q15MIN PRN BG 50-70 responsive npo pt Dextrose 50 ml 09/28/24 23:34 Dextrose 50%-Water Inj 50 Ml Syringe IV 10/28/24 23:33 Q15MIN PRN BG <50 OR BG <70 & pt unresponsive Diltiazem HCl 240 mg 10/12/24 09:00 10/14/24 08:25 Diltiazem Cd 120 Mg Capcr PO 11/11/24 08:59 240 mg QDAY LUKE Administration Duloxetine HCl 60 mg 09/29/24 01:45 10/02/24 08:05 Duloxetine Hcl 30 Mg Capsule PO 10/29/24 01:44 Not Given BID LUKE Glucagon 1 mg 09/28/24 23:34 Glucagon Inj 1 Mg Vial IM Q15MIN PRN BG <70, and no IV access Guaifenesin/Dextromethorphan 2 each 09/30/24 10:00 10/14/24 08:25 Guaifenesin/Dm Tablet PO 10/30/24 09:59 2 each BID LUKE Administration Magnesium Sulfate 4 gm in 50 mls @ 12.5 mls/hr 10/14/24 07:50 10/14/24 08:25 Magnesium Sulfate Ivpb IV 10/14/24 11:49 12.5 mls/hr X1 ONE Administration Vancomycin/Sodium Chloride 200 mls @ 120 mls/hr 10/14/24 10:00 Vancomycin/Ns 1 Gm Ivpb IV 10/14/24 23:39 BID@1000,2200 LUKE Insulin Glargine 10 unit 10/09/24 21:00 10/13/24 21:46 Insulin Glargine (Lantus) 5 Unit/0.05 Ml (Per 5 Units) SC 11/08/24 20:59 10 unit HS LUKE Administration Insulin Human Lispro 0 unit 10/10/24 17:00 10/14/24 07:34 Insulin Lispro (Admelog) 1 Unit/0.01 Ml Unit SC 11/09/24 16:59 Not Given ACHS LUKE Protocol Labetalol HCl 10 mg 10/03/24 21:00 Labetalol Inj 5 Mg/Ml Vial 20 Ml IVP 11/02/24 20:59 Q6HR PRN Systolic >180 and HR >80 Lisinopril 20 mg 10/11/24 09:00 10/14/24 08:26 Lisinopril 20 Mg Tablet PO 11/10/24 08:59 20 mg QDAY LUKE Administration Magnesium Hydroxide 30 ml 10/07/24 09:49 10/07/24 13:05 Milk Of Magnesia Susp 30 Ml Udc PO 11/06/24 09:48 30 ml QDAY PRN Administration CONSTIPATION Protocol Metoclopramide HCl 5 mg 10/09/24 09:55 10/14/24 06:05 Metoclopramide Inj 5 Mg/Ml Vial 2 Ml IVP 11/08/24 09:54 5 mg Q6HR LUKE Administration Protocol Ondansetron HCl 4 mg 09/28/24 23:26 10/14/24 06:46 Ondansetron Inj 2 Mg/Ml Inj 2 Ml IV 10/28/24 23:25 4 mg Q6H PRN Administration NAUSEA OR VOMITING Protocol Polyethylene Glycol 17 gm 09/30/24 10:00 10/14/24 08:27 Polyethylene Glycol 17 Gm Packet PO 10/30/24 09:59 17 gm QDAY LUKE Administration Sennosides 1 tab 09/29/24 09:00 10/14/24 08:26 Senna Tablet PO 10/29/24 08:59 1 tab QDAY LUKE Administration Protocol Sodium Chloride 3 ml 10/01/24 18:17 Sodium Chloride Rt Kamille 0.9% 3 Ml Nebu INH 10/31/24 18:16 PRN PRN SOLN Plan Patient is a 67-year-old female with a past medical history of diabetes mellitus type 2 insulin-dependent nonadherent, hyperlipidemia, and hypertension who was admitted on 09/29/2024 for severe sepsis and acute hypoxic respiratory failure likely secondary to extensive bilateral pneumonia, MRSA + bacteremia and not well be acute encephalopathy likely multifactorial involving underlying sepsis and polypharmacy. # Acute encephalopathy, resolving #Critical illness polyneuropathy/Myopathy Significantly improving -lumbar MRI (10/08/2024): Transpedicular lumbar fusion L4 -S1 with satisfactory alignment . No findings of osteomyelitis discitis or definite epidural abscess. -MRI Brain (10/03/2024): Negative for acute hemorrhage mass effect or midline shift No acute infarct -Lumbar puncture: -CSF: WBC 3, RBC 2 Glucose 119, CSF Protein 46, Influenza neg, Neisseria negative, Strep B, -CSF: [place] Negative -CSF Pending Myelin and Angiotensin -Will need EMG and NCS of both UE and LE as an outpatient if weakness persists. -Continue with physical therapy for ambulation safety before deciding on discharge -Will require outpatient follow up with Neurology. Patient's care discussed with attending physician, Dr Linda Burgess MD PGY3 Attending Provider Attestation/Addendum I personally have seen and examined the patient at the bedside and I agree with resident's findings, assessment and plan of care. Patient is gradually improving with her upper and lower extremity strength, she is stable for discharge to rehab for continuing therapy.
[2024-10-14] MEDS: VANCOMYCIN/NS 1 GM IVPB 200 ML IV (10:39)
--- NOTE | 2024-10-14 10:59 | PC.SS ---
SS was informed by Team A that patient would be discharging today, however needed Potassium to be rechecked and asked SS to set up transportation for after 3 PM. SS contacted [facility] services to set up transportation for patient to discharge to [facility]. [facility] informed SS that they would contact with ETA. SS updated Janene from [facility].
[2024-10-14] MEDS: POTASSIUM CHL 10 mEq IVPB 10 MEQ/100 ML BAG 100 MEQ IV (11:30)
[2024-10-14] MEDS: INSULIN LISPRO (AdmeLOG) 1 UNIT/0.01 ML UNIT SC (11:47)
[2024-10-14] MEDS: POTASSIUM CHL 10 mEq IVPB 10 MEQ/100 ML BAG 80 MEQ IV (12:36)
--- NOTE | 2024-10-14 13:38 | PC.SS ---
SS confirmed ETA with [facility] for 5:45PM. SS updated patient's nurse, Carina as well well as Kathy from [facility]. SS contacted patient's Jaya to update him as well. SS will stand by for further needs.
--- NOTE | 2024-10-14 13:51 | ESDS_ITS ---
<Statement entered by Liane Bethea DO - 10/15/24 07:06> I, Liane Bethea DO, attest that I was physically present for the yan portions of the service and evaluated the patient with the resident and I reviewed and discussed the case with the resident and agree with the resident's findings and plans of care as documented above <Statement entered by Chaparro Velez MD - 10/14/24 16:16> I saw and examined the patient, and I agree with current management stated by Dr Jamee MD,PGY1. Plan of care was discussed with the attending physician and resident physician. Disclaimer: Despite multiple revisions, due to the dictation software being used, the document bellow may not be free of grammatical errors including phonetic/typographic errors. However, this does not deter from our commitment to providing health care in the patient's best interest in mind. Dr. Agustin MD, PGY 2 Planned Discharge Date 10/14/24 DS: Providers Provider Date of admission: 09/28/24 23:23 Primary care physician: Finn Painter MD Admitting Provider: Keanu Palencia MD Attending Provider on Admission: Liane Bethea DO Consults: 09/29/24 05:57 Referral Speech Therapy Routine Comment: 09/29/24 11:13 Referral Wound Care Routine Comment: blisters on fingers 09/29/24 14:18 Consult to Cardiology Routine Comment: Consulting Provider: Beto Romo 10/01/24 07:33 Consult to Infectious Diseases Routine Comment: Consulting Provider: Forrest Grubbs 10/02/24 10:27 Referral Registered Dietitian Routine Comment: tube feeds, water flushes 10/07/24 07:20 Consult to Neurology / Tele-Neurology Urgent Comment: Consulting Provider: Scooter Mckeon 10/09/24 08:02 PT [Referral Physical Therapy] Routine Comment: Physician Instructions: 10/10/24 09:55 Referral Speech Therapy Stat Comment: 10/12/24 11:16 Referral Physical Therapy Stat Comment: Physician Instructions: Attending Provider on DC: Alyssia Mancuso MD Discharging Provider: Alyssia Mancuso MD DS: Diagnosis Problem List Completed Was Problem List Reviewed/Reconciled?: Yes Hospital Course Hospital Course Hospital course: Summary: Patient is a 64-year-old female with a past medical history of diabetes mellitus type 2 insulin-dependent non-adherent, hyperlipidemia, and hypertension who was admitted on 09/29/2024 for severe sepsis and acute hypoxic respiratory failure likely secondary to extensive bilateral pneumonia, MRSA + bacteremia and not well be acute encephalopathy likely multi-factorial involving underlying sepsis and poly-pharmacy then went on to develop critical illness poly- neuropathy/myopathy. ER Course: In the ED, patient was noted to be hypoxic, saturating 88% on room air and so she was placed on BiPAP, she was also tachypneic but normotensive and afebrile. Labs showed WBC 16 Hgb 14.4 PLT 293 NA 130 3K3.7 CL 91 bicarb 22.4 anion gap 20 BUN 51 CR 2.2 glucose 347 lactic acid 6.8. Calcium 7.8 mag 1 T. bili 2.3 AST 56 ALP 243 Pro-Doyle 12.65. UA showed 1+ protein, 3+ glucose trace ketones 1+ bili, otherwise unremarkable. U tox is positive for benzos. In the ED, the patient had a COVID test done which was negative and received 2 L of NS as well as ceftriaxone and azithromycin, prednisone 60 mg and breathing treatments. Chest x-ray was done which showed significant bilateral pneumonia. The patient is being admitted for sepsis secondary to pneumonia. Hospital Course: On the floors, initially admitted for sepsis likely secondary to community acquired pneumonia and tested positive for MRSA on sputum and blood culture, thus developed bacteremia. Sepsis eventually resolved and treatment continued for MRSA bacteremia. Lumbar spine and echo rule out other possible sources of infection and imaging was unremarkable. Vancomycin started from 09/29/2024 to 10/14/2024. Echo showed estimated ejection fraction of [address] Romo consulted for atrial flutter placed on a Amiodarone then patient developed atrial fibrillation and stopped Amiodarone and added Diltizem drip and -->eventually switched to oral Diltiazem. Patient's CHADVASC score of 3 started on Eliquis. JOSY likely pre-renal continued to improve. Given patient's home medication of methadone, Quetiapine, diazepam, and duloxetine holding during acute hypoxic respiratory failure secondary to MRSA bacteremia and MRSA Pn eumonia. Patient eventually upgraded to ICU and intubated on 10/04/2024 for acute hypoxic respiratory failure with lactic acidosis. Neurology consutled given persistent altered mental status. Patient downgraded on 10/08/2024 from ICU to floors. Patient continued to become more alert and orientated on floors. Dr. Mckeon noted critical illness poly-neuropathy likely secondary to poly- pharmacy and secondary to MRSA bacteremia. A1c 10.6 on Lantus with sliding scale in hospital. Euthyroid sick syndrome noted. Instructions: -Please start new medication amlodipine 5 mg (for high blood pressure) -Please start new medication lisinopril 20 mg once a day (for high blood pressure) -Please start new medication diltiazem 240 mg extended release once daily (for atrial fibrillation) -Please start new medication Eliquis 5 mg twice a day (for atrial fibrillation) -Please continue Duloxetine 30 mg twice a day -Please continue glargine 10 units at night (for diabetes mellitus type 2) -Please continue lispro on a sliding scale based on blood sugar readings (for diabetes mellitus type 2) -If blood sugar less than 70 please skip sliding scale for that meal and resume following meal -Please keep blood sugar readings under 200 with meals -Morning blood sugar goal of under 140 prior to breakfast -Please continue bowel regimen as needed -Please follow-up with primary care provider within 1 week of discharge if you do not have -if you do not have a Primary Care Provider, [facility] [address] [place] [address]; Phone -If symptoms worsen, please return to the emergency room. Disposition: SNF #Critical Illness Polyneuropathy/Myopathy, improved # Acute encephalopathy, Likely multifactorial, resolving #Deconditioning, improving #Dysphagia 2/2 above, resolved #MRSA bacteremiam, resolved #Community acquired pneumonia, resolved #Acute Hypoxic Respiratory Failure, Resolved #Leukocytosis, improving #Severe sepsis, likely secondary to CAP, Resolved #New onset atrial Fibrilation with RVR, rate controlled #Bradycardia, Resolved # Hypertension, improved #Diabetes mellitus type 2, insulin dependent # Electrolyte disturbance, improved # Hypokalemia, improved #Hypomagnesium, improved #History of major depressive disorder #History of mental health disorders. #History of chronic pain #Euthyroid Sick Syndrome #Hyperbilirubinemia, improving #Hyperalkaline phosphatase, improving #Elevated anion Gap, resolved #Lactic acidosis likely type B, Resolved # Constipation, resolved - The patient's plan was discussed with attending Dr. Bethea and senior residents Dr. Agustin Mancuso MD PGY1 Internal Medicine Time Spent with Patient Time attestation: Total time spent providing and/or coordinating discharge services: at least greater >35 minutes Exam Vital Signs Temp Pulse Resp BP Pulse Ox O2 Del Method O2 Flow Rate 97.1 F 90 20 146/82 H 91 L Room Air 1 10/14/24 08:00 10/14/24 08:26 10/14/24 08:00 10/14/24 08:26 10/14/24 08:00 10/14/24 08:00 10/10/24 10:41 FiO2 28 10/09/24 16:00 Narrative Exam General Appearance: Alert & Oriented X3, well-nourished female who is lying in bed in no acute distress HEENT: Skull symmetrical and atraumatic. Conjunctivae pin and moist. Pupils equal, round, reactive to light and accommodation (PERRL). External ear without lesion or discharge. Straight, nares patient, mucosa pink, no discharge. No thyroid nodule appreciated. Cardio: Normal Rate and Rhythm with S1 and S2 heart sounds. No murmurs or extra heart sounds auscultated. No bruits on carotid auscultation. No peripheral edema or cyanosis. Lungs: Symmetric with good expansion. Chest and back non-tender. Breath sounds vesicular without crackles, wheezing or rhonchi Abdomen: Non-tender, Non-distended, Normal Reactive Bowel Sounds Neuro: Alert, cooperative, oriented to person, place, and time. Speech improved CN grossly intact. Upper motor strength 4/5 and Lower motor strength 3/5. Sensation intact. Discharge Plan Plan Patient Disposition: Xfer [facility]illed [facility] ([facility]NF) Patient condition on transfer: Stable Care Plan Goals: Instructions: -Please start new medication amlodipine 5 mg (for high blood pressure) -Please start new medication lisinopril 20 mg once a day (for high blood pressure) -Please start new medication diltiazem 240 mg extended release once daily (for atrial fibrillation) -Please start new medication Eliquis 5 mg twice a day (for atrial fibrillation) -Please continue Duloxetine 30 mg twice a day for depression and anxiety -Please continue glargine 10 units at night (for diabetes mellitus type 2) -Please continue lispro on a sliding scale based on blood sugar readings (for diabetes mellitus type 2) -If blood sugar less than 70 please skip sliding scale for that meal and resume following meal -Please keep blood sugar readings under 200 with meals -Morning blood sugar goal of under 140 prior to breakfast -Please continue bowel regimen as needed -Please follow-up with primary care provider within 1 week of discharge if you do not have -if you do not have a Primary Care Provider, may follow up with [facility], [address], [place] [address]; Phone -If symptoms worsen, please return to the emergency room. Prescriptions/Referrals Prescriptions/Med Rec: New polyethylene glycol 3350 [HealthyLax] 17 gram Powder In Packet 17 g PO QDAY PRN (Reason: constipation) Qty: 30 0RF lisinopril 20 mg Tablet 20 mg PO QDAY 30 Days Qty: 30 0RF sennosides [Senna Lax] 8.6 mg Tablet 8.6 mg PO QDAY PRN (Reason: constipation) 30 Days Qty: 30 0RF amlodipine 5 mg Tablet 5 mg PO QDAY 30 Days Qty: 30 0RF apixaban 5 mg tablet 5 mg PO BID 30 Days Qty: 60 0RF diltiazem HCl 240 mg capsule,extended release 24hr 240 mg PO QDAY 30 Days Qty: 30 0RF duloxetine 30 mg Capsule,Delayed Release(Dr/Ec) 30 mg PO BID 30 Days Qty: 60 0RF metformin 500 mg tablet 500 mg PO QDAY Qty: 30 0RF insulin glargine [Lantus U-100 Insulin] 100 unit/mL solution 10 unit subcut QPM Qty: 10 0RF insulin lispro 200 unit/mL (3 mL) insulin pen 1 sliding scale dose subcut USEASDIRECTD Qty: 6 0RF Rx Instructions: Less than/equal to 70 treat hypoglycemia per nursing protocol. 71-119 No additional insulin. 120-150 2 units. 151-200 4 units. 201-250 6 units. 251-300 8 units. 301-350 10 units. Greater than 351 12 units and notify your Doctor Discontinued diazepam [Valium] 10 MG tablet 10 mg PO BID Qty: 0 pantoprazole [Protonix] 40 MG tablet,delayed release (DR/EC) 40 mg PO QDAY Qty: 0 Patient Comments: TO SUPPRESS GASTRIC SECRETIONS pravastatin 40 mg Tablet 40 mg PO QDAY tizanidine 4 mg Tablet 4 mg PO BID gabapentin 300 mg Capsule 600 mg PO QDAY pioglitazone 30 mg Tablet 30 mg PO QDAY duloxetine 60 mg Capsule,Delayed Release(Dr/Ec) 120 mg PO BID potassium chloride 8 mEq tablet extended release 8 meq PO QDAY trazodone 100 mg Tablet 200 mg PO BID metformin 1,000 mg tablet 1,000 mg PO BID lisinopril 5 mg tablet 5 mg PO QDAY Rx Instructions: SBP>140/80 zolpidem 10 mg tablet 10 mg PO QPM insulin glargine [Lantus Solostar U-100 Insulin] 100 unit/mL (3 mL) insulin pen 55 unit SUBCUT QPM dapagliflozin propanediol [Farxiga] 5 mg Tablet 5 mg PO QAM quetiapine [Seroquel] 100 mg Tablet 100 mg PO QPM tramadol 50 mg tablet 50 mg PO TID PRN (Reason: pain) Qty: 20 0RF donepezil 5 mg tablet 5 mg PO DAILY Patient Comments: TAKE 1 TABLET BY MOUTH EVERY DAY DINNER methadone 10 mg tablet 10 mg PO TID Patient Comments: TAKE 1 TABLET BY MOUTH THREE TIMES DAILY rosuvastatin 5 mg tablet 5 mg PO HS Patient Comments: TAKE 1 TABLET BY MOUTH AT BEDTIME solifenacin 5 mg tablet 5 mg PO DAILY Referrals: Finn Painter MD [Primary Care Provider] - Patient/Caregiver Discharge Instructions Discharge Activity: as per physical therapy Education Materials: AFL/Afib, High Blood Sugar (Hyperglycemia), How to Check Your Blood Sugar, Self-Care for Strains and Sprains, Sepsis, Lumbar Flexion (Flexibility) Print Language: Ukrainian Stand Alone Forms: Kadie Award Info., Patient Portal Info Letter Discharge Order Discharge Orders: Discharge (Routine); Ordered 10/14/24 Ordered By: Alyssia Mancuso Quality Discharge Quality Measures VTE prophylaxis
[2024-10-14 14:43] LABS: Potassium 3.7 mMol/L (3.4-5.1)
[2024-10-14 15:36] LABS: IgG Index, CSF 0.18 (<0.70); IgG, CSF 2.9 mg/dL (0.8-7.7); IgG, Serum 1210 mg/dL (600-1540); Synthesis Rate IgG, CSF -24.8 mg/24 h (-9.9 TO +3.3)
--- NOTE | 2024-10-14 15:52 | PC.NURSE ---
Report given to Yoko Broderick at [facility] [[email or web address]]
[2024-10-15 06:22] LABS: Albumin, Serum 1.5 g/dL (3.6-5.1)
== END 2024-10-14 19:24 | disposition skilled nursing facility (03) | DRG 871 ==
LOC: SERX 17:45 → SERHOLD 23:49 → S2NX 09-29 23:24 → S2SX 09-30 03:29 → S2NX 09-30 05:27 → S2SX 10-04 10:42 → S2NX 10-07 20:04 → S3NX 10-13 12:13
PROVIDERS: Emergency Medicine; Internal Medicine; Internal Medicine Infectious Disease; Student in an Organized Health Care Education/Training Program; Admitting Provider Internal Medicine; Emergency Provider Emergency Medicine; PCP Family Medicine; Visit Provider Psychiatry & Neurology Neurology
PROC: (CPT 93312; principal; 2024-10-02 08:30)
DX: A41.02 Sepsis due to Methicillin resistant Staphylococcus aureus (principal); J15.212 Pneumonia due to Methicillin resistant Staphylococcus aureus; J96.01 Acute respiratory failure with hypoxia; E87.20 Acidosis, unspecified; N17.9 Acute kidney failure, unspecified; E87.1 Hypo-osmolality and hyponatremia; E87.0 Hyperosmolality and hypernatremia; F03.93 Unspecified dementia, unspecified severity, with mood disturbance; F03.94 Unspecified dementia, unspecified severity, with anxiety; G93.40 Encephalopathy, unspecified; I48.19 Other persistent atrial fibrillation; I48.92 Unspecified atrial flutter; J45.901 Unspecified asthma with (acute) exacerbation; E87.3 Alkalosis; G62.81 Critical illness polyneuropathy; E86.0 Dehydration; E11.9 Type 2 diabetes mellitus without complications; I10 Essential (primary) hypertension; E78.5 Hyperlipidemia, unspecified; E83.42 Hypomagnesemia; R65.20 Severe sepsis without septic shock; D64.9 Anemia, unspecified; E07.81 Sick-euthyroid syndrome; E83.39 Other disorders of phosphorus metabolism; E83.51 Hypocalcemia; G89.4 Chronic pain syndrome; E87.70 Fluid overload, unspecified; E86.1 Hypovolemia; K76.0 Fatty (change of) liver, not elsewhere classified; M79.7 Fibromyalgia; G25.3 Myoclonus; E87.6 Hypokalemia; K56.41 Fecal impaction; R00.1 Bradycardia, unspecified; I44.1 Atrioventricular block, second degree; R13.10 Dysphagia, unspecified; T50.915A Adverse effect of multiple unspecified drugs, medicaments and biological substances, initial encounter; Z77.22 Contact with and (suspected) exposure to environmental tobacco smoke (acute) (chronic); Z91.51 Personal history of suicidal behavior; Z91.148 Patient's other noncompliance with medication regimen for other reason; Z98.1 Arthrodesis status; Z79.4 Long term (current) use of insulin; Z79.84 Long term (current) use of oral hypoglycemic drugs; Z79.899 Other long term (current) drug therapy; Z79.01 Long term (current) use of anticoagulants; Z88.8 Allergy status to other drugs, medicaments and biological substances; Z91.048 Other nonmedicinal substance allergy status; Y92.230 Patient room in hospital as the place of occurrence of the external cause
CPT/HCPCS: 36415; 36600; 70450; 70551; 71045; 71250; 72149; 74018; 74176; 76705; 77002; 80048; 80053; 80061; 80069; 80074; 80202; 80307; 80320; 81001; 82010; 82040; 82042; 82140; 82164; 82271; 82784; 82803; 82945; 83036; 83605; 83735; 83873; 83880; 84100; 84132; 84145; 84157; 84295; 84439; 84443; 84481; 84484; 85014; 85018; 85025; 85610; 85730; 86331; 86403; 86635; 86703; 86788; 86789; 87040; 87070; 87077; 87081; 87186; 87205; 87400; 87498; 87811; 89051; 89220; 92526; 92610; 93005; 93306; 93971; 94002; 94003; 94640; 94644; 94645; 94660; 94667; 95816; 96361; 96365; 96366; 96367; 96368; 96372; 96375; 97162; 99291; A9579; J0283; J0360; J0456; J0612; J0613; J0696; J1120; J1200; J1643; J1644; J1650; J1815; J1885; J1940; J2060; J2250; J2270; J2310; J2405; J2543; J2765; J2919; J3010; J3370; J3371; J3475; J3480; J3490; J7030; J7040; J7050; J7120; J7512; J7999; P9047; A9270; G0480; J1920

== ENCOUNTER → 2025-03-04 | Outpatient (CLI) | payer OTHER, SELFPAY ==
[2025-03-04 10:31] LABS: Basophils % (Auto) 0 % (0-2.5); Eosinophils # (Auto) 0.2 Thou/mm3 (0.0-0.5); Eosinophils % (Auto) 2 % (0-10); Hematocrit 36.6 % (36.0-46.0); Hemoglobin 12.1 g/dL (12.0-16.0); Immature Granulocytes % (Auto) 1 % (0-0); Immature Granulocytes Auto 0.04 Thou/mm3 (0.00-0.00); Lymphocytes # (Auto) 3.5 Thou/mm3 (1.0-4.8); Lymphocytes % (Auto) 40 % (10-50); Mean Corpuscular HGB Conc 33.1 g/dl (31.0-37.0); Mean Corpuscular Hemoglobin 28.4 pg (25.0-35.0); Mean Corpuscular Volume 86 fL (80-100); Monocytes # (Auto) 0.6 Thou/mm3 (0.0-0.8); Monocytes % (Auto) 6 % (0-12); Neutrophils # (Auto) 4.5 Thou/mm3 (1.8-7.7); Neutrophils % (Auto) 51 % (37-80); Nucleated Red Blood Cell % 0 /100 WBC (0); Platelet Count 241 Thou/mm3 (140-440); RDW Standard Deviation 47.5 fL (36.4-46.3); Red Blood Count 4.26 Miln/mm3 (4.00-5.20); White Blood Count 8.8 Thou/mm3 (3.6-11.0)
[2025-03-04 10:37] LABS: Glucose Estimated Average 255 mg/dL (80-131); Hemoglobin A1C 10.5 % Hgb (4.8-6.0)
[2025-03-04 11:11] LABS: Alanine Aminotransferase 15 U/L (10-49); Albumin, Serum 4.4 gm/dL (3.4-4.8); Alkaline Phosphatase 110 U/L (46-116); Anion Gap 8 (7-16); Aspartate Amino Transferase 18 U/L (0-34); BUN/Creatinine Ratio 19 Ratio (12-20); Bilirubin,Direct < 0.1 mg/dL (0.0-0.3); Bilirubin,Total 0.3 mg/dL (0.3-1.2); Blood Urea Nitrogen 17 mg/dL (9-23); Calcium 9.2 mg/dL (8.3-10.6); Carbon Dioxide 27.3 mMol/L (20.0-31.0); Chloride 104 mMol/L (98-107); Creatinine (Component) 0.9 mg/dL (0.6-1.3); Free T4 (Free Thyroxine) 0.96 ng/dL (0.89-1.76); Glucose 255 mg/dL (74-106); Osmolality,Calculated 288 (275-295); Potassium 3.8 mMol/L (3.4-5.1); Sodium 139 mMol/L (136-145); Thyroid Stimulating Hormone 3.82 uIU/mL (0.55-4.78); Total Protein 6.6 gm/dL (5.7-8.2); eGFR > 60 See Note
[2025-03-04 11:26] LABS: Cholesterol 145 mg/dL (132-200); HDL Cholesterol 49 mg/dL (40-60); LDL Cholesterol,Calculated 57 mg/dL (0-130); Triglycerides 196 mg/dL (30-150)
[2025-03-04 12:21] LABS: Creatinine MALB Rnd Ur 82 mg/dL (30-125); Microalbumin, Random Urine < 3 mg/L (0-300)
== END | disposition home or self-care (01) ==
PROVIDERS: PCP Family Medicine; Referring Provider Family Medicine; Visit Provider Family Medicine
DX: I10 Essential (primary) hypertension (principal); E11.65 Type 2 diabetes mellitus with hyperglycemia; R53.83 Other fatigue
CPT/HCPCS: 36415; 80048; 80061; 80076; 82043; 82570; 83036; 84439; 84443; 85025

== ENCOUNTER → 2025-06-26 | Outpatient (CLI) | payer OTHER, SELFPAY ==
--- NOTE | 2025-06-26 14:00 | XR_ITS ---
Examination: CT thoracic spine without contrast 2-D sagittal reconstructions 2-D coronal reconstructions 3-D reconstructions. Exam date and time:June 26, 2025 1404 hours INDICATIONS: Chronic back pain several months CTDI:vol (mGy) 21.5 DLP: (mGycm) 693 Technique: Multiple 2 mm axial sections of the thoracic spine have been obtained. The coronal and sagittal reconstructions have been obtained. 3-D reconstructions have been obtained. Low dose protocols were performed. One or more of the following dose reduction techniques were used; automated exposure control, adjustment of the mA and/or KV according to patient size, use of iterative reconstruction technique. Findings: Adequate alignment thoracic vertebral bodies on the lateral view. Moderate osteopenia. Mild to moderate diffuse thoracic disc narrowing. Thoracic pedicles laminae intact No focal soft tissue disc protrusion Calcified osteophyte formation posteriorly T11-T12 level measuring 4 mm IMPRESSION: Mild to moderate diffuse thoracic degenerative disc disease
== END | disposition home or self-care (01) ==
LOC: CCTX 13:35
PROVIDERS: PCP Family Medicine; Referring Provider Family Medicine; Visit Provider Family Medicine
DX: M51.34 Other intervertebral disc degeneration, thoracic region (principal)
CPT/HCPCS: 72128

== ENCOUNTER → 2025-07-02 | Outpatient (CLI) | payer OTHER, SELFPAY ==
--- NOTE | 2025-07-02 13:15 | XR_ITS ---
Examination: Screening digital mammography, bilateral Computer aided detection 3-D breast Tomosynthesis, bilateral Date and time of exam: July 02, 2025 1316 hours Compared to mammograms dating to 07/17/2005 Indication: Screening Technique: Nonmagnified MLO, CC views of the breasts to been obtained, reconstructed from 3-D Tomosynthesis images. R2 computer aided detection program utilized for evaluation of suspicious masses and/or abnormal calcifications. 3-D Tomosynthesis images obtained. Findings: Scattered areas of fibroglandular density. Benign calcifications. No interval suspicious masses Impression: BI-RADS category II: Benign Findings. Recommend 1 year follow-up mammogram.
== END | disposition home or self-care (01) ==
LOC: CDIM 13:04
PROVIDERS: Referring Provider Family Medicine; Visit Provider Family Medicine
DX: Z12.31 Encounter for screening mammogram for malignant neoplasm of breast (principal); R92.323 Mammographic fibroglandular density, bilateral breasts; R92.1 Mammographic calcification found on diagnostic imaging of breast
CPT/HCPCS: 77063; 77067

== ENCOUNTER 2025-07-21 23:24 | Emergency (ER) | payer OTHER, SELFPAY ==
[2025-07-21 23:28] VITALS: BP 97/60; PULSE 70; RESP 18; TEMP 36.7; O2SAT 97
[2025-07-21 23:31] VITALS: PULSE 68; RESP 16; O2SAT 99
--- NOTE | 2025-07-21 23:32 | PD.EDAMS ---
Altered Mental Status RME/HPI General Chief Complaint: Altered Mental Status Stated Complaint: AMS Time Seen by Provider: 07/21/25 23:28 Arrival date/time: 07/21/25 23:24 RME / HPI RME / HPI narrative: Dr. Louis?s Main ED Evaluation: 65yo female with a history of IDDM, HTN, aFib, HLD BIBA from home presents to the ED for a chief complaint of generalized weakness. Per EMS, reported the patient started to become generally weak after dinner tonight, reporting the patient had difficulty walking and talking. Blood sugar en route was 221. Blood pressure was 92/56. EMS administered 750mL LR en route. Patient is awake and alert, but has incomprehensible speech and is unable to provide any history. Related Data Previous Rx's ?Medication ?Instructions ?Recorded polyethylene glycol 3350 17 gram 17 g PO QDAY PRN constipation #30 10/11/24 oral powder packet (HealthyLax) ea insulin glargine 100 unit/mL 10 unit (0.1 mL) subcut QPM #10 mL 10/13/24 subcutaneous solution (Lantus U-100 Insulin) insulin lispro 200 unit/mL (3 mL) 1 sliding scale dose subcut 10/13/24 subcutaneous pen USEASDIRECTD #6 mL metformin 500 mg tablet 500 mg PO QDAY #30 tabs 10/13/24 Allergies Allergy/AdvReac Type Severity Reaction Status Date / Time garlic Allergy Severe Difficulty Verified 09/28/24 15:51 Breathing onion Allergy Severe Difficulty Verified 09/28/24 15:51 Breathing oregano Allergy Severe Difficulty Verified 09/28/24 15:51 Breathing pepper (genus Capsicum) Allergy Severe Difficulty Verified 09/28/24 15:51 Breathing phenylephrine Allergy Severe SEVER Verified 09/28/24 15:51 ANXIETY, HALLUCINATION adhesive tape Allergy Mild Rash Verified 09/28/24 15:51 oxymetazoline Allergy Unknown Verified 09/28/24 15:51 xylometazoline Allergy Unknown Verified 09/28/24 15:51 ondansetron HCl AdvReac Mild Vomiting Verified 09/28/24 15:51 Review of Systems Review of Systems Systems Reviewed: All systems reviewed, normal except as documented Past Medical History Past Medical History NEUROLOGIC: Positive Neurological Disorders and Migraine CARDIAC: Positive Cardiac Disorders, Hypercholesterolemia, Hypertension and Hypotension; Negative Congestive Heart Failure RESPIRATORY: Negative Chronic Obstructive Pulmonary Disease (COPD) or Asthma GASTROINTESTINAL: Negative Gastrointestinal Disorders GENITOURINARY: Negative Renal Disease REPRODUCTIVE: Positive Previous Pregnancies MUSCULOSKELETAL: Positive Musculoskeletal Disorders, Rheumatoid Arthritis, Degenerative Disk Disease, Fibromyalgia and Degenerative Joint Disease ENDOCRINE: Positive Endocrine Disorders, Diabetes Mellitus Type 1 and Diabetes Mellitus Type 2 HEMATOLOGIC: Negative Sickle Cell Disease PSYCHO/SOCIAL: Positive Depression and Anxiety Surgical History SURGICAL: Positive Tonsillectomy Social History SMOKING STATUS: Never smoker ED Exam Narrative Physical exam: Generally patient is alert follows commands oriented but somewhat slow to respond to questioning, heart regular rate and rhythm, lungs clear to auscultation, abdomen soft bowel sounds present on send nontender, extremities no edema, neurologic exam shows the patient be alert and oriented but slow to respond to questioning without focal motor deficits. Course Quality Measures none Orders Category Date Time Status In and Out Catheter X1 Care 07/21/25 23:[address] head/brain wo con Stat Exams 07/21/25 23:33 Taken Alcohol, Blood Medical Stat Lab 07/21/25 23:41 Completed BMP [Basic Metabolic Panel] Stat Lab 07/22/25 01:54 Completed CBC Stat Lab 07/21/25 23:41 Completed CMP [Comprehensive Metabolic Panel] Stat Lab 07/21/25 23:41 Completed Drug Screen,Urine Stat Lab 07/21/25 23:40 Completed TSH [Thyroid Stimulating Hormone] Stat Lab 07/21/25 23:41 Completed Troponin I Stat Lab 07/21/25 23:41 Completed UA [Urinalysis] Stat Lab 07/21/25 23:40 Completed ALBUTEROL RT 0.5ml [Proventil Rt 0.5ml] Med 07/22/25 00:38 Discontinued 15 mg INH X1 ONE Sodium Chloride Rt Kamille 0.9% [NS Rt Kamille 0.9%] Med 07/22/25 00:38 Active 3 ml INH PRN PRN Vital Signs Vital signs: Vital Signs Temperature 98.1 F 07/21/25 23:28 Pulse Rate 70 07/21/25 23:28 Respiratory Rate 18 07/21/25 23:28 Blood Pressure 97/60 07/21/25 23:28 Pulse Oximetry (%) 97 07/21/25 23:28 Oxygen Delivery Method Room Air 07/21/25 23:28 Altered Mental Status MDM Narrative MDM Narrative:: Scribe Attestation: 07/21/25 - I, Natalia Sanjay, am scribing for and in the presence of Dr. Louis. I interpreted all labs. Head CT is negative. Urine is not infected. Urinary tox screen is positive for benzodiazepines. Patient currently is on Suboxone for pain control. I do long discussion with the patient and her . They do not think that she got too much benzodiazepine medication. However, the patient is back to baseline at this time. Patient will be discharged in stable condition. Cardiac workup was unremarkable. EKG did show normal sinus rhythm with a first-degree AV block. No ischemic changes. QRS duration was 76 ms. Patient's potassium was 5.3 so the patient received 15 mg of continuous albuterol which brought down the patient's potassium to 4.7. Patient does have worsening renal function than normal. This was brought to the attention of the patient and her who will follow-up with primary care for further treatment and evaluation. Patient data External records reviewed:: [facility] previous records (Per chart review, patient was admitted here on 09/28/24 for hypoxia.) Clinical information provided by:: patient Social determinants that could affect healthcare access:: none Patient has the following chronic illnesses:: IDDM, HTN, aFib, HLD How is presenting disease/condition affected by chronic disease/condition?: uneffected by Evaluation data The following diagnostics were reviewed and interpreted by me:: lab results, radiology exam(s) and EKG tracing(s) Lab and/or radiology exams considered but not ordered:: none Interpretation Summary: [place] Preliminary Report Draft Patient: SD ARAIZA. Record#: [id number] Birthdate: 1960 Age/Sex: 65 / F Location: [facility] Attending Dr: Ordering Physician: Date of Service: Procedure(s): Accession Number(s): cc: ~ CT scan of the head without intravenous contrast (axial sections with sagittal and coronal reformats). July 22, 2025 0011 hours Clinical History: Altered mental status Comparison: None Findings: There is no intracranial hemorrhage, extra-axial collection, mass, mass-effect or midline shift. There is mild white matter disease within the cerebral hemispheres which is nonspecific but may represent chronic small vessel ischemic change. There is good brice-white differentiation. There is no CT evidence of acute large vascular territorial infarct. 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 There is atherosclerotic calcification along the intracranial left vertebral artery and carotid siphons. Visualized paranasal sinuses and tympanomastoid cavities are clear except for bilateral maxillary sinus mucosal thickening. The bony calvarium is intact. Impression: No intracranial hemorrhage, mass-effect or midline shift. No CT evidence of acute large vascular territorial infarct. Report Electronically Signed By: Jesus Baker 07/22/2025 12:37:35 AM Medications / Prescriptions Medications or Prescriptions considered but not ordered:: none Medication administrations:: Medication Administration History Sodium Chloride (Sodium Chloride Rt Kamille 0.9% 3 Ml Nebu) 3 ml INH PRN PRN PRN Reason: SOLN Stop: 08/21/25 00:37 Last Admin: 07/22/25 00:56 Dose: 3 ml Documented By: FRANKY Discontinued Medications Albuterol (Albuterol Rt 2.5 Mg/0.5 Ml Nebu) 15 mg INH X1 ONE Stop: 07/22/25 00:39 Last Admin: 07/22/25 00:55 Dose: 15 mg Documented By: FRANKY see above Consultations Consultation(s) initiated? (list below): No Diagnosis Differential diagnosis altered mental status: other (See MDM.) Most likely diagnosis given after review of the tests above:: see clinical impression below Admission Indicated Admission indicated?: not indicated Admission Request Was there a request for admission?: No Disposition Plan Disposition Plan: Discharge Discharge Attestation Discharge Attestation: The patient and all family members were given an opportunity to ask questions and understood the discharge instructions. Discharge instructions specifically effects, indications for sooner follow up or return to the emergency department, and the expected course of current diagnosis. Patient condition: Stable Discharge Plan Plan Patient Disposition: HOME (Self Care) Prescriptions/Referrals Prescriptions/Med Rec: No Action polyethylene glycol 3350 [HealthyLax] 17 gram Powder In Packet 17 g PO QDAY PRN (Reason: constipation) Qty: 30 0RF metformin 500 mg tablet 500 mg PO QDAY Qty: 30 0RF insulin glargine [Lantus U-100 Insulin] 100 unit/mL solution 10 unit subcut QPM Qty: 10 0RF insulin lispro 200 unit/mL (3 mL) insulin pen 1 sliding scale dose subcut USEASDIRECTD Qty: 6 0RF Rx Instructions: Less than/equal to 70 treat hypoglycemia per nursing protocol. 71-119 No additional insulin. 120-150 2 units. 151-200 4 units. 201-250 6 units. 251-300 8 units. 301-350 10 units. Greater than 351 12 units and notify your Doctor Referrals: Finn Painter MD [Primary Care Provider, [facility]] - In 1 week Problem List Clinical Impression: Weakness, Renal insufficiency Patient/Caregiver Discharge Instructions Education Materials: ED Weakness (Uncertain Cause), ED Renal Insufficiency Additional Instructions: Continue current medications at this time. Follow-up with your doctor for further treatment and evaluation. Return to ER as needed or if condition worsens. Print Language: Zambian Stand Alone Forms: Kadie Award Info., Patient Portal Info Letter
--- NOTE | 2025-07-21 23:33 | XR_ITS ---
Examination: CT brain head without contrast. 2-D sagittal coronal reconstructions Date and time of exam:July 22, 2025, 0011 hrs. Indications: Altered mental status beginning today Comparison: September 28, 2024 CTDI: vol (mGy):50.30 DLP: (mGycm):1057 Technique: Multiple CT axial sections of the brain have been obtained, 5 mm slice thickness. Contrast has not been administered. 2-D sagittal, coronal reconstructions have been obtained Low dose protocols were performed. One or more of the following dose reduction techniques were used; automated exposure control, adjustment of the mA and/or KV according to patient size, use of iterative reconstruction technique. Findings: No significant ventricular enlargement. Intra-axial or extra-axial hemorrhage density is not seen. No mass effect or midline shift Basal cisterns are not remarkable. Fourth ventricle is midline. Cranial vault intact. Impression: Negative for acute hemorrhage, mass effect or midline shift Advise clinical correlation follow-up accordingly
[2025-07-21 23:38] VITALS: BP 87/64; RESP 15; TEMP 36.6; O2SAT 95
[2025-07-21 23:39] VITALS: BMI 25.2
[2025-07-21 23:46] LABS: Collection Type, Urine Voided
[2025-07-21 23:47] LABS: Basophils # (Auto) 0.0 Thou/mm3 (0.0-0.2); Basophils % (Auto) 0 % (0-2.5); Eosinophils # (Auto) 0.2 Thou/mm3 (0.0-0.5); Eosinophils % (Auto) 2 % (0-10); Hematocrit 32.5 % (36.0-46.0); Hemoglobin 10.4 g/dL (12.0-16.0); Immature Granulocytes Auto 0.03 Thou/mm3 (0.00-0.00); Lymphocytes # (Auto) 2.0 Thou/mm3 (1.0-4.8); Lymphocytes % (Auto) 21 % (10-50); Mean Corpuscular HGB Conc 32.0 g/dl (31.0-37.0); Mean Corpuscular Hemoglobin 29.6 pg (25.0-35.0); Mean Corpuscular Volume 93 fL (80-100); Monocytes # (Auto) 0.8 Thou/mm3 (0.0-0.8); Monocytes % (Auto) 9 % (0-12); Neutrophils # (Auto) 6.4 Thou/mm3 (1.8-7.7); Neutrophils % (Auto) 68 % (37-80); Nucleated Red Blood Cell # 0.00 Thou/mm3 (0.00-0.00); Nucleated Red Blood Cell % 0 /100 WBC (0); Platelet Count 258 Thou/mm3 (140-440); RDW Standard Deviation 46.7 fL (36.4-46.3); Red Blood Count 3.51 Miln/mm3 (4.00-5.20); White Blood Count 9.4 Thou/mm3 (3.6-11.0)
[2025-07-21 23:50] LABS: Bilirubin,Urine Negative (Negative); Blood,Urine Negative (Negative); Clarity,Urine Clear (Clear/Hazy); Color,Urine Lt-Yellow (Lt Yel-Yel); Glucose, Urine Negative (Negative); Hyaline Casts,Urine < 1 /hpf (0-1); Ketones,Urine Negative (Negative); Leukocyte Esterase,Urine Negative (Negative); Nitrite,Urine Negative (Negative); PH,Urine 5.0 (5.0-7.0); Protein,Urine Negative (Neg - Trace); RBC,Urine < 1 /hpf (0-3); Specific Gravity,Urine 1.010 (1.001-1.035); Squamous Epithelial Cell,Urine < 1 /hpf (0-5); Urobilinogen,Urine Negative mg/dL (0.0-1.0); WBC,Urine 1 /hpf (0-5)
[2025-07-22 00:03] LABS: Amphetamine/Methamp Scrn,U Negative (Negative); Barbiturate Screen,Urine Negative (Negative); Benzodiazepines Screen,Urine Positive (Negative); Benzoylecgonine Screen, Ur Negative (Negative); Fentanyl Screen,Urine Negative (Negative); Opiate Screen,Urine Negative (Negative); THC Screen,Urine Negative (Negative)
[2025-07-22 00:18] LABS: Alanine Aminotransferase 8 U/L (10-49); Albumin, Serum 4.0 gm/dL (3.4-4.8); Albumin/Globulin Ratio 1.9 (1.2-2.2); Alcohol, Blood Medical < 3.0 mg/dL (0-10.0); Alkaline Phosphatase 104 U/L (46-116); Anion Gap 11 (7-16); Aspartate Amino Transferase 18 U/L (0-34); BUN/Creatinine Ratio 9 Ratio (12-20); Bilirubin,Total 0.2 mg/dL (0.3-1.2); Blood Urea Nitrogen 28 mg/dL (9-23); Calcium 9.4 mg/dL (8.3-10.6); Calcium (Corrected) 9.4 mg/dL (8.5-10.1); Carbon Dioxide 23.9 mMol/L (20.0-31.0); Chloride 107 mMol/L (98-107); Creatinine (Component) 3.1 mg/dL (0.6-1.3); Estimated Creatinine Clearance 18.7 mL/min (>60); Globulin 2.1 gm/dL (2.3-3.5); Glucose 170 mg/dL (74-106); Osmolality,Calculated 292 (275-295); Potassium 5.3 mMol/L (3.4-5.1); Sodium 142 mMol/L (136-145); Thyroid Stimulating Hormone 1.12 uIU/mL (0.55-4.78); Total Protein 6.1 gm/dL (5.7-8.2); Troponin I < 0.002 ng/mL (0.0-0.045); eGFR 16 See Note
--- NOTE | 2025-07-22 00:38 | PRELIM_ITS ---
CT scan of the head without intravenous contrast (axial sections with sagittal and coronal reformats). July 22, 2025 0011 hours Clinical History: Altered mental status Comparison: None Findings: There is no intracranial hemorrhage, extra-axial collection, mass, mass-effect or midline shift. There is mild white matter disease within the cerebral hemispheres which is nonspecific but may represent chronic small vessel ischemic change. There is good brice-white differentiation. There is no CT evidence of acute large vascular territorial infarct. 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 There is atherosclerotic calcification along the intracranial left vertebral artery and carotid siphons. Visualized paranasal sinuses and tympanomastoid cavities are clear except for bilateral maxillary sinus mucosal thickening. The bony calvarium is intact. Impression: No intracranial hemorrhage, mass-effect or midline shift. No CT evidence of acute large vascular territorial infarct. Report Electronically Signed By: Jesus Baker 07/22/2025 12:37:35 AM [EST]
[2025-07-22 00:55] VITALS: PULSE 64
[2025-07-22] MEDS: ALBUTEROL RT 2.5 MG/0.5 ML NEBU 15 MG INH (00:55)
[2025-07-22] MEDS: SODIUM CHLORIDE RT SOL 0.9% 3 ML NEBU INH (00:56)
[2025-07-22 00:57] VITALS: PULSE 71; RESP 16; O2SAT 98
[2025-07-22 02:18] LABS: Anion Gap 9 (7-16); BUN/Creatinine Ratio 11 Ratio (12-20); Blood Urea Nitrogen 31 mg/dL (9-23); Calcium 8.7 mg/dL (8.3-10.6); Carbon Dioxide 26.0 mMol/L (20.0-31.0); Chloride 109 mMol/L (98-107); Creatinine (Component) 2.8 mg/dL (0.6-1.3); Estimated Creatinine Clearance 20.7 mL/min (>60); Glucose 109 mg/dL (74-106); Osmolality,Calculated 294 (275-295); Potassium 4.9 mMol/L (3.4-5.1); Sodium 144 mMol/L (136-145); eGFR 18 See Note
[2025-07-22 02:51] VITALS: BP 110/51; PULSE 69; RESP 18; TEMP 36.4; O2SAT 95
== END 2025-07-22 02:57 | disposition home or self-care (01) ==
PROVIDERS: Emergency Provider Emergency Medicine; PCP Family Medicine
DX: R53.1 Weakness (principal); N28.9 Disorder of kidney and ureter, unspecified; I10 Essential (primary) hypertension; E78.5 Hyperlipidemia, unspecified; I48.91 Unspecified atrial fibrillation; E11.29 Type 2 diabetes mellitus with other diabetic kidney complication
CPT/HCPCS: 36415; 70450; 80048; 80053; 80307; 80320; 81001; 84443; 84484; 85025; 94644; 99284; G0480

== ENCOUNTER → 2025-08-07 | Outpatient (CLI) | payer OTHER, SELFPAY ==
[2025-08-07 17:09] LABS: Anion Gap 12 (7-16); BUN/Creatinine Ratio 13 Ratio (12-20); Blood Urea Nitrogen 24 mg/dL (9-23); Calcium 9.1 mg/dL (8.3-10.6); Carbon Dioxide 27.5 mMol/L (20.0-31.0); Chloride 102 mMol/L (98-107); Creatinine (Component) 1.8 mg/dL (0.6-1.3); Glucose 138 mg/dL (74-106); Osmolality,Calculated 287 (275-295); Potassium 4.4 mMol/L (3.4-5.1); Sodium 141 mMol/L (136-145); eGFR 31 See Note
[2025-08-07 17:11] LABS: Glucose Estimated Average 151 mg/dL (80-131); Hemoglobin A1C 6.9 % Hgb (4.8-6.0)
== END | disposition home or self-care (01) ==
LOC: COPL 16:02
PROVIDERS: PCP Family Medicine; Referring Provider Family Medicine; Visit Provider Family Medicine
DX: E11.65 Type 2 diabetes mellitus with hyperglycemia (principal)
CPT/HCPCS: 36415; 80048; 83036